=== PATIENT | female | born 1930 | race Caucasian/White ===

== ENCOUNTER 2017-09-12 17:00 | Inpatient (IN) | payer MEDICARE ==
[2017-09-12] VITALS (16 sets, daily range): BP systolic 121–258; BP diastolic 61–121; PULSE 77–130; RESP 16–22; O2SAT 94–98
[~2017-09-12] VITALS: Ht 152.4 cm; Wt 65.3 kg
[~2017-09-12 17:00] MED LIST: BOSU100T PO; ENAL5TAB PO; TYLE500T PO; VERA120T3 PO
[2017-09-12 18:06] LABS: AUTOMATED NEUTROPHIL # 8.5 TH/MM3 (1.8-7.7); BASOPHIL # 0.1 TH/MM3 (0-0.2); BASOPHIL % 0.8 % (0.0-2.0); EOSINOPHIL % 0.4 % (0.0-4.0); HEMATOCRIT 38.2 % (35.0-46.0); HEMO FLAGS DIFF FINAL; LYMPH % 10.1 % (9.0-44.0); LYMPHOCYTE # 1.1 TH/MM3 (1.0-4.8); MEAN CELL VOLUME 87.9 FL (80.0-100.0); MEAN CORPUSCULAR HEMOGLOBIN 30.3 PG (27.0-34.0); MEAN CORPUSCULAR HGB CONC 34.5 % (32.0-36.0); MONO % 10.3 % (0.0-8.0); NEUT % 78.4 % (16.0-70.0); PLATELET COUNT 391 TH/MM3 (150-450); RED BLOOD COUNT 4.35 MIL/MM3 (4.00-5.30); RED CELL DISTRIBUTION WIDTH 14.8 % (11.6-17.2); WHITE BLOOD COUNT 10.8 TH/MM3 (4.0-11.0)
[2017-09-12 18:13] LABS: INTERNATIONAL NORMALIZED RATIO 1.1 RATIO; PROTHROMBIN TIME - PATIENT 11.1 SEC (9.8-11.6)
[2017-09-12 18:14] LABS: APTT (PATIENT) 24.5 SEC (24.3-30.1)
[2017-09-12 18:21] LABS: ALT (GPT) 18 U/L (10-53)
[2017-09-12 18:23] LABS: ANION GAP 8 MEQ/L (5-15); AST (GOT) 25 U/L (15-37); BICARBONATE 24.3 MEQ/L (21.0-32.0); BLOOD UREA NITROGEN 22 MG/DL (7-18); CHLORIDE 98 MEQ/L (98-107); GLOMERULAR FILTRATION RATE 39 ML/MIN (>89); SODIUM (NA) 130 MEQ/L (136-145)
[2017-09-12 18:24] LABS: ALKALINE PHOSPHATASE 92 U/L (45-117); TOTAL BILIRUBIN ADULT 0.5 MG/DL (0.2-1.0)
[2017-09-12 18:25] LABS: POTASSIUM 4.9 MEQ/L (3.5-5.1)
--- NOTE | 2017-09-12 18:29 | RADRPT ---
EXAM DATE/TIME: 09/12/2017 18:18 [facility] COMPARISON: CT BRAIN W/O CONTRAST, April 13, 2014, 14:32. INDICATIONS : Trauma; fall. RADIATION DOSE: 31.05 CTDIvol (mGy) MEDICAL HISTORY : Hypertension. CLL SURGICAL HISTORY : Hysterectomy. ENCOUNTER: Initial ACUITY: 1 day PAIN SCALE: 6/10 LOCATION: cranial TECHNIQUE: Multiple contiguous axial images were obtained of the head. Using automated exposure control and adj ustment of the mA and/or kV according to patient size, radiation dose was kept as low as reasonably a chievable to obtain optimal diagnostic quality images. DICOM format image data is available electro nically for review and comparison. FINDINGS: There are low density subdural collections along both frontal convexities measuring up to 9 mm in max imal thickness on the right and 5 mm in maximal thickness on the left. 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 There is associated approximately 2 mm of leftward mid line shift. I don't see any acute blood. No mass lesion demonstrated. No evidence of an acute ischemic event. Small right parietal scalp contusion. CONCLUSION: 1. 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 2. No acute hemorrhage. Phillip Lua MD on September 12, 2017 at 18:24 Board Certified Radiologist. This report was verified electronically.
[2017-09-12] MEDS ORDERED: MORPHINE SULFATE 4 MG/ML INJ IV PUSH ONE (18:30)
[2017-09-12] MEDS ORDERED: ONDANSETRON HCL 4 MG/2 ML VIAL IV PUSH ONE (18:30)
--- NOTE | 2017-09-12 18:32 | PD ---
HPI Chief Complaint: Fall Time Seen by Provider: 17:00 Travel History International Travel<30 days: No Contact w/Intl Traveler<30days: No Traveled to known affect area: No History of Present Illness HPI Patient is an 87-year-old female presenting to the emergency department for evaluation after fall. Patient was brought to the emergency department via EMS , she was in her front yard talking to her neighbor when the neighbor's dog pulled the leash causing patient to lose her balance and fall face first into the car. According to neighbors report to EMS patient had no loss of consciousness. She currently denies any pain. She has skin tears to her right elbow and left arm. Patient denies any neck or back pain, abdominal pain, headache. PFSH Past Medical History Cancer: Yes (LEUKEMIA) Diminished Hearing: No Hypertension: Yes Tetanus Vaccination: Unknown Past Surgical History Hysterectomy: Yes Social History Alcohol Use: No Tobacco Use: No Substance Use: No Allergies-Medications (Allergen,Severity, Reaction): Coded Allergies: No Known Allergies (Unverified Allergy, Unknown, 09/12/17) Reported Meds & Prescriptions Reported Meds & Active Scripts Active Review of Systems ROS Limitations: Poor Historian Except as stated in HPI: all other systems reviewed are Neg Skin: Positive Other (skin tears) Physical Exam Exam Limitations: Poor Historian Narrative GENERAL: Thin, well-developed, alert, confused elderly female. SKIN: Warm and dry. 2 Superficial skin tears to left upper arm, right elbow HEAD: Atraumatic. Normocephalic. EYES: Pupils equal and round. No scleral icterus. No injection or drainage. ENT: No nasal bleeding or discharge. Mucous membranes pink and moist. NECK: Trachea midline. No JVD. No cervical spine tenderness or step-off noted. Cervical collar on. CARDIOVASCULAR: Regular rate and rhythm. RESPIRATORY: No accessory muscle use. Clear to auscultation. Breath sounds equal bilaterally. GASTROINTESTINAL: Abdomen soft, non-tender, nondistended. Hepatic and splenic margins not palpable. MUSCULOSKELETAL: Extremities without clubbing, cyanosis, or edema. No obvious deformities. NEUROLOGICAL: Awake and alert, oriented to self. No obvious cranial nerve deficits. Motor grossly within normal limits. Five out of 5 muscle strength in the arms and legs. Normal speech. PSYCHIATRIC: Appropriate mood and affect; insight and judgment impaired. Data Data Last Documented VS Vital Signs Date Time Temp Pulse Resp B/P (MAP) Pulse Ox O2 Delivery O2 Flow Rate FiO2 09/12/17 19:15 79 16 225/102 (143) [address] Brain W/O Iv Contrast(Rout) (09/12/17 ) Ct Cerv Spine W/O Contrast (09/12/17 ) Urinalysis - C+S If Indicated (09/12/17 17:19) Cath For Specimen (09/12/17 17:19) Complete Blood Count With Diff (09/12/17 17:19) Comprehensive Metabolic Panel (09/12/17 17:19) Act Partial Throm Time (Ptt) (09/12/17 17:19) Prothrombin Time / Inr (Pt) (09/12/17 17:19) Wound Care (09/12/17 17:19) Ondansetron Inj (Zofran Inj) (09/12/17 18:30) Morphine Inj (Morphine Inj) (09/12/17 18:30) Metoprolol Tartrate Inj (Lopressor Inj) (09/12/17 18:45) Urine Culture (09/12/17 16:15) Admit Order (Ed Use Only) (09/12/17 19:11) Consult Neurosurgery (09/12/17 ) Labs Laboratory Tests Test 09/12/17 16:15 09/12/17 17:50 Urine Color YELLOW Urine Turbidity CLEAR Urine pH 6.5 Urine Specific [place] 1.017 Urine Protein TRACE mg/dL Urine Glucose (UA) NEG mg/dL Urine Ketones 10 mg/dL Urine Occult Blood SMALL Urine Nitrite NEG Urine Bilirubin NEG Urine Urobilinogen LESS THAN 2.0 MG/DL Urine Leukocyte Esterase LARGE Urine RBC 9 /hpf Urine WBC 12 /hpf Urine Squamous Epithelial Cells <1 /hpf Urine Transitional Epithelial Cells 1 /hpf Urine Mucus FEW /lpf Microscopic Urinalysis Comment CATH-CULTURE IND White Blood Count 10.8 TH/MM3 Red Blood Count 4.35 MIL/MM3 Hemoglobin 13.2 GM/DL Hematocrit 38.2 % Mean Corpuscular Volume 87.9 FL Mean Corpuscular Hemoglobin 30.3 PG Mean Corpuscular Hemoglobin Concent 34.5 % Red Cell Distribution Width 14.8 % Platelet Count 391 TH/MM3 Mean Platelet Volume 8.1 FL Neutrophils (%) (Auto) 78.4 % Lymphocytes (%) (Auto) 10.1 % Monocytes (%) (Auto) 10.3 % Eosinophils (%) (Auto) 0.4 % Basophils (%) (Auto) 0.8 % Neutrophils # (Auto) 8.5 TH/MM3 Lymphocytes # (Auto) 1.1 TH/MM3 Monocytes # (Auto) 1.1 TH/MM3 Eosinophils # (Auto) 0.0 TH/MM3 Basophils # (Auto) 0.1 TH/MM3 CBC Comment DIFF FINAL Differential Comment Prothrombin Time 11.1 SEC Prothromb Time International Ratio 1.1 RATIO Activated Partial Thromboplast Time 24.5 SEC Blood Urea Nitrogen 22 MG/DL Creatinine 1.29 MG/DL Random Glucose 109 MG/DL Total Protein 8.1 GM/DL Albumin 4.2 GM/DL Calcium Level 9.2 MG/DL Alkaline Phosphatase 92 U/L Aspartate Amino Transf (AST/SGOT) 25 U/L Alanine Aminotransferase (ALT/SGPT) 18 U/L Total Bilirubin 0.5 MG/DL Sodium Level 130 MEQ/L Potassium Level 4.9 MEQ/L Chloride Level 98 MEQ/L Carbon Dioxide Level 24.3 MEQ/L Anion Gap 8 MEQ/L Estimat Glomerular Filtration Rate 39 ML/MIN MDM Medical Decision Making Medical Screen Exam Complete: Yes Emergency Medical Condition: Yes Interpretation(s) Last Impressions Head CT 09/12/17 0000 Signed Impressions: Service Date/Time: Tuesday, September 12, 2017 18:18 - CONCLUSION: 1. 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 2. No acute hemorrhage. Phillip Lua MD Cervical Spine CT 09/12/17 0000 Signed Impressions: Service Date/Time: Tuesday, September 12, 2017 18:18 - CONCLUSION: Nondisplaced hairline fracture of the right and left lateral masses of C2. Phillip Lua MD Laboratory Tests Test 09/12/17 16:15 09/12/17 17:50 Urine Color YELLOW Urine Turbidity CLEAR Urine pH 6.5 Urine Specific [place] 1.017 Urine Protein TRACE mg/dL Urine Glucose (UA) NEG mg/dL Urine Ketones 10 mg/dL Urine Occult Blood SMALL Urine Nitrite NEG Urine Bilirubin NEG Urine Urobilinogen LESS THAN 2.0 MG/DL Urine Leukocyte Esterase LARGE Urine RBC 9 /hpf Urine WBC 12 /hpf Urine Squamous Epithelial Cells <1 /hpf Urine Transitional Epithelial Cells 1 /hpf Urine Mucus FEW /lpf Microscopic Urinalysis Comment CATH-CULTURE IND White Blood Count 10.8 TH/MM3 Red Blood Count 4.35 MIL/MM3 Hemoglobin 13.2 GM/DL Hematocrit 38.2 % Mean Corpuscular Volume 87.9 FL Mean Corpuscular Hemoglobin 30.3 PG Mean Corpuscular Hemoglobin Concent 34.5 % Red Cell Distribution Width 14.8 % Platelet Count 391 TH/MM3 Mean Platelet Volume 8.1 FL Neutrophils (%) (Auto) 78.4 % Lymphocytes (%) (Auto) 10.1 % Monocytes (%) (Auto) 10.3 % Eosinophils (%) (Auto) 0.4 % Basophils (%) (Auto) 0.8 % Neutrophils # (Auto) 8.5 TH/MM3 Lymphocytes # (Auto) 1.1 TH/MM3 Monocytes # (Auto) 1.1 TH/MM3 Eosinophils # (Auto) 0.0 TH/MM3 Basophils # (Auto) 0.1 TH/MM3 CBC Comment DIFF FINAL Differential Comment Prothrombin Time 11.1 SEC Prothromb Time International Ratio 1.1 RATIO Activated Partial Thromboplast Time 24.5 SEC Blood Urea Nitrogen 22 MG/DL Creatinine 1.29 MG/DL Random Glucose 109 MG/DL Total Protein 8.1 GM/DL Albumin 4.2 GM/DL Calcium Level 9.2 MG/DL Alkaline Phosphatase 92 U/L Aspartate Amino Transf (AST/SGOT) 25 U/L Alanine Aminotransferase (ALT/SGPT) 18 U/L Total Bilirubin 0.5 MG/DL Sodium Level 130 MEQ/L Potassium Level 4.9 MEQ/L Chloride Level 98 MEQ/L Carbon Dioxide Level 24.3 MEQ/L Anion Gap 8 MEQ/L Estimat Glomerular Filtration Rate 39 ML/MIN Vital Signs Date Time Temp Pulse Resp B/P (MAP) Pulse Ox O2 Delivery O2 Flow Rate FiO2 09/12/17 17:05 88 16 258/121 (316) 07 Differential Diagnosis Concussion versus contusion versus sprain versus fracture versus other Narrative Course Patient is an 87-year-old female that presented via EMS for evaluation of a head injury after she sustained a mechanical fall. Fall was witnessed, she was tripped by a dog and fell headfirst into a car causing a dentist. Patient is alert, oriented to self only. Patient is a poor historian, there is no family or friends available to assess patient's baseline. Labs and imaging ordered and pending. Patient's hypertensive on arrival, pain medication and Zofran ordered. CBC with no acute findings. Chemistry with a sodium of 130, BUN and creatinine 22/1.29 Urinalysis is consistent with a urinary tract infection, and reflex culture pending. Patient was given Rocephin 1 g IV 1 dose. Coags are unremarkable Chest x-ray shows no acute disease CT scan the brain which is read by the radiologist shows chronic right greater than left subdural hematomas with 2 mm of leftward midline shift. It was reported that there is no acute hemorrhage. CT scan of the cervical spine also read by the radiologist shows nondisplaced hairline fracture of the right and left lateral masses of C2. Discussed findings with Dr. Rojas, he stated that he would see patient in consult. Patient will be kept in cervical collar at this time. Patient remained hypertensive, patient was given an initial dose of Lopressor, blood pressure trended down slightly. A second dose was given with no significant improvement. At that time patient was placed on a Cardene drip for blood pressure management. Discussed findings with Dr. Dukes, trauma surgeon. Will be admitted to the trauma service, admit orders placed for intensive care. Neurosurgery consult was placed. Diagnosis Primary Impression: C2 cervical fracture Qualified Codes: S12.101A - Unspecified nondisplaced fracture of second cervical vertebra, initial encounter for closed fracture Additional Impressions: Subdural hematoma UTI (urinary tract infection) Qualified Codes: N39.0 - Urinary tract infection, site not specified; R31.9 - Hematuria, unspecified Hypertension Qualified Codes: I10 - Essential (primary) hypertension Altered mental status Qualified Codes: R41.82 - Altered mental status, unspecified Admitting Information Admitting Physician Requests: Admit Condition: Stable Caroline Perez COMPRESSOR TECHNICIAN Sep 12, 2017 18:32
[2017-09-12 18:39] LABS: BLOOD, URINE SMALL (NEG); GLUCOSE,URINE NEG (NEG); KETONE, URINE 10 mg/dL (NEG); MUCUS URINE FEW /lpf (OCC); NITRITE,URINE NEG (NEG); PH, URINE 6.5 (5.0-8.5); SQUAMOUS EPITHELIAL CELL URINE <1 /hpf (0-5); TRANSITIONAL EPI CELLS, URINE 1 /hpf; URINE COLOR YELLOW (YELLW/STRAW)
--- NOTE | 2017-09-12 18:40 | RADRPT ---
EXAM DATE/TIME: 09/12/2017 18:18 [facility] COMPARISON: No previous studies available for comparison. INDICATIONS : Trauma; fall. RADIATION DOSE: 18.41 CTDIvol (mGy) MEDICAL HISTORY : Hypertension. CLL SURGICAL HISTORY : Hysterectomy. ENCOUNTER: Initial ACUITY: 1 day PAIN SCALE: 6/10 LOCATION: neck TECHNIQUE: Volumetric scanning of the cervical spine was performed. Multiplanar reconstructions in the sagittal, coronal and oblique axial planes were performed. Using automated exposure control and adjustment o f the mA and/or kV according to patient size, radiation dose was kept as low as reasonably achievable to obtain optimal diagnostic quality images. DICOM format image data is available electronically f or review and comparison. FINDINGS: There is a coronally oriented nondisplaced hairline fracture of both lateral masses of C2. The fractu re extends into the bilateral transverse foramina but without associated stenosis. Other bones of the cervical spine are intact. Moderate disc space narrowing with uncovertebral and fa cet osteoarthritis seen at C5/C6 and C6/C7. There are mild degenerative changes at the other levels. CONCLUSION: Nondisplaced hairline fracture of the right and left lateral masses of C2. Phillip Lua MD on September 12, 2017 at 18:34 Board Certified Radiologist. This report was verified electronically.
[2017-09-12 18:42] LABS: COMMENT (UR) CATH-CULTURE IND; CULTURE IF INDICATED CATH CULTURE IND
[2017-09-12] MEDS ORDERED: METOPROLOL TARTRATE 5 MG/5 ML VIAL IV PUSH ONE ×2 (18:45→19:30)
[2017-09-12] MEDS ORDERED: cefTRIAXone INJ 1,000 MG in SODIUM CHLORIDE 0.9% INJ 100 ML IV ONE (19:30)
--- NOTE | 2017-09-12 19:53 | PD ---
Data Data Last Documented VS Vital Signs Date Time Temp Pulse Resp B/P (MAP) Pulse Ox O2 Delivery O2 Flow Rate FiO2 09/12/17 19:15 79 16 225/102 (143) [address] Brain W/O Iv Contrast(Rout) (09/12/17 ) Ct Cerv Spine W/O Contrast (09/12/17 ) Urinalysis - C+S If Indicated (09/12/17 17:19) Cath For Specimen (09/12/17 17:19) Complete Blood Count With Diff (09/12/17 17:19) Comprehensive Metabolic Panel (09/12/17 17:19) Act Partial Throm Time (Ptt) (09/12/17 17:19) Prothrombin Time / Inr (Pt) (09/12/17 17:19) Wound Care (09/12/17 17:19) Ondansetron Inj (Zofran Inj) (09/12/17 18:30) Morphine Inj (Morphine Inj) (09/12/17 18:30) Metoprolol Tartrate Inj (Lopressor Inj) (09/12/17 18:45) Urine Culture (09/12/17 16:15) Admit Order (Ed Use Only) (09/12/17 19:11) Consult Neurosurgery (09/12/17 ) Labs Laboratory Tests Test 09/12/17 16:15 09/12/17 17:50 Urine Color YELLOW Urine Turbidity CLEAR Urine pH 6.5 Urine Specific [place] 1.017 Urine Protein TRACE mg/dL Urine Glucose (UA) NEG mg/dL Urine Ketones 10 mg/dL Urine Occult Blood SMALL Urine Nitrite NEG Urine Bilirubin NEG Urine Urobilinogen LESS THAN 2.0 MG/DL Urine Leukocyte Esterase LARGE Urine RBC 9 /hpf Urine WBC 12 /hpf Urine Squamous Epithelial Cells <1 /hpf Urine Transitional Epithelial Cells 1 /hpf Urine Mucus FEW /lpf Microscopic Urinalysis Comment CATH-CULTURE IND White Blood Count 10.8 TH/MM3 Red Blood Count 4.35 MIL/MM3 Hemoglobin 13.2 GM/DL Hematocrit 38.2 % Mean Corpuscular Volume 87.9 FL Mean Corpuscular Hemoglobin 30.3 PG Mean Corpuscular Hemoglobin Concent 34.5 % Red Cell Distribution Width 14.8 % Platelet Count 391 TH/MM3 Mean Platelet Volume 8.1 FL Neutrophils (%) (Auto) 78.4 % Lymphocytes (%) (Auto) 10.1 % Monocytes (%) (Auto) 10.3 % Eosinophils (%) (Auto) 0.4 % Basophils (%) (Auto) 0.8 % Neutrophils # (Auto) 8.5 TH/MM3 Lymphocytes # (Auto) 1.1 TH/MM3 Monocytes # (Auto) 1.1 TH/MM3 Eosinophils # (Auto) 0.0 TH/MM3 Basophils # (Auto) 0.1 TH/MM3 CBC Comment DIFF FINAL Differential Comment Prothrombin Time 11.1 SEC Prothromb Time International Ratio 1.1 RATIO Activated Partial Thromboplast Time 24.5 SEC Blood Urea Nitrogen 22 MG/DL Creatinine 1.29 MG/DL Random Glucose 109 MG/DL Total Protein 8.1 GM/DL Albumin 4.2 GM/DL Calcium Level 9.2 MG/DL Alkaline Phosphatase 92 U/L Aspartate Amino Transf (AST/SGOT) 25 U/L Alanine Aminotransferase (ALT/SGPT) 18 U/L Total Bilirubin 0.5 MG/DL Sodium Level 130 MEQ/L Potassium Level 4.9 MEQ/L Chloride Level 98 MEQ/L Carbon Dioxide Level 24.3 MEQ/L Anion Gap 8 MEQ/L Estimat Glomerular Filtration Rate 39 ML/MIN MDM Supervised Visit with JAIMEE: Yes Narrative Course The history, exam, and medical decision-making in the associated mid-level provider note were completed with my assistance. I reviewed and agree with the findings presented. I attest that I had a [id number] encounter with the patient on the same day, and personally performed and documented my assessment and findings in the medical record. *My assessment and Findings: 87-year-old woman who presents with apparently trip and fall hitting the car. She has some chronic subdurals and but also acute hairline C-spine fracture. She appears overtly confused, to unclear if this is baseline or related to her potential head injury. Dr. Rojas will consult on the patient. Admit to the ICU for monitoring. Diagnosis Primary Impression: C2 cervical fracture Qualified Codes: S12.101A - Unspecified nondisplaced fracture of second cervical vertebra, initial encounter for closed fracture Additional Impressions: Subdural hematoma UTI (urinary tract infection) Qualified Codes: N39.0 - Urinary tract infection, site not specified; R31.9 - Hematuria, unspecified Altered mental status Qualified Codes: R41.82 - Altered mental status, unspecified Hypertension Qualified Codes: I10 - Essential (primary) hypertension Condition: Eyal Brizuela MD Sep 12, 2017 19:53
[2017-09-12] MEDS ORDERED: ONDANSETRON HCL 4 MG/2 ML VIAL IV PUSH PRN (20:15)
[2017-09-12] MEDS ORDERED: CHLORHEXIDINE GLUCONATE 2 % 1 PACK (2 CLOTHS) TOP PRN (20:15)
[2017-09-12] MEDS ORDERED: MISCELLANEOUS NURSING INFORMATION XX SCH (20:15)
[2017-09-12] MEDS ORDERED: ACETAMINOPHEN/HYDROcodone 325 MG/5 MG TAB PO PRN ×2 (20:15)
[2017-09-12] MEDS ORDERED: ENALAPRILAT 1.25 MG/ML VIAL IV PUSH PRN (20:15)
[2017-09-12] MEDS ORDERED: HYDROmorphone HCL PF 1 MG/ML VIAL IVP PRN (20:15)
[2017-09-12] MEDS ORDERED: niCARdipine INJ 25 MG in SODIUM CHLOR 0.9% 250 ML INJ 240 ML IV ONE (20:30)
--- NOTE | 2017-09-12 20:50 | RADRPT ---
EXAM DATE/TIME: 09/12/2017 20:19 [facility] COMPARISON: No previous studies available for comparison. INDICATIONS : Shortness of breath, fall. MEDICAL HISTORY : Hypertension. CCL SURGICAL HISTORY : Hysterectomy. ENCOUNTER: Initial ACUITY: 1 day PAIN SCORE: 0/10 LOCATION: Bilateral chest FINDINGS: A single view of the chest demonstrates the lungs to be symmetrically aerated without evidence of mas s, infiltrate or effusion. The cardiomediastinal contours are unremarkable. Osseous structures are intact. CONCLUSION: No evidence of acute cardiopulmonary disease. Phillip Lua MD on September 12, 2017 at 20:48 Board Certified Radiologist. This report was verified electronically.
[2017-09-12] MEDS ORDERED: DOCUSATE SODIUM 100 MG CAP PO SCH (21:00)
[2017-09-12] MEDS: PANTOPRAZOLE SODIUM 40 MG VIAL IVP SCH (21:28)
[2017-09-12] MEDS: SODIUM CHLOR 0.9% 1000 ML INJ 1,000 ML IV SCH (21:28)
--- NOTE | 2017-09-12 22:45 | HHI.HP ---
HPI Service Critical Care Medicine Primary Care Physician No Primary Care Physician Admission Diagnosis C2 FRACTURE, HEAD INJURY, UTI Diagnosis: Travel History International Travel<30 Days: No Contact w/Intl Traveler <30 Da: No Traveled to Known Affected Are: No History of Present Illness THIS IS A CONSULT NOTE. WAS OPENED H AND P UNINTENTIONALLY. Patient is a difficult historian. She is confused and provides inconsistent answers. She has not accompanied by anyone. Per RN report from [facility], her has dementia and is missing and Silver Alert has been activated on his behalf. 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 She was outside talking to a neighbor when she fell over a dog's leash and landed face-first on a parked car. Reportedly there was no loss of consciousness. 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 Right is larger with 2mm right to left midline shift. No acute component. CT Cspine demonstrates nondisplaced fractures of right and left lateral mass of C2 Past Family Social History Allergies: Coded Allergies: No Known Allergies (Unverified Allergy, Unknown, 09/12/17) Past Medical History Hypertension CML Past Surgical History Hysterectomy Left shoulder arthroplasty Reported Medications Patient did not bring her medications with her. She states she is on verapamil and another antihypertensive but she doesn't know what it is. Family History Mother at age 85 "old age" Social History She states she is a lifetime nonsmoker. Denies use of alcohol or illicit drug. According to ED RN her , Reggie Oropeza, has dementia and is missing and Silver Alert has been activated/. Physical Exam Vital Signs Vital Signs Date Time Temp Pulse Resp B/P (MAP) Pulse Ox O2 Delivery O2 Flow Rate FiO2 09/12/17 22:30 89 16 121/61 (81) 97 Room Air 09/12/17 22:00 90 16 157/68 (97) 96 Room Air 09/12/17 21:45 89 16 162/63 (96) 96 Room Air 09/12/17 21:30 93 16 166/74 (104) 96 Room Air 09/12/17 21:15 92 16 190/79 (116) 96 Room Air 09/12/17 20:45 83 16 174/78 (110) 96 Room Air 09/12/17 20:32 82 214/105 09/12/17 20:30 82 16 188/87 (120) 96 Room Air 09/12/17 20:16 80 214/105 09/12/17 20:15 78 16 214/105 (141) 96 Room Air 09/12/17 20:00 79 16 216/105 (142) 96 Room Air 09/12/17 19:45 77 16 223/103 (143) 96 Room Air 09/12/17 19:30 78 16 219/110 (146) 96 Room Air 09/12/17 19:15 79 16 225/102 (143) 94 09/12/17 19:01 80 22 248/114 (158) 96 09/12/17 17:05 88 16 258/121 (166) 98 Physical Exam GENERAL: Elderly female who is sitting up in ED stretcher. SKIN: Warm and dry, well perfused. Loss dressing in place over right elbow. HEAD: Normocephalic. EYES: Right pupil round, 4 mm and reactive to 3 mm. Left pupil round, 4 mm and reactive to 2 mm. No scleral icterus. No injection or drainage. ENT: Cerumen in right ear. No left hemotympanum. No nasal bleeding or discharge. Mucous membranes pink and moist. NECK: Trachea midline. No JVD. CARDIOVASCULAR: Occasionally irregular, sinus rhythm with PACs on the monitor.. 1/6 systolic murmur at right sternal border. RESPIRATORY: Breathing comfortably with no accessory muscle use. No wheezes Rales or rhonchi. On room air. GASTROINTESTINAL: Abdomen soft, non-tender, nondistended. Well-healed vertical incision in lower abdomen. : Cline in place with light yellow urine output. MUSCULOSKELETAL: Extremities without clubbing, cyanosis. Trace pedal edema. NEUROLOGICAL: Awake and alert. Confused. She does not know the year, believes it's 1940s. Does not know the president. He was in the hospital. No obvious cranial nerve deficits. She has difficulty lifting her left arm because of pain related to a prior shoulder injury, however there is no pronator drift. Ankle plantar and dorsiflexion appears symmetrical bilaterally. Hip flexor strength 4+/5 bilaterally. Sensation intact. Laboratory Laboratory Tests Test 09/12/17 16:15 09/12/17 17:50 Urine Color YELLOW Urine Turbidity CLEAR Urine pH 6.5 Urine Specific [place] 1.017 Urine Protein TRACE Urine Glucose (UA) NEG Urine Ketones 10 Urine Occult Blood SMALL Urine Nitrite NEG Urine Bilirubin NEG Urine Urobilinogen LESS THAN 2.0 Urine Leukocyte Esterase LARGE Urine RBC 9 Urine WBC 12 Urine Squamous Epithelial Cells <1 Urine Transitional Epithelial Cells 1 Urine Mucus FEW Microscopic Urinalysis Comment CATH-CULTURE IND White Blood Count 10.8 Red Blood Count 4.35 Hemoglobin 13.2 Hematocrit 38.2 Mean Corpuscular Volume 87.9 Mean Corpuscular Hemoglobin 30.3 Mean Corpuscular Hemoglobin Concent 34.5 Red Cell Distribution Width 14.8 Platelet Count 391 Mean Platelet Volume 8.1 Neutrophils (%) (Auto) 78.4 Lymphocytes (%) (Auto) 10.1 Monocytes (%) (Auto) 10.3 Eosinophils (%) (Auto) 0.4 Basophils (%) (Auto) 0.8 Neutrophils # (Auto) 8.5 Lymphocytes # (Auto) 1.1 Monocytes # (Auto) 1.1 Eosinophils # (Auto) 0.0 Basophils # (Auto) 0.1 CBC Comment DIFF FINAL Differential Comment Prothrombin Time 11.1 Prothromb Time International Ratio 1.1 Activated Partial Thromboplast Time 24.5 Blood Urea Nitrogen 22 Creatinine 1.29 Random Glucose 109 Total Protein 8.1 Albumin 4.2 Calcium Level 9.2 Alkaline Phosphatase 92 Aspartate Amino Transf (AST/SGOT) 25 Alanine Aminotransferase (ALT/SGPT) 18 Total Bilirubin 0.5 Sodium Level 130 Potassium Level 4.9 Chloride Level 98 Carbon Dioxide Level 24.3 Anion Gap 8 Estimat Glomerular Filtration Rate 39 Date/Time Source Procedure Growth Status 09/12/17 16:15 Urine Catheterized Urine Urine Culture Pending Received Result Diagram: 09/12/17174909/12/171749 Caprini VTE Risk Assessment Caprini VTE Risk Assessment: Mod/High Risk (score >= 2) VTE Pharm Contraindication: Intracranial lesions Caprini Risk Assessment Model Point Value = 1 Point Value = 2 Point Value = 3 Point Value = 5 Age 41-60 Minor surgery BMI > 25 kg/m2 Swollen legs Varicose veins or History of unexplained or recurrent spontaneous Oral contraceptives or hormone replacement Sepsis (< 1 month) Serious lung disease, including pneumonia (< 1 month) Abnormal pulmonary function Acute myocardial infarction Congestive heart failure (< 1 month) History of inflammatory bowel disease Medical patient at bed rest Age 61-74 Arthroscopic surgery Major open surgery (> 45 min) Laparoscopic surgery (> 45 min) Malignancy Confined to bed (> 72 hours) Immobilizing plaster cast Central venous access Age >= 75 History of VTE Family history of VTE Factor V Leiden Prothrombin [id number] Lupus anticoagulant Anticardiolipin antibodies Elevated serum homocysteine Heparin-induced thrombocytopenia Other congenital or acquired thrombophilia Stroke (< 1 month) Elective arthroplasty Hip, pelvis, or leg fracture Acute spinal cord injury (< 1 month) Prophylaxis Regimen Total Risk Factor Score Risk Level Prophylaxis Regimen 0-1 Low Early ambulation 2 Moderate Order ONE of the following: *Sequential Compression Device (SCD) *Heparin 5000 units SQ BID 3-4 Higher Order ONE of the following medications: *Heparin 5000 units SQ TID *Enoxaparin/Lovenox 40 mg SQ daily (WT < 150 kg, CrCl > 30 mL/min) *Enoxaparin/Lovenox 30 mg SQ daily (WT < 150 kg, CrCl > 10-29 mL/min) *Enoxaparin/Lovenox 30 mg SQ BID (WT < 150 kg, CrCl > 30 mL/min) AND/OR *Sequential Compression Device (SCD) 5 or more Highest Order ONE of the following medications: *Heparin 5000 units SQ TID (Preferred with Epidurals) *Enoxaparin/Lovenox 40 mg SQ daily (WT < 150 kg, CrCl > 30 mL/min) *Enoxaparin/Lovenox 30 mg SQ daily (WT < 150 kg, CrCl > 10-29 mL/min) *Enoxaparin/Lovenox 30 mg SQ BID (WT < 150 kg, CrCl > 30 mL/min) AND *Sequential Compression Device (SCD) Assessment and Plan Problem List: (1) Fall ICD Code: W19.XXXA - Unspecified fall, initial encounter Status: Acute (2) Subdural hygroma ICD Code: D18.1 - Lymphangioma, any site Status: Chronic (3) UTI (urinary tract infection) ICD Code: N39.0 - Urinary tract infection, site not specified Status: Acute (4) C2 cervical fracture ICD Code: S12.100A - Unspecified displaced fracture of second cervical vertebra , initial encounter for closed fracture Status: Acute (5) Hypertension ICD Code: I10 - Essential (primary) hypertension Status: Acute Assessment and Plan NEURO: Fall C2 bilateral lateral mass fracture Chronic bilateral right greater than Left subdural hygroma Cervical collar in place Admit [facility] for neurocheck. Neurosurgery consulted. RESP: On room air. Incentive spirometry every hour awake CV: Hypertension Nicardipine gtt to maintain SBP <160. Will obtain patient home med list and resume po meds. GI: Nothing by mouth for now. FEN/RENAL: Hyponatremia, probably chronic Renal insufficiency, unknown chronicity. Check TSH, cortisol, urine osm. Fena ID: ?UTI UA has large leukocyte esterase and 12 white blood cells on a catheter specimen. Follow-up urine culture Received Rocephin in ED, will continue for now pending cx data. HEME: No acute hematologic issues ENDO: Euglycemic PROPH: Avoid pharmacologic DVT prophylaxis at this time due to subdural hygroma and acute trauma. Protonix 40 mg IV daily for stress ulcer prophylaxis. ACCESS: Peripheral IV providing adequate access at this time Level 3 Consult Problem Qualifiers (1) UTI (urinary tract infection): Qualified Codes: N39.0 - Urinary tract infection, site not specified; R31.9 - Hematuria, unspecified (2) C2 cervical fracture: Qualified Codes: S12.101A - Unspecified nondisplaced fracture of second cervical vertebra, initial encounter for closed fracture (3) Hypertension: Qualified Codes: I10 - Essential (primary) hypertension Kathy Torres MD Sep 12, 2017 22:45
[2017-09-13] VITALS (11 sets, daily range): BP systolic 131–178; BP diastolic 64–80; PULSE 64–102; RESP 16–26; TEMP 98.1–98.5; O2SAT 94–98
[2017-09-13] MEDS: SODIUM CHLORIDE 0.9% FLUSH 10 ML FLUSH IV FLUSH PRN (01:33)
[2017-09-13] MEDS: LABETALOL HCL 100 MG/20 ML VIAL IV PUSH PRN ×3 (01:33→23:08)
[2017-09-13 02:01] LABS: AUTOMATED NEUTROPHIL # 11.7 TH/MM3 (1.8-7.7); BASOPHIL % 0.2 % (0.0-2.0); EOSINOPHIL % 0.1 % (0.0-4.0); HEMATOCRIT 40.4 % (35.0-46.0); HEMO FLAGS DIFF FINAL; LYMPH % 6.9 % (9.0-44.0); MEAN CELL VOLUME 88.1 FL (80.0-100.0); MEAN CORPUSCULAR HEMOGLOBIN 29.5 PG (27.0-34.0); MEAN CORPUSCULAR HGB CONC 33.5 % (32.0-36.0); MONO % 10.5 % (0.0-8.0); NEUT % 82.3 % (16.0-70.0); PLATELET COUNT 375 TH/MM3 (150-450); RED BLOOD COUNT 4.58 MIL/MM3 (4.00-5.30); RED CELL DISTRIBUTION WIDTH 14.4 % (11.6-17.2); WHITE BLOOD COUNT 14.2 TH/MM3 (4.0-11.0)
[2017-09-13 02:14] LABS: BICARBONATE 22.6 MEQ/L (21.0-32.0); POTASSIUM 4.5 MEQ/L (3.5-5.1)
[2017-09-13] MEDS ORDERED: niCARdipine INJ 25 MG in SODIUM CHLOR 0.9% 250 ML INJ 240 ML IV PRN (02:45)
[2017-09-13] MEDS: CHLORHEXIDINE GLUCONATE 2 % 1 PACK (2 CLOTHS) TOP SCH (04:00)
--- NOTE | 2017-09-13 05:29 | MH ---
cc: DARIANA GORMAN MD DATE OF ADMISSION: 09/12/2017 CHIEF COMPLAINT Non-trauma Alert. Trauma fall. C2 fracture. HISTORY OF PRESENT ILLNESS The patient is an 87-year-old female who presents to the emergency department after a fall. The patient does have some baseline dementia and was somewhat of a poor historian. The patient was noted to be in front of her yard, walking her neighbor's dog when the dog pulled the patient. The patient lost her balance hit her face first into a car. According to reports there was no loss of consciousness. The patient does not complain of any significant pain, was noted to have some abrasions to her right arm, right forehead, right elbow. She is otherwise in severe hypertension emergency with a systolic of over 200 and diastolic over 100. She is denying any current numbness or headaches. PAST MEDICAL HISTORY 1. Leukemia. 2. Hypertension. PAST SURGICAL HISTORY Hysterectomy. SOCIAL HISTORY No smoking, EtOH or IVDA. MEDICATIONS See EMR. ALLERGIES The patient with no known drug allergies. FAMILY HISTORY Denies diabetes or hypertension. REVIEW OF SYSTEMS Poor historian. Difficult to obtain a complete review of systems but otherwise negative. PHYSICAL EXAMINATION GENERAL: In no acute distress. VITAL SIGNS: Temperature 98.9, pulse 79, respirations 16, blood pressure 225/100. Saturation 94% on room air. HEENT: Pupils equal, round, reactive. Small abrasion to the right forehead. NECK: In C-collar. CLAVICLES: Nontender. LUNGS: Bilateral expansion, clear. HEART: S1-S2, regular. ABDOMEN: Soft, nontender, nondistended. Well-healed surgical scar. EXTREMITIES: Right arm bruising. Moving all extremities. 5/5 motor. The patient is appropriate, answering questions intermittently. However, is somewhat repetitive. PSYCH: Appropriate mood and appropriate affect. : Within normal limits. BACK: Nontender. No stepoff. LABORATORY AND DIAGNOSTIC DATA WBC 10.8, hemoglobin 13.2, hematocrit 38.2, platelets 391. Sodium 130, potassium 4.9, chloride 98, BUN 22, creatinine 1.2, bilirubin 0.5, AST 25, ALT 18, albumin 4.2. INR is 1.1. Urine positive. IMAGING STUDIES CT scan reviewed by myself. CT HEAD Chronic right greater than left subdural [address] C-SPINE Hairline fracture bilateral mass at C2. CHEST X-RAY No evidence of cardiopulmonary disease. ASSESSMENT 1. The patient is an 87-year-old female who presented status post fall with CT lateral mass fractures. 2. Severe hypertension. PLAN 1. After full workup the patient with above-named issues. The patient does have C-spine hairline fracture. We will consult Neurosurgery, maintained C-collar and discuss whether the patient needs any sort of intervention. The patient will be going to the ICU with q. 1 hour neuro checks, close monitoring for evaluation. 2. Also, with the patient's extreme hypertension, she will be placed on a Cardene drip and again be monitored very closely in the ICU with telemetry. We will attempt to control blood pressure and monitor the patient for evidence of ongoing injuries. Discussed with the patient and testing shaking shipping who is credit collections rep, Dr. Torres. MD RENALDO Bass/GABRIELLA /8:55 PM /5:14 AM
[2017-09-13] MEDS: SODIUM CHLOR 0.9% 1000 ML INJ 1,000 ML IV SCH ×2 (07:00→17:00)
[2017-09-13] MEDS ORDERED: LACTULOSE SYRUP 20 GM/30 ML CUP PO PRN (07:15)
--- NOTE | 2017-09-13 08:11 | HHI.CCPN ---
Subjective Remarks/Hospital Course Patient is a difficult historian. She is confused and provides inconsistent answers. She has not accompanied by anyone. Per RN report from [facility], her has dementia and is missing and Silver Alert has been activated on his behalf. 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 She was outside talking to a neighbor when she fell over a dog's leash and landed face-first on a parked car. Reportedly there was no loss of consciousness. Identified injuries were C2 bilateral lateral mass fracture, chronic bilateral right greater than Left subdural hygroma, with 2 mm MLS to left SUBJ 09/13: Patient lying in bed, is oriented 3 today. Right upper extremity slightly weaker than left, otherwise no focal deficits Objective Vital Signs Date Time Temp Pulse Resp B/P (MAP) Pulse Ox O2 Delivery O2 Flow Rate FiO2 09/13/17 06:00 76 09/13/17 00:05 98.5 16 131/64 (86) 94 09/12/17 23:30 Room Air Intake and Output 09/13/17 09/13/17 09/14/17 08:00 16:00 00:00 Intake Total 866 ml Output Total 1200 ml Balance -334 ml Result Diagram: 09/13/17 0146 09/13/17 0146 Objective Remarks GENERAL: Elderly female who is lying in bed SKIN: Warm and dry, well perfused. Dressing in place over right elbow. HEAD: Normocephalic. EYES: Right pupil round, 4 mm and reactive to 3 mm. Left pupil round, 4 mm and reactive to 2 mm. No scleral icterus. No injection or drainage. ENT: Per Dr. Torres exam: Cerumen in right ear. No left hemotympanum. No nasal bleeding or discharge. NECK: Trachea midline. No JVD. CARDIOVASCULAR: Occasionally irregular, sinus rhythm with PACs on the monitor.. 1/6 systolic murmur at right sternal border. RESPIRATORY: Breathing comfortably with no accessory muscle use. No wheezes Rales or rhonchi. On room air. GASTROINTESTINAL: Abdomen soft, non-tender, nondistended. Well-healed vertical incision in lower abdomen. : Cline in place with light yellow urine output. MUSCULOSKELETAL: Extremities without clubbing, cyanosis. NEUROLOGICAL: Awake and alert oriented x3. RUE 4/5 power, normal muscle strength of all other extremities. Ankle plantar and dorsiflexion appears symmetrical bilaterally. Hip flexor strength 4+/5 bilaterally. Sensation intact. A/P Assessment and Plan NEURO: Fall C2 bilateral lateral mass fracture Chronic bilateral right greater than Left subdural hygroma Cervical collar in place Neurosurgery consulted Appears to be nonsurgical injury RESP: On room air. Incentive spirometry every hour awake CV: Hypertension Nicardipine gtt Add Norvasc if persistent hypotension GI: Nothing by mouth. Diet per trauma service FEN/RENAL: Hyponatremia, probably chronic Renal insufficiency, unknown chronicity. TSH, cortisol, urine osm in normal range ID: ?UTI UA has large leukocyte esterase and 12 white blood cells on a catheter specimen. Follow-up urine culture No antibiotics at this time HEME: No acute hematologic issues ENDO: Euglycemic PROPH: Avoid pharmacologic DVT prophylaxis at this time due to subdural hygromas , acute trauma. Protonix 40 mg IV daily for stress ulcer prophylaxis-change to PO ACCESS: Peripheral IV providing adequate access at this time Level 2 CCM will sign off, reconsult as needed Xin Fisher MD Sep 13, 2017 08:11
[2017-09-13] MEDS: DOCUSATE SODIUM 50 MG/SENNA 8.6 MG TAB PO SCH ×2 (09:00→21:00)
[2017-09-13] MEDS: POLYETHYLENE GLYCOL 17 GM PKG PO SCH (09:00)
[2017-09-13] MEDS ORDERED: VERA120T3 PO (09:42)
[2017-09-13] MEDS ORDERED: ENAL5TAB PO (09:42)
[2017-09-13] MEDS ORDERED: VERA80TA PO (09:42)
[2017-09-13] MEDS: hydrALAZINE HCL 20 MG/ML VIAL IV PUSH PRN ×3 (09:52→23:44)
[2017-09-13] MEDS ORDERED: ENOXAPARIN SODIUM 40 MG/0.4 ML SYRINGE SQ SCH (10:00)
[2017-09-13] MEDS: BACITRACIN TOP OINT 15 GM TUBE TOP SCH ×2 (10:39→23:12)
[2017-09-13] MEDS: ENALAPRIL MALEATE 5 MG TAB PO SCH (10:39)
[2017-09-13] MEDS: VERAPAMIL HCL 120 MG TAB PO SCH ×3 (10:39→23:12)
--- NOTE | 2017-09-13 11:18 | PD.HHIRBSE ---
Patient History Record/History Review Reason for Referral: The patient is a 87 year old right handed female status post traumatic brain injury secondary to a fall sustained on 09/12/2017. The patient was walking around outside, became entangled in a dog leash and fell onto a car. She is referred for baseline neurobehavioral status examination per trauma protocol to assess cognitive, behavioral and emotional aspects of the injury and to provide treatment recommendations. Neuropsych Precautions: To be determined. Past Surgical/Medical History Past Surgery: Yes Major surgery in last 100 days: Unknown Hx Anesthesia Reactions: No Hx Orthopedic Surgery: Yes (L SHOULDER) Hx Gynecologic Surgery: Yes (hysterectomy) Hx Falls: Yes Hypertension (High Blood Press: Yes ?: Not Hx Diabetes: No Hx of Eye Probl: Yes Blood Transfusion History Will receive Blood /Blood prod: No Hx Blood Transfusions: Yes Hx Blood Transfusion Reaction: No Medication Active Medications Acetaminophen/ Hydrocodone Bitart ([place] 5-325 Mg) 1 tab Q4H PRN PO; Start at 20:15 Acetaminophen/ Hydrocodone Bitart ([place] 5-325 Mg) 2 tab Q4H PRN PO; Start at 20:15 Bacitracin (Baciguent Oint) 1 applic BID TOP Last administered on 09/13/17t 10: 39; Admin Dose 1 APPLIC; Start 09/12/17 at 21:00 Ceftriaxone Sodium 1000 mg/ Sodium Chloride 100 ml @ 200 mls/hr ONCE ONCE IV Last administered on 09/12/17 20:04; Admin Dose 200 MLS/HR; Start 09/12/17 at 19:30; Stop 09/12/17 at 19:59; Status DC Ceftriaxone Sodium 1000 mg/ Sodium Chloride 100 ml @ 200 mls/hr Q24H IV; Start 09/13/17 at 20:00 Chlorhexidine Gluconate (Chlorhexidine 2% Cloth) 3 pack UNSCH PRN TOP; Start 09/12/17 at 20:15 Chlorhexidine Gluconate (Chlorhexidine 2% Cloth) 3 pack Taper DAILY@04 TOP; Start 09/13/17 at 04:00; Stop 09/09/18 at 03:59 Docusate Sodium (Colace) 100 mg BID PO; Start 09/12/17 at 21:00; Stop 09/13/17 at 07:19; Status DC Enalapril Maleate (Vasotec) 5 mg DAILY PO Last administered on 09/13/17 10:39; Admin Dose 5 MG; Start 09/13/17 at 09:45 Enalaprilat (Vasotec Inj) 1.25 mg Q8H PRN IV PUSH; Start 09/12/17 at 20:15; Stop 09/12/17 at 23:00; Status DC Enoxaparin Sodium (Lovenox Inj) 40 mg Q24H SQ Last administered on 09/13/17 09: 54; Admin Dose 40 MG; Start 09/13/17 at 10:00 Hydralazine HCl (Apresoline Inj) 20 mg Q4H PRN IV PUSH Last administered on 09:52; Admin Dose 20 MG; Start 09/13/17 at 09:45 Hydromorphone HCl (Dilaudid Pf Inj) 0.5 mg Q1H PRN IVP; Start 09/12/17 at 20:15 Labetalol HCl (Trandate Inj) 10 mg Q4H PRN IV PUSH Last administered on 08:09; Admin Dose 10 MG; Start 09/12/17 at 23:00 Lactulose (Lactulose Liq) 30 ml DAILY PRN PO; Start 09/13/17 at 07:15 Metoprolol Tartrate (Lopressor Inj) 2.5 mg ONCE ONCE IV PUSH Last administered on 09/12/17 19:00; Admin Dose 2.5 MG; Start 09/12/17 at 18:45; Stop 09/12/17 at 18:46; Status DC Metoprolol Tartrate (Lopressor Inj) 2.5 mg ONCE ONCE IV PUSH Last administered on 09/12/17 19:22; Admin Dose 2.5 MG; Start 09/12/17 at 19:30; Stop 09/12/17 at 19:31; Status DC Miscellaneous Information 1 [id number]; Start 09/12/17 at 20:15 Morphine Sulfate (Morphine Inj) 2 mg ONCE ONCE IV PUSH; Start 09/12/17 at 18:30 ; Stop 09/12/17 at 18:31; Status DC Nicardipine HCl (Cardene Inj) 25 mg STK-MED ONCE .ROUTE Last administered on 20:16; Admin Dose 25 MG; Start 09/12/17 at 20:03; Stop 09/12/17 at 20:04 ; Status DC Nicardipine HCl 25 mg/Sodium Chloride 250 ml @ 50 mls/hr TITRATE PRN IV; Start 09/13/17 at 02:45 Nicardipine HCl 25 mg/Sodium Chloride 250 ml @ 0 mls/hr TITRATE ONCE IV Last administered on 09/12/17 20:32; Admin Dose 50 MLS/HR; Start 09/12/17 at 20:30; Stop 09/12/17 at 20:31; Status DC Ondansetron HCl (Zofran Inj) 4 mg ONCE ONCE IV PUSH Last administered on 18:33; Admin Dose 4 MG; Start 09/12/17 at 18:30; Stop 09/12/17 at 18:31; Status DC Ondansetron HCl (Zofran Inj) 4 mg Q6H PRN IV PUSH; Start 09/12/17 at 20:15 Pantoprazole Sodium (Protonix Inj) 40 mg Q24H IVP Last administered on 21:28; Admin Dose 40 MG; Start 09/12/17 at 21:00 Polyethylene Glycol (Miralax) 17 gm DAILY PO; Start 09/13/17 at 09:00 Senna/Docusate Sodium (Summer-Colace) 1 tab BID PO; Start 09/13/17 at 09:00 Sodium Chloride 1,000 ml @ 100 mls/hr Q10H IV Last administered on 09/13/17 07 :00; Admin Dose 100 MLS/HR; Start 09/12/17 at 21:00 Sodium Chloride (NS Flush) 2 ml UNSCH PRN IV FLUSH Last administered on 01:33; Admin Dose 2 ML; Start 09/12/17 at 20:15 Verapamil HCl (Isoptin) 240 mg BID PO Last administered on 09/13/17 10:39; Admin Dose 240 MG; Start 09/13/17 at 09:45 Mental Status Assessment Orientation: oriented to Self, oriented to Time, disoriented to Place, disoriented to Situation Mental Status: Impaired: Thought processing, Attention, Learning/Memory Observation The patient is alert, somewhat somnolent and oriented to person and place; She was not consistently oriented to time and circumstances surrounding the reason for hospitalization. In terms of attention skills, the patient was unable to consistently remain on task and remember basic and complex instructions. In terms of memory functioning, the patient was unable to remember three of three words after a brief period of time. The patient initiated spontaneous conversation. Speech was characterized by adequate prosody, grammar and articulation, but impaired volume and rate. Basic naming skills were not assessed. Language repetition skills were not assessed. The patients comprehensions for basic one- and two-stage commands were attenuated. Basic verbal abstraction and problem-solving skills were diminished. The patient appears to posses limited insight and awareness into their situation and within the limits of this brief evaluation, questionable judgment. Impression Residual neurocognitive deficits Adjustment/Coping Assessment Adjustment/Coping: Moderate: Awareness, Insight Observation The patients thought content was free from suicidal, homicidal or paranoid ideation, and the patients thought processes were bradyphrenic. The patients mood was apathetic, and the affect was worrisome. Behavior Assessment Agitation: None Treatment Engagement: Minimal Observation Behaviorally, the patient demonstrated no signs of agitation, impulsivity or disinhibition. There was no remarkable evidence of a formal thought disorder or psychosis. LTG - Status: Deferred STG Status: Deferred Team Members: Neuropsychologist Diagnosis/Discharge Plan Impression This 87 year old woman with a past history of chronic SDH and recent fall on 09/12/2017, appears to have an underlying major neurocognitive disorder in addition to the sequelae associated with her recent TBI. Both conditions will need to be monitored. Diagnosis: (1) Major neurocognitive disorder due to another medical condition (2) Mild major neurocognitive disorder due to traumatic brain injury with behavioral disturbance [facility] Level: V:Confused-non agitated Maximizing acute care outcome It is recommended that the patient be monitored for emergent behavioral impulsivity as the medical condition evolves. This patients neuropathological challenges may limit her rehabilitation potential going forward, and these challenges will require specialized therapeutic skills to maximize outcome. Additionally, the patients family is experiencing ongoing issues of adjustment given the traumatic nature of the injury, and they may benefit from ongoing psychological assistance. At this point in the recovery process, the patient does not have cognitive capacity as the patient is unable to understand a situation and its likely consequences, nor is she able to manipulate information rationally. Cognitive capacity will be assessed throughout the recovery process. Discharge Planning Anticipated Problems Ongoing areas of concern will include behavioral impulsivity, lack of insight and judgment, which is expected to improve with time and treatment. Presently , the patient is lethargic and beginning to more consistently follow commands. Treatment Plan This clinician will continue to follow with you throughout the course of this patients acute care treatment, and I will be available to meet with the patient s family/support system to facilitate their understanding and the ongoing care of their family member. The goals of neuropsychological intervention shall be both educational and supportive to the family/support system as is deemed clinically appropriate. Discharge Needs To be determined. Thank you Thank you for the opportunity to assist in this patients care. Johnny Shine, Ph.D., ABPP Board Certified in Clinical Neuropsychology [place] [employer] [place] Licensed Psychologist [id number] Johnny Shine PhD Sep 13, 2017 11:18 am
--- NOTE | 2017-09-13 13:28 | HHI.CCPN ---
Subjective Brief History HISTORY OF PRESENT ILLNESS The patient is an 87-year-old female who presents to the emergency department after a fall. The patient does have some baseline dementia and was somewhat of a poor historian. The patient was noted to be in front of her yard, walking her neighbor's dog when the dog pulled the patient. The patient lost her balance hit her face first into a car. According to reports there was no loss of consciousness. The patient does not complain of any significant pain, was noted to have some abrasions to her right arm, right forehead, right elbow. She is otherwise in severe hypertension emergency with a systolic of over 200 and diastolic over 100. She is denying any current numbness or headaches. Patient was worked up and diagnosed with the hairline C2 fracture through the lateral masses C-collar has been applied then according to neurosurgery patient will be treated accordingly 24 Hour Review/Hospital Course 09/13/17 Patient is neurologically fully intact although with some degree of cognitive deficit consistent with age Motoric fully intact C-collar in place Discussed with neurosurgery Objective Vital Signs Date Time Temp Pulse Resp B/P (MAP) Pulse Ox O2 Delivery O2 Flow Rate FiO2 09/13/17 12:00 64 09/13/17 12:00 98.1 21 178/80 (112) 98 09/13/17 10:05 21 09/13/17 07:00 Room Air Intake and Output 09/13/17 09/13/17 09/13/17 07:59 15:59 23:59 Intake Total 866 ml Output Total 1200 ml Balance -334 ml Result Diagram: 09/13/17 0146 09/13/17 0146 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
--- NOTE | 2017-09-13 16:48 | PD.CONS ---
Consult Service Palliative Care Consult Requested By Dr. Fisher Primary Care Physician Phillip Rosenthal M.D. Reason for Consultation a. To assist with evaluation and management of symptoms including: Confusion , pain b. To assist medical decision maker(s) with: better understanding of current medical conditions; weighing benefits/burdens of medical treatment options; making medical treatment decisions. HPI History of Present Illness This is an 87-year-old female admitted status post fall with head injury, found to have a nondisplaced C2 hairline fracture of the right and left lateral masses and chronic subdural hematomas with 2 mm leftward midline shift. She was in her front yard walking her dog when she lost her balance and fell face first into a car. There was no reported loss of consciousness. She has skin tears to her right elbow and left arm. She does have a history of chronic leukemia and uncontrolled hypertension. Her was recently admitted to [facility] with confusion and end-stage dementia. She requested a DO NOT RESUSCITATE status for him and signed him into the hospice care center for end-of-life care where he remains at this evaluation. During my many discussions with her regarding her 's care, she did state to me that she and her both wanted to be a DO NOT RESUSCITATE status, however that conversation was unwitnessed and given the patient's confusion, consulting physicians have not felt that she is capacitated for decision-making. ED course: * Vital signs: blood pressure 225/102, pulse 79, RR 16, saturation 94% on room air. * Laboratory: WBC 10.8, Hgb 13.2, HCT 38.2, PLT 391, sodium 1:30, potassium 4.9 , BUN 22, creatinine 1.29 * Radiology:Chest x-ray shows no acute disease. 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 It was reported that there is no acute hemorrhage. CT scan of the cervical spine also read by the radiologist shows nondisplaced hairline fracture of the right and left lateral masses of C2. Consultations: Neurosurgery consultation is pending. Patient remains in a c- collar pending that evaluation. The patient remains confused at this evaluation. She is oriented to self and time but not to purpose or place. She shows no insight into her injury or circumstances. While she states she is aware that her is in the hospice care center actively dying, she states she needs to talk to him before deciding on a decision-maker. She does have a daughter who lives in [place], but refuses to give us the daughter's name, number or address and states "she will not do anything to help. She is not interested in what's going on." She states she has a [id number] in [place], [place], Annabel Nova, but does not want her as a healthcare surrogate. She has asked her neighbor Carlos Eduardo Johnson to be her decision maker and Ms. Johnson is considering that, but is not sure she wants to assume that responsibility. Per [place] statutes, the daughter would be the healthcare proxy, as the is actively dying of end- stage dementia in hospice at this time. They have no other known children, her parents and siblings are . If her neighbor declines to be the decision- maker, this will likely need to go to social work [facility]. . Function/Cognitive Trajectory She has been suffering some falls over the last few years, but had been independent with ADLs. She has had some difficulty getting medications due to lack of transportation. Her blood pressure was very elevated on admission, likely due to medication noncompliance, either by forgetfulness or lack of access is uncertain. At this evaluation she was confused and has been noted to have some baseline dementia by the evaluating trauma team. This is likely to continue to worsen. . Review of Systems ROS Limitations: Poor Historian Constitutional: COMPLAINS OF: Generalized weakness Hematologic/Lymphatics: COMPLAINS OF: Bruising Neurologic: COMPLAINS OF: Poor Balance (AEB falls) Psychiatric: COMPLAINS OF: Confusion Past Family Social History Coded Allergies: No Known Allergies (Unverified Allergy, Unknown, 09/12/17) Past Medical History Hypertension Chronic leukemia Mild dementia . Past Surgical History Hysterectomy Left shoulder arthroplasty . Reported Medications Reported Meds & Active Scripts Active Reported Verapamil (Verapamil HCl) 80 Mg Tab 80 Mg PO DAILY Verapamil (Verapamil HCl) 120 Mg Tab 240 Mg PO BID Enalapril (Enalapril Maleate) 5 Mg Tab 5 Mg PO DAILY . Current Medications Medications (Trade) Dose Ordered Sig/Ady Route Start Time Stop Time Status Last Admin Sodium Chloride 1,000 ml @ 100 mls/hr Q10H IV 09/12/17 21:00 09/13/17 07:00 (NS Flush) 2 ml UNSCH PRN IV FLUSH 09/12/17 20:15 09/13/17 01:33 (Dilaudid Pf Inj) 0.5 mg Q1H PRN IVP 09/12/17 20:15 ([place] 5-325 Mg) 1 tab Q4H PRN PO 09/12/17 20:15 ([place] 5-325 Mg) 2 tab Q4H PRN PO 09/12/17 20:15 (Zofran Inj) 4 mg Q6H PRN IV PUSH 09/12/17 20:15 (Protonix Inj) 40 mg Q24H IVP 09/12/17 21:00 09/12/17 21:28 (Baciguent Oint) 1 applic BID TOP 09/12/17 21:00 09/13/17 10:39 Miscellaneous Information 1 Q361D XX 09/12/17 20:15 (Chlorhexidine 2% Cloth) 3 pack Taper DAILY@04 TOP 09/13/17 04:00 09/09/18 03:59 (Chlorhexidine 2% Cloth) 3 pack UNSCH PRN TOP 09/12/17 20:15 Ceftriaxone Sodium 1000 mg/ Sodium Chloride 100 ml @ 200 mls/hr Q24H IV 09/13/17 20:00 (Trandate Inj) 10 mg Q4H PRN IV PUSH 09/12/17 23:00 09/13/17 08:09 Nicardipine HCl 25 mg/Sodium Chloride 250 ml @ 50 mls/hr TITRATE PRN IV 09/13/17 02:45 (Summer-Colace) 1 tab BID PO 09/13/17 09:00 (Lactulose Liq) 30 ml DAILY PRN PO 09/13/17 07:15 (Miralax) 17 gm DAILY PO 09/13/17 09:00 (Lovenox Inj) 40 mg Q24H SQ 09/13/17 10:00 09/13/17 09:54 (Apresoline Inj) 20 mg Q4H PRN IV PUSH 09/13/17 09:45 09/13/17 09:52 (Vasotec) 5 mg DAILY PO 09/13/17 09:45 09/13/17 10:39 (Isoptin) 240 mg BID PO 09/13/17 09:45 09/13/17 10:39 . Family History Mother at 85 of natural causes. Father at 67. . Substance Use Tobacco:No smoking Alcohol: No ETOH use Prescription med abuse: No abuse. Illicits: No illicits. . Psychosocial History Born in [place], moved to [place] 25 years ago. 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 She had one daughter from whom she is now estranged. The daughter lives in [place] but otherwise the patient will provide no information regarding the daughters identification. She has been to her Reggie for over 60 years and has been his caregiver for the last few years. . Spiritual/Cultural Factors She has no spiritual affiliations. . Living Will: Never completed Health Care Surrogate: Never completed Durable Power of Telephone Ad Taker: Never completed Physical Exam Vital Signs Date Time Temp Pulse Resp B/P (MAP) Pulse Ox O2 Delivery O2 Flow Rate FiO2 09/13/17 12:00 64 09/13/17 12:00 98.1 80 21 178/80 (112) 98 09/13/17 10:05 94 21 09/13/17 10:00 72 09/13/17 08:00 98.1 80 21 178/80 (112) 98 09/13/17 08:00 80 09/13/17 07:00 98 Room Air 09/13/17 06:00 76 09/13/17 04:00 78 09/13/17 02:00 74 09/13/17 00:05 85 09/13/17 00:05 98.5 88 16 131/64 (86) 94 09/12/17 23:55 09/12/17 23:30 80 16 143/73 (96) 96 Room Air 09/12/17 23:15 90 16 153/70 (97) 96 Room Air 09/12/17 22:30 89 16 121/61 (81) 97 Room Air 09/12/17 22:00 90 16 157/68 (97) 96 Room Air 09/12/17 21:45 89 16 162/63 (96) 96 Room Air 09/12/17 21:30 93 16 166/74 (104) 96 Room Air 09/12/17 21:15 92 16 190/79 (116) 96 Room Air 09/12/17 20:45 83 16 174/78 (110) 96 Room Air 09/12/17 20:32 82 214/105 09/12/17 20:30 82 16 188/87 (120) 96 Room Air 09/12/17 20:16 80 214/105 09/12/17 20:15 78 16 214/105 (141) 96 Room Air 09/12/17 20:00 79 16 216/105 (142) 96 Room Air 09/12/17 19:45 77 16 223/103 (143) 96 Room Air 09/12/17 19:30 78 16 219/110 (146) 96 Room Air 09/12/17 19:15 79 16 225/102 (143) 94 09/12/17 19:01 80 22 248/114 (158) 96 09/12/17 17:05 88 16 258/121 (166) 98 Exam CONSTITUTIONAL/GENERAL: This is an adequately nourished patient, in no apparent distress. TUBES/LINES/DRAINS: SKIN: No jaundice, rashes, or lesions. Ecchymoses on upper extremities. No wounds seen anteriorly. Skin temperature appropriate. Not diaphoretic. HEAD: Atraumatic. Normocephalic. EYES: Pupils equal and round and reactive. Extraocular motions intact. No scleral icterus. No injection or drainage. Fundi not examined. ENT: Hearing grossly normal. Nose without bleeding or purulent drainage. Throat without visible erythema, exudates, masses, or lesions. NECK: Trachea midline. Supple, nontender. No palpable thyroid enlargement or nodularity. CARDIOVASCULAR: Regular rate and rhythm without murmurs, gallops, or rubs. No JVD. Peripheral pulses symmetric. RESPIRATORY/CHEST: Symmetric, unlabored respirations. Clear to auscultation. Breath sounds equal bilaterally. No wheezes, rales, or rhonchi. GASTROINTESTINAL: Abdomen soft, non-tender, nondistended. No hepato-splenomegaly , or palpable masses. No guarding. Bowel sounds present. GENITOURINARY: Without palpable bladder distension. Cline catheter in place. MUSCULOSKELETAL: Extremities without clubbing, cyanosis, or edema. No joint tenderness or effusion noted. No calf tenderness. No mottling or clubbing. LYMPHATICS: No palpable cervical or supraclavicular adenopathy. NEUROLOGICAL: Awake and alert. Motor and sensory grossly within normal limits. Follows commands. Cognitively sharp. Moves all extremities. PSYCHIATRIC: No obvious anxiety/depression. no apparent hallucinations or other psychotic thought process. Diagnostic Tests Laboratory Laboratory Tests Test 09/12/17 16:15 09/12/17 17:50 09/12/17 23:59 09/13/17 00:20 Urine Color YELLOW (YELLW/STRAW) Urine Turbidity CLEAR (CLEAR) Urine pH 6.5 (5.0-8.5) Urine Specific [place] 1.017 (1.002-1.035) Urine Protein TRACE mg/dL (NEG-TRACE) Urine Glucose (UA) NEG mg/dL (NEG) Urine Ketones 10 mg/dL (NEG) Urine Occult Blood SMALL (NEG) Urine Nitrite NEG (NEG) Urine Bilirubin NEG (NEG) Urine Urobilinogen LESS THAN 2.0 MG/DL (LESS Urine Leukocyte Esterase LARGE (NEG) Urine RBC 9 /hpf (0-3) Urine WBC 12 /hpf (0-5) Urine Squamous Epithelial Cells <1 /hpf (0-5) Urine Transitional Epithelial Cells 1 /hpf (NONE) Urine Mucus FEW /lpf (OCC) Microscopic Urinalysis Comment CATH-CULTURE IND Urine Osmolality 591 MOSM/KG (300-1300) Urine Random Creatinine 101.4 MG/DL Urine Random Sodium 121 MEQ/L White Blood Count 10.8 TH/MM3 (4.0-11.0) Red Blood Count 4.35 MIL/MM3 (4.00-5.30) Hemoglobin 13.2 GM/DL (11.6-15.3) Hematocrit 38.2 % (35.0-46.0) Mean Corpuscular Volume 87.9 FL (80.0-100.0) Mean Corpuscular Hemoglobin 30.3 PG (27.0-34.0) Mean Corpuscular Hemoglobin Concent 34.5 % (32.0-36.0) Red Cell Distribution Width 14.8 % (11.6-17.2) Platelet Count 391 TH/MM3 (150-450) Mean Platelet Volume 8.1 FL (7.0-11.0) Neutrophils (%) (Auto) 78.4 % (16.0-70.0) Lymphocytes (%) (Auto) 10.1 % (9.0-44.0) Monocytes (%) (Auto) 10.3 % (0.0-8.0) Eosinophils (%) (Auto) 0.4 % (0.0-4.0) Basophils (%) (Auto) 0.8 % (0.0-2.0) Neutrophils # (Auto) 8.5 TH/MM3 (1.8-7.7) Lymphocytes # (Auto) 1.1 TH/MM3 (1.0-4.8) Monocytes # (Auto) 1.1 TH/MM3 (0-0.9) Eosinophils # (Auto) 0.0 TH/MM3 (0-0.4) Basophils # (Auto) 0.1 TH/MM3 (0-0.2) CBC Comment DIFF FINAL Differential Comment Prothrombin Time 11.1 SEC (9.8-11.6) Prothromb Time International Ratio 1.1 RATIO Activated Partial Thromboplast Time 24.5 SEC (24.3-30.1) Blood Urea Nitrogen 22 MG/DL (7-18) Creatinine 1.29 MG/DL (0.50-1.00) Random Glucose 109 MG/DL (74-106) Total Protein 8.1 GM/DL (6.4-8.2) Albumin 4.2 GM/DL (3.4-5.0) Calcium Level 9.2 MG/DL (8.5-10.1) Alkaline Phosphatase 92 U/L (45-117) Aspartate Amino Transf (AST/SGOT) 25 U/L (15-37) Alanine Aminotransferase (ALT/SGPT) 18 U/L (10-53) Total Bilirubin 0.5 MG/DL (0.2-1.0) Sodium Level 130 MEQ/L (136-145) Potassium Level 4.9 MEQ/L (3.5-5.1) Chloride Level 98 MEQ/L (98-107) Carbon Dioxide Level 24.3 MEQ/L (21.0-32.0) Anion Gap 8 MEQ/L (5-15) Estimat Glomerular Filtration Rate 39 ML/MIN (>89) Thyroid Stimulating Hormone 3rd Gen 1.370 uIU/ML (0.358-3.740) Serum Osmolality 287 MOSM/KG (275-295) Random Cortisol 35.0 MCG/DL Nasal Screen MRSA (PCR) MRSA NOT DETECTED (NOT Test 09/13/17 01:46 White Blood Count 14.2 TH/MM3 (4.0-11.0) Red Blood Count 4.58 MIL/MM3 (4.00-5.30) Hemoglobin 13.5 GM/DL (11.6-15.3) Hematocrit 40.4 % (35.0-46.0) Mean Corpuscular Volume 88.1 FL (80.0-100.0) Mean Corpuscular Hemoglobin 29.5 PG (27.0-34.0) Mean Corpuscular Hemoglobin Concent 33.5 % (32.0-36.0) Red Cell Distribution Width 14.4 % (11.6-17.2) Platelet Count 375 TH/MM3 (150-450) Mean Platelet Volume 7.7 FL (7.0-11.0) Neutrophils (%) (Auto) 82.3 % (16.0-70.0) Lymphocytes (%) (Auto) 6.9 % (9.0-44.0) Monocytes (%) (Auto) 10.5 % (0.0-8.0) Eosinophils (%) (Auto) 0.1 % (0.0-4.0) Basophils (%) (Auto) 0.2 % (0.0-2.0) Neutrophils # (Auto) 11.7 TH/MM3 (1.8-7.7) Lymphocytes # (Auto) 1.0 TH/MM3 (1.0-4.8) Monocytes # (Auto) 1.5 TH/MM3 (0-0.9) Eosinophils # (Auto) 0.0 TH/MM3 (0-0.4) Basophils # (Auto) 0.0 TH/MM3 (0-0.2) CBC Comment DIFF FINAL Differential Comment Blood Urea Nitrogen 19 MG/DL (7-18) Creatinine 1.01 MG/DL (0.50-1.00) Random Glucose 112 MG/DL (74-106) Calcium Level 8.8 MG/DL (8.5-10.1) Sodium Level 132 MEQ/L (136-145) Potassium Level 4.5 MEQ/L (3.5-5.1) Chloride Level 100 MEQ/L (98-107) Carbon Dioxide Level 22.6 MEQ/L (21.0-32.0) Anion Gap 9 MEQ/L (5-15) Estimat Glomerular Filtration Rate 52 ML/MIN (>89) Result Diagram: 09/13/17 0146 09/13/17 0146 Microbiology Microbiology Date/Time Source Procedure Growth Status 09/12/17 16:15 Urine Catheterized Urine Urine Culture - Preliminary NO GROWTH IN 24 HOURS. Resulted Patient/Family Conference Issues Discussed: * Palliative care role, purpose, approach * Additional medical, psychosocial, and spiritual history * Patients general health, functional status, and cognitive changes in the months leading up to the current hospitalization * Patient/family understanding of the current medical problems * Patient/family understanding of prognosis * Patients goals of care as best understood from advance directives and/or conversations and/or values * Current medical treatment options and benefits/burdens of those options * Likely scenarios comparing ongoing aggressive care with a transition to comfort measures only * Questions answered to the best of my ability * Palliative care contact information provided Assessment and Plan Disease Oriented Problem List: (1) Subdural hematoma (2) UTI (urinary tract infection) (3) Altered mental status (4) Hypertension (5) C2 cervical fracture (6) Fall (7) 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 She had one daughter from whom she is now estranged. The daughter lives in [place] but otherwise the patient will provide no information regarding the daughters identification. She has been to her Reggie for over 60 years and has been his caregiver for the last few years. . Spiritual: She has no spiritual affiliations. . Legal: At this time for treating physicians feel she is not capacitated to make decisions. Her is actively dying at the hospice care center from end- stage dementia. She is refusing to allow us to contact her daughter. She has no living parents or siblings. She does have one [id number]-hyg in [place], [place], Annabel Nova, possible phone number , but patient does not wish to ask her to be a healthcare surrogate. She has requested that her neighbor, Carlos Eduardo Johnson, be her healthcare surrogate, however she is not certain that she wishes to take on that responsibility yet. Patient is at this time refusing to fill out a healthcare surrogate form. Per [place] statutes, the [id number]-qa-[id number] is the closest living relative and could be the proxy if she agrees, otherwise would be referred to social [facility]. Ethical issues impacting care: None at this time. . Important Contacts Friend- Carlos Eduardo Johnson, . Sister in law- Annabel Nova possible phone number . . Prognosis Her prognosis is poor. She is of advanced age and frail. She is having increased falls and is now confused and unable to independently make decisions. 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 She is becoming less able to care for herself and may require [id number] care once stable from this injury. She is at risk for repeated hospitalizations and continued decline. . Code Status: Full Code (by default. She states she does not wish resuscitation , however she is not capacitated to make decisions.) Plan PLAN: Legal decision maker: At this time for treating physicians feel she is not capacitated to make decisions. Her is actively dying at the [facility] from end-stage dementia. She is refusing to allow us to contact her daughter. She has no living parents or siblings. She does have one sister- in-law in [place], [place], Annabel Nvoa, possible phone number , but patient does not wish to ask her to be a healthcare surrogate. She has requested that her neighbor, Carlos Eduardo Johnson, be her healthcare surrogate, however she is not certain that she wishes to take on that responsibility yet. Patient is at this time refusing to fill out a healthcare surrogate form. Per [place] statutes, the [id number]-vr-tuc is the closest living relative and could be the proxy if she agrees, otherwise would be referred to [facility]. Goals: Goals would be aggressive by default, although the patient states she wishes not to be resuscitated, she is not capacitated to make decisions. CODE STATUS: Full code by default SYMPTOMS: * Confusion: Uncertain whether this is due to recent head trauma, chronic subdural hematomas or underlying dementia. From previous conversations with her regarding her 's care, she had fair insight and did not exhibit confusion. She has also been diagnosed with a UTI, which may be contributing to her current mental status. She is receiving ceftriaxone IV pending culture and sensitivity. * Pain: Pain sources to include head trauma, hairline fracture in C2, needing to wear c-collar, recent fall, bedbound status. Hydrocodone/acetaminophen 5/ 325 one-two tab every 4 hours as needed is available. No pain medication has been used. SUMMARY: This is an 87-year-old female status post fall with head trauma, found to have chronic subdural hematomas, uncontrolled hypertension, UTI, hairline fracture of C2 and a UTI. Although she states she wishes to be a DNR, this cannot be taken as a directive due to her underlying mental status. Efforts in progress to establish a decision-maker until such time as patient might regain capacity to make her own decisions. She would be hospice appropriate if goals were consistent. Palliative care will continue to follow the patient during hospital course as condition evolves, to assist patient/decision-maker with understanding of their medical conditions, weighing benefits/burdens of treatment options, for clarification of goals of treatment. Additionally will assist with any symptoms of palliative concern. . Thank you for the opportunity to participate in the care of Ms. Oropeza. Attestation To help prompt me to consider important information that might be impacting today's encounter and assessment, information from prior notes written by myself or my colleagues may have been "brought forward" into today's note. My signature on this note, however, is an attestation that I personally performed the exam, history, and/or decision-making noted today, and, unless otherwise indicated, the interactions with patient, family, and staff as well as the review of records all occurred today. I also attest that the listed assessment and stated plan reflect my best clinical judgment today based on the combination of historical information, prior notes, and today's exam/ interactions. When time spent is documented, it refers only to time spent today by the signer, or if indicated, combined time spent today by collaborating physician/nurse practitioner. . Lay Crooks Sep 13, 2017 16:47
--- NOTE | 2017-09-13 18:24 | EKG ---
Date Performed: 09/12/2017 Time Performed: 19:05:35 PTAGE: 87 years EKG: Sinus rhythm WITH OCCASIONAL SUPRAVENTRICULAR PREMATURE COMPLEXES BORDERLINE ECG Compared to PREVIOUS TRACING , patient has now in sinus rhythm. PREVIOUS TRACIN07/05/2012 15.55 DOCTOR: Ga Gonzalez Interpretating Date/Time 09/13/2017 18:23:37
[2017-09-13] MEDS ORDERED: HALOPERIDOL LACTATE 5 MG/ML AMP IM ONE (22:15)
[2017-09-13] MEDS ORDERED: HALOPERIDOL LACTATE 5 MG/ML AMP IM PRN (22:15)
[2017-09-13] MEDS: PANTOPRAZOLE SODIUM 40 MG VIAL IVP SCH (23:11)
[2017-09-13] MEDS: cefTRIAXone INJ 1,000 MG in SODIUM CHLORIDE 0.9% INJ 100 ML IV SCH (23:12)
[2017-09-14] VITALS (8 sets, daily range): BP systolic 119–194; BP diastolic 58–88; PULSE 86–104; RESP 20–30; TEMP 97.7–99.1; O2SAT 95–100
[2017-09-14] MEDS: HALOPERIDOL LACTATE 5 MG/ML AMP IV PRN ×2 (00:15→08:13)
[2017-09-14] MEDS: SODIUM CHLORIDE 0.9% FLUSH 10 ML FLUSH IV FLUSH PRN (00:15)
[2017-09-14] MEDS: SODIUM CHLOR 0.9% 1000 ML INJ 1,000 ML IV SCH ×3 (02:30→23:16)
[2017-09-14] MEDS: hydrALAZINE HCL 20 MG/ML VIAL IV PUSH PRN ×3 (03:22→16:45)
[2017-09-14] MEDS: CHLORHEXIDINE GLUCONATE 2 % 1 PACK (2 CLOTHS) TOP SCH (04:00)
[2017-09-14 07:20] LABS: AUTOMATED NEUTROPHIL # 15.3 TH/MM3 (1.8-7.7); BASOPHIL # 0.1 TH/MM3 (0-0.2); BASOPHIL % 0.3 % (0.0-2.0); EOSINOPHIL % 0.1 % (0.0-4.0); HEMATOCRIT 39.7 % (35.0-46.0); HEMO FLAGS AUTO DIFF; LYMPH % 5.1 % (9.0-44.0); LYMPHOCYTE # 0.9 TH/MM3 (1.0-4.8); MEAN CELL VOLUME 86.7 FL (80.0-100.0); MEAN CORPUSCULAR HEMOGLOBIN 30.3 PG (27.0-34.0); MEAN CORPUSCULAR HGB CONC 34.9 % (32.0-36.0); MONO % 12.3 % (0.0-8.0); NEUT % 82.2 % (16.0-70.0); PLATELET COUNT 381 TH/MM3 (150-450); RED BLOOD COUNT 4.57 MIL/MM3 (4.00-5.30); RED CELL DISTRIBUTION WIDTH 14.7 % (11.6-17.2); WHITE BLOOD COUNT 18.6 TH/MM3 (4.0-11.0)
[2017-09-14 07:34] LABS: BICARBONATE 18.5 MEQ/L (21.0-32.0); POTASSIUM 4.6 MEQ/L (3.5-5.1)
[2017-09-14 07:48] LABS: BANDS 10 % (0-6); NEUTROPHIL # MANUAL DIFF 14.7 TH/MM3 (1.8-7.7); PLATELET ESTIMATE SMEAR NORMAL (NORMAL); PLATELET MORPHOLOGY NORMAL (NORMAL); POLYS (SEG NEUTROPHILS) 69 % (16-70); SCAN/DIFF FINAL DIFF MANUAL; WBC DIFF SAMPLE 100
[2017-09-14] MEDS: LABETALOL HCL 100 MG/20 ML VIAL IV PUSH PRN ×2 (08:13→13:14)
--- NOTE | 2017-09-14 08:30 | HHI.PR ---
Neuropsych Behavior Behavior: Mild: Impulsive/Agitated Cognitive Cognitive: Mild: Cognitive, Attention/Concentration, Confused/Orientation, Insight/Awareness, Judgement/Problem-Solving, Memory Psychosocial Psychosocial: Intact: Psychosocial, Family/Other Adjustment, Realistic Expectation, Unable to Asses: Self-Esteem/Confidence Progress Notes/Response to Tx Contents of Sessions: Adjustment, Level of Consciousness Time with Patient: 30 minutes Premorbid psychological status Premorbid Cognitive, Emotional and Behavioral Status: Stable. 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 The patient has no prior psychiatric difficulties, as described above. Substance abuse history is unremarkable. Behavioral Reactions of Patient and Family/Support System: Stable. The patient s family is experiencing ongoing issues of adjustment given the nature of the injury, and this aspect of recovery will require ongoing monitoring. Emotional/Behavioral Status of Patient and Family/Support System: Stable. Pertinent issues, if appropriate to this patients clinical care, are described in detail above. Maximizing acute care outcome It is recommended that the patient be monitored for emergent behavioral impulsivity as the medical condition evolves. This patients neuropathological challenges may limit her rehabilitation potential going forward, and these challenges will require specialized therapeutic skills to maximize outcome. Additionally, the patients family is experiencing ongoing issues of adjustment given the traumatic nature of the injury, and they may benefit from ongoing psychological assistance. At this point in the recovery process, the patient does not have cognitive capacity as the patient is unable to understand a situation and its likely consequences, nor is she able to manipulate information rationally. Cognitive capacity will be assessed throughout the recovery process. Anticipated Problems Ongoing areas of concern will include behavioral impulsivity, lack of insight and judgment, which is expected to improve with time and treatment. Presently , the patient is lethargic and beginning to more consistently follow commands. Treatment Plan This clinician will continue to follow with you throughout the course of this patients acute care treatment, and I will be available to meet with the patient s family/support system to facilitate their understanding and the ongoing care of their family member. The goals of neuropsychological intervention shall be both educational and supportive to the family/support system as is deemed clinically appropriate. [facility] Level: V:Confused-non agitated Impression This 87 year old woman with a past history of chronic SDH and recent fall on 09/12/2017, appears to have an underlying major neurocognitive disorder in addition to the sequelae associated with her recent TBI. Both conditions will need to be monitored. Diagnosis: (1) Major neurocognitive disorder due to another medical condition (2) Mild major neurocognitive disorder due to traumatic brain injury with behavioral disturbance Progress Note Narrative Ongoing follow-up of patient seen during daily trauma rounds. This is day 2 post injury. The patient was noted to become agitated/restless last evening requiring Haldol IM. It is noted that she has an underlying major neurocognitive disorder to her recent TBI sequelae, and as such this may be sundowning. On exam, she was clearly confused as to why she was in the hospital , argumentative at times, and has been noncompliant with medications. Trauma team recommendation is to start ABS to monitor ongoing agitation/restlessness, and start risperidone 0.5 BID to calm her. We are also going to start the ABS to monitor her agitation/restlessness going forward. She is fluctuating Rancho IV/V. I will continue to follow. Johnny Shine PhD Sep 14, 2017 8:30 am
[2017-09-14] MEDS: VERAPAMIL HCL 120 MG TAB PO SCH ×2 (09:00→22:05)
[2017-09-14] MEDS: BACITRACIN TOP OINT 15 GM TUBE TOP SCH ×2 (09:00→22:03)
[2017-09-14] MEDS: POLYETHYLENE GLYCOL 17 GM PKG PO SCH (09:00)
[2017-09-14] MEDS: ENALAPRIL MALEATE 5 MG TAB PO SCH (09:00)
[2017-09-14] MEDS: DOCUSATE SODIUM 50 MG/SENNA 8.6 MG TAB PO SCH ×2 (09:00→21:00)
--- NOTE | 2017-09-14 09:45 | HHI.NSPN ---
(Noa Dueñas) Note Status Status: Progress Note (Noa Dueñas) Status: Progress Note (Greyson Rojas MD) Interval History Interval History 09/14: became delirious last night and reportedly had a fall. currently drowsy following Haldol. (Noa Dueñas) Interval History The patient is a 87-year-old female, who has a history of arterial hypertension, chronic myelocytic leukemia, prior hysterectomy and a left shoulder arthroplasty, dementia, who was brought to the emergency department. Unfortunately she is confused and is unable to explain what happened. She has not accompanied by anybody. She provides inconsistent answers. The history is obtained from the chart and from the emergency room physician. Apparently her who also has dementia was missing and senior alert was activated. The patient reportedly was outside speaking with a neighbor when she fell after she tripped on the dog leash. She landed face first, over a parked car. There was not reported loss of consciousness. There was no seizure activity seen. No tonic/clonic movements. No incontinence of stool or urine. No tongue biting. The patient was moving all four extremities. Upon arrival but she was confused. CT of the brain show bilateral chronic subdural hygromas, with 2 mm of midline shift. CT of the cervical spine show bilateral lateral mass fractures of C1. The patient was found to have a urinary tract infection. She was hemodynamically stable. A neurosurgical consultation was requested. (Greyson Rojas MD) Labs, Micro, & Vital Signs Results Date Time Temp Pulse Resp B/P (MAP) Pulse Ox O2 Delivery O2 Flow Rate FiO2 09/14/17 08:39 100 21 09/14/17 04:00 98.6 104 24 119/58 (78) 95 09/14/17 04:00 104 09/14/17 02:00 86 09/14/17 00:00 98.2 92 27 161/67 (98) 100 09/14/17 00:00 92 09/13/17 22:00 92 09/13/17 20:00 98.4 78 19 158/73 (101) 95 09/13/17 20:00 78 09/13/17 20:00 95 Room Air 09/13/17 16:00 98.2 64 26 147/78 (101) 96 09/13/17 16:00 68 09/13/17 12:00 64 09/13/17 12:00 98.1 80 21 178/80 (112) 98 09/13/17 10:05 94 21 09/13/17 10:00 72 Constitutional Vital Signs Date Time Temp Pulse Resp B/P (MAP) Pulse Ox O2 Delivery O2 Flow Rate FiO2 09/14/17 08:39 100 21 09/14/17 04:00 98.6 104 24 119/58 (78) 95 09/14/17 04:00 104 09/14/17 02:00 86 09/14/17 00:00 98.2 92 27 161/67 (98) 100 09/14/17 00:00 92 09/13/17 22:00 92 09/13/17 20:00 98.4 78 19 158/73 (101) 95 09/13/17 20:00 78 09/13/17 20:00 95 Room Air 09/13/17 16:00 98.2 64 26 147/78 (101) 96 09/13/17 16:00 68 09/13/17 12:00 64 09/13/17 12:00 98.1 80 21 178/80 (112) 98 09/13/17 10:05 94 21 09/13/17 10:00 72 (Noa Dueñas) Review of Systems ROS Limitations: Altered Mental Status (Noa Dueñas) Physical Exam Ms. Oropeza is drowsy following Haldol. She opens her eyes briefly but falls back asleep. Nonverbal today, does not follow commands. Cranial nerve examination: pupils 2-3 mm b/l. Facial motor symmetric at rest. Neck immobilized by Shinnecock J collar. Motor: intermittently moves all four extremities on soft restraints Intermittent tremors in her arms Sensory examination: minimally withdraws to pain x 4 Mima negative b/l. Plantars neutral b/l Cerebellar examination cannot be assessed due to clinical condition (Noa Dueñas) Ms Oropeza is alert, awake, confused Cranial nerve examination demonstrates the pupils to be equal, round, and reactive to light. Extra-ocular movements are intact with normal convergence. No papiledema. Facial motor and sensory function are normal and symmetrical. Gross hearing is intact, bilaterally, to finger rub. The uvula is midline and elevates symmetrically with the soft palate. Sternocleidomastoid and deltoid muscles have normal and symmetrical strength. Other cranial nerves are intact. Cervical spine braced by a Shinnecock collar Muscle strength is symmetrical in both upper and lower extremities. Deep tendon reflexes are symmetrical in both upper and lower extremities. There is a bilateral plantar flexion response. There is no clonus, fasciculations, spasticity or other abnormal reflexes noted. Sensory exam is normal Cerebellar excamination is not possible due to her neurological condition (Greyson Rojas MD) Medications Current Medications Current Medications Medications (Trade) Dose Ordered Sig/Ady Route PRN Reason Start Time Stop Time Status Last Admin Dose Admin Sodium Chloride 1,000 ml @ 100 mls/hr Q10H IV 09/12/17 21:00 09/14/17 02:30 Sodium Chloride (NS Flush) 2 ml UNSCH PRN IV FLUSH FLUSH AFTER USING IV ACCESS 09/12/17 20:15 09/14/17 00:15 Hydromorphone HCl (Dilaudid Pf Inj) 0.5 mg Q1H PRN IVP BREAKTHROUGH PAIN 09/12/17 20:15 Acetaminophen/ Hydrocodone Bitart (Loraine 5-325 Mg) 1 tab Q4H PRN PO PAIN SCALE 1 TO 5 09/12/17 20:15 Acetaminophen/ Hydrocodone Bitart (Loraine 5-325 Mg) 2 tab Q4H PRN PO PAIN SCALE 6 TO 10 09/12/17 20:15 Ondansetron HCl (Zofran Inj) 4 mg Q6H PRN IV PUSH NAUSEA OR VOMITING 09/12/17 20:15 Pantoprazole Sodium (Protonix Inj) 40 mg Q24H IVP 09/12/17 21:00 09/13/17 23:11 Bacitracin (Baciguent Oint) 1 applic BID TOP 09/12/17 21:00 09/13/17 23:12 Miscellaneous Information 1 Q361D XX 09/12/17 20:15 Chlorhexidine Gluconate (Chlorhexidine 2% Cloth) 3 pack Taper DAILY@04 TOP 09/13/17 04:00 09/09/18 03:59 Chlorhexidine Gluconate (Chlorhexidine 2% Cloth) 3 pack UNSCH PRN TOP HYGIENIC CARE 09/12/17 20:15 Ceftriaxone Sodium 1000 mg/ Sodium Chloride 100 ml @ 200 mls/hr Q24H IV 09/13/17 20:00 09/13/17 23:12 Labetalol HCl (Trandate Inj) 10 mg Q4H PRN IV PUSH SBP >160 09/12/17 23:00 09/14/17 08:13 Nicardipine HCl 25 mg/Sodium Chloride 250 ml @ 50 mls/hr TITRATE PRN IV Blood pressure management 09/13/17 02:45 Senna/Docusate Sodium (Summer-Colace) 1 tab BID PO 09/13/17 09:00 Lactulose (Lactulose Liq) 30 ml DAILY PRN PO No BM in 2 days 09/13/17 07:15 Polyethylene Glycol (Miralax) 17 gm DAILY PO 09/13/17 09:00 Hydralazine HCl (Apresoline Inj) 20 mg Q4H PRN IV PUSH SBP >160 09/13/17 09:45 09/14/17 09:15 Enalapril Maleate (Vasotec) 5 mg DAILY PO 09/13/17 09:45 09/13/17 10:39 Verapamil HCl (Isoptin) 240 mg BID PO 09/13/17 09:45 09/13/17 10:39 Haloperidol Lactate (Haldol Inj) 4 mg Q6H PRN IM AGITATION 09/13/17 22:15 Haloperidol Lactate (Haldol Inj) 4 mg Q6H PRN IV AGITATION 09/14/17 00:15 09/14/17 08:13 Enoxaparin Sodium (Lovenox Inj) 30 mg Q24H SQ 09/14/17 10:00 Risperidone (risperDAL) 0.5 mg BID PO 09/14/17 09:30 UNV (Noa Dueñas) Current Medications Current Medications Ondansetron HCl (Zofran Inj) 4 mg ONCE ONCE IV PUSH Last administered on t 18:33; Start 09/12/17 at 18:30; Stop 09/12/17 at 18:31; Status DC Morphine Sulfate (Morphine Inj) 2 mg ONCE ONCE IV PUSH ; Start 09/12/17 at 18: 30; Stop 09/12/17 at 18:31; Status DC Metoprolol Tartrate (Lopressor Inj) 2.5 mg ONCE ONCE IV PUSH Last administered on 09/12/17 19:00; Start 09/12/17 at 18:45; Stop 09/12/17 at 18:46 ; Status DC Metoprolol Tartrate (Lopressor Inj) 2.5 mg ONCE ONCE IV PUSH Last administered on 09/12/17 19:22; Start 09/12/17 at 19:30; Stop 09/12/17 at 19:31 ; Status DC Ceftriaxone Sodium 1000 mg/ Sodium Chloride 100 ml @ 200 mls/hr ONCE ONCE IV Last administered on 09/12/17 20:04; Start 09/12/17 at 19:30; Stop 09/12/17 at 19:59; Status DC Nicardipine HCl (Cardene Inj) 25 mg STK-MED ONCE .ROUTE Last administered on 20:16; Start 09/12/17 at 20:03; Stop 09/12/17 at 20:04; Status DC Sodium Chloride 1,000 ml @ 100 mls/hr Q10H IV Last administered on 09/14/17 13:00; Start 09/12/17 at 21:00 Sodium Chloride (NS Flush) 2 ml UNSCH PRN IV FLUSH FLUSH AFTER USING IV ACCESS Last administered on 09/14/17 00:15; Start 09/12/17 at 20:15 Hydromorphone HCl (Dilaudid Pf Inj) 0.5 mg Q1H PRN IVP BREAKTHROUGH PAIN; Start 09/12/17 at 20:15 Acetaminophen/ Hydrocodone Bitart (Loraine 5-325 Mg) 1 tab Q4H PRN PO PAIN SCALE 1 TO 5; Start 09/12/17 at 20:15 Acetaminophen/ Hydrocodone Bitart (Loraine 5-325 Mg) 2 tab Q4H PRN PO PAIN SCALE 6 TO 10; Start 09/12/17 at 20:15 Enalaprilat (Vasotec Inj) 1.25 mg Q8H PRN IV PUSH SBP>180, DBP>95; Start at 20:15; Stop 09/12/17 at 23:00; Status DC Ondansetron HCl (Zofran Inj) 4 mg Q6H PRN IV PUSH NAUSEA OR VOMITING; Start at 20:15 Pantoprazole Sodium (Protonix Inj) 40 mg Q24H IVP Last administered on 23:11; Start 09/12/17 at 21:00 Bacitracin (Baciguent Oint) 1 applic BID TOP Last administered on 09/13/17 23: 12; Start 09/12/17 at 21:00 Docusate Sodium (Colace) 100 mg BID PO ; Start 09/12/17 at 21:00; Stop 09/13/17 at 07:19; Status DC Miscellaneous Information 1 Q361D XX ; Start 09/12/17 at 20:15 Chlorhexidine Gluconate (Chlorhexidine 2% Cloth) 3 pack Taper DAILY@04 TOP ; Start 09/13/17 at 04:00; Stop 09/09/18 at 03:59 Chlorhexidine Gluconate (Chlorhexidine 2% Cloth) 3 pack UNSCH PRN TOP HYGIENIC CARE; Start 09/12/17 at 20:15 Nicardipine HCl 25 mg/Sodium Chloride 250 ml @ 0 mls/hr TITRATE ONCE IV Last administered on 09/12/17 20:32; Start 09/12/17 at 20:30; Stop 09/12/17 at 20:31 ; Status DC Ceftriaxone Sodium 1000 mg/ Sodium Chloride 100 ml @ 200 mls/hr Q24H IV Last administered on 09/13/17 23:12; Start 09/13/17 at 20:00 Labetalol HCl (Trandate Inj) 10 mg Q4H PRN IV PUSH SBP >160 Last administered on 09/14/17 13:14; Start 09/12/17 at 23:00 Nicardipine HCl 25 mg/Sodium Chloride 250 ml @ 50 mls/hr TITRATE PRN IV Blood pressure management; Start 09/13/17 at 02:45 Senna/Docusate Sodium (Summer-Colace) 1 tab BID PO ; Start 09/13/17 at 09:00 Lactulose (Lactulose Liq) 30 ml DAILY PRN PO No BM in 2 days; Start 09/13/17 at 07:15 Polyethylene Glycol (Miralax) 17 gm DAILY PO ; Start 09/13/17 at 09:00 Enoxaparin Sodium (Lovenox Inj) 40 mg Q24H SQ Last administered on 09/13/17 09 :54; Start 09/13/17 at 10:00; Stop 09/14/17 at 08:49; Status DC Hydralazine HCl (Apresoline Inj) 20 mg Q4H PRN IV PUSH SBP >160 Last administered on 09/14/17 16:45; Start 09/13/17 at 09:45 Enalapril Maleate (Vasotec) 5 mg DAILY PO Last administered on 09/13/17 10:39 ; Start 09/13/17 at 09:45 Verapamil HCl (Isoptin) 240 mg BID PO Last administered on 09/13/17 10:39; Start 09/13/17 at 09:45 Haloperidol Lactate (Haldol Inj) 4 mg Q6H PRN IM AGITATION; Start 09/13/17 at 22:15 Haloperidol Lactate (Haldol Inj) 4 mg NOW ONCE IM Last administered on 22:23; Start 09/13/17 at 22:15; Stop 09/13/17 at 22:16; Status DC Haloperidol Lactate (Haldol Inj) 4 mg Q6H PRN IV AGITATION Last administered on 09/14/17 08:13; Start 09/14/17 at 00:15 Enoxaparin Sodium (Lovenox Inj) 30 mg Q24H SQ Last administered on 09/14/17 12 :14; Start 09/14/17 at 10:00 Risperidone (risperDAL) 0.5 mg BID PO ; Start 09/14/17 at 10:15 Acetaminophen 100 ml @ 400 mls/hr Q6H IV Last administered on 09/14/17 17:00 ; Start 09/14/17 at 17:00 (Greyson Rojas MD) Medical Decision Making MDM Remarks 87 year old female fall at home, C2 hairline fracture through lateral masses b/l chronic subdural hygromas (Noa Dueñas) Plan Plan Remarks cont nonoperative mgt with Shinnecock collar cont neuro checks in [facility] cont mgt per trauma team fall precautions dw nursing (Noa Dueñas) Plan Remarks Problem List: (1) Fall ICD Code: W19.XXXA - Unspecified fall, initial encounter Status: Acute (2) Subdural hygroma ICD Code: D18.1 - Lymphangioma, any site Status: Chronic (3) UTI (urinary tract infection) ICD Code: N39.0 - Urinary tract infection, site not specified Status: Acute (4) C2 cervical fracture ICD Code: S12.100A - Unspecified displaced fracture of second cervical vertebra , initial encounter for closed fracture Status: Acute (5) Hypertension ICD Code: I10 - Essential (primary) hypertension Status: Acute (Greyson Rojas MD) Attending Statement ontinue neuro checks in serial fashion. C2 bilateral lateral mass fracture. Continue nonoperative treatment with Shinnecock J collar. She is not a surgical candidate Chronic bilateral right greater than Left subdural hygroma. Cervical collar in place. neuro check.in serial fasion On room air. Incentive spirometry every hour awake. aggressive pulmonary toilette, nasotracheal suction, and breathing treatments with nebulizers. Daily PT and OT : Hypertension. Nicardipine gtt to maintain SBP <160. Will obtain patient home med list and resume po meds. GI: Nothing by mouth for now. Hyponatremia, chronic. Renal insufficiency, unknown chronicity. Check TSH, cortisol, urine osm. Fena UTI. Follow-up urine cultures Received Rocephin in ED, will continue for now pending cx data. Desmond murphy and SCD's for DVT prophylaxis. Protonix 40 mg IV daily for stress ulcer prophylaxis. Avoid pharmacologic DVT prophylaxis at this time due to subdural hygroma and acute trauma The exam, history, and the medical decision-making described in the above note were completed with the assistance of the mid-level provider. I reviewed and agree with the findings presented. I attest that I had a [id number] encounter with the patient on the same day, and personally performed and documented my assessment and findings in the medical record. (Greyson Rojas MD) Noa Dueñas Sep 14, 2017 09:45 Greyson Rojas MD Sep 14, 2017 21:07
[2017-09-14] MEDS: risperiDONE 0.5 MG TAB PO SCH ×2 (10:15→22:03)
--- NOTE | 2017-09-14 11:20 | HHI.CCPN ---
Subjective Brief History HISTORY OF PRESENT ILLNESS The patient is an 87-year-old female who presents to the emergency department after a fall. The patient does have some baseline dementia and was somewhat of a poor historian. The patient was noted to be in front of her yard, walking her neighbor's dog when the dog pulled the patient. The patient lost her balance hit her face first into a car. According to reports there was no loss of consciousness. The patient does not complain of any significant pain, was noted to have some abrasions to her right arm, right forehead, right elbow. She is otherwise in severe hypertension emergency with a systolic of over 200 and diastolic over 100. She is denying any current numbness or headaches. Patient was worked up and diagnosed with the hairline C2 fracture through the lateral masses C-collar has been applied then according to neurosurgery patient will be treated accordingly 24 Hour Review/Hospital Course 09/13/17 Patient is neurologically fully intact although with some degree of cognitive deficit consistent with age Motoric fully intact C-collar in place Discussed with neurosurgery 09/14/17 Unsure whether she had confusion overnight or is just noncooperative Will transfer to floor with sitter and adjust her agitation medication C2 fracture remains nonoperative Patient will require placement Objective Vital Signs Date Time Temp Pulse Resp B/P (MAP) Pulse Ox O2 Delivery O2 Flow Rate FiO2 09/14/17 08:39 100 21 09/14/17 08:00 98.4 90 27 175/72 (106) 09/14/17 07:00 Room Air Intake and Output 09/14/17 09/14/17 09/15/17 08:00 16:00 00:00 Intake Total 546 ml Output Total 375 ml Balance 171 ml Result Diagram: 09/14/17 0645 09/14/17 0645 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
[2017-09-14] MEDS: ENOXAPARIN SODIUM 30 MG/0.3 ML SYRINGE SQ SCH (12:14)
--- NOTE | 2017-09-14 14:38 | HHI.HCSW ---
Veneer [employer]pper Visit Advance Directive Attempting to identify legal proxy decision maker. [employer] report pending. Patient provided name of sister in law, Annabel Nova. In review of social media/ google search found contact information for her. . Palliative TERRAZZO POLISHER was able to speak with her and obtain additional information for daughter. Sister in law reports patient's daughter's name is Evelia, she was perviously to a Kevin Goffe. Patient last reported her daughter to be in [place]. Attempted to locate via google searches with the following information found: #[phone] #[phone] #[phone]. ISAIAH Reyes has attempted these phone numbers, no match to daughter at this time. [employer] media and google searches completed for Evelia Valentine and Kevin Valentine. Searched limited to [place] then expanded to all states. Also searched "Evelia Oropeza". Unable to further identify potential matches with limited information we have at this time. Awaiting accurint results. Lizbet Spence, SOLE INKER Sep 14, 2017 14:38
--- NOTE | 2017-09-14 14:43 | HHI.HCPN ---
Reason for visit a. To assist with evaluation and management of symptoms including: Confusion , pain b. To assist medical decision maker(s) with: better understanding of current medical conditions; weighing benefits/burdens of medical treatment options; making medical treatment decisions. (Lay Crooks) Subjective/Interval History She became agitated overnight, felt to be delirium. She received Haldol and is sleepy and remains confused this morning, similar to her baseline assessment yesterday. She is refusing all care today including her medications. ED course: * Vital signs: blood pressure 175/72, pulse 90, RR 27, saturation 100 % on room air. * Laboratory: WBC 18.6, Hgb 13.8, HCT 39.7, PLT 381, sodium 131, potassium 4.6, BUN 22, creatinine 1.04. Urine culture preliminarily shows gram-negative joey. * Radiology:Chest x-ray shows no acute disease. 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 It was reported that there is no acute hemorrhage. CT scan of the cervical spine also read by the radiologist shows nondisplaced hairline fracture of the right and left lateral masses of C2. Consultations: Neurosurgery determined nonoperative management, continue Early collar and neuro checks. Patient determined to be incapacitated by physician. Further attempts made to contact legal decision maker. . Family/friend interactions Contacted her sister in law, Annabel Nova, in [facility] verified that she is the patient's mqaevf-vz-oje. She was able to provide the name of Jenniffer's daughter as Evelia. She states she had been more than once and was initially to a [place]. Further searching revealed additionally the last name of Jemal, possibly a second marriage. All telephone numbers associated with that name contacted. I was able to leave a message on one number for a call back, the remaining 3 numbers were all identified as wrong numbers. We are still pending the [facility] report for further attempts to contact daughter. In the interim, her ciyogx-jd-zqx, Annabel, stated that she would be happy to serve as the decision-maker if we were unable to contact the daughter. . (Lay Crooks) Advance Directives Living Will: Never completed Health Care Surrogate: Never completed Durable Power of Sign Out Clerk: Never completed (Lay Crooks) Objective Vital Signs Date Time Temp Pulse Resp B/P (MAP) Pulse Ox O2 Delivery O2 Flow Rate FiO2 09/14/17 08:39 100 21 09/14/17 08:00 98.4 90 27 175/72 (106) 100 09/14/17 08:00 90 09/14/17 07:00 100 Room Air 09/14/17 04:00 98.6 104 24 119/58 (78) 95 09/14/17 04:00 104 09/14/17 02:00 86 09/14/17 00:00 98.2 92 27 161/67 (98) 100 09/14/17 00:00 92 09/13/17 22:00 92 09/13/17 20:00 98.4 78 19 158/73 (101) 95 09/13/17 20:00 78 09/13/17 20:00 95 Room Air 09/13/17 16:00 98.2 64 26 147/78 (101) 96 09/13/17 16:00 68 Intake & Output 09/14/17 09/14/17 06:59 18:59 Intake Total 646 ml Output Total 375 ml Balance 271 ml Intake Oral 20 ml IV Total 626 ml Output Urine Total 375 ml Stool Total 0 ml Bladder Scan Volume Amount 126 ml 278 ml 358 ml Physical Exam CONSTITUTIONAL/GENERAL: This is an adequately nourished patient, in no apparent distress. TUBES/LINES/DRAINS: PIV SKIN: Multiple areas of skin tears, ecchymosis on upper extremities. EYES: Refusing to open her eyes today, eyes not forced open for exam.. ENT: Hearing grossly normal. Nose without bleeding or purulent drainage. Throat without visible erythema, exudates, masses, or lesions. NECK: In Early collar CARDIOVASCULAR: Irregular rhythm, mildly tachycardic rate, 1/6 systolic ejection murmur, no rub. RESPIRATORY/CHEST: Symmetric, unlabored respirations. Clear to auscultation. Breath sounds equal bilaterally. No wheezes, rales, or rhonchi. GASTROINTESTINAL: Abdomen soft, non-tender, nondistended. No hepato-splenomegaly , or palpable masses. No guarding. Bowel sounds present. GENITOURINARY: Without palpable bladder distension. Cline catheter in place. MUSCULOSKELETAL: Extremities without clubbing, cyanosis, or edema. NEUROLOGICAL: Lethargic, confused, unable to follow commands. PSYCHIATRIC: Mildly agitated, required Haldol overnight. . (Lay Crooks) Diagnostic Tests Laboratory Laboratory Tests Test 09/12/17 16:15 09/12/17 17:50 09/12/17 23:59 09/13/17 00:20 Urine Color YELLOW (YELLW/STRAW) Urine Turbidity CLEAR (CLEAR) Urine pH 6.5 (5.0-8.5) Urine Specific [place] 1.017 (1.002-1.035) Urine Protein TRACE mg/dL (NEG-TRACE) Urine Glucose (UA) NEG mg/dL (NEG) Urine Ketones 10 mg/dL (NEG) Urine Occult Blood SMALL (NEG) Urine Nitrite NEG (NEG) Urine Bilirubin NEG (NEG) Urine Urobilinogen LESS THAN 2.0 MG/DL (LESS Urine Leukocyte Esterase LARGE (NEG) Urine RBC 9 /hpf (0-3) Urine WBC 12 /hpf (0-5) Urine Squamous Epithelial Cells <1 /hpf (0-5) Urine Transitional Epithelial Cells 1 /hpf (NONE) Urine Mucus FEW /lpf (OCC) Microscopic Urinalysis Comment CATH-CULTURE IND Urine Osmolality 591 MOSM/KG (300-1300) Urine Random Creatinine 101.4 MG/DL Urine Random Sodium 121 MEQ/L White Blood Count 10.8 TH/MM3 (4.0-11.0) Red Blood Count 4.35 MIL/MM3 (4.00-5.30) Hemoglobin 13.2 GM/DL (11.6-15.3) Hematocrit 38.2 % (35.0-46.0) Mean Corpuscular Volume 87.9 FL (80.0-100.0) Mean Corpuscular Hemoglobin 30.3 PG (27.0-34.0) Mean Corpuscular Hemoglobin Concent 34.5 % (32.0-36.0) Red Cell Distribution Width 14.8 % (11.6-17.2) Platelet Count 391 TH/MM3 (150-450) Mean Platelet Volume 8.1 FL (7.0-11.0) Neutrophils (%) (Auto) 78.4 % (16.0-70.0) Lymphocytes (%) (Auto) 10.1 % (9.0-44.0) Monocytes (%) (Auto) 10.3 % (0.0-8.0) Eosinophils (%) (Auto) 0.4 % (0.0-4.0) Basophils (%) (Auto) 0.8 % (0.0-2.0) Neutrophils # (Auto) 8.5 TH/MM3 (1.8-7.7) Lymphocytes # (Auto) 1.1 TH/MM3 (1.0-4.8) Monocytes # (Auto) 1.1 TH/MM3 (0-0.9) Eosinophils # (Auto) 0.0 TH/MM3 (0-0.4) Basophils # (Auto) 0.1 TH/MM3 (0-0.2) CBC Comment DIFF FINAL Differential Comment Prothrombin Time 11.1 SEC (9.8-11.6) Prothromb Time International Ratio 1.1 RATIO Activated Partial Thromboplast Time 24.5 SEC (24.3-30.1) Blood Urea Nitrogen 22 MG/DL (7-18) Creatinine 1.29 MG/DL (0.50-1.00) Random Glucose 109 MG/DL (74-106) Total Protein 8.1 GM/DL (6.4-8.2) Albumin 4.2 GM/DL (3.4-5.0) Calcium Level 9.2 MG/DL (8.5-10.1) Alkaline Phosphatase 92 U/L (45-117) Aspartate Amino Transf (AST/SGOT) 25 U/L (15-37) Alanine Aminotransferase (ALT/SGPT) 18 U/L (10-53) Total Bilirubin 0.5 MG/DL (0.2-1.0) Sodium Level 130 MEQ/L (136-145) Potassium Level 4.9 MEQ/L (3.5-5.1) Chloride Level 98 MEQ/L (98-107) Carbon Dioxide Level 24.3 MEQ/L (21.0-32.0) Anion Gap 8 MEQ/L (5-15) Estimat Glomerular Filtration Rate 39 ML/MIN (>89) Thyroid Stimulating Hormone 3rd Gen 1.370 uIU/ML (0.358-3.740) Serum Osmolality 287 MOSM/KG (275-295) Random Cortisol 35.0 MCG/DL Nasal Screen MRSA (PCR) MRSA NOT DETECTED (NOT Test 09/13/17 01:46 09/14/17 06:45 White Blood Count 14.2 TH/MM3 (4.0-11.0) 18.6 TH/MM3 (4.0-11.0) Red Blood Count 4.58 MIL/MM3 (4.00-5.30) 4.57 MIL/MM3 (4.00-5.30) Hemoglobin 13.5 GM/DL (11.6-15.3) 13.8 GM/DL (11.6-15.3) Hematocrit 40.4 % (35.0-46.0) 39.7 % (35.0-46.0) Mean Corpuscular Volume 88.1 FL (80.0-100.0) 86.7 FL (80.0-100.0) Mean Corpuscular Hemoglobin 29.5 PG (27.0-34.0) 30.3 PG (27.0-34.0) Mean Corpuscular Hemoglobin Concent 33.5 % (32.0-36.0) 34.9 % (32.0-36.0) Red Cell Distribution Width 14.4 % (11.6-17.2) 14.7 % (11.6-17.2) Platelet Count 375 TH/MM3 (150-450) 381 TH/MM3 (150-450) Mean Platelet Volume 7.7 FL (7.0-11.0) 8.4 FL (7.0-11.0) Neutrophils (%) (Auto) 82.3 % (16.0-70.0) 82.2 % (16.0-70.0) Lymphocytes (%) (Auto) 6.9 % (9.0-44.0) 5.1 % (9.0-44.0) Monocytes (%) (Auto) 10.5 % (0.0-8.0) 12.3 % (0.0-8.0) Eosinophils (%) (Auto) 0.1 % (0.0-4.0) 0.1 % (0.0-4.0) Basophils (%) (Auto) 0.2 % (0.0-2.0) 0.3 % (0.0-2.0) Neutrophils # (Auto) 11.7 TH/MM3 (1.8-7.7) 15.3 TH/MM3 (1.8-7.7) Lymphocytes # (Auto) 1.0 TH/MM3 (1.0-4.8) 0.9 TH/MM3 (1.0-4.8) Monocytes # (Auto) 1.5 TH/MM3 (0-0.9) 2.3 TH/MM3 (0-0.9) Eosinophils # (Auto) 0.0 TH/MM3 (0-0.4) 0.0 TH/MM3 (0-0.4) Basophils # (Auto) 0.0 TH/MM3 (0-0.2) 0.1 TH/MM3 (0-0.2) CBC Comment DIFF FINAL AUTO DIFF Differential Comment FINAL DIFF MANUAL Blood Urea Nitrogen 19 MG/DL (7-18) 22 MG/DL (7-18) Creatinine 1.01 MG/DL (0.50-1.00) 1.04 MG/DL (0.50-1.00) Random Glucose 112 MG/DL (74-106) 126 MG/DL (74-106) Calcium Level 8.8 MG/DL (8.5-10.1) 8.9 MG/DL (8.5-10.1) Sodium Level 132 MEQ/L (136-145) 131 MEQ/L (136-145) Potassium Level 4.5 MEQ/L (3.5-5.1) 4.6 MEQ/L (3.5-5.1) Chloride Level 100 MEQ/L (98-107) 100 MEQ/L (98-107) Carbon Dioxide Level 22.6 MEQ/L (21.0-32.0) 18.5 MEQ/L (21.0-32.0) Anion Gap 9 MEQ/L (5-15) 13 MEQ/L (5-15) Estimat Glomerular Filtration Rate 52 ML/MIN (>89) 50 ML/MIN (>89) Differential Total Cells Counted 100 Neutrophils % (Manual) 69 % (16-70) Band Neutrophils % 10 % (0-6) Lymphocytes % 10 % (9-44) Monocytes % 11 % (0-8) Neutrophils # (Manual) 14.7 TH/MM3 (1.8-7.7) Platelet Estimate NORMAL (NORMAL) Platelet Morphology Comment NORMAL (NORMAL) Hematology Comments (Lay Crooks) Result Diagram: 09/14/17 0645 09/14/17 0645 Microbiology Microbiology Date/Time Source Procedure Growth Status 09/12/17 16:15 Urine Catheterized Urine Urine Culture - Preliminary Gram Negative Joey Resulted Imaging Last Impressions Head CT 09/12/17 0000 Signed Impressions: Service Date/Time: Tuesday, September 12, 2017 18:18 - CONCLUSION: 1. 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 2. No acute hemorrhage. Phillip Lua MD Chest X-Ray 09/12/17 0000 Signed Impressions: Service Date/Time: Tuesday, September 12, 2017 20:19 - CONCLUSION: No evidence of acute cardiopulmonary disease. Phillip Lua MD Cervical Spine CT 09/12/17 0000 Signed Impressions: Service Date/Time: Tuesday, September 12, 2017 18:18 - CONCLUSION: Nondisplaced hairline fracture of the right and left lateral masses of C2. Phillip Lua MD (Lay Crooks) Assessment and Plan Disease Oriented Problem List: (1) Subdural hematoma (2) UTI (urinary tract infection) (3) Altered mental status (4) Hypertension (5) C2 cervical fracture (6) Fall (7) Major neurocognitive disorder due to another medical condition (8) Mild major neurocognitive disorder due to traumatic brain injury with behavioral disturbance Symptom Scale: (1) Confusion 0-10 Scale: Unable to quantify (alert to self and date only.) (2) Pain, generalized 0-10 Scale: Unable to quantify (generalized neck, shoulder and head pain.) Pertinent Non-Medical Issues Psychosocial:[place] in [place] ago. 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 She had one daughter from whom she is now estranged. The daughter lives in [place] but otherwise the patient will provide no information regarding the daughters identification. She has been to her Reggie for over 60 years and has been his caregiver for the last few years. . Spiritual: She has no spiritual affiliations. . Legal: At this time for treating physicians feel she is not capacitated to make decisions. Her is actively dying at the hospice care center from end- stage dementia. She is refusing to allow us to contact her daughter. She has no living parents or siblings. She does have one fhtctm-[id number] in [place], [place], Annabel Nova, possible phone number , but patient does not wish to ask her to be a healthcare surrogate. She has requested that her neighbor, Carlso Eduardo Johnson, be her healthcare surrogate, however she is not certain that she wishes to take on that responsibility yet. Patient is at this time refusing to fill out a healthcare surrogate form. Per [place] statutes, the [id number]-vh-lxc is the closest living relative and could be the proxy if she agrees, otherwise would be referred to social work advantage. Ethical issues impacting care: None at this time. . Important Contacts Friend- Carlos Eduardo Johnson, . Sister in law- Annabel Nova . . Prognosis Her prognosis is poor. She is of advanced age and frail. She is having increased falls and is now confused and unable to independently make decisions. She is not oriented and agitated overnight, requiring Haldol. 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 She is becoming less able to care for herself and may require gguoh-lpq-[id number] care once stable from this injury. She is at risk for repeated hospitalizations and continued decline. . Code Status: Full Code (by default. She states she does not wish resuscitation , however she is not capacitated to make decisions.) Plan PLAN: Legal decision maker: At this time for treating physicians feel she is not capacitated to make decisions. Her [facility]. As she is not capacitated to make decisions, attempts are being made to contact her daughter. She has no living parents or siblings. She does have one lrudis-at-bil in [place], [place], Annabel Nova, , and she is willing to be the legal decision-maker if needed. She has provided some information regarding the daughter, Evelia to assist in locating her, but has no information on her current last name or whereabouts. Patient has requested that her neighbor, Carlos Eduardo Johnson, be her healthcare surrogate, however Ms. Johnson is not certain that she wishes to take on that responsibility yet. Patient is at this time refusing to fill out a healthcare surrogate form. Per [place] statutes, if the daughter cannot be located, the [id number]-thm is the closest living relative and could be the proxy if she agrees, otherwise would be referred to social work advantage. Goals: Goals would be aggressive by default, although the patient states she wishes not to be resuscitated, she is not capacitated to make decisions. CODE STATUS: Full code by default SYMPTOMS: * Confusion: Uncertain whether this is due to recent head trauma, chronic subdural hematomas or underlying dementia. She is more confused today than yesterday, refusing medications, unable to participate in conversation. Her blood pressure has been elevated as she has been declining her antihypertensives. She is now receiving risperidone and Haldol as needed. She may benefit from a repeat CT of the head to determine any progression in the subdural hematomas. * Pain: Pain sources to include head trauma, hairline fracture in C2, needing to wear c-collar, recent fall, bedbound status. Hydrocodone/acetaminophen 5/ 325 one-two tab every 4 hours as needed is available. No pain medication has been used. Due to patient's altered mental status, she may not be able to communicate her needs for pain management. She could benefit from scheduled Tylenol, which is unlikely to impact her mentation negatively. Palliative care will continue to follow the patient during hospital course as condition evolves, to assist patient/decision-maker with understanding of their medical conditions, weighing benefits/burdens of treatment options, for clarification of goals of treatment. Additionally will assist with any symptoms of palliative concern. . (Lay Crooks) Attestation To help prompt me to consider important information that might be impacting today's encounter and assessment, information from prior notes written by myself or my colleagues may have been "brought forward" into today's note. My signature on this note, however, is an attestation that I personally performed the exam, history, and/or decision-making noted today, and, unless otherwise indicated, the interactions with patient, family, and staff as well as the review of records all occurred today. I also attest that the listed assessment and stated plan reflect my best clinical judgment today based on the combination of historical information, prior notes, and today's exam/ interactions. When time spent is documented, it refers only to time spent today by the signer, or if indicated, combined time spent today by collaborating physician/nurse practitioner. . (Lay Crooks) Collaborating MD Comments Chart reviewed, patient examined personally by me, case discussed with palliative care REGIONAL PLANNER. I have reviewed the above note and concur. Patient is arousable and can answer simple questions at time of my visit. She has no idea where she is and no understanding of her illness/injury or that she is currently hospitalized. When I ask where she is , she answers --"In the kitchen." When I ask where her is, she answers -- "He is here with me. " In my clinical opinion, the patient is incapacitated to make her own medical decisions. Given there has been decline over the last 24 hours, I now think it is unlikely that she will regain capacity. WBC is increasing. There is a gram neg joey growing in her urine. As per REGIONAL PLANNER note, palliative care team is working hard to find the appropriate legal decision maker. At this time, resuscitation attempts are likely to be traumatic without serving to restore quality of life. Once we find a decision maker we will review resuscitation status and a possible transition to "comfort measrures only." TIME: Total combined physician/REGIONAL PLANNER time on floor is over 35 minutes with over 50% spent on counseling / coordination of care. Total time included chart review, patient exam, capacity determination, and above documented telephone calls to identify the appropriate medical decision maker. . (Dean Rodriguez MD) Lay Crooks Sep 14, 2017 14:43 Dean Rodriguez MD Sep 14, 2017 18:01
--- NOTE | 2017-09-14 16:30 | MB ---
cc: BERNA PICKETT M.D. DATE OF CONSULTATION: 09/13/2017 REASON FOR CONSULTATION: Consultation was raised by trauma surgeon, and Dr. Torres. CHIEF COMPLAINT Status post fall with a C2 fracture neck. Neck pain. HISTORY OF PRESENT ILLNESS The patient is a 87-year-old female, who has a history of arterial hypertension, chronic myelocytic leukemia, prior hysterectomy and a left shoulder arthroplasty, dementia, who was brought to the emergency department. Unfortunately she is confused and is unable to explain what happened. She has not accompanied by anybody. She provides inconsistent answers. The history is obtained from the chart and from the emergency room physician. Apparently her who also has dementia was missing and senior [place] was activated. The patient reportedly was outside speaking with a neighbor when she fell after she tripped on the dog leash. She landed face first, over a parked car. There was not reported loss of consciousness. There was no seizure activity seen. No tonic/clonic movements. No incontinence of stool or urine. No tongue biting. The patient was moving all four extremities. Upon arrival but she was confused. CT of the brain show bilateral chronic subdural hygromas, with 2 mm of midline shift. CT of the cervical spine show bilateral lateral mass fractures of C1. The patient was found to have a urinary tract infection. She was hemodynamically stable. A neurosurgical consultation was requested. PAST MEDICAL HISTORY Arterial hypertension, chronic myelogenous leukemia. PAST SURGICAL HISTORY Hysterectomy Left shoulder surgery. MEDICATIONS: Medications reviewed on the EMR FAMILY HISTORY His family history was reviewed. Her mother is at age 85 due to natural causes. No other history is known. SOCIAL HISTORY The patient does not smoke cigarettes. She does not drink alcohol. No history of illicit drug use. REVIEW OF SYSTEMS Review of system is not possible as the patient is confused and provides only incoherent answers to any question. NEUROLOGIC EXAMINATION The patient is alert, awake, confused Cranial nerve examination demonstrates the pupils to be equal, round, and reactive to light. Extra-ocular movements are intact with normal convergence. No papiledema. Facial motor and sensory function are normal and symmetrical. Gross hearing is intact, bilaterally, to finger rub. The uvula is midline and elevates symmetrically with the soft palate. Sternocleidomastoid and deltoid muscles have normal and symmetrical strength. Other cranial nerves are intact. Cervical spine braced by a [place] collar Muscle strength is symmetrical in both upper and lower extremities. Deep tendon reflexes are symmetrical in both upper and lower extremities. There is a bilateral plantar flexion response. There is no clonus, fasciculations, spasticity or other abnormal reflexes noted. Sensory exam is normal Cerebellar excamination is not possible due to her neurological condition RADIOLOGY CT of the brain showed bilateral chronic subdural hygromas. There is 2 mm of midline shift towards the left side. CT of the cervical spine show bilateral fractures on the lateral mass of C1. Caprini VTE Risk Assessment Caprini VTE Risk Assessment Caprini VTE Risk Assessment: Mod/High Risk (score >= 2) VTE Pharm Contraindication: Intracranial lesions Caprini Risk Assessment Model Point Value = 1 Point Value = 2 Point Value = 3 Point Value = 5 Age 41-60 Minor surgery BMI > 25 kg/m2 Swollen legs Varicose veins or History of unexplained or recurrent spontaneous Oral contraceptives or hormone replacement Sepsis (< 1 month) Serious lung disease, including pneumonia (< 1 month) Abnormal pulmonary function Acute myocardial infarction Congestive heart failure (< 1 month) History of inflammatory bowel disease Medical patient at bed rest Age 61-74 Arthroscopic surgery Major open surgery (> 45 min) Laparoscopic surgery (> 45 min) Malignancy Confined to bed (> 72 hours) Immobilizing plaster cast Central venous access Age >= 75 History of VTE Family history of VTE Factor V Leiden Prothrombin [id number] Lupus anticoagulant Anticardiolipin antibodies Elevated serum homocysteine Heparin-induced thrombocytopenia Other congenital or acquired thrombophilia Stroke (< 1 month) Elective arthroplasty Hip, pelvis, or leg fracture Acute spinal cord injury (< 1 month) Prophylaxis Regimen Total Risk Factor Score Risk Level Prophylaxis Regimen 0-1 Low Early ambulation 2 Moderate Order ONE of the following: *Sequential Compression Device (SCD) *Heparin 5000 units SQ BID 3-4 Higher Order ONE of the following medications: *Heparin 5000 units SQ TID *Enoxaparin/Lovenox 40 mg SQ daily (WT < 150 kg, CrCl > 30 mL/min) *Enoxaparin/Lovenox 30 mg SQ daily (WT < 150 kg, CrCl > 10-29 mL/min) *Enoxaparin/Lovenox 30 mg SQ BID (WT < 150 kg, CrCl > 30 mL/min) AND/OR *Sequential Compression Device (SCD) 5 or more Highest Order ONE of the following medications: *Heparin 5000 units SQ TID (Preferred with Epidurals) *Enoxaparin/Lovenox 40 mg SQ daily (WT < 150 kg, CrCl > 30 mL/min) *Enoxaparin/Lovenox 30 mg SQ daily (WT < 150 kg, CrCl > 10-29 mL/min) *Enoxaparin/Lovenox 30 mg SQ BID (WT < 150 kg, CrCl > 30 mL/min) AND *Sequential Compression Device (SCD) Assessment and Plan Assessment and Plan 1. 87-year-old female status post fall with traumatic brain injury and cerbral concussion. 2. Bilateral fractures of C1 Problem List: (1) Fall ICD Code: W19.XXXA - Unspecified fall, initial encounter Status: Acute (2) Subdural hygroma ICD Code: D18.1 - Lymphangioma, any site Status: Chronic (3) UTI (urinary tract infection) ICD Code: N39.0 - Urinary tract infection, site not specified Status: Acute (4) C2 cervical fracture ICD Code: S12.100A - Unspecified displaced fracture of second cervical vertebra , initial encounter for closed fracture Status: Acute (5) Hypertension ICD Code: I10 - Essential (primary) hypertension Status: Acute Neuro checks in serial fashion. C2 bilateral lateral mass fracture. nonoperative treatment with [place] J collar. 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 neuro check.in serial fasion On room air. Incentive spirometry every hour awake. aggressive pulmonary toilette, nasotracheal suction, and breathing treatments with nebulizers. Daily PT and OT : Hypertension. Nicardipine gtt to maintain SBP <160. Will obtain patient home med list and resume po meds. GI: Nothing by mouth for now. Hyponatremia, chronic. Renal insufficiency, unknown chronicity. Check TSH, cortisol, urine osm. Fena UTI. Follow-up urine cultures Received Rocephin in ED, will continue for now pending cx data. Desmond murphy and SCD's for DVT prophylaxis. Protonix 40 mg IV daily for stress ulcer prophylaxis. Avoid pharmacologic DVT prophylaxis at this time due to subdural hygroma and acute trauma. Berna Pickett MD [facility]/andrew /2:44 PM /4:18 PM SAUMYA
[2017-09-14] MEDS: ACETAMINOPHEN 1000 MG/100 ML 100 ML IV SCH ×2 (17:00→23:08)
[2017-09-14] MEDS: cefTRIAXone INJ 1,000 MG in SODIUM CHLORIDE 0.9% INJ 100 ML IV SCH (21:18)
[2017-09-14] MEDS: PANTOPRAZOLE SODIUM 40 MG VIAL IVP SCH (21:18)
[2017-09-15] VITALS (8 sets, daily range): BP systolic 131–181; BP diastolic 60–85; PULSE 52–94; RESP 16–20; TEMP 97.1–98.5; O2SAT 95–98
[2017-09-15] MEDS: CHLORHEXIDINE GLUCONATE 2 % 1 PACK (2 CLOTHS) TOP SCH (03:21)
[2017-09-15] MEDS: ACETAMINOPHEN 1000 MG/100 ML 100 ML IV SCH ×4 (04:23→22:51)
[2017-09-15] MEDS: VERAPAMIL HCL 120 MG TAB PO SCH ×2 (09:31→22:06)
[2017-09-15] MEDS: risperiDONE 0.5 MG TAB PO SCH ×2 (09:32→22:06)
[2017-09-15] MEDS: ENALAPRIL MALEATE 5 MG TAB PO SCH (09:32)
[2017-09-15] MEDS: FAMOTIDINE 20 MG TAB PO SCH ×2 (09:32→22:07)
[2017-09-15] MEDS: DOCUSATE SODIUM 50 MG/SENNA 8.6 MG TAB PO SCH ×2 (09:33→22:06)
[2017-09-15] MEDS: BACITRACIN TOP OINT 15 GM TUBE TOP SCH ×2 (09:33→21:00)
[2017-09-15] MEDS: POLYETHYLENE GLYCOL 17 GM PKG PO SCH (09:33)
[2017-09-15] MEDS: ENOXAPARIN SODIUM 30 MG/0.3 ML SYRINGE SQ SCH (09:33)
--- NOTE | 2017-09-15 11:11 | HHI.NSPN ---
(Noa Dueñas) Note Status Status: Progress Note (Noa Dueñas) Interval History Interval History The patient is a 87-year-old female, who has a history of arterial hypertension, chronic myelocytic leukemia, prior hysterectomy and a left shoulder arthroplasty, dementia, who was brought to the emergency department. Unfortunately she is confused and is unable to explain what happened. She has not accompanied by anybody. She provides inconsistent answers. The history is obtained from the chart and from the emergency room physician. Apparently her who also has dementia was missing and senior alert was activated. The patient reportedly was outside speaking with a neighbor when she fell after she tripped on the dog leash. She landed face first, over a parked car. There was not reported loss of consciousness. There was no seizure activity seen. No tonic/clonic movements. No incontinence of stool or urine. No tongue biting. The patient was moving all four extremities. Upon arrival but she was confused. CT of the brain show bilateral chronic subdural hygromas, with 2 mm of midline shift. CT of the cervical spine show bilateral lateral mass fractures of C1. The patient was found to have a urinary tract infection. She was hemodynamically stable. A neurosurgical consultation was requested. 09/14: became delirious last night and reportedly had a fall. currently drowsy following Haldol. 09/15: awake, moves all four extremities, mildly confused. (Noa Dueñas) Labs, Micro, & Vital Signs Results Date Time Temp Pulse Resp B/P (MAP) Pulse Ox O2 Delivery O2 Flow Rate FiO2 09/15/17 08:54 97.3 72 20 181/85 (117) 98 09/15/17 04:00 97.1 62 20 142/64 (90) 95 09/15/17 02:47 96 Room Air 09/15/17 00:00 98.3 68 20 131/60 (83) 95 09/14/17 20:45 99.1 92 20 194/88 (123) 95 09/14/17 16:00 92 09/14/17 16:00 97.8 92 27 162/76 (104) 97 09/14/17 12:00 92 09/14/17 12:00 97.7 92 30 172/79 (110) 100 Constitutional Vital Signs Date Time Temp Pulse Resp B/P (MAP) Pulse Ox O2 Delivery O2 Flow Rate FiO2 09/15/17 08:54 97.3 72 20 181/85 (117) 98 09/15/17 04:00 97.1 62 20 142/64 (90) 95 09/15/17 02:47 96 Room Air 09/15/17 00:00 98.3 68 20 131/60 (83) 95 09/14/17 20:45 99.1 92 20 194/88 (123) 95 09/14/17 16:00 92 09/14/17 16:00 97.8 92 27 162/76 (104) 97 09/14/17 12:00 92 09/14/17 12:00 97.7 92 30 172/79 (110) 100 (Noa Dueñas) Review of Systems Musculoskeletal: COMPLAINS OF: Neck pain (Noa Dueñas) Physical Exam Ms Oropeza is alert, awake, confused Cranial nerve examination demonstrates the pupils to be equal, round, and reactive to light. Extra-ocular movements are intact with normal convergence. No papiledema. Facial motor and sensory function are normal and symmetrical. Gross hearing is intact, bilaterally, to finger rub. The uvula is midline and elevates symmetrically with the soft palate. Sternocleidomastoid and deltoid muscles have normal and symmetrical strength. Other cranial nerves are intact. Cervical spine braced by a [place] collar Muscle strength is symmetrical in both upper and lower extremities. Deep tendon reflexes are symmetrical in both upper and lower extremities. There is a bilateral plantar flexion response. There is no clonus, fasciculations, spasticity or other abnormal reflexes noted. Sensory exam is normal Cerebellar excamination is not possible due to her neurological condition (Noa Dueñas) Ms Oropeza is alert, awake, confused Cranial nerve examination demonstrates the pupils to be equal, round, and reactive to light. Extra-ocular movements are intact with normal convergence. No papiledema. Facial motor and sensory function are normal and symmetrical. Gross hearing is intact, bilaterally, to finger rub. The uvula is midline and elevates symmetrically with the soft palate. Sternocleidomastoid and deltoid muscles have normal and symmetrical strength. Other cranial nerves are intact. Cervical spine braced by a [place] collar Muscle strength is symmetrical in both upper and lower extremities. Deep tendon reflexes are symmetrical in both upper and lower extremities. There is a bilateral plantar flexion response. There is no clonus, fasciculations, spasticity or other abnormal reflexes noted. Sensory exam is normal Cerebellar excamination is not possible due to her neurological condition (Greyson Rojas MD) Medications Current Medications Current Medications Medications (Trade) Dose Ordered Sig/Ady Route PRN Reason Start Time Stop Time Status Last Admin Dose Admin Sodium Chloride (NS Flush) 2 ml UNSCH PRN IV FLUSH FLUSH AFTER USING IV ACCESS 09/12/17 20:15 09/14/17 00:15 Acetaminophen/ Hydrocodone Bitart ([place] 5-325 Mg) 1 tab Q4H PRN PO PAIN SCALE 6-10 09/12/17 20:15 Ondansetron HCl (Zofran Inj) 4 mg Q6H PRN IV PUSH NAUSEA OR VOMITING 09/12/17 20:15 Bacitracin (Baciguent Oint) 1 applic BID TOP 09/12/17 21:00 09/15/17 09:33 Ceftriaxone Sodium 1000 mg/ Sodium Chloride 100 ml @ 200 mls/hr Q24H IV 09/13/17 20:00 09/14/17 21:18 Senna/Docusate Sodium (Summer-Colace) 1 tab BID PO 09/13/17 09:00 09/15/17 09:33 Lactulose (Lactulose Liq) 30 ml DAILY PRN PO No BM in 2 days 09/13/17 07:15 Polyethylene Glycol (Miralax) 17 gm DAILY PO 09/13/17 09:00 09/15/17 09:33 Enalapril Maleate (Vasotec) 5 mg DAILY PO 09/13/17 09:45 09/15/17 09:32 Verapamil HCl (Isoptin) 240 mg BID PO 09/13/17 09:45 09/15/17 09:31 Haloperidol Lactate (Haldol Inj) 4 mg Q6H PRN IV AGITATION 09/14/17 00:15 09/14/17 08:13 Enoxaparin Sodium (Lovenox Inj) 30 mg Q24H SQ 09/14/17 10:00 09/15/17 09:33 Risperidone (risperDAL) 0.5 mg BID PO 09/14/17 10:15 09/15/17 09:32 Acetaminophen 100 ml @ 400 mls/hr Q6H IV 09/14/17 17:00 09/15/17 04:23 Enalaprilat (Vasotec Inj) 1.25 mg Q6H PRN IV PUSH SBP>160, DBP>90 09/15/17 07:30 Famotidine (Pepcid) 10 mg BID PO 09/15/17 09:00 09/15/17 09:32 (Noa Dueñas) Current Medications Current Medications Ondansetron HCl (Zofran Inj) 4 mg ONCE ONCE IV PUSH Last administered on 18:33; Start 09/12/17 at 18:30; Stop 09/12/17 at 18:31; Status DC Morphine Sulfate (Morphine Inj) 2 mg ONCE ONCE IV PUSH ; Start 09/12/17 at 18: 30; Stop 09/12/17 at 18:31; Status DC Metoprolol Tartrate (Lopressor Inj) 2.5 mg ONCE ONCE IV PUSH Last administered on 09/12/17 19:00; Start 09/12/17 at 18:45; Stop 09/12/17 at 18:46 ; Status DC Metoprolol Tartrate (Lopressor Inj) 2.5 mg ONCE ONCE IV PUSH Last administered on 09/12/17 19:22; Start 09/12/17 at 19:30; Stop 09/12/17 at 19:31 ; Status DC Ceftriaxone Sodium 1000 mg/ Sodium Chloride 100 ml @ 200 mls/hr ONCE ONCE IV Last administered on 09/12/17 20:04; Start 09/12/17 at 19:30; Stop 09/12/17 at 19:59; Status DC Nicardipine HCl (Cardene Inj) 25 mg STK-MED ONCE .ROUTE Last administered on 20:16; Start 09/12/17 at 20:03; Stop 09/12/17 at 20:04; Status DC Sodium Chloride 1,000 ml @ 100 mls/hr Q10H IV Last administered on 09/14/17 23:16; Start 09/12/17 at 21:00; Stop 09/15/17 at 07:31; Status DC Sodium Chloride (NS Flush) 2 ml UNSCH PRN IV FLUSH FLUSH AFTER USING IV ACCESS Last administered on 09/14/17 00:15; Start 09/12/17 at 20:15 Hydromorphone HCl (Dilaudid Pf Inj) 0.5 mg Q1H PRN IVP BREAKTHROUGH PAIN; Start 09/12/17 at 20:15; Stop 09/15/17 at 07:31; Status DC Acetaminophen/ Hydrocodone Bitart ([place] 5-325 Mg) 1 tab Q4H PRN PO PAIN SCALE 6-10; Start 09/12/17 at 20:15 Acetaminophen/ Hydrocodone Bitart ([place] 5-325 Mg) 2 tab Q4H PRN PO PAIN SCALE 6 TO 10; Start 09/12/17 at 20:15; Stop 09/15/17 at 07:31; Status DC Enalaprilat (Vasotec Inj) 1.25 mg Q8H PRN IV PUSH SBP>180, DBP>95; Start at 20:15; Stop 09/12/17 at 23:00; Status DC Ondansetron HCl (Zofran Inj) 4 mg Q6H PRN IV PUSH NAUSEA OR VOMITING; Start at 20:15 Pantoprazole Sodium (Protonix Inj) 40 mg Q24H IVP Last administered on 21:18; Start 09/12/17 at 21:00; Stop 09/15/17 at 07:31; Status DC Bacitracin (Baciguent Oint) 1 applic BID TOP Last administered on 09/17/17 19: 57; Start 09/12/17 at 21:00 Docusate Sodium (Colace) 100 mg BID PO ; Start 09/12/17 at 21:00; Stop 09/13/17 at 07:19; Status DC Miscellaneous Information 1 [id number] XX ; Start 09/12/17 at 20:15; Stop 09/15/17 at 07:31; Status DC Chlorhexidine Gluconate (Chlorhexidine 2% Cloth) 3 pack Taper DAILY@04 TOP ; Start 09/13/17 at 04:00; Stop 09/15/17 at 07:31; Status DC Chlorhexidine Gluconate (Chlorhexidine 2% Cloth) 3 pack UNSCH PRN TOP HYGIENIC CARE; Start 09/12/17 at 20:15; Stop 09/15/17 at 07:31; Status DC Nicardipine HCl 25 mg/Sodium Chloride 250 ml @ 0 mls/hr TITRATE ONCE IV Last administered on 09/12/17 20:32; Start 09/12/17 at 20:30; Stop 09/12/17 at 20:31 ; Status DC Ceftriaxone Sodium 1000 mg/ Sodium Chloride 100 ml @ 200 mls/hr Q24H IV Last administered on 09/17/17 21:14; Start 09/13/17 at 20:00 Labetalol HCl (Trandate Inj) 10 mg Q4H PRN IV PUSH SBP >160 Last administered on 09/14/17 13:14; Start 09/12/17 at 23:00; Stop 09/15/17 at 07:31; Status DC Nicardipine HCl 25 mg/Sodium Chloride 250 ml @ 50 mls/hr TITRATE PRN IV Blood pressure management; Start 09/13/17 at 02:45; Stop 09/15/17 at 07:31; Status DC Senna/Docusate Sodium (Summer-Colace) 1 tab BID PO Last administered on 19:57; Start 09/13/17 at 09:00 Lactulose (Lactulose Liq) 30 ml DAILY PRN PO No BM in 2 days; Start 09/13/17 at 07:15 Polyethylene Glycol (Miralax) 17 gm DAILY PO Last administered on 09/15/17 09: 33; Start 09/13/17 at 09:00 Enoxaparin Sodium (Lovenox Inj) 40 mg Q24H SQ Last administered on 09/13/17 09 :54; Start 09/13/17 at 10:00; Stop 09/14/17 at 08:49; Status DC Hydralazine HCl (Apresoline Inj) 20 mg Q4H PRN IV PUSH SBP >160 Last administered on 09/14/17 16:45; Start 09/13/17 at 09:45; Stop 09/15/17 at 07:31 ; Status DC Enalapril Maleate (Vasotec) 5 mg DAILY PO Last administered on 09/17/17 12:12 ; Start 09/13/17 at 09:45 Verapamil HCl (Isoptin) 240 mg BID PO Last administered on 09/17/17 19:57; Start 09/13/17 at 09:45 Haloperidol Lactate (Haldol Inj) 4 mg Q6H PRN IM AGITATION; Start 09/13/17 at 22:15; Stop 09/15/17 at 07:31; Status DC Haloperidol Lactate (Haldol Inj) 4 mg NOW ONCE IM Last administered on 22:23; Start 09/13/17 at 22:15; Stop 09/13/17 at 22:16; Status DC Haloperidol Lactate (Haldol Inj) 4 mg Q6H PRN IV AGITATION Last administered on 09/14/17 08:13; Start 09/14/17 at 00:15; Stop 09/16/17 at 13:22; Status DC Enoxaparin Sodium (Lovenox Inj) 30 mg Q24H SQ Last administered on 09/17/17 12 :12; Start 09/14/17 at 10:00; Stop 09/17/17 at 17:27; Status DC Risperidone (risperDAL) 0.5 mg BID PO Last administered on 09/16/17 11:43; Start 09/14/17 at 10:15; Stop 09/16/17 at 13:21; Status DC Acetaminophen 100 ml @ 400 mls/hr Q6H IV Last administered on 09/17/17 22:39 ; Start 09/14/17 at 17:00 Enalaprilat (Vasotec Inj) 1.25 mg Q6H PRN IV PUSH SBP>160, DBP>90 Last administered on 09/17/17 02:26; Start 09/15/17 at 07:30 Famotidine (Pepcid) 10 mg BID PO Last administered on 09/17/17 19:57; Start 09/15/17 at 09:00 Bisacodyl (Dulcolax Supp) 10 mg ONCE ONCE RECTAL Last administered on 17:35; Start 09/15/17 at 15:00; Stop 09/15/17 at 15:01; Status DC Lorazepam (Ativan Inj) 2 mg STK-MED ONCE .ROUTE ; Start 09/16/17 at 09:16; Stop 09/16/17 at 09:17; Status DC Lorazepam (Ativan Inj) 1 mg NOW ONCE IV PUSH Last administered on 09/16/17 09 :30; Start 09/16/17 at 09:45; Stop 09/16/17 at 09:46; Status DC Hydralazine HCl (Apresoline Inj) 20 mg Q4H PRN IV PUSH SBP>170; DBP>105 Last administered on 09/17/17 03:31; Start 09/16/17 at 11:45 Amiodarone HCl 150 mg/Dextrose 103 ml @ 600 mls/hr Q11M ONCE IV Last administered on 09/16/17 13:39; Start 09/16/17 at 12:19; Stop 09/16/17 at 12:34 ; Status DC Amiodarone HCl 450 mg/Dextrose 250 ml @ 33.33 mls/ hr Q7H31M PRN IV Per Protocol Last administered on 09/18/17 03:44; Start 09/16/17 at 12:29 Sodium Chloride 1,000 ml @ 75 mls/hr [id number] IV Last administered on 05:05; Start 09/17/17 at 11:04 Amiodarone HCl 150 mg/Dextrose 103 ml @ 600 mls/hr Q11M ONCE IV Last administered on 09/17/17 12:13; Start 09/17/17 at 11:00; Stop 09/17/17 at 11:10 ; Status DC Gadodiamide (Omniscan Pf Inj) 12 ml STK-MED ONCE IVCONTRAST Last administered on 09/17/17 11:40; Start 09/17/17 at 11:40; Stop 09/17/17 at 11:42; Status DC Heparin Sodium/ Dextrose 250 ml @ 7 mls/hr TITRATE PRN IV Coagulation Management Last administered on 09/17/17 19:08; Start 09/17/17 at 17:30 (Greyson Rojas MD) Medical Decision Making MDM Remarks 87 year old female fall at home, C2 hairline fracture through lateral masses b/l chronic subdural hygromas (Noa Dueñas) Plan Plan Remarks cont nonoperative mgt with [place] collar, kept on at all times cont mgt per trauma team fall precautions dw nursing (Noa Dueñas) Plan Remarks Caprini VTE Risk Assessment Caprini VTE Risk Assessment Caprini VTE Risk Assessment: Mod/High Risk (score >= 2) VTE Pharm Contraindication: Intracranial lesions Caprini Risk Assessment Model Point Value = 1 Point Value = 2 Point Value = 3 Point Value = 5 Age 41-60 Minor surgery BMI > 25 kg/m2 Swollen legs Varicose veins or History of unexplained or recurrent spontaneous Oral contraceptives or hormone replacement Sepsis (< 1 month) Serious lung disease, including pneumonia (< 1 month) Abnormal pulmonary function Acute myocardial infarction Congestive heart failure (< 1 month) History of inflammatory bowel disease Medical patient at bed rest Age 61-74 Arthroscopic surgery Major open surgery (> 45 min) Laparoscopic surgery (> 45 min) Malignancy Confined to bed (> 72 hours) Immobilizing plaster cast Central venous access Age >= 75 History of VTE Family history of VTE Factor V Leiden Prothrombin [id number] Lupus anticoagulant Anticardiolipin antibodies Elevated serum homocysteine Heparin-induced thrombocytopenia Other congenital or acquired thrombophilia Stroke (< 1 month) Elective arthroplasty Hip, pelvis, or leg fracture Acute spinal cord injury (< 1 month) Prophylaxis Regimen Total Risk Factor Score Risk Level Prophylaxis Regimen 0-1 Low Early ambulation 2 Moderate Order ONE of the following: *Sequential Compression Device (SCD) *Heparin 5000 units SQ BID 3-4 Higher Order ONE of the following medications: *Heparin 5000 units SQ TID *Enoxaparin/Lovenox 40 mg SQ daily (WT < 150 kg, CrCl > 30 mL/min) *Enoxaparin/Lovenox 30 mg SQ daily (WT < 150 kg, CrCl > 10-29 mL/min) *Enoxaparin/Lovenox 30 mg SQ BID (WT < 150 kg, CrCl > 30 mL/min) AND/OR *Sequential Compression Device (SCD) 5 or more Highest Order ONE of the following medications: *Heparin 5000 units SQ TID (Preferred with Epidurals) *Enoxaparin/Lovenox 40 mg SQ daily (WT < 150 kg, CrCl > 30 mL/min) *Enoxaparin/Lovenox 30 mg SQ daily (WT < 150 kg, CrCl > 10-29 mL/min) *Enoxaparin/Lovenox 30 mg SQ BID (WT < 150 kg, CrCl > 30 mL/min) AND *Sequential Compression Device (SCD) (Greyson Rojas MD) Attending Statement Problem List: (1) Fall ICD Code: W19.XXXA - Unspecified fall, initial encounter Status: Acute (2) Subdural hygroma ICD Code: D18.1 - Lymphangioma, any site Status: Chronic (3) UTI (urinary tract infection) ICD Code: N39.0 - Urinary tract infection, site not specified Status: Acute (4) C2 cervical fracture ICD Code: S12.100A - Unspecified displaced fracture of second cervical vertebra , initial encounter for closed fracture Status: Acute (5) Hypertension ICD Code: I10 - Essential (primary) hypertension Status: Acute Neuro Continue checks in serial fashion. Fall precautions C2 bilateral lateral mass fracture. nonoperative treatment with [place] J collar. 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 Continue nonoperative treTMENT cONTINUE Incentive spirometry every hour awake. Continue pulmonary toilette, nasotracheal suction, and breathing treatments with nebulizers. ContinueDaily PT and OT : Hypertension. Controlled. Continue po meds. GI: Oral diet Hyponatremia, chronic. Renal insufficiency. Follow up BMP UTI. Follow-up urine cultures. Continue ABX Continue Protonix 40 mg IV daily for stress ulcer prophylaxis. ContinueTed hose and SCD's for DVT prophylaxis. Avoid pharmacologic DVT prophylaxis at this time due to subdural hygroma and acute trauma. The exam, history, and the medical decision-making described in the above note were completed with the assistance of the mid-level provider. I reviewed and agree with the findings presented. I attest that I had a [id number] encounter with the patient on the same day, and personally performed and documented my assessment and findings in the medical record. (Greyson Rojas MD) Noa Dueñas Sep 15, 2017 11:11 Greyson Rojas MD Sep 15, 2017 20:20
--- NOTE | 2017-09-15 13:45 | HHI.PR ---
Subjective Subjective Notes Denies pain More calm today per nursing Objective Vitals/I&O Vital Signs Date Time Temp Pulse Resp B/P (MAP) Pulse Ox O2 Delivery O2 Flow Rate FiO2 09/15/17 11:55 97.6 65 20 140/63 (88) 98 09/15/17 02:47 Room Air 09/14/17 08:39 21 Labs Date/Time Source Procedure Growth Status 09/12/17 16:15 Urine Catheterized Urine Urine Culture - Preliminary Gram Negative Joey Resulted Radiology Last Impressions Head CT 09/12/17 0000 Signed Impressions: Service Date/Time: Tuesday, September 12, 2017 18:18 - CONCLUSION: 1. 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 2. No acute hemorrhage. Phillip Lua MD Chest X-Ray 09/12/17 0000 Signed Impressions: Service Date/Time: Tuesday, September 12, 2017 20:19 - CONCLUSION: No evidence of acute cardiopulmonary disease. Phillip Lua MD Cervical Spine CT 09/12/17 0000 Signed Impressions: Service Date/Time: Tuesday, September 12, 2017 18:18 - CONCLUSION: Nondisplaced hairline fracture of the right and left lateral masses of C2. Phillip Lua MD Narrative Exam GENERAL: 87-year-old well-nourished, well developed female lying in bed with cervical collar in place. SKIN: Warm and dry. HEAD: Atraumatic. Normocephalic. EYES: PERRL. ENT: No nasal bleeding or discharge. Mucous membranes pink and moist. NECK: Trachea midline. No JVD. CARDIOVASCULAR: Regular rate and rhythm. RESPIRATORY: No accessory muscle use. Lungs clear and diminished to auscultation. Breath sounds equal bilaterally. GASTROINTESTINAL: Abdomen soft, non-tender, nondistended. + BS. MUSCULOSKELETAL: Extremities without cyanosis, or edema. MAEW, + perfused NEUROLOGICAL: Awake and alert. Normal speech. A/P Assessment and Plan [place]: Fell from the standing position striking her face on a parked car. No LOC. 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 PT and OT ordered GI: Pepcid Bowel: Summer-colace, Miralax, PRN Lactulose. LBM 0 DVT: SCDs, Lovenox 40 QD Concussion Supportive care Avoid second head injury Post-concussive education Neuropsychology consulted C2 hairline fx Neurosurgery consulted Nonoperative management Maintain cervical collar Pain control Follow-up as outpatient OOB- PT ordered UTI, Urinary retention 09/12: Urine- gram negative joey ABX: Rocephin Continue Cline catheter Dementia Palliative care consulted Refusing care yesterday Required SWR for combative behavior yesterday Behavior better today Haldol 4mg q6H Risperidone 0.5 BID CM assisting with locating HCP for decision making capabilities. Plan to DC to SNF in 1-2 days. Attending Statement The exam, history, and the medical decision-making described in the above note were completed with the assistance of the mid-level provider. I reviewed and agree with the findings presented. I attest that I had a [id number] encounter with the patient on the same day, and personally performed and documented my assessment and findings in the medical record. Raquel Wayne Sep 15, 2017 13:45 Flaco Diaz MD Sep 17, 2017 12:42
[2017-09-15] MEDS ORDERED: BISACODYL 10 MG SUPP RECTAL ONE (15:00)
--- NOTE | 2017-09-15 17:02 | HHI.HCPN ---
Reason for visit a. To assist with evaluation and management of symptoms including: Confusion , pain b. To assist medical decision maker(s) with: better understanding of current medical conditions; weighing benefits/burdens of medical treatment options; making medical treatment decisions. Subjective/Interval History Better today, remains restrained but calm. More oriented, knows she is in [place] and that her is at hospice. ED course: * Vital signs: blood pressure 163/72, pulse 77, RR 20, saturation 95 % on room air. * Laboratory: 09/14 WBC 18.6, Hgb 13.8, HCT 39.7, PLT 381, sodium 131, potassium 4.6, BUN 22, creatinine 1.04. Urine culture preliminarily shows gram-negative amy. * Radiology: Chest x-ray shows no acute disease. 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 It was reported that there is no acute hemorrhage. CT scan of the cervical spine also read by the radiologist shows nondisplaced hairline fracture of the right and left lateral masses of C2. Consultations: Neurosurgery determined nonoperative management, continue [place] collar and neuro checks. Patient determined to be incapacitated by physicians. Further attempts made to contact legal decision maker. . Advance Directives Living Will: Never completed Health Care Surrogate: Never completed Durable Power of [place] Operator: Never completed Objective Vital Signs Date Time Temp Pulse Resp B/P (MAP) Pulse Ox O2 Delivery O2 Flow Rate FiO2 09/15/17 16:18 98.5 77 20 163/72 (102) 95 09/15/17 11:55 97.6 65 20 140/63 (88) 98 09/15/17 08:54 97.3 72 20 181/85 (117) 98 09/15/17 04:00 97.1 62 20 142/64 (90) 95 09/15/17 02:47 96 Room Air 09/15/17 00:00 98.3 68 20 131/60 (83) 95 09/14/17 20:45 99.1 92 20 194/88 (123) 95 Intake & Output 09/15/17 09/15/17 07:00 19:00 Intake Total 300 ml 800 ml Output Total 475 ml Balance 300 ml 325 ml Intake Oral 0 ml IV Total 300 ml 800 ml Output Urine Total 475 ml # Bowel Movements 0 Physical Exam CONSTITUTIONAL/GENERAL: This is an adequately nourished patient, in no apparent distress. TUBES/LINES/DRAINS: PIV SKIN: Multiple areas of skin tears, ecchymosis on upper extremities. EYES: Refusing to open her eyes today, eyes not forced open for exam.. ENT: Hearing grossly normal. Nose without bleeding or purulent drainage. Throat without visible erythema, exudates, masses, or lesions. NECK: In [place] collar CARDIOVASCULAR: Irregular rhythm, mildly tachycardic rate, 1/6 systolic ejection murmur, no rub. RESPIRATORY/CHEST: Symmetric, unlabored respirations. Clear to auscultation. Breath sounds equal bilaterally. No wheezes, rales, or rhonchi. GASTROINTESTINAL: Abdomen soft, non-tender, nondistended. Bowel sounds present. GENITOURINARY: Without palpable bladder distension. Cline catheter in place. MUSCULOSKELETAL: Extremities without clubbing, cyanosis, or edema. NEUROLOGICAL: More awake today, following commands, remains mildly confused. PSYCHIATRIC: Calm, not agitated today. Diagnostic Tests Laboratory Laboratory Tests Test 09/12/17 17:50 09/12/17 23:59 09/13/17 00:20 09/13/17 01:46 White Blood Count 10.8 TH/MM3 (4.0-11.0) 14.2 TH/MM3 (4.0-11.0) Red Blood Count 4.35 MIL/MM3 (4.00-5.30) 4.58 MIL/MM3 (4.00-5.30) Hemoglobin 13.2 GM/DL (11.6-15.3) 13.5 GM/DL (11.6-15.3) Hematocrit 38.2 % (35.0-46.0) 40.4 % (35.0-46.0) Mean Corpuscular Volume 87.9 FL (80.0-100.0) 88.1 FL (80.0-100.0) Mean Corpuscular Hemoglobin 30.3 PG (27.0-34.0) 29.5 PG (27.0-34.0) Mean Corpuscular Hemoglobin Concent 34.5 % (32.0-36.0) 33.5 % (32.0-36.0) Red Cell Distribution Width 14.8 % (11.6-17.2) 14.4 % (11.6-17.2) Platelet Count 391 TH/MM3 (150-450) 375 TH/MM3 (150-450) Mean Platelet Volume 8.1 FL (7.0-11.0) 7.7 FL (7.0-11.0) Neutrophils (%) (Auto) 78.4 % (16.0-70.0) 82.3 % (16.0-70.0) Lymphocytes (%) (Auto) 10.1 % (9.0-44.0) 6.9 % (9.0-44.0) Monocytes (%) (Auto) 10.3 % (0.0-8.0) 10.5 % (0.0-8.0) Eosinophils (%) (Auto) 0.4 % (0.0-4.0) 0.1 % (0.0-4.0) Basophils (%) (Auto) 0.8 % (0.0-2.0) 0.2 % (0.0-2.0) Neutrophils # (Auto) 8.5 TH/MM3 (1.8-7.7) 11.7 TH/MM3 (1.8-7.7) Lymphocytes # (Auto) 1.1 TH/MM3 (1.0-4.8) 1.0 TH/MM3 (1.0-4.8) Monocytes # (Auto) 1.1 TH/MM3 (0-0.9) 1.5 TH/MM3 (0-0.9) Eosinophils # (Auto) 0.0 TH/MM3 (0-0.4) 0.0 TH/MM3 (0-0.4) Basophils # (Auto) 0.1 TH/MM3 (0-0.2) 0.0 TH/MM3 (0-0.2) CBC Comment DIFF FINAL DIFF FINAL Differential Comment Prothrombin Time 11.1 SEC (9.8-11.6) Prothromb Time International Ratio 1.1 RATIO Activated Partial Thromboplast Time 24.5 SEC (24.3-30.1) Blood Urea Nitrogen 22 MG/DL (7-18) 19 MG/DL (7-18) Creatinine 1.29 MG/DL (0.50-1.00) 1.01 MG/DL (0.50-1.00) Random Glucose 109 MG/DL (74-106) 112 MG/DL (74-106) Total Protein 8.1 GM/DL (6.4-8.2) Albumin 4.2 GM/DL (3.4-5.0) Calcium Level 9.2 MG/DL (8.5-10.1) 8.8 MG/DL (8.5-10.1) Alkaline Phosphatase 92 U/L (45-117) Aspartate Amino Transf (AST/SGOT) 25 U/L (15-37) Alanine Aminotransferase (ALT/SGPT) 18 U/L (10-53) Total Bilirubin 0.5 MG/DL (0.2-1.0) Sodium Level 130 MEQ/L (136-145) 132 MEQ/L (136-145) Potassium Level 4.9 MEQ/L (3.5-5.1) 4.5 MEQ/L (3.5-5.1) Chloride Level 98 MEQ/L (98-107) 100 MEQ/L (98-107) Carbon Dioxide Level 24.3 MEQ/L (21.0-32.0) 22.6 MEQ/L (21.0-32.0) Anion Gap 8 MEQ/L (5-15) 9 MEQ/L (5-15) Estimat Glomerular Filtration Rate 39 ML/MIN (>89) 52 ML/MIN (>89) Thyroid Stimulating Hormone 3rd Gen 1.370 uIU/ML (0.358-3.740) Serum Osmolality 287 MOSM/KG (275-295) Random Cortisol 35.0 MCG/DL Nasal Screen MRSA (PCR) MRSA NOT DETECTED (NOT Test 09/14/17 06:45 White Blood Count 18.6 TH/MM3 (4.0-11.0) Red Blood Count 4.57 MIL/MM3 (4.00-5.30) Hemoglobin 13.8 GM/DL (11.6-15.3) Hematocrit 39.7 % (35.0-46.0) Mean Corpuscular Volume 86.7 FL (80.0-100.0) Mean Corpuscular Hemoglobin 30.3 PG (27.0-34.0) Mean Corpuscular Hemoglobin Concent 34.9 % (32.0-36.0) Red Cell Distribution Width 14.7 % (11.6-17.2) Platelet Count 381 TH/MM3 (150-450) Mean Platelet Volume 8.4 FL (7.0-11.0) Neutrophils (%) (Auto) 82.2 % (16.0-70.0) Lymphocytes (%) (Auto) 5.1 % (9.0-44.0) Monocytes (%) (Auto) 12.3 % (0.0-8.0) Eosinophils (%) (Auto) 0.1 % (0.0-4.0) Basophils (%) (Auto) 0.3 % (0.0-2.0) Neutrophils # (Auto) 15.3 TH/MM3 (1.8-7.7) Lymphocytes # (Auto) 0.9 TH/MM3 (1.0-4.8) Monocytes # (Auto) 2.3 TH/MM3 (0-0.9) Eosinophils # (Auto) 0.0 TH/MM3 (0-0.4) Basophils # (Auto) 0.1 TH/MM3 (0-0.2) CBC Comment AUTO DIFF Differential Total Cells Counted 100 Neutrophils % (Manual) 69 % (16-70) Band Neutrophils % 10 % (0-6) Lymphocytes % 10 % (9-44) Monocytes % 11 % (0-8) Neutrophils # (Manual) 14.7 TH/MM3 (1.8-7.7) Differential Comment FINAL DIFF MANUAL Platelet Estimate NORMAL (NORMAL) Platelet Morphology Comment NORMAL (NORMAL) Hematology Comments Blood Urea Nitrogen 22 MG/DL (7-18) Creatinine 1.04 MG/DL (0.50-1.00) Random Glucose 126 MG/DL (74-106) Calcium Level 8.9 MG/DL (8.5-10.1) Sodium Level 131 MEQ/L (136-145) Potassium Level 4.6 MEQ/L (3.5-5.1) Chloride Level 100 MEQ/L (98-107) Carbon Dioxide Level 18.5 MEQ/L (21.0-32.0) Anion Gap 13 MEQ/L (5-15) Estimat Glomerular Filtration Rate 50 ML/MIN (>89) Result Diagram: 09/14/17 0645 09/14/17 0645 Assessment and Plan Disease Oriented Problem List: (1) Subdural hematoma (2) UTI (urinary tract infection) (3) Altered mental status (4) Hypertension (5) C2 cervical fracture (6) Fall (7) Major neurocognitive disorder due to another medical condition (8) Mild major neurocognitive disorder due to traumatic brain injury with behavioral disturbance Symptom Scale: (1) Confusion 0-10 Scale: Unable to quantify (alert to self and date only.) (2) Pain, generalized 0-10 Scale: Unable to quantify (generalized neck, shoulder and head pain.) Pertinent Non-Medical Issues Psychosocial:Born in [place], moved to [place] 25 years ago. 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 She had one daughter from whom she is now estranged. The daughter lives in [place] but otherwise the patient will provide no information regarding the daughters identification. She has been to her Reggie for over 60 years and has been his caregiver for the last few years. . Spiritual: She has no spiritual affiliations. . Legal: At this time for treating physicians feel she is not capacitated to make decisions. Her is actively dying at the [facility] care center from end- stage dementia. She is refusing to allow us to contact her daughter. She has no living parents or siblings. She does have one [id number] in [place], [place], Annabel Nova, possible phone number , but patient does not wish to ask her to be a healthcare surrogate. She has requested that her neighbor, Carlos Eduardo Johnson, be her healthcare surrogate, however she is not certain that she wishes to take on that responsibility yet. Patient is at this time refusing to fill out a healthcare surrogate form. Per [place] statutes, the [id number] is the closest living relative and could be the proxy if she agrees, otherwise would be referred to social work advantage. Ethical issues impacting care: None at this time. . Important Contacts Friend- Carlos Eduardo Johnson, . Sister in law- Annabel Nova . . Prognosis Her prognosis is poor. She is of advanced age and frail. She is having increased falls and is now confused and unable to independently make decisions. She is not oriented and agitated overnight, requiring Haldol. 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 She is becoming less able to care for herself and may require [id number] care once stable from this injury. She is at risk for repeated hospitalizations and continued decline. . Code Status: Full Code (by default. She states she does not wish resuscitation , however she is not capacitated to make decisions.) Plan PLAN: Legal decision maker: At this time for treating physicians feel she is not capacitated to make decisions. Her is actively dying at the hospice care center from end-stage dementia. As she is not capacitated to make decisions, attempts are being made to contact her daughter. She has no living parents or siblings. She does have one [id number] in [place], [place], Annabel Nova, , and she is willing to be the legal decision-maker if needed. She has provided some information regarding the daughter, Evelia to assist in locating her, but has no information on her current last name or whereabouts. Patient has requested that her neighbor, Carlos Eduardo Johnson, be her healthcare surrogate, however Ms. Johnson is not certain that she wishes to take on that responsibility yet. Patient is at this time refusing to fill out a healthcare surrogate form. Per [place] statutes, if the daughter cannot be located, the qweiyu-tf-bec is the closest living relative and could be the proxy if she agrees, otherwise would be referred to social work advantage. Goals: Goals would be aggressive by default, although the patient states she wishes not to be resuscitated, she is not capacitated to make decisions. CODE STATUS: Full code by default SYMPTOMS: * Confusion: Uncertain whether this is due to recent head trauma, chronic subdural hygromas or underlying dementia. She is less confused today than yesterday, more cooperative. Her blood pressure has been elevated as she has been declining her antihypertensives. She is now receiving risperidone and Haldol as needed. Needs frequent reorientation. * Pain: Pain sources to include head trauma, hairline fracture in C2, needing to wear c-collar, recent fall, bedbound status. Hydrocodone/acetaminophen 5/ 325 one-two tab every 4 hours as needed is available. No pain medication has been used. Due to patient's altered mental status, she may not be able to communicate her needs for pain management. She could benefit from scheduled Tylenol, which is unlikely to impact her mentation negatively and may help her generalized discomfort from her fall. Palliative care will continue to follow the patient during hospital course as condition evolves, to assist patient/decision-maker with understanding of their medical conditions, weighing benefits/burdens of treatment options, for clarification of goals of treatment. Additionally will assist with any symptoms of palliative concern. . Attestation To help prompt me to consider important information that might be impacting today's encounter and assessment, information from prior notes written by myself or my colleagues may have been "brought forward" into today's note. My signature on this note, however, is an attestation that I personally performed the exam, history, and/or decision-making noted today, and, unless otherwise indicated, the interactions with patient, family, and staff as well as the review of records all occurred today. I also attest that the listed assessment and stated plan reflect my best clinical judgment today based on the combination of historical information, prior notes, and today's exam/ interactions. When time spent is documented, it refers only to time spent today by the signer, or if indicated, combined time spent today by collaborating physician/nurse practitioner. . Lay Crooks Sep 15, 2017 17:02
[2017-09-15] MEDS ORDERED: RISP0.5T25 PO (20:56)
[2017-09-15] MEDS ORDERED: PERI PO (20:56)
[2017-09-15] MEDS: cefTRIAXone INJ 1,000 MG in SODIUM CHLORIDE 0.9% INJ 100 ML IV SCH (22:10)
[2017-09-16] VITALS (11 sets, daily range): BP systolic 131–213; BP diastolic 61–91; PULSE 61–125; RESP 17–24; TEMP 97.9–98.9; O2SAT 94–100
[2017-09-16] MEDS: ACETAMINOPHEN 1000 MG/100 ML 100 ML IV SCH ×4 (05:13→23:00)
--- NOTE | 2017-09-16 08:07 | HHI.PR ---
Neuropsych Behavior Behavior: Intact: Coping/Acceptance, Mild: Cooperative w/ Treatment, Motivation , Frustration Tolerance/[place], Impulsive/Agitated Cognitive Cognitive: Moderate: Cognitive, Attention/Concentration, Confused/Orientation, Insight/Awareness, Judgement/Problem-Solving, Memory Psychosocial Psychosocial: Intact: Psychosocial, Family/Other Adjustment, Realistic Expectation, Unable to Asses: Self-Esteem/Confidence Progress Notes/Response to Tx Contents of Sessions: Adjustment, Level of Consciousness Time with Patient: 15 minutes Premorbid psychological status Premorbid Cognitive, Emotional and Behavioral Status: Stable. 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 The patient has no prior psychiatric difficulties, as described above. Substance abuse history is unremarkable. Behavioral Reactions of Patient and Family/Support System: Stable. The patient s family is experiencing ongoing issues of adjustment given the nature of the injury, and this aspect of recovery will require ongoing monitoring. Emotional/Behavioral Status of Patient and Family/Support System: Stable. Pertinent issues, if appropriate to this patients clinical care, are described in detail above. Maximizing acute care outcome It is recommended that the patient be monitored for emergent behavioral impulsivity as the medical condition evolves. This patients neuropathological challenges may limit her rehabilitation potential going forward, and these challenges will require specialized therapeutic skills to maximize outcome. Additionally, the patients family is experiencing ongoing issues of adjustment given the traumatic nature of the injury, and they may benefit from ongoing psychological assistance. At this point in the recovery process, the patient does not have cognitive capacity as the patient is unable to understand a situation and its likely consequences, nor is she able to manipulate information rationally. Cognitive capacity will be assessed throughout the recovery process. Anticipated Problems Ongoing areas of concern will include behavioral impulsivity, lack of insight and judgment, which is expected to improve with time and treatment. Presently , the patient is lethargic and beginning to more consistently follow commands. Treatment Plan This clinician will continue to follow with you throughout the course of this patients acute care treatment, and I will be available to meet with the patient s family/support system to facilitate their understanding and the ongoing care of their family member. The goals of neuropsychological intervention shall be both educational and supportive to the family/support system as is deemed clinically appropriate. [facility] Level: V:Confused-non agitated Impression This 87 year old woman with a past history of chronic SDH and recent fall on 09/12/2017, appears to have an underlying major neurocognitive disorder in addition to the sequelae associated with her recent TBI. Both conditions will need to be monitored. Diagnosis: (1) Major neurocognitive disorder due to another medical condition (2) Mild major neurocognitive disorder due to traumatic brain injury with behavioral disturbance Progress Note Narrative Ongoing follow-up of patient seen during daily trauma rounds. This is day 4 post injury. The patient has transferred to the floor but she returns to the [facility] due to a medical event. She is much more calmer and manageable today, not refusing interventions. She remains on Risperidone 0.5 BID with a Haldol PRN ( not needed since 09/14). She remains a [place] with an underlying major neurocognitive disorder. I will continue to follow. Johnny Shine PhD Sep 16, 2017 8:07 am
[2017-09-16] MEDS: BACITRACIN TOP OINT 15 GM TUBE TOP SCH (09:00)
[2017-09-16] MEDS: DOCUSATE SODIUM 50 MG/SENNA 8.6 MG TAB PO SCH ×2 (09:00→21:00)
[2017-09-16] MEDS: POLYETHYLENE GLYCOL 17 GM PKG PO SCH (09:00)
[2017-09-16] MEDS: ENALAPRILAT 1.25 MG/ML VIAL IV PUSH PRN (09:09)
[2017-09-16] MEDS ORDERED: LORazepam 2 MG/ML VIAL ONE (09:16)
--- NOTE | 2017-09-16 09:31 | HHI.PR ---
Addendum to Inpatient Note Addendum Reason: Additional Documentation Additional Information S: Medical team as per nursing staff to assist with [facility] floor. Nursing reports patient admitted for cervical fracture and [place]. Per report, patient actively seizing before arrival with limited response to stimulation. Medical team to evaluate. O: GENERAL: Elderly lady lying in bed unresponsive in c-collar. SKIN: Warm and dry. Multiple ecchymosis. HEENT: Multiple ecchymoses of the head and neck area. Patient currently in c- collar. Pupils fixed and sluggishly reactive to light. Oropharynx clear. No rhinorrhea. CARDIOVASCULAR: Regular rate and rhythm with no MGR appreciated. RESPIRATORY: , Throughout both lung chowdary with increased work of breathing requiring accessory muscle use. GASTROINTESTINAL: Abdomen nondistended. MUSCULOSKELETAL: Unresponsive, unable to be reevaluated. No cyanosis or edema. 2 + pulses in all 4 extremities. NEURO/PSYCH: AAO 0. Venus Coma Scale 6 (E1 V2 M3) A/P: Ms. Oropeza is a 87-year-old female admitted for cervical fracture and cranial hemorrhage currently with new onset seizure and unresponsiveness. 1. Concern for worsening cranial hemorrhage -Stat CT ordered -1 mg Ativan given for new onset seizure -Recommend transfer to critical care unit for further monitoring -Recommend ABG with further imaging due to worsening respiratory status Team contacted for further management at this time. Jewel Cuello MD R2 Sep 16, 2017 09:31
[2017-09-16] MEDS ORDERED: LORazepam 2 MG/ML VIAL IV PUSH ONE (09:45)
--- NOTE | 2017-09-16 10:17 | RADRPT ---
EXAM DATE/TIME: 09/16/2017 09:19 [facility] COMPARISON: CT BRAIN W/O CONTRAST, September 12, 2017, 18:18. INDICATIONS : Unresponsive, altered mental status RADIATION DOSE: 69.15 CTDIvol (mGy) ; Patient positioning MEDICAL HISTORY : None SURGICAL HISTORY : Hysterectomy. ENCOUNTER: Initial ACUITY: 1 day PAIN SCALE: Non-responsive LOCATION: cranial TECHNIQUE: Multiple contiguous axial images were obtained of the head. Using automated exposure control and adj ustment of the mA and/or kV according to patient size, radiation dose was kept as low as reasonably a chievable to obtain optimal diagnostic quality images. DICOM format image data is available electro nically for review and comparison. FINDINGS: CEREBRUM: Redemonstration of bilateral subdural hygromas that are largely unchanged in size given differences i n technique measuring up to 9 mm on the right and 5 mm on the left. No evidence for intercurrent extr a-axial or intra-axial acute hemorrhage. The ventricles are normal for age. Normal evidence for midli ne shift. POSTERIOR FOSSA: The cerebellum and brainstem are intact. The 4th ventricle is midline. The cerebellopontine angle i s unremarkable. EXTRACRANIAL: The visualized portion of the orbits is intact. SKULL: The calvaria is intact. No evidence of skull fracture. CONCLUSION: 1. Stable bilateral subdural hygromas without significant subfalcine or transtentorial herniation. 2. No intercurrent hemorrhage or other acute intracranial abnormality. Guillaume Sanchez MD on September 16, 2017 at 10:06 Board Certified Radiologist. This report was verified electronically.
[2017-09-16] MEDS: ENOXAPARIN SODIUM 30 MG/0.3 ML SYRINGE SQ SCH (11:03)
[2017-09-16] MEDS: ENALAPRIL MALEATE 5 MG TAB PO SCH (11:26)
[2017-09-16] MEDS: FAMOTIDINE 20 MG TAB PO SCH ×2 (11:26→21:00)
[2017-09-16] MEDS: VERAPAMIL HCL 120 MG TAB PO SCH ×2 (11:43→21:00)
[2017-09-16] MEDS: risperiDONE 0.5 MG TAB PO SCH (11:43)
[2017-09-16] MEDS: hydrALAZINE HCL 20 MG/ML VIAL IV PUSH PRN (12:08)
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
[2017-09-16] MEDS ORDERED: AMIODARONE INJ 150 MG in DEXTROSE 5% IN WATER 100ML INJ 100 ML IV ONE ×2 (12:19)
--- NOTE | 2017-09-16 12:33 | HHI.HCPN ---
Reason for visit a. To assist with evaluation and management of symptoms including: Confusion , pain, seizure b. To assist medical decision maker(s) with: better understanding of current medical conditions; weighing benefits/burdens of medical treatment options; making medical treatment decisions. Subjective/Interval History Had episode of seizure this morning, ILAN called. Stat CT done, showed no changes. Transferred to ICU. Notified this morning from [facility] that her this morning. ED course: * Vital signs: blood pressure 213/91, pulse 95, RR 20, saturation 94 % on room air. * Laboratory: 09/14 WBC 18.6, Hgb 13.8, HCT 39.7, PLT 381, sodium 131, potassium 4.6, BUN 22, creatinine 1.04. Urine culture preliminarily shows pseudomonas aeruginosa. * Radiology: Chest x-ray shows no acute disease. Initial CT scan of the brain shows chronic right greater than left hygromas with 2 mm of leftward midline shift with no acute hemorrhage. CT scan of the cervical spine also read by the radiologist shows nondisplaced hairline fracture of the right and left lateral masses of C2. Repeat CT scan after seizure shows stable bilateral subdural hygromas without significant subfalcine or transtentorial herniation. No intercurrent hemorrhage or other acute intracranial abnormality. Consultations: Neurosurgery determined nonoperative management, continue [place] collar and neuro checks. Patient determined to be incapacitated by physicians. Further attempts made to contact legal decision maker. Still awaiting accurints report from case management. . Advance Directives Living Will: Never completed Health Care Surrogate: Never completed Durable Power of Outbound Sales Consultant: Never completed Objective Vital Signs Date Time Temp Pulse Resp B/P (MAP) Pulse Ox O2 Delivery O2 Flow Rate FiO2 09/16/17 08:00 98.9 95 20 213/91 (131) 94 09/16/17 04:00 98.4 76 17 157/70 (99) 94 09/16/17 00:30 98.3 79 17 131/61 (84) 94 09/15/17 20:59 98.3 94 16 181/81 (114) 95 09/15/17 16:18 98.5 77 20 163/72 (102) 95 09/15/17 12:39 52 Intake & Output 09/16/17 09/16/17 06:59 18:59 Intake Total 560 ml Output Total 600 ml Balance -40 ml Intake Oral 240 ml IV Total 320 ml Output Urine Total 600 ml # Bowel Movements 1 Physical Exam CONSTITUTIONAL/GENERAL: This is an adequately nourished patient, in no apparent distress. TUBES/LINES/DRAINS: PIV SKIN: Multiple areas of skin tears, ecchymosis on upper extremities. EYES: Pupils equal, reactive. ENT: Hearing grossly normal. Nose without bleeding or purulent drainage. NECK: In [place] collar CARDIOVASCULAR: Irregular rhythm, mildly tachycardic rate, 1/6 systolic ejection murmur, no rub. RESPIRATORY/CHEST: Symmetric, unlabored respirations. Clear to auscultation. Breath sounds equal bilaterally. No wheezes, rales, or rhonchi. GASTROINTESTINAL: Abdomen soft, non-tender, nondistended. Bowel sounds present. GENITOURINARY: Without palpable bladder distension. Cline catheter in place. MUSCULOSKELETAL: Extremities without clubbing, cyanosis, or edema. NEUROLOGICAL: Awake, confused, speech unintelligible. Reported seizure earlier today. PSYCHIATRIC: Calm, not agitated today. Diagnostic Tests Laboratory Laboratory Tests Test 09/14/17 06:45 White Blood Count 18.6 TH/MM3 (4.0-11.0) Red Blood Count 4.57 MIL/MM3 (4.00-5.30) Hemoglobin 13.8 GM/DL (11.6-15.3) Hematocrit 39.7 % (35.0-46.0) Mean Corpuscular Volume 86.7 FL (80.0-100.0) Mean Corpuscular Hemoglobin 30.3 PG (27.0-34.0) Mean Corpuscular Hemoglobin Concent 34.9 % (32.0-36.0) Red Cell Distribution Width 14.7 % (11.6-17.2) Platelet Count 381 TH/MM3 (150-450) Mean Platelet Volume 8.4 FL (7.0-11.0) Neutrophils (%) (Auto) 82.2 % (16.0-70.0) Lymphocytes (%) (Auto) 5.1 % (9.0-44.0) Monocytes (%) (Auto) 12.3 % (0.0-8.0) Eosinophils (%) (Auto) 0.1 % (0.0-4.0) Basophils (%) (Auto) 0.3 % (0.0-2.0) Neutrophils # (Auto) 15.3 TH/MM3 (1.8-7.7) Lymphocytes # (Auto) 0.9 TH/MM3 (1.0-4.8) Monocytes # (Auto) 2.3 TH/MM3 (0-0.9) Eosinophils # (Auto) 0.0 TH/MM3 (0-0.4) Basophils # (Auto) 0.1 TH/MM3 (0-0.2) CBC Comment AUTO DIFF Differential Total Cells Counted 100 Neutrophils % (Manual) 69 % (16-70) Band Neutrophils % 10 % (0-6) Lymphocytes % 10 % (9-44) Monocytes % 11 % (0-8) Neutrophils # (Manual) 14.7 TH/MM3 (1.8-7.7) Differential Comment FINAL DIFF MANUAL Platelet Estimate NORMAL (NORMAL) Platelet Morphology Comment NORMAL (NORMAL) Hematology Comments Blood Urea Nitrogen 22 MG/DL (7-18) Creatinine 1.04 MG/DL (0.50-1.00) Random Glucose 126 MG/DL (74-106) Calcium Level 8.9 MG/DL (8.5-10.1) Sodium Level 131 MEQ/L (136-145) Potassium Level 4.6 MEQ/L (3.5-5.1) Chloride Level 100 MEQ/L (98-107) Carbon Dioxide Level 18.5 MEQ/L (21.0-32.0) Anion Gap 13 MEQ/L (5-15) Estimat Glomerular Filtration Rate 50 ML/MIN (>89) Result Diagram: 09/14/17 0645 09/14/17 0645 Microbiology Microbiology Date/Time Source Procedure Growth Status 09/12/17 16:15 Urine Catheterized Urine Urine Culture - Final Pseudomonas Aeruginosa Complete Imaging Last Impressions Head CT 09/16/17 0000 Signed Impressions: Service Date/Time: September 09:19 - CONCLUSION: 1. Stable bilateral subdural hygromas without significant subfalcine or transtentorial herniation. 2. No intercurrent hemorrhage or other acute intracranial abnormality. Guillaume Sanchez MD Chest X-Ray 09/12/17 0000 Signed Impressions: Service Date/Time: Tuesday, September 12, 2017 20:19 - CONCLUSION: No evidence of acute cardiopulmonary disease. Phillip Lua MD Cervical Spine CT 09/12/17 0000 Signed Impressions: Service Date/Time: Tuesday, September 12, 2017 18:18 - CONCLUSION: Nondisplaced hairline fracture of the right and left lateral masses of C2. Phillip Lua MD Assessment and Plan Disease Oriented Problem List: (1) Subdural hematoma (2) UTI (urinary tract infection) (3) Altered mental status (4) Hypertension (5) C2 cervical fracture (6) Fall (7) Major neurocognitive disorder due to another medical condition (8) Mild major neurocognitive disorder due to traumatic brain injury with behavioral disturbance Symptom Scale: (1) Confusion 0-10 Scale: Unable to quantify (alert to self and date only.) (2) Pain, generalized 0-10 Scale: Unable to quantify (generalized neck, shoulder and head pain.) Pertinent Non-Medical Issues Psychosocial:Born in [place], moved to [place] 25 years ago. 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 She had one daughter from whom she is now estranged. The daughter lives in [place] but otherwise the patient will provide no information regarding the daughters identification. She has been to her Reggie for over 60 years and has been his caregiver for the last few years. . Spiritual: She has no spiritual affiliations. . Legal: At this time for treating physicians feel she is not capacitated to make decisions. Her is actively dying at the hospice care center from end- stage dementia. She is refusing to allow us to contact her daughter. She has no living parents or siblings. She does have one [id number] in [place], [place], Annabel Nova, possible phone number , but patient does not wish to ask her to be a healthcare surrogate. She has requested that her neighbor, Carlos Eduardo Johnson, be her healthcare surrogate, however she is not certain that she wishes to take on that responsibility yet. Patient is at this time refusing to fill out a healthcare surrogate form. Per [place] statutes, the [id number] is the closest living relative and could be the proxy if she agrees, otherwise would be referred to social work advantage. Ethical issues impacting care: None at this time. . Important Contacts Friend- Carlos Eduardo Johnson, . Sister in law- Annabel Nova . . Prognosis Her prognosis is poor. She is of advanced age and frail. She is having increased falls and is now confused and unable to independently make decisions. She is not oriented and agitated overnight, requiring Haldol. 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 She is becoming less able to care for herself and may require [id number] care once stable from this injury. She is at risk for repeated hospitalizations and continued decline. . Code Status: Full Code (by default. She states she does not wish resuscitation , however she is not capacitated to make decisions.) Plan PLAN: Legal decision maker: At this time for treating physicians feel she is not capacitated to make decisions. Her is actively dying at the [facility] from end-stage dementia. As she is not capacitated to make decisions, attempts are being made to contact her daughter. She has no living parents or siblings. She does have one [id number] in [place], [place], Annabel Nova, , and she is willing to be the legal decision-maker if needed. She has provided some information regarding the daughter, Evelia to assist in locating her, but has no information on her current last name or whereabouts. Patient has requested that her neighbor, Carlos Eduardo Johnson, be her healthcare surrogate, however Ms. Johnson is not certain that she wishes to take on that responsibility yet. Patient is at this time refusing to fill out a healthcare surrogate form. Per [place] statutes, if the daughter cannot be located, the [id number]-aa-nay is the closest living relative and could be the proxy if she agrees, otherwise would be referred to social work advantage. Goals: Goals would be aggressive by default, although the patient states she wishes not to be resuscitated, she is not capacitated to make decisions. CODE STATUS: Full code by default SYMPTOMS: * Confusion: Uncertain whether this is due to recent head trauma, chronic subdural hygromas or underlying dementia. She is slightly sedated after receiving Ativan for her seizure this morning. She is speaking, but her speech is unintelligible. She is now receiving risperidone and Haldol as needed. Needs frequent reorientation. * Pain: Pain sources to include head trauma, hairline fracture in C2, needing to wear c-collar, recent fall, bedbound status. Hydrocodone/acetaminophen 5/ 325 one-two tab every 4 hours as needed is available, but none have been given. Due to patient's altered mental status, she may not be able to communicate her needs for pain management, but currently denies. Now receiving scheduled IV Tylenol. * Seizures: Managed with Ativan. Neuro consult and EEG pending. Recommend seizure precautions pending neuro eval. Palliative care will continue to follow the patient during hospital course as condition evolves, to assist patient/decision-maker with understanding of their medical conditions, weighing benefits/burdens of treatment options, for clarification of goals of treatment. Additionally will assist with any symptoms of palliative concern. . Attestation To help prompt me to consider important information that might be impacting today's encounter and assessment, information from prior notes written by myself or my colleagues may have been "brought forward" into today's note. My signature on this note, however, is an attestation that I personally performed the exam, history, and/or decision-making noted today, and, unless otherwise indicated, the interactions with patient, family, and staff as well as the review of records all occurred today. I also attest that the listed assessment and stated plan reflect my best clinical judgment today based on the combination of historical information, prior notes, and today's exam/ interactions. When time spent is documented, it refers only to time spent today by the signer, or if indicated, combined time spent today by collaborating physician/nurse practitioner. . Lay Crooks Sep 16, 2017 12:33
--- NOTE | 2017-09-16 12:41 | HHI.NSPN ---
(Noa Dueñas) Note Status Status: Progress Note (Noa Dueñas) Interval History Interval History The patient is a 87-year-old female, who has a history of arterial hypertension, chronic myelocytic leukemia, prior hysterectomy and a left shoulder arthroplasty, dementia, who was brought to the emergency department. Unfortunately she is confused and is unable to explain what happened. She has not accompanied by anybody. She provides inconsistent answers. The history is obtained from the chart and from the emergency room physician. Apparently her who also has dementia was missing and senior alert was activated. The patient reportedly was outside speaking with a neighbor when she fell after she tripped on the dog leash. She landed face first, over a parked car. There was not reported loss of consciousness. There was no seizure activity seen. No tonic/clonic movements. No incontinence of stool or urine. No tongue biting. The patient was moving all four extremities. Upon arrival but she was confused. CT of the brain show bilateral chronic subdural hygromas, with 2 mm of midline shift. CT of the cervical spine show bilateral lateral mass fractures of C1. The patient was found to have a urinary tract infection. She was hemodynamically stable. A neurosurgical consultation was requested. 09/14: became delirious last night and reportedly had a fall. currently drowsy following Haldol. 09/15: awake, moves all four extremities, mildly confused. 09/16: Halicat this morning following episode of ?seizures and unresponsiveness according to nursing staff. Ativan 1 mg given. pt was seen as she was being wheeled down to CT. CT stable b/l subdural hygromas, no acute findings. (Noa Dueñas) Labs, Micro, & Vital Signs Results Date Time Temp Pulse Resp B/P (MAP) Pulse Ox O2 Delivery O2 Flow Rate FiO2 09/16/17 08:00 98.9 95 20 213/91 (131) 94 09/16/17 04:00 98.4 76 17 157/70 (99) 94 09/16/17 00:30 98.3 79 17 131/61 (84) 94 09/15/17 20:59 98.3 94 16 181/81 (114) 95 09/15/17 16:18 98.5 77 20 163/72 (102) 95 09/15/17 12:39 52 Constitutional Vital Signs Date Time Temp Pulse Resp B/P (MAP) Pulse Ox O2 Delivery O2 Flow Rate FiO2 09/16/17 08:00 98.9 95 20 213/91 (131) 94 09/16/17 04:00 98.4 76 17 157/70 (99) 94 09/16/17 00:30 98.3 79 17 131/61 (84) 94 09/15/17 20:59 98.3 94 16 181/81 (114) 95 09/15/17 16:18 98.5 77 20 163/72 (102) 95 09/15/17 12:39 52 (Noa Dueñas) Review of Systems ROS Limitations: Altered Mental Status (Noa Dueñas) Physical Exam Ms Oropeza is obtunded, mildly opens eyes but not following commands. Cranial nerve examination: pupils equal, round, and reactive to light. Cervical spine braced by a Blackfeet collar Sensorimotor: minimal response to pain x 4 Deep tendon reflexes are symmetrical in both upper and lower extremities. bilateral plantar flexion response. Cerebellar examination is not possible due to her neurological condition (Noa Dueñas) Ms Oropeza is encephalopathic, opens eyes to verbal stimuli, does not follow commands. Grimaces to pain stimuli. Cranial nerve examination: pupils equal, round, and reactive to light. Facial symmetric at rest. Cervical spine braced by a Blackfeet collar Sensorimotor: withdraws to pain x 4 Deep tendon reflexes are symmetrical in both upper and lower extremities. bilateral plantar flexion response. Cerebellar examination is not possible due to her neurological condition (Greyson Rojas MD) Medications Current Medications Current Medications Medications (Trade) Dose Ordered Sig/Ady Route PRN Reason Start Time Stop Time Status Last Admin Dose Admin Sodium Chloride (NS Flush) 2 ml UNSCH PRN IV FLUSH FLUSH AFTER USING IV ACCESS 09/12/17 20:15 09/14/17 00:15 Acetaminophen/ Hydrocodone Bitart ([place] 5-325 Mg) 1 tab Q4H PRN PO PAIN SCALE 6-10 09/12/17 20:15 Ondansetron HCl (Zofran Inj) 4 mg Q6H PRN IV PUSH NAUSEA OR VOMITING 09/12/17 20:15 Bacitracin (Baciguent Oint) 1 applic BID TOP 09/12/17 21:00 09/16/17 09:00 Ceftriaxone Sodium 1000 mg/ Sodium Chloride 100 ml @ 200 mls/hr Q24H IV 09/13/17 20:00 09/15/17 22:10 Senna/Docusate Sodium (Summer-Colace) 1 tab BID PO 09/13/17 09:00 09/15/17 22:06 Lactulose (Lactulose Liq) 30 ml DAILY PRN PO No BM in 2 days 09/13/17 07:15 Polyethylene Glycol (Miralax) 17 gm DAILY PO 09/13/17 09:00 09/15/17 09:33 Enalapril Maleate (Vasotec) 5 mg DAILY PO 09/13/17 09:45 09/16/17 11:26 Verapamil HCl (Isoptin) 240 mg BID PO 09/13/17 09:45 09/16/17 11:43 Haloperidol Lactate (Haldol Inj) 4 mg Q6H PRN IV AGITATION 09/14/17 00:15 09/14/17 08:13 Enoxaparin Sodium (Lovenox Inj) 30 mg Q24H SQ 09/14/17 10:00 09/16/17 11:03 Risperidone (risperDAL) 0.5 mg BID PO 09/14/17 10:15 09/16/17 11:43 Acetaminophen 100 ml @ 400 mls/hr Q6H IV 09/14/17 17:00 09/16/17 11:03 Enalaprilat (Vasotec Inj) 1.25 mg Q6H PRN IV PUSH SBP>160, DBP>90 09/15/17 07:30 09/16/17 09:09 Famotidine (Pepcid) 10 mg BID PO 09/15/17 09:00 09/16/17 11:26 Hydralazine HCl (Apresoline Inj) 20 mg Q4H PRN IV PUSH SBP>170; DBP>105 09/16/17 11:45 09/16/17 12:08 Amiodarone HCl 450 mg/Dextrose 250 ml @ 33.33 mls/ hr Q7H31M PRN IV Per Protocol 09/16/17 12:29 (Noa Dueñas) Current Medications Current Medications Ondansetron HCl (Zofran Inj) 4 mg ONCE ONCE IV PUSH Last administered on 18:33; Start 09/12/17 at 18:30; Stop 09/12/17 at 18:31; Status DC Morphine Sulfate (Morphine Inj) 2 mg ONCE ONCE IV PUSH ; Start 09/12/17 at 18: 30; Stop 09/12/17 at 18:31; Status DC Metoprolol Tartrate (Lopressor Inj) 2.5 mg ONCE ONCE IV PUSH Last administered on 09/12/17 19:00; Start 09/12/17 at 18:45; Stop 09/12/17 at 18:46 ; Status DC Metoprolol Tartrate (Lopressor Inj) 2.5 mg ONCE ONCE IV PUSH Last administered on 09/12/17 19:22; Start 09/12/17 at 19:30; Stop 09/12/17 at 19:31 ; Status DC Ceftriaxone Sodium 1000 mg/ Sodium Chloride 100 ml @ 200 mls/hr ONCE ONCE IV Last administered on 09/12/17 20:04; Start 09/12/17 at 19:30; Stop 09/12/17 at 19:59; Status DC Nicardipine HCl (Cardene Inj) 25 mg STK-MED ONCE .ROUTE Last administered on 20:16; Start 09/12/17 at 20:03; Stop 09/12/17 at 20:04; Status DC Sodium Chloride 1,000 ml @ 100 mls/hr Q10H IV Last administered on 09/14/17 23:16; Start 09/12/17 at 21:00; Stop 09/15/17 at 07:31; Status DC Sodium Chloride (NS Flush) 2 ml UNSCH PRN IV FLUSH FLUSH AFTER USING IV ACCESS Last administered on 09/14/17 00:15; Start 09/12/17 at 20:15 Hydromorphone HCl (Dilaudid Pf Inj) 0.5 mg Q1H PRN IVP BREAKTHROUGH PAIN; Start 09/12/17 at 20:15; Stop 09/15/17 at 07:31; Status DC Acetaminophen/ Hydrocodone Bitart ([place] 5-325 Mg) 1 tab Q4H PRN PO PAIN SCALE 6-10; Start 09/12/17 at 20:15 Acetaminophen/ Hydrocodone Bitart ([place] 5-325 Mg) 2 tab Q4H PRN PO PAIN SCALE 6 TO 10; Start 09/12/17 at 20:15; Stop 09/15/17 at 07:31; Status DC Enalaprilat (Vasotec Inj) 1.25 mg Q8H PRN IV PUSH SBP>180, DBP>95; Start at 20:15; Stop 09/12/17 at 23:00; Status DC Ondansetron HCl (Zofran Inj) 4 mg Q6H PRN IV PUSH NAUSEA OR VOMITING; Start at 20:15 Pantoprazole Sodium (Protonix Inj) 40 mg Q24H IVP Last administered on 21:18; Start 09/12/17 at 21:00; Stop 09/15/17 at 07:31; Status DC Bacitracin (Baciguent Oint) 1 applic BID TOP Last administered on 09/17/17 19: 57; Start 09/12/17 at 21:00 Docusate Sodium (Colace) 100 mg BID PO ; Start 09/12/17 at 21:00; Stop 09/13/17 at 07:19; Status DC Miscellaneous Information 1 Q361D XX ; Start 09/12/17 at 20:15; Stop 09/15/17 at 07:31; Status DC Chlorhexidine Gluconate (Chlorhexidine 2% Cloth) 3 pack Taper DAILY@04 TOP ; Start 09/13/17 at 04:00; Stop 09/15/17 at 07:31; Status DC Chlorhexidine Gluconate (Chlorhexidine 2% Cloth) 3 pack UNSCH PRN TOP HYGIENIC CARE; Start 09/12/17 at 20:15; Stop 09/15/17 at 07:31; Status DC Nicardipine HCl 25 mg/Sodium Chloride 250 ml @ 0 mls/hr TITRATE ONCE IV Last administered on 09/12/17 20:32; Start 09/12/17 at 20:30; Stop 09/12/17 at 20:31 ; Status DC Ceftriaxone Sodium 1000 mg/ Sodium Chloride 100 ml @ 200 mls/hr Q24H IV Last administered on 09/17/17 21:14; Start 09/13/17 at 20:00 Labetalol HCl (Trandate Inj) 10 mg Q4H PRN IV PUSH SBP >160 Last administered on 09/14/17 13:14; Start 09/12/17 at 23:00; Stop 09/15/17 at 07:31; Status DC Nicardipine HCl 25 mg/Sodium Chloride 250 ml @ 50 mls/hr TITRATE PRN IV Blood pressure management; Start 09/13/17 at 02:45; Stop 09/15/17 at 07:31; Status DC Senna/Docusate Sodium (Summer-Colace) 1 tab BID PO Last administered on 19:57; Start 09/13/17 at 09:00 Lactulose (Lactulose Liq) 30 ml DAILY PRN PO No BM in 2 days; Start 09/13/17 at 07:15 Polyethylene Glycol (Miralax) 17 gm DAILY PO Last administered on 09/15/17 09: 33; Start 09/13/17 at 09:00 Enoxaparin Sodium (Lovenox Inj) 40 mg Q24H SQ Last administered on 09/13/17 09 :54; Start 09/13/17 at 10:00; Stop 09/14/17 at 08:49; Status DC Hydralazine HCl (Apresoline Inj) 20 mg Q4H PRN IV PUSH SBP >160 Last administered on 09/14/17 16:45; Start 09/13/17 at 09:45; Stop 09/15/17 at 07:31 ; Status DC Enalapril Maleate (Vasotec) 5 mg DAILY PO Last administered on 09/17/17 12:12 ; Start 09/13/17 at 09:45 Verapamil HCl (Isoptin) 240 mg BID PO Last administered on 09/17/17 19:57; Start 09/13/17 at 09:45 Haloperidol Lactate (Haldol Inj) 4 mg Q6H PRN IM AGITATION; Start 09/13/17 at 22:15; Stop 09/15/17 at 07:31; Status DC Haloperidol Lactate (Haldol Inj) 4 mg NOW ONCE IM Last administered on 22:23; Start 09/13/17 at 22:15; Stop 09/13/17 at 22:16; Status DC Haloperidol Lactate (Haldol Inj) 4 mg Q6H PRN IV AGITATION Last administered on 09/14/17 08:13; Start 09/14/17 at 00:15; Stop 09/16/17 at 13:22; Status DC Enoxaparin Sodium (Lovenox Inj) 30 mg Q24H SQ Last administered on 09/17/17 12 :12; Start 09/14/17 at 10:00; Stop 09/17/17 at 17:27; Status DC Risperidone (risperDAL) 0.5 mg BID PO Last administered on 09/16/17 11:43; Start 09/14/17 at 10:15; Stop 09/16/17 at 13:21; Status DC Acetaminophen 100 ml @ 400 mls/hr Q6H IV Last administered on 09/17/17 22:39 ; Start 09/14/17 at 17:00 Enalaprilat (Vasotec Inj) 1.25 mg Q6H PRN IV PUSH SBP>160, DBP>90 Last administered on 09/17/17 02:26; Start 09/15/17 at 07:30 Famotidine (Pepcid) 10 mg BID PO Last administered on 09/17/17 19:57; Start 09/15/17 at 09:00 Bisacodyl (Dulcolax Supp) 10 mg ONCE ONCE RECTAL Last administered on 17:35; Start 09/15/17 at 15:00; Stop 09/15/17 at 15:01; Status DC Lorazepam (Ativan Inj) 2 mg STK-MED ONCE .ROUTE ; Start 09/16/17 at 09:16; Stop 09/16/17 at 09:17; Status DC Lorazepam (Ativan Inj) 1 mg NOW ONCE IV PUSH Last administered on 09/16/17 09 :30; Start 09/16/17 at 09:45; Stop 09/16/17 at 09:46; Status DC Hydralazine HCl (Apresoline Inj) 20 mg Q4H PRN IV PUSH SBP>170; DBP>105 Last administered on 09/17/17 03:31; Start 09/16/17 at 11:45 Amiodarone HCl 150 mg/Dextrose 103 ml @ 600 mls/hr Q11M ONCE IV Last administered on 09/16/17 13:39; Start 09/16/17 at 12:19; Stop 09/16/17 at 12:34 ; Status DC Amiodarone HCl 450 mg/Dextrose 250 ml @ 33.33 mls/ hr Q7H31M PRN IV Per Protocol Last administered on 09/18/17 03:44; Start 09/16/17 at 12:29 Sodium Chloride 1,000 ml @ 75 mls/hr [id number] IV Last administered on 05:05; Start 09/17/17 at 11:04 Amiodarone HCl 150 mg/Dextrose 103 ml @ 600 mls/hr Q11M ONCE IV Last administered on 09/17/17 12:13; Start 09/17/17 at 11:00; Stop 09/17/17 at 11:10 ; Status DC Gadodiamide (Omniscan Pf Inj) 12 ml STK-MED ONCE IVCONTRAST Last administered on 09/17/17 11:40; Start 09/17/17 at 11:40; Stop 09/17/17 at 11:42; Status DC Heparin Sodium/ Dextrose 250 ml @ 7 mls/hr TITRATE PRN IV Coagulation Management Last administered on 09/17/17 19:08; Start 09/17/17 at 17:30 (Greyson Rojas MD) Medical Decision Making MDM Remarks 87 year old female fall at home, C2 hairline fracture through lateral masses b/l chronic subdural hygromas acute mental status change, ?seizures (Noa Dueñas) MDM Remarks Last [address] 09/18/17 0000 Signed Impressions: Service Date/Time: Monday, September 18, 2017 02:06 - CONCLUSION: No significant change has occurred. Terrence Kennedy MD Brain MRI 09/17/17 1316 Signed Impressions: Service Date/Time: Sunday, September 17, 2017 11:23 - CONCLUSION: Acute infarction right corpus callosum. Nonspecific white matter changes. Bilateral subdural hygromas. Simeon Goode MD Humerus X-Ray 09/17/17 0000 Signed Impressions: Service Date/Time: Sunday, September 17, 2017 16:31 - CONCLUSION: 1. Fracture of the right humeral neck nondisplaced Jose Rudd MD Chest X-Ray 09/17/17 0000 Signed Impressions: Service Date/Time: Sunday, September 17, 2017 11:00 - CONCLUSION: 1. Cardiomegaly and findings of vascular congestion without overt failure. This is new when compared with the prior exam. 2. Right humeral neck fracture Jose Rudd MD Abdomen X-Ray 09/17/17 0000 Signed Impressions: Service Date/Time: Sunday, September 17, 2017 11:05 - CONCLUSION: No concerning radiopaque foreign bodies identified within the abdomen. Phillip Franco MD (Greyson Rojas MD) Plan Plan Remarks transferred to [facility] f/u CT Head reviewed, nonsurgical mgt EEG to assess seizures, keep Blackfeet collar on recommend Neurology evaluation seizure precautions (Noa Dueñas) Plan Remarks Problem List: (1) Fall ICD Code: W19.XXXA - Unspecified fall, initial encounter Status: Acute (2) Subdural hygroma ICD Code: D18.1 - Lymphangioma, any site Status: Chronic (3) UTI (urinary tract infection) ICD Code: N39.0 - Urinary tract infection, site not specified Status: Acute (4) C2 cervical fracture ICD Code: S12.100A - Unspecified displaced fracture of second cervical vertebra , initial encounter for closed fracture Status: Acute (5) Hypertension ICD Code: I10 - Essential (primary) hypertension Status: Acute (Greyson Rojas MD) Attending Statement Possible seizure, versus TIA. Encephalopathy. Continue Neuro Continue checks. EEG. Follow up emergency CT. Neurology consultation. Syncope workup per neurology Fall precautions C2 bilateral lateral mass fracture. nonoperative treatment with Blackfeet J collar. 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 Continue nonoperative treTMENT cONTINUE Incentive spirometry every hour awake. Continue pulmonary toilette, nasotracheal suction, and breathing treatments with nebulizers. ContinueDaily PT and OT : Hypertension. Controlled. Continue po meds. GI: Oral diet Hyponatremia, chronic. Renal insufficiency. Follow up BMP UTI. Follow-up urine cultures. Continue ABX Continue Protonix 40 mg IV daily for stress ulcer prophylaxis. ContinueTed hose and SCD's for DVT prophylaxis. Avoid pharmacologic DVT prophylaxis at this time due to subdural hygroma and acute trauma. The exam, history, and the medical decision-making described in the above note were completed with the assistance of the mid-level provider. I reviewed and agree with the findings presented. I attest that I had a [id number] encounter with the patient on the same day, and personally performed and documented my assessment and findings in the medical record. (Greyson Rojas MD) Noa Dueñas Sep 16, 2017 12:41 Greyson Rojas MD Sep 18, 2017 08:12
[2017-09-16] MEDS: AMIODARONE INJ 450 MG in DEXTROSE 5% IN WATE(EXCEL) INJ 241 ML IV PRN ×4 (13:58→22:28)
--- NOTE | 2017-09-16 14:38 | MG ---
cc: DAWN DUARTE MD Lab No: Date: 09/16/2017 Age: Sex: F Race: DATE OF 1930 REFERRING PHYSICIAN BLAZE Dueñas MEDICAL HISTORY Hypertension, chronic myelocytic leukemia, dementia, neck pain, hysterectomy, hypertension, confusion, left shoulder surgery, CML, chemotherapy, blood transfusion, falls, call for change in mental status and seizure, became delirious and fell, mildly confused. MEDICATIONS 1. Vasotec. 2. Acetaminophen. 3. Risperdal. 4. Ceftriaxone. DESCRIPTION At the beginning of the EEG the background activity was 8-9 Hz alpha located posteriorly, attenuates to eye-opening. During the recording there was slowing of the background and generalized slowing with replacement of polymorphic theta and delta activity. During the recording there was excessive eye blink artifact /eye flutter intermittently. The background was superimposed by excess beta activity. Hyperventilation was omitted. Photic stimulation did not elicit a driving response. There is excessive movement artifact. There were no ictal or electrographic seizures. There were no epileptiform discharges. INTERPRETATION This is an awake and drowsy EEG. The generalized and background slowing may indicate an encephalopathic process that may be secondary to hypoxia, metabolic or medication effects. Beta activity is a nonspecific finding that may be related to medication adverse effects like benzos and barbiturates. There were no electrographic seizures/ictal activity or epileptiform discharges noted during the recording. Clinical correlation is recommended. Dawn Duarte MD RGO/TLL /1:58 PM /2:18 PM MTDD
--- NOTE | 2017-09-16 15:20 | MB ---
cc: MONTRELL QUINTEROS DATE OF CONSULTATION: 09/16/2017 REASON FOR CONSULTATION: 87-year-old woman who came into the emergency room after fall event. She was walking her dog tripped over the leash and fell and hit a car that was parked. She fell face first into the car she was a poor historian when she came in. According to her she had some dementia, history of hypertension, chronic myelogenous leukemia, no loss of consciousness. I am asked to see her for possible seizure. I talked to the nurse that was the charge nurse on the floor were she may have had a seizure. She said when she went in to see the patient she was not having jerking movements of the arms or legs, she was just having some slight jerking on and off of the eyelids so not a definite seizure. CT showed bilateral subdural hygromas right was larger. C2 right and left lateral mass fractures, nondisplaced on CT scan of the spine. PAST MEDICAL HISTORY As above ALLERGIES NO KNOWN DRUG ALLERGIES. PAST SURGICAL HISTORY: Left shoulder surgery. She evidently is on verapamil and other blood pressure medication. FAMILY HISTORY Mother at 85 of old age. SOCIAL HISTORY Lifetime nonsmoker, No alcohol use. CURRENT MEDICATIONS 1. Hydralazine. 2. She was given Ativan this morning. 3. Enalapril. 4. Risperdal 0.5 b.i.d. 5. Lovenox. 6. Haldol 4 mg IV on 09/14. 7. Ceftriaxone 8. Vasotec 9. Isoptin 10. MiraLax 11. Lactulose. 12. Zofran. 13. Proctor p.r.n. PHYSICAL EXAMINATION: VITAL SIGNS: On exam afebrile 95, 20, 213/91 to 131/61. IN GENERAL: She generally has been running some high blood pressure since admission. She generally has been afebrile. NECK: She has a hard collar on. HEART: Regular rhythm. HEAD, EYES, EARS, NOSE, AND THROAT: The pupils are equal. Visual chowdary appear full. Her face was symmetric. Tongue was midline. She moved all extremities but I thought that she was moving the left arm a little bit less then the right. She picked up both of her legs well. At the knee, the right toe was down the left. Possibly upgoing. DTRs were trace throughout. She is awake and alert. She says she was at [employer], she follow commands well. She is hypophonic. Some bruises on her arms, think skin in general on her arms. LABORATORY DATA White count 18, it was 10 several days ago, otherwise CBC is normal. Basic metabolic profile, sodium is 131 it had been 130. Basic metabolic profile otherwise essentially unremarkable. BUN is 22, creatinine one. LFTs are normal. Total protein TSH normal. Urinalysis white count 12. She had a CAT scan of cervical spine as noted showed a hairline fractures of C2, all the bones were intact. No mention of spinal stenosis. She had a CAT scan of her brain which shows some dural collections she had old CAT in 2014 which were not read as any, subdural collections. CT shows some mild diffuse atrophy. There are bilateral subdural hygromas, but no major mass effect on the brain that had. She a CT from 2013 which was performed. Review of those films showed no major hygroma IMPRESSION Possible seizure, though it does not sound like it was definitely a seizure per'se, according to the nurse. We will check an EEG and MRI of the brain. She does have some dementia. We will check some blood work on her. At this point I would hold any sedating medications and will keep an eye on the left arm make sure that there is no weakness there as she awakens more off of the sedatives, I would hold her Risperdal at this time. MD BONNIE Lopez/andrew /1:08 PM /2:30 PM
--- NOTE | 2017-09-16 15:23 | EKG ---
Date Performed: 09/16/2017 Time Performed: 11:59:46 PTAGE: 87 years EKG: Atrial fibrillation with rapid ventricular response. Inferior ST-T changes are nonspecific Abnormal ECG PREVIOUS TRACING : 09/12/2017 19.05 Compared to prior electrocardiogram, atrial fibrillation is now present DOCTOR: Chago Quinonez Interpretating Date/Time 09/16/2017 15:22:20
[2017-09-16 16:56] LABS: FREE T4 1.47 NG/DL (0.76-1.46); TOTAL PROTEIN SPE 5.7 GM/DL (6.0-7.6)
[2017-09-16 22:21] LABS: ALBUMIN SPE 3.44 GM/DL (3.50-5.00); ALPHA 1 GLOBULIN 0.25 GM/DL (0.11-0.29); ALPHA 2 GLOBULIN 0.82 GM/DL (0.22-1.00); BETA GLOBULINS (SPE) 0.51 GM/DL (0.53-1.03)
[2017-09-16] MEDS: cefTRIAXone INJ 1,000 MG in SODIUM CHLORIDE 0.9% INJ 100 ML IV SCH (22:28)
[2017-09-17] VITALS (15 sets, daily range): BP systolic 119–159; BP diastolic 58–74; PULSE 64–121; RESP 15–24; TEMP 98.3–99.3; O2SAT 98–99
[2017-09-17] MEDS: BACITRACIN TOP OINT 15 GM TUBE TOP SCH ×3 (02:00→19:57)
[2017-09-17] MEDS: ENALAPRILAT 1.25 MG/ML VIAL IV PUSH PRN (02:26)
[2017-09-17] MEDS: hydrALAZINE HCL 20 MG/ML VIAL IV PUSH PRN (03:31)
[2017-09-17] MEDS: ACETAMINOPHEN 1000 MG/100 ML 100 ML IV SCH ×4 (04:53→22:39)
[2017-09-17 06:24] LABS: AUTOMATED NEUTROPHIL # 10.3 TH/MM3 (1.8-7.7); BASOPHIL % 0.4 % (0.0-2.0); EOSINOPHIL % 0.2 % (0.0-4.0); HEMATOCRIT 35.1 % (35.0-46.0); HEMO FLAGS DIFF FINAL; LYMPH % 7.1 % (9.0-44.0); LYMPHOCYTE # 0.9 TH/MM3 (1.0-4.8); MEAN CELL VOLUME 88.8 FL (80.0-100.0); MEAN CORPUSCULAR HEMOGLOBIN 29.5 PG (27.0-34.0); MEAN CORPUSCULAR HGB CONC 33.3 % (32.0-36.0); MONO % 12.7 % (0.0-8.0); NEUT % 79.6 % (16.0-70.0); PLATELET COUNT 377 TH/MM3 (150-450); RED BLOOD COUNT 3.95 MIL/MM3 (4.00-5.30); RED CELL DISTRIBUTION WIDTH 15.1 % (11.6-17.2); WHITE BLOOD COUNT 12.9 TH/MM3 (4.0-11.0)
[2017-09-17 07:06] LABS: ALKALINE PHOSPHATASE 70 U/L (45-117); ALT (GPT) 21 U/L (10-53); ANION GAP 11 MEQ/L (5-15); AST (GOT) 25 U/L (15-37); BICARBONATE 21.2 MEQ/L (21.0-32.0); BLOOD UREA NITROGEN 39 MG/DL (7-18); CHLORIDE 109 MEQ/L (98-107); GLOMERULAR FILTRATION RATE 52 ML/MIN (>89); POTASSIUM 3.5 MEQ/L (3.5-5.1); SODIUM (NA) 141 MEQ/L (136-145); TOTAL BILIRUBIN ADULT 0.4 MG/DL (0.2-1.0)
--- NOTE | 2017-09-17 07:33 | HHI.PR ---
Neuropsych Behavior Behavior: Intact: Cooperative w/ Treatment, Motivation, Impulsive/Agitated Cognitive Cognitive: Moderate: Cognitive, Attention/Concentration, Confused/Orientation, Insight/Awareness, Judgement/Problem-Solving, Memory Psychosocial Psychosocial: Intact: Psychosocial, Family/Other Adjustment, Realistic Expectation, Unable to Asses: Self-Esteem/Confidence Progress Notes/Response to Tx Contents of Sessions: Adjustment, Level of Consciousness Time with Patient: 15 minutes Premorbid psychological status Premorbid Cognitive, Emotional and Behavioral Status: Stable. 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 The patient has no prior psychiatric difficulties, as described above. Substance abuse history is unremarkable. Behavioral Reactions of Patient and Family/Support System: Stable. The patient s family is experiencing ongoing issues of adjustment given the nature of the injury, and this aspect of recovery will require ongoing monitoring. Emotional/Behavioral Status of Patient and Family/Support System: Stable. Pertinent issues, if appropriate to this patients clinical care, are described in detail above. Maximizing acute care outcome It is recommended that the patient be monitored for emergent behavioral impulsivity as the medical condition evolves. This patients neuropathological challenges may limit her rehabilitation potential going forward, and these challenges will require specialized therapeutic skills to maximize outcome. Additionally, the patients family is experiencing ongoing issues of adjustment given the traumatic nature of the injury, and they may benefit from ongoing psychological assistance. At this point in the recovery process, the patient does not have cognitive capacity as the patient is unable to understand a situation and its likely consequences, nor is she able to manipulate information rationally. Cognitive capacity will be assessed throughout the recovery process. Anticipated Problems Ongoing areas of concern will include behavioral impulsivity, lack of insight and judgment, which is expected to improve with time and treatment. Presently , the patient is lethargic and beginning to more consistently follow commands. Treatment Plan This clinician will continue to follow with you throughout the course of this patients acute care treatment, and I will be available to meet with the patient s family/support system to facilitate their understanding and the ongoing care of their family member. The goals of neuropsychological intervention shall be both educational and supportive to the family/support system as is deemed clinically appropriate. [facility] Level: V:Confused-non agitated Impression This 87 year old woman with a past history of chronic SDH and recent fall on 09/12/2017, appears to have an underlying major neurocognitive disorder in addition to the sequelae associated with her recent TBI. Both conditions will need to be monitored. Diagnosis: (1) Major neurocognitive disorder due to another medical condition (2) Mild major neurocognitive disorder due to traumatic brain injury with behavioral disturbance Progress Note Narrative Ongoing follow-up of patient seen during daily trauma rounds. This is day 5 post injury. Neurologist Robin saw patient yesterday, concurs with underlying dementia issue and suggested d/c'ing sedating medications including Risperidone and Haldol so that we can lift her sedation in order to better assess any left arm weakness. This patient remains a confused generally not agitated hard to arouse at this time Tani Chew will continue to follow. Johnny Shine PhD Sep 17, 2017 7:33 am
--- NOTE | 2017-09-17 07:45 | HHI.PR ---
Subjective Remarks no new spells a little cough Objective Vital Signs Date Time Temp Pulse Resp B/P (MAP) Pulse Ox O2 Delivery O2 Flow Rate FiO2 09/17/17 07:00 99 Nasal Cannula 2.00 09/17/17 06:00 76 09/17/17 04:00 77 09/17/17 04:00 98.8 77 24 139/62 (87) 99 09/17/17 02:00 89 09/17/17 00:00 79 09/17/17 00:00 98.7 79 22 159/70 (99) 98 09/16/17 22:28 95 167/70 09/16/17 22:00 91 09/16/17 22:00 99 Nasal Cannula 3.00 09/16/17 21:39 100 Nasal Cannula 3.00 09/16/17 21:30 85 Nasal Cannula 4.00 09/16/17 20:30 88 Nasal Cannula 6.00 09/16/17 20:00 97 Nasal Cannula 4.00 09/16/17 20:00 63 09/16/17 20:00 98.6 61 22 141/62 (88) 97 09/16/17 18:00 69 09/16/17 16:00 97.9 89 22 144/64 (90) 95 09/16/17 16:00 89 09/16/17 14:00 125 09/16/17 13:58 79 104/51 09/16/17 13:39 91 115/55 09/16/17 12:00 105 09/16/17 12:00 98.5 105 24 209/76 (120) 96 09/16/17 10:00 110 09/16/17 08:00 98.9 95 20 213/91 (131) 94 I/O 09/16/17 09/16/17 09/16/17 09/17/17 09/17/17 09/17/17 07:00 15:00 23:00 07:00 15:00 23:00 Intake Total 360 ml 200 ml 200 ml 0 ml Output Total 600 ml 250 ml 250 ml Balance -240 ml 200 ml -50 ml -250 ml Intake Oral 240 ml 100 ml 0 ml IV Total 120 ml 200 ml 100 ml Output Urine Total 600 ml 250 ml 250 ml # Bowel Movements 0 0 Result Diagram: 09/17/17 0535 12/8/17 0535 Objective Remarks awake follows commands moves all and sticks out tongue ok Assessment and Plan Assessment and Plan imp unclear if actually had sz or not oob PT hx AD no sedatives eeg and labs ok ok to floor pneumonia risk Jose Mijares MD Sep 17, 2017 07:45
[2017-09-17] MEDS: DOCUSATE SODIUM 50 MG/SENNA 8.6 MG TAB PO SCH ×2 (09:00→19:57)
[2017-09-17] MEDS: POLYETHYLENE GLYCOL 17 GM PKG PO SCH (09:00)
--- NOTE | 2017-09-17 10:22 | HHI.NSPN ---
(Noa Dueñas) Note Status Status: Progress Note (Noa Dueñas) Interval History Interval History The patient is a 87-year-old female, who has a history of arterial hypertension, chronic myelocytic leukemia, prior hysterectomy and a left shoulder arthroplasty, dementia, who was brought to the emergency department. Unfortunately she is confused and is unable to explain what happened. She has not accompanied by anybody. She provides inconsistent answers. The history is obtained from the chart and from the emergency room physician. Apparently her who also has dementia was missing and senior alert was activated. The patient reportedly was outside speaking with a neighbor when she fell after she tripped on the dog leash. She landed face first, over a parked car. There was not reported loss of consciousness. There was no seizure activity seen. No tonic/clonic movements. No incontinence of stool or urine. No tongue biting. The patient was moving all four extremities. Upon arrival but she was confused. CT of the brain show bilateral chronic subdural hygromas, with 2 mm of midline shift. CT of the cervical spine show bilateral lateral mass fractures of C1. The patient was found to have a urinary tract infection. She was hemodynamically stable. A neurosurgical consultation was requested. 09/14: became delirious last night and reportedly had a fall. currently drowsy following Haldol. 09/15: awake, moves all four extremities, mildly confused. 09/16: Halicat this morning following episode of ?seizures and unresponsiveness according to nursing staff. Ativan 1 mg given. pt was seen as she was being wheeled down to CT. CT stable b/l subdural hygromas, no acute findings. 09/17: opens eyes, not following commands. neurology following. (Noa Dueñas) Labs, Micro, & Vital Signs Results Date Time Temp Pulse Resp B/P (MAP) Pulse Ox O2 Delivery O2 Flow Rate FiO2 09/17/17 09:41 99 Nasal Cannula 2.00 09/17/17 08:00 77 09/17/17 08:00 99.3 76 16 119/60 (79) 99 09/17/17 07:00 99 Nasal Cannula 2.00 09/17/17 06:00 76 09/17/17 04:00 77 09/17/17 04:00 98.8 77 24 139/62 (87) 99 09/17/17 02:00 89 09/17/17 00:00 79 09/17/17 00:00 98.7 79 22 159/70 (99) 98 09/16/17 22:28 95 167/70 09/16/17 22:00 91 09/16/17 22:00 99 Nasal Cannula 3.00 09/16/17 21:39 100 Nasal Cannula 3.00 09/16/17 21:30 85 Nasal Cannula 4.00 09/16/17 20:30 88 Nasal Cannula 6.00 09/16/17 20:00 97 Nasal Cannula 4.00 09/16/17 20:00 63 09/16/17 20:00 98.6 61 22 141/62 (88) 97 09/16/17 18:00 69 09/16/17 16:00 97.9 89 22 144/64 (90) 95 09/16/17 16:00 89 09/16/17 14:00 125 09/16/17 13:58 79 104/51 09/16/17 13:39 91 115/55 09/16/17 12:00 105 09/16/17 12:00 98.5 105 24 209/76 (120) 96 Constitutional Vital Signs Date Time Temp Pulse Resp B/P (MAP) Pulse Ox O2 Delivery O2 Flow Rate FiO2 09/17/17 09:41 99 Nasal Cannula 2.00 09/17/17 08:00 77 09/17/17 08:00 99.3 76 16 119/60 (79) 99 09/17/17 07:00 99 Nasal Cannula 2.00 09/17/17 06:00 76 09/17/17 04:00 77 09/17/17 04:00 98.8 77 24 139/62 (87) 99 09/17/17 02:00 89 09/17/17 00:00 79 09/17/17 00:00 98.7 79 22 159/70 (99) 98 09/16/17 22:28 95 167/70 09/16/17 22:00 91 09/16/17 22:00 99 Nasal Cannula 3.00 09/16/17 21:39 100 Nasal Cannula 3.00 09/16/17 21:30 85 Nasal Cannula 4.00 09/16/17 20:30 88 Nasal Cannula 6.00 09/16/17 20:00 97 Nasal Cannula 4.00 09/16/17 20:00 63 09/16/17 20:00 98.6 61 22 141/62 (88) 97 09/16/17 18:00 69 09/16/17 16:00 97.9 89 22 144/64 (90) 95 09/16/17 16:00 89 09/16/17 14:00 125 09/16/17 13:58 79 104/51 09/16/17 13:39 91 115/55 09/16/17 12:00 105 09/16/17 12:00 98.5 105 24 209/76 (120) 96 (Noa Dueñas) Physical Exam Ms Oropeza is asleep, opens eyes to verbal stimuli, does not follow commands. Grimaces to pain stimuli. Cranial nerve examination: pupils equal, round, and reactive to light. Facial symmetric at rest. Cervical spine braced by a Mentasta collar Sensorimotor: withdraws to pain x 4 Deep tendon reflexes are symmetrical in both upper and lower extremities. bilateral plantar flexion response. Cerebellar examination is not possible due to her neurological condition (Noa Dueñas) Ms Oropeza is encephalopathic, opens eyes to verbal stimuli, does not follow commands. Grimaces to pain stimuli. Cranial nerve examination: pupils equal, round, and reactive to light. Facial symmetric at rest. Cervical spine braced by a Mentasta collar Sensorimotor: withdraws to pain x 4 Deep tendon reflexes are symmetrical in both upper and lower extremities. bilateral plantar flexion response. Cerebellar examination is not possible due to her neurological condition (Greyson Rojas MD) Medications Current Medications Current Medications Medications (Trade) Dose Ordered Sig/Ady Route PRN Reason Start Time Stop Time Status Last Admin Dose Admin Sodium Chloride (NS Flush) 2 ml UNSCH PRN IV FLUSH FLUSH AFTER USING IV ACCESS 09/12/17 20:15 09/14/17 00:15 Acetaminophen/ Hydrocodone Bitart ([place] 5-325 Mg) 1 tab Q4H PRN PO PAIN SCALE 6-10 09/12/17 20:15 Ondansetron HCl (Zofran Inj) 4 mg Q6H PRN IV PUSH NAUSEA OR VOMITING 09/12/17 20:15 Bacitracin (Baciguent Oint) 1 applic BID TOP 09/12/17 21:00 09/17/17 02:00 Ceftriaxone Sodium 1000 mg/ Sodium Chloride 100 ml @ 200 mls/hr Q24H IV 09/13/17 20:00 09/16/17 22:28 Senna/Docusate Sodium (Summer-Colace) 1 tab BID PO 09/13/17 09:00 09/15/17 22:06 Lactulose (Lactulose Liq) 30 ml DAILY PRN PO No BM in 2 days 09/13/17 07:15 Polyethylene Glycol (Miralax) 17 gm DAILY PO 09/13/17 09:00 09/15/17 09:33 Enalapril Maleate (Vasotec) 5 mg DAILY PO 09/13/17 09:45 09/16/17 11:26 Verapamil HCl (Isoptin) 240 mg BID PO 09/13/17 09:45 09/16/17 11:43 Enoxaparin Sodium (Lovenox Inj) 30 mg Q24H SQ 09/14/17 10:00 09/16/17 11:03 Acetaminophen 100 ml @ 400 mls/hr Q6H IV 09/14/17 17:00 09/16/17 16:57 Enalaprilat (Vasotec Inj) 1.25 mg Q6H PRN IV PUSH SBP>160, DBP>90 09/15/17 07:30 09/17/17 02:26 Famotidine (Pepcid) 10 mg BID PO 09/15/17 09:00 09/16/17 11:26 Hydralazine HCl (Apresoline Inj) 20 mg Q4H PRN IV PUSH SBP>170; DBP>105 09/16/17 11:45 09/17/17 03:31 Amiodarone HCl 450 mg/Dextrose 250 ml @ 33.33 mls/ hr Q7H31M PRN IV Per Protocol 09/16/17 12:29 09/16/17 22:28 Sodium Chloride 1,000 ml @ 75 mls/hr [id number] IV 09/17/17 11:04 UNV Amiodarone HCl 150 mg/Dextrose 103 ml @ 600 mls/hr Q11M ONCE IV 09/17/17 10:04 09/17/17 10:14 UNV (Noa Dueñas) Current Medications Current Medications Ondansetron HCl (Zofran Inj) 4 mg ONCE ONCE IV PUSH Last administered on 18:33; Start 09/12/17 at 18:30; Stop 09/12/17 at 18:31; Status DC Morphine Sulfate (Morphine Inj) 2 mg ONCE ONCE IV PUSH ; Start 09/12/17 at 18: 30; Stop 09/12/17 at 18:31; Status DC Metoprolol Tartrate (Lopressor Inj) 2.5 mg ONCE ONCE IV PUSH Last administered on 09/12/17 19:00; Start 09/12/17 at 18:45; Stop 09/12/17 at 18:46 ; Status DC Metoprolol Tartrate (Lopressor Inj) 2.5 mg ONCE ONCE IV PUSH Last administered on 09/12/17 19:22; Start 09/12/17 at 19:30; Stop 09/12/17 at 19:31 ; Status DC Ceftriaxone Sodium 1000 mg/ Sodium Chloride 100 ml @ 200 mls/hr ONCE ONCE IV Last administered on 09/12/17 20:04; Start 09/12/17 at 19:30; Stop 09/12/17 at 19:59; Status DC Nicardipine HCl (Cardene Inj) 25 mg STK-MED ONCE .ROUTE Last administered on 20:16; Start 09/12/17 at 20:03; Stop 09/12/17 at 20:04; Status DC Sodium Chloride 1,000 ml @ 100 mls/hr Q10H IV Last administered on 09/14/17 23:16; Start 09/12/17 at 21:00; Stop 09/15/17 at 07:31; Status DC Sodium Chloride (NS Flush) 2 ml UNSCH PRN IV FLUSH FLUSH AFTER USING IV ACCESS Last administered on 09/14/17 00:15; Start 09/12/17 at 20:15 Hydromorphone HCl (Dilaudid Pf Inj) 0.5 mg Q1H PRN IVP BREAKTHROUGH PAIN; Start 09/12/17 at 20:15; Stop 09/15/17 at 07:31; Status DC Acetaminophen/ Hydrocodone Bitart ([place] 5-325 Mg) 1 tab Q4H PRN PO PAIN SCALE 6-10; Start 09/12/17 at 20:15 Acetaminophen/ Hydrocodone Bitart ([place] 5-325 Mg) 2 tab Q4H PRN PO PAIN SCALE 6 TO 10; Start 09/12/17 at 20:15; Stop 09/15/17 at 07:31; Status DC Enalaprilat (Vasotec Inj) 1.25 mg Q8H PRN IV PUSH SBP>180, DBP>95; Start at 20:15; Stop 09/12/17 at 23:00; Status DC Ondansetron HCl (Zofran Inj) 4 mg Q6H PRN IV PUSH NAUSEA OR VOMITING; Start at 20:15 Pantoprazole Sodium (Protonix Inj) 40 mg Q24H IVP Last administered on 21:18; Start 09/12/17 at 21:00; Stop 09/15/17 at 07:31; Status DC Bacitracin (Baciguent Oint) 1 applic BID TOP Last administered on 09/17/17 19: 57; Start 09/12/17 at 21:00 Docusate Sodium (Colace) 100 mg BID PO ; Start 09/12/17 at 21:00; Stop 09/13/17 at 07:19; Status DC Miscellaneous Information 1 [id number] ; Start 09/12/17 at 20:15; Stop 09/15/17 at 07:31; Status DC Chlorhexidine Gluconate (Chlorhexidine 2% Cloth) 3 pack Taper DAILY@04 TOP ; Start 09/13/17 at 04:00; Stop 09/15/17 at 07:31; Status DC Chlorhexidine Gluconate (Chlorhexidine 2% Cloth) 3 pack UNSCH PRN TOP HYGIENIC CARE; Start 09/12/17 at 20:15; Stop 09/15/17 at 07:31; Status DC Nicardipine HCl 25 mg/Sodium Chloride 250 ml @ 0 mls/hr TITRATE ONCE IV Last administered on 09/12/17 20:32; Start 09/12/17 at 20:30; Stop 09/12/17 at 20:31 ; Status DC Ceftriaxone Sodium 1000 mg/ Sodium Chloride 100 ml @ 200 mls/hr Q24H IV Last administered on 09/17/17 21:14; Start 09/13/17 at 20:00 Labetalol HCl (Trandate Inj) 10 mg Q4H PRN IV PUSH SBP >160 Last administered on 09/14/17 13:14; Start 09/12/17 at 23:00; Stop 09/15/17 at 07:31; Status DC Nicardipine HCl 25 mg/Sodium Chloride 250 ml @ 50 mls/hr TITRATE PRN IV Blood pressure management; Start 09/13/17 at 02:45; Stop 09/15/17 at 07:31; Status DC Senna/Docusate Sodium (Summer-Colace) 1 tab BID PO Last administered on 19:57; Start 09/13/17 at 09:00 Lactulose (Lactulose Liq) 30 ml DAILY PRN PO No BM in 2 days; Start 09/13/17 at 07:15 Polyethylene Glycol (Miralax) 17 gm DAILY PO Last administered on 09/15/17 09: 33; Start 09/13/17 at 09:00 Enoxaparin Sodium (Lovenox Inj) 40 mg Q24H SQ Last administered on 09/13/17 09 :54; Start 09/13/17 at 10:00; Stop 09/14/17 at 08:49; Status DC Hydralazine HCl (Apresoline Inj) 20 mg Q4H PRN IV PUSH SBP >160 Last administered on 09/14/17 16:45; Start 09/13/17 at 09:45; Stop 09/15/17 at 07:31 ; Status DC Enalapril Maleate (Vasotec) 5 mg DAILY PO Last administered on 09/17/17 12:12 ; Start 09/13/17 at 09:45 Verapamil HCl (Isoptin) 240 mg BID PO Last administered on 09/17/17 19:57; Start 09/13/17 at 09:45 Haloperidol Lactate (Haldol Inj) 4 mg Q6H PRN IM AGITATION; Start 09/13/17 at 22:15; Stop 09/15/17 at 07:31; Status DC Haloperidol Lactate (Haldol Inj) 4 mg NOW ONCE IM Last administered on 22:23; Start 09/13/17 at 22:15; Stop 09/13/17 at 22:16; Status DC Haloperidol Lactate (Haldol Inj) 4 mg Q6H PRN IV AGITATION Last administered on 09/14/17 08:13; Start 09/14/17 at 00:15; Stop 09/16/17 at 13:22; Status DC Enoxaparin Sodium (Lovenox Inj) 30 mg Q24H SQ Last administered on 09/17/17 12 :12; Start 09/14/17 at 10:00; Stop 09/17/17 at 17:27; Status DC Risperidone (risperDAL) 0.5 mg BID PO Last administered on 09/16/17 11:43; Start 09/14/17 at 10:15; Stop 09/16/17 at 13:21; Status DC Acetaminophen 100 ml @ 400 mls/hr Q6H IV Last administered on 09/17/17 22:39 ; Start 09/14/17 at 17:00 Enalaprilat (Vasotec Inj) 1.25 mg Q6H PRN IV PUSH SBP>160, DBP>90 Last administered on 09/17/17 02:26; Start 09/15/17 at 07:30 Famotidine (Pepcid) 10 mg BID PO Last administered on 09/17/17 19:57; Start 09/15/17 at 09:00 Bisacodyl (Dulcolax Supp) 10 mg ONCE ONCE RECTAL Last administered on 17:35; Start 09/15/17 at 15:00; Stop 09/15/17 at 15:01; Status DC Lorazepam (Ativan Inj) 2 mg STK-MED ONCE .ROUTE ; Start 09/16/17 at 09:16; Stop 09/16/17 at 09:17; Status DC Lorazepam (Ativan Inj) 1 mg NOW ONCE IV PUSH Last administered on 09/16/17 09 :30; Start 09/16/17 at 09:45; Stop 09/16/17 at 09:46; Status DC Hydralazine HCl (Apresoline Inj) 20 mg Q4H PRN IV PUSH SBP>170; DBP>105 Last administered on 09/17/17 03:31; Start 09/16/17 at 11:45 Amiodarone HCl 150 mg/Dextrose 103 ml @ 600 mls/hr Q11M ONCE IV Last administered on 09/16/17 13:39; Start 09/16/17 at 12:19; Stop 09/16/17 at 12:34 ; Status DC Amiodarone HCl 450 mg/Dextrose 250 ml @ 33.33 mls/ hr Q7H31M PRN IV Per Protocol Last administered on 09/18/17 03:44; Start 09/16/17 at 12:29 Sodium Chloride 1,000 ml @ 75 mls/hr [id number] IV Last administered on 05:05; Start 09/17/17 at 11:04 Amiodarone HCl 150 mg/Dextrose 103 ml @ 600 mls/hr Q11M ONCE IV Last administered on 09/17/17 12:13; Start 09/17/17 at 11:00; Stop 09/17/17 at 11:10 ; Status DC Gadodiamide (Omniscan Pf Inj) 12 ml STK-MED ONCE IVCONTRAST Last administered on 09/17/17 11:40; Start 09/17/17 at 11:40; Stop 09/17/17 at 11:42; Status DC Heparin Sodium/ Dextrose 250 ml @ 7 mls/hr TITRATE PRN IV Coagulation Management Last administered on 09/17/17 19:08; Start 09/17/17 at 17:30 (Greyson Rojas MD) Medical Decision Making MDM Remarks 87 year old female fall at home, C2 hairline fracture through lateral masses b/l chronic subdural hygromas acute mental status change, ?seizures, EEG neg for seizures (Noa Dueñas) MDM Remarks Last [address] 09/18/17 0000 Signed Impressions: Service Date/Time: Monday, September 18, 2017 02:06 - CONCLUSION: No significant change has occurred. Terrence Kennedy MD Brain MRI 09/17/17 1316 Signed Impressions: Service Date/Time: Sunday, September 17, 2017 11:23 - CONCLUSION: Acute infarction right corpus callosum. Nonspecific white matter changes. Bilateral subdural hygromas. Simeon Goode MD Humerus X-Ray 09/17/17 0000 Signed Impressions: Service Date/Time: Sunday, September 17, 2017 16:31 - CONCLUSION: 1. Fracture of the right humeral neck nondisplaced Jose Rudd MD Chest X-Ray 09/17/17 0000 Signed Impressions: Service Date/Time: Sunday, September 17, 2017 11:00 - CONCLUSION: 1. Cardiomegaly and findings of vascular congestion without overt failure. This is new when compared with the prior exam. 2. Right humeral neck fracture Jose Rudd MD Abdomen X-Ray 09/17/17 0000 Signed Impressions: Service Date/Time: Sunday, September 17, 2017 11:05 - CONCLUSION: No concerning radiopaque foreign bodies identified within the abdomen. Phillip Franco MD (Greyson Rojas MD) Plan Plan Remarks Neurology following cont serial neuro checks cont Mentasta collar (Noa Dueñas) Attending Statement Possible seizure, versus TIA. Encephalopathy. Continue Neuro Continue checks. I reviewed her EEG, shows encephalopathy. I reviewed her follow up CT brain. No new hemorrhage seen. Neurology consultation appreciated. Syncope workup per neurology Fall precautions C2 bilateral lateral mass fracture. nonoperative treatment with Mentasta J collar. 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 Continue nonoperative treTMENT cONTINUE Incentive spirometry every hour awake. Continue pulmonary toilette, nasotracheal suction, and breathing treatments with nebulizers. ContinueDaily PT and OT : Hypertension. Controlled. Continue po meds. GI: Oral diet Hyponatremia, chronic. Renal insufficiency. Follow up BMP UTI. Follow-up urine cultures. Continue ABX Continue Protonix 40 mg IV daily for stress ulcer prophylaxis. ContinueTed hose and SCD's for DVT prophylaxis. Avoid pharmacologic DVT prophylaxis at this time due to subdural hygroma and acute trauma. The exam, history, and the medical decision-making described in the above note were completed with the assistance of the mid-level provider. I reviewed and agree with the findings presented. I attest that I had a [id number] encounter with the patient on the same day, and personally performed and documented my assessment and findings in the medical record. (Greyson Rojas MD) Noa Dueñas Sep 17, 2017 10:22 Greyson Rojas MD Sep 18, 2017 08:14
[2017-09-17 10:45] LABS: BLOOD GAS BASE EXCESS -5.3 mmol/L (-2-2); BLOOD GAS CARBOXYHEMOGLOBIN 1.2 % (0-4); BLOOD GAS HCO3 19 mmol/L (22-26); BLOOD GAS METHEMOGLOBIN 0.9 % (0-2); BLOOD GAS O2 HGB SATURATION 91 % (90-100); BLOOD GAS OXYGEN CONTENT 15.8 Vol % (12.0-20.0); BLOOD GAS PCO2 32 mmHg (38-42); BLOOD GAS PO2 64 mmHg (61-120); BLOOD GAS TOTAL HGB 12.3 G/DL (12.0-16.0); CRITICAL VALUE NO; DRAW SITE LT RADIAL; LITER FLOW 2 L/M; NUMBER OF ARTERIAL PUNCTURES 1; OXYGEN DEVICE NASAL CANNULA; STAT NO; TEMP CORR TO 98.6; ULNAR PULSE PRESENT
[2017-09-17] MEDS ORDERED: AMIODARONE INJ 150 MG in DEXTROSE 5% IN WATER 100ML INJ 100 ML IV ONE ×2 (11:00)
[2017-09-17] MEDS: SODIUM CHLOR 0.9% 1000 ML INJ 1,000 ML IV SCH (11:04)
--- NOTE | 2017-09-17 11:19 | RADRPT ---
EXAM DATE/TIME: 09/17/2017 11:00 [facility] COMPARISON: CHEST SINGLE AP, September 12, 2017, 20:19. INDICATIONS : Shortness of breath. MEDICAL HISTORY : Hypertension. SURGICAL HISTORY : Hysterectomy. ENCOUNTER: Initial ACUITY: 1 day PAIN SCORE: Non-responsive. LOCATION: Bilateral chest FINDINGS: The cardiac silhouette is enlarged in transverse diameter. There is prominence of the central pulmona ry vasculature with indistinct vascular margins compatible with vascular congestion but no evidence o f overt failure. Dobbhoff tube is in the fundus of the stomach. A small left sided effusion is presen t. Right humeral neck fracture is evident. CONCLUSION: 1. Cardiomegaly and findings of vascular congestion without overt failure. This is new when compared with the prior exam. 2. Right humeral neck fracture Jose Rudd MD on September 17, 2017 at 11:16 Board Certified Radiologist. This report was verified electronically.
[2017-09-17] MEDS ORDERED: GADODIAMIDE PF 287 MG/ML 5 ML VIAL (for RAD MRI) IVCONTRAST ONE (11:40)
--- NOTE | 2017-09-17 12:03 | RADRPT ---
EXAM DATE/TIME: 09/17/2017 11:05 [facility] COMPARISON: No previous studies available for comparison. INDICATIONS : Clearance for MRI. MEDICAL HISTORY : None. SURGICAL HISTORY : None. ENCOUNTER: Initial ACUITY: 1 day PAIN SCORE: Non-responsive. LOCATION: Bilateral abdomen. FINDINGS: Single view of the abdomen demonstrates a nonobstructive bowel gas pattern. Multiple EKG lines overli e the patient. Feeding tube is looped in the stomach. Cline catheter is present within the urinary bl adder. No concerning radiopaque foreign body is seen. Bones demonstrate degenerative change but no ac elio finding. CONCLUSION: No concerning radiopaque foreign bodies identified within the abdomen. Phillip Franco MD on September 17, 2017 at 12:01 Board Certified Radiologist. This report was verified electronically.
[2017-09-17] MEDS: VERAPAMIL HCL 120 MG TAB PO SCH ×2 (12:12→19:57)
[2017-09-17] MEDS: ENOXAPARIN SODIUM 30 MG/0.3 ML SYRINGE SQ SCH (12:12)
[2017-09-17] MEDS: FAMOTIDINE 20 MG TAB PO SCH ×2 (12:12→19:57)
[2017-09-17] MEDS: ENALAPRIL MALEATE 5 MG TAB PO SCH (12:12)
--- NOTE | 2017-09-17 12:15 | RADRPT ---
EXAM DATE/TIME: 09/17/2017 11:23 CORRECTION Corrected on: September 17, 2017; [facility] COMPARISON: CT BRAIN W/O CONTRAST, September 16, 2017, 9:19. INDICATIONS : Altered mental status. Patient fell. CONTRAST: 12 cc Omniscan (gadodiamide) IV MEDICAL HISTORY : Hypertension. SURGICAL HISTORY : Hysterectomy. Left shoulder replacement. ENCOUNTER: Initial ACUITY: 2 day PAIN SCORE: 0/10 LOCATION: head TECHNIQUE: Multiplanar, multisequence MRI of the brain was performed both prior to and following the administrat ion of paramagnetic contrast. FINDINGS: CEREBRUM: T2 bright lesion in the right corpus callosal region. The ventricles are normal for age. No evidence of midline shift, mass lesion, or hemorrhage. Bilateral subdural hygromas. The pituitary gland and suprasellar cistern are normal in configuration. WHITE MATTER: Scatter foci of bright T2 signal abnormalities are seen in the white matter. POSTERIOR FOSSA: The cerebellum and brainstem are intact. The 4th ventricle is midline. The cerebellopontine angle is unremarkable. The cerebellar tonsils are normal in position. DIFFUSION IMAGING: Restricted diffusion right corpus callosum consistent with acute infarction. EXTRACRANIAL: The visualized portions of the orbits and paranasal sinuses are unremarkable. POST-CONTRAST: No abnormal areas of parenchymal or dural enhancement. No evidence of blood-brain barrier breakdown. CONCLUSION: Acute infarction right corpus callosum. Nonspecific white matter changes. Bilateral subdural hygromas . Simeon Goode MD on September 17, 2017 at 12:11 Board Certified Radiologist. This report was verified electronically. Simeon Goode MD on September 17, 2017 at 13:06 Board Certified Radiologist. This report was verified electronically.
--- NOTE | 2017-09-17 12:34 | HHI.CCPN ---
Subjective Brief History HISTORY OF PRESENT ILLNESS The patient is an 87-year-old female who presents to the emergency department after a fall. The patient does have some baseline dementia and was somewhat of a poor historian. The patient was noted to be in front of her yard, walking her neighbor's dog when the dog pulled the patient. The patient lost her balance hit her face first into a car. According to reports there was no loss of consciousness. The patient does not complain of any significant pain, was noted to have some abrasions to her right arm, right forehead, right elbow. She is otherwise in severe hypertension emergency with a systolic of over 200 and diastolic over 100. She is denying any current numbness or headaches. Patient was worked up and diagnosed with the hairline C2 fracture through the lateral masses C-collar has been applied then according to neurosurgery patient will be treated accordingly 24 Hour Review/Hospital Course 09/13/17 Patient is neurologically fully intact although with some degree of cognitive deficit consistent with age Motoric fully intact C-collar in place Discussed with neurosurgery 09/14/17 Unsure whether she had confusion overnight or is just noncooperative Will transfer to floor with sitter and adjust her agitation medication C2 fracture remains nonoperative Patient will require placement 09/16/17 Patient returned to the ICU with witnessed seizure activity, resolved with Ativan 09/17/17 Patient opens eyes to voice, mumbles, more somnolent this morning Started on amiodarone drip yesterday for atrial fibrillation She scheduled for an MRI of the brain today Objective Vital Signs Date Time Temp Pulse Resp B/P (MAP) Pulse Ox O2 Delivery O2 Flow Rate FiO2 09/17/17 12:13 107 138/74 09/17/17 12:00 99.0 15 99 09/17/17 09:41 Nasal Cannula 2.00 09/14/17 08:39 21 Intake and Output 09/17/17 09/17/17 09/18/17 08:00 16:00 00:00 Intake Total 0 ml Output Total 250 ml Balance -250 ml Result Diagram: 09/17/17 0535 09/17/17 0535 Other Results Laboratory Tests Test 09/17/17 10:32 Blood Gas Puncture Site LT RADIAL Blood Gas Patient Temperature 98.6 Blood Gas HCO3 19 mmol/L (22-26) Blood Gas Base Excess -5.3 mmol/L (-2-2) Blood Gas Oxygen Saturation 91 % (90-100) Arterial Blood pH 7.39 (7.380-7.420) Arterial Blood Partial Pressure CO2 32 mmHg (38-42) Arterial Blood Partial Pressure O2 64 mmHg (61-120) Arterial Blood Oxygen Content 15.8 Vol % (12.0-20.0) Arterial Blood Carboxyhemoglobin 1.2 % (0-4) Arterial Blood Methemoglobin 0.9 % (0-2) Blood Gas Hemoglobin 12.3 G/DL (12.0-16.0) Oxygen Delivery Device NASAL CANNULA Blood Gas Liter Flow 2 L/M Imaging Last 24 hours Impressions Chest X-Ray 09/17/17 0000 Signed Impressions: Service Date/Time: Sunday, September 17, 2017 11:00 - CONCLUSION: 1. Cardiomegaly and findings of vascular congestion without overt failure. This is new when compared with the prior exam. 2. Right humeral neck fracture Jose Rudd MD Abdomen X-Ray 09/17/17 0000 Signed Impressions: Service Date/Time: Sunday, September 17, 2017 11:05 - CONCLUSION: No concerning radiopaque foreign bodies identified within the abdomen. Phillip Franco MD Exam COMMUNITY RELATIONS LIAISON Opens eyes to voice, follows commands, [place] Coma Scale of 13 Hemodynamic/Cardiac Irregular rate and rhythm, on amiodarone drip Pulmonary/Respiratory Clear to auscultation bilaterally, diminished Abdomen/GI Nutrition Soft, nontender, nondistended Renal/I&O Slightly elevated BUN/creatinine, creatinine stable with marginal urine output Hematologic Stable hemoglobin 11.7 WBC 12.9 Assessment and Plan Plan Nonoperative management of C2 fracture per neurosurgery Follow-up MRI brain per neurology We will continue amiodarone drip and consult cardiology for atrial fibrillation Bolus 500 cc normal saline for marginal urine output Continue antibiotics for UTI Placed Dobbhoff tube and begin tube feeds, convert as many IV medications to by mouth as appropriate Locate a proxy to consider making patient DNR Continue ICU monitoring and care Flaco Diaz MD Sep 17, 2017 12:33
--- NOTE | 2017-09-17 16:40 | HHI.PR ---
Subjective Remarks no new spells a little cough Objective Vital Signs Date Time Temp Pulse Resp B/P (MAP) Pulse Ox O2 Delivery O2 Flow Rate FiO2 09/17/17 16:00 65 09/17/17 16:00 98.6 64 20 132/58 (82) 98 09/17/17 14:00 72 09/17/17 12:55 99 135/73 09/17/17 12:13 107 138/74 09/17/17 12:00 104 09/17/17 12:00 99.0 118 15 138/74 (95) 99 09/17/17 10:00 121 09/17/17 09:41 99 Nasal Cannula 2.00 09/17/17 08:00 77 09/17/17 08:00 99.3 76 16 119/60 (79) 99 09/17/17 07:00 99 Nasal Cannula 2.00 09/17/17 06:00 76 09/17/17 04:00 77 09/17/17 04:00 98.8 77 24 139/62 (87) 99 09/17/17 02:00 89 09/17/17 00:00 79 09/17/17 00:00 98.7 79 22 159/70 (99) 98 09/16/17 22:28 95 167/70 09/16/17 22:00 91 09/16/17 22:00 99 Nasal Cannula 3.00 09/16/17 21:39 100 Nasal Cannula 3.00 09/16/17 21:30 85 Nasal Cannula 4.00 09/16/17 20:30 88 Nasal Cannula 6.00 09/16/17 20:00 97 Nasal Cannula 4.00 09/16/17 20:00 63 09/16/17 20:00 98.6 61 22 141/62 (88) 97 09/16/17 18:00 69 I/O 09/16/17 09/16/17 09/16/17 09/17/17 09/17/17 09/17/17 07:00 15:00 23:00 07:00 15:00 23:00 Intake Total 360 ml 200 ml 200 ml 0 ml 190 ml Output Total 600 ml 250 ml 250 ml Balance -240 ml 200 ml -50 ml -250 ml 190 ml Intake Oral 240 ml 100 ml 0 ml IV Total 120 ml 200 ml 100 ml 190 ml Output Urine Total 600 ml 250 ml 250 ml # Bowel Movements 0 0 Result Diagram: 09/17/17 0535 09/17/17 0535 Objective Remarks awake follows commands moves all and sticks out tongue ok Assessment and Plan Assessment and Plan imp unclear if actually had sz or not oob PT hx AD no sedatives eeg and labs ok ok to floor pneumonia risk 09/17/17 mri shows small r radha cva eeg neg she evidently acc to nursing has afib and i would rec starting anticoagulation on her Jose Mijares MD Sep 17, 2017 16:39
--- NOTE | 2017-09-17 17:28 | RADRPT ---
EXAM DATE/TIME: 09/17/2017 16:31 [facility] COMPARISON: CHEST SINGLE AP, September 17, 2017, 11:00. HUMERUS RIGHT (MIN 2VWS), April 13, 2014, 14:14. INDICATIONS : Pain post fall- Fracture. MEDICAL HISTORY : Hypertension. SURGICAL HISTORY : Hysterectomy. Left shoulder replacement ENCOUNTER: Subsequent ACUITY: 3 days PAIN SCORE: Non-responsive. LOCATION: Right Upper arm. FINDINGS: There is a nondisplaced fracture of the proximal right humerus extending through the greater tuberosi ty. Humeral head is not dislocatedThe glenohumeral joint is intact. The acromioclavicular joint is in tact. CONCLUSION: 1. Fracture of the right humeral neck nondisplaced Jose Rudd MD on September 17, 2017 at 17:25 Board Certified Radiologist. This report was verified electronically.
[2017-09-17 17:33] LABS: ANA SCREEN NEG (NEG)
--- NOTE | 2017-09-17 17:52 | MB ---
cc: FUAD BARTHOLOMEW DO DATE OF CONSULTATION: 09/17/2017. REASON FOR CONSULTATION: Atrial fibrillation with rapid ventricular response. HISTORY OF PRESENT ILLNESS: Rosanne Oropeza is an 87-year-old female who originally presented to [facility] by [facility] on September 12, 2017 after a fall. The patient is exceptionally lethargic at this time and unable to answer questions. Apparently the patient was outside talking to a neighbor when she fell over a dog's leash and landed face-first on a parking lot. Supposedly there was no loss of consciousness. CT of the cervical spine demonstrated nondisplaced fractures of the right and left lateral masses of C2. While here in the hospital she still had some mild confusion and yesterday had a HaliCAT due to possible unresponsiveness. Then this morning the patient apparently went into atrial fibrillation with rapid ventricular response, which is a new diagnosis for the patient. The patient is currently lethargic and unable to answer questions and so I am unable to tell if she has any further symptoms at this time. PAST MEDICAL HISTORY: 1. Hypertension. 2. CML. PAST SURGICAL HISTORY: 1. Hysterectomy. 2. Left shoulder arthroplasty. ALLERGIES: NO KNOWN DRUG ALLERGIES. MEDICATIONS: 1. Verapamil 240 milligrams twice a day. 2. Verapamil is listed again at 80 milligrams daily, so unsure if the patient takes this as an extra dose as needed or only in the morning. 3. Enalapril 5 milligrams daily. FAMILY HISTORY: Mother at the age of 85 due to old age. SOCIAL HISTORY: The patient denies tobacco, alcohol or drug abuse. REVIEW OF SYSTEMS: Unable to obtain due to the patient's current state. PHYSICAL EXAMINATION VITAL SIGNS: Temperature 99.0, heart rate 107, blood pressure 138/74, respirations 18, pulse oximetry 99% on two liters. GENERAL: In general the patient is currently lethargic and difficult with answering questions due to decreased alertness. HEAD, EYES, EARS, NOSE, THROAT: Extraocular muscles intact. Mucous membranes moist. NECK: The neck is supple. No JVD at 45 degrees. No carotid bruits heard bilaterally. Carotid upstroke is brisk in nature. HEART: Irregularly irregular. Positive first and second heart sounds with no noted murmurs, gallops or rubs. LUNGS: Clear to auscultation bilaterally. No wheezes, rales or rhonchi. ABDOMEN: The abdomen is soft, nontender and nondistended. No organomegaly noted. EXTREMITIES: No clubbing, cyanosis or edema. Femoral and distal pulses are intact bilaterally. NEUROLOGIC: Neurologically the cervical spine is in a [place] collar. The patient withdraws to pain. Overall appears lethargic. LABORATORY WORK: Hemoglobin 11.7, hematocrit 35.1, platelets 377,000. Potassium 3.5, BUN 39, creatinine 1.01. EKGS: Electrocardiogram (September 16, 2017 at 11:59): Atrial fibrillation with rapid ventricular response, nonspecific S-T-T wave changes. IMPRESSION: 1. New onset atrial fibrillation. 2. C2 fracture due to fall. 3. Mechanical fall. 4. Chronic subdural hygromas. 5. Acute mental status change. RECOMMENDATIONS: 1. Ms. Oropeza seems to have gone into atrial fibrillation with rapid ventricular response. At this time, she is not very alert and is unable to take pills and so she does have Dobbhoff, which could be used, but I agree overall with placing her on Amiodarone IV. 2. Eventually when stable and able to swallow pills we will switch her back over most likely to her verapamil as long as there are no problems with neurology or neurosurgery with this medication. 3. We will check a 2-D echo to look at her overall left ventricular function, cardiac structure and possible followup disease. 4. Overall with everything going on as well as her fall she is not a candidate for anticoagulation at this time. In the future this may be reassessed and reconsidered. 5. Further recommendations will be made based on the hospital course. Thank you for allowing me to see Rosanne Oropeza. If there are any questions please do not hesitate to call. Fuad Bartholomew DO [facility]/ALL /2:41 PM /5:29 PM
[2017-09-17 18:06] LABS: HEMATOCRIT 34.2 % (35.0-46.0); MEAN CELL VOLUME 88.4 FL (80.0-100.0); MEAN CORPUSCULAR HEMOGLOBIN 29.6 PG (27.0-34.0); MEAN CORPUSCULAR HGB CONC 33.4 % (32.0-36.0); PLATELET COUNT 358 TH/MM3 (150-450); RED BLOOD COUNT 3.87 MIL/MM3 (4.00-5.30); RED CELL DISTRIBUTION WIDTH 15.2 % (11.6-17.2); REVIEW FLAG FINAL; WHITE BLOOD COUNT 15.8 TH/MM3 (4.0-11.0)
[2017-09-17 18:38] LABS: APTT (PATIENT) 26.8 SEC (24.3-30.1); INTERNATIONAL NORMALIZED RATIO 1.1 RATIO; PROTHROMBIN TIME - PATIENT 11.3 SEC (9.8-11.6)
[2017-09-17] MEDS: HEPARIN-D5W 25,000 U/250 ML 250 ML IV PRN (19:08)
[2017-09-17] MEDS: cefTRIAXone INJ 1,000 MG in SODIUM CHLORIDE 0.9% INJ 100 ML IV SCH (21:14)
[2017-09-18] VITALS (13 sets, daily range): BP systolic 118–164; BP diastolic 59–77; PULSE 54–76; RESP 13–25; TEMP 97.4–98; O2SAT 94–100
--- NOTE | 2017-09-18 02:23 | RADRPT ---
EXAM DATE/TIME: 09/18/2017 02:06 [facility] COMPARISON: CT BRAIN W/O CONTRAST, September 16, 2017, 9:19. INDICATIONS : Uneven pupil change. RADIATION DOSE: 45.33 CTDIvol (mGy) MEDICAL HISTORY : Non-responsive. SURGICAL HISTORY : Non-responsive. ENCOUNTER: Subsequent ACUITY: 4 - 6 days PAIN SCALE: Non-responsive LOCATION: cranial TECHNIQUE: Multiple contiguous axial images were obtained of the head. Using automated exposure control and adj ustment of the mA and/or kV according to patient size, radiation dose was kept as low as reasonably a chievable to obtain optimal diagnostic quality images. DICOM format image data is available electro nically for review and comparison. FINDINGS: Reidentified are bilateral subdural hygromas with no midline shift. No signs of acute intracranial he morrhage or mass. The osseous structures are intact. There are calcifications of the distal vertebral arteries and bilateral internal carotid arteries. CONCLUSION: No significant change has occurred. Terrence Kennedy MD on September 18, 2017 at 2:20 Board Certified Radiologist. This report was verified electronically.
[2017-09-18 02:49] LABS: AUTOMATED NEUTROPHIL # 9.5 TH/MM3 (1.8-7.7); BASOPHIL # 0.1 TH/MM3 (0-0.2); BASOPHIL % 0.5 % (0.0-2.0); EOSINOPHIL % 0.2 % (0.0-4.0); HEMATOCRIT 31.1 % (35.0-46.0); HEMO FLAGS DIFF FINAL; LYMPH % 6.1 % (9.0-44.0); LYMPHOCYTE # 0.7 TH/MM3 (1.0-4.8); MEAN CELL VOLUME 88.5 FL (80.0-100.0); MEAN CORPUSCULAR HEMOGLOBIN 29.6 PG (27.0-34.0); MEAN CORPUSCULAR HGB CONC 33.5 % (32.0-36.0); NEUT % 80.2 % (16.0-70.0); PLATELET COUNT 342 TH/MM3 (150-450); RED BLOOD COUNT 3.51 MIL/MM3 (4.00-5.30); RED CELL DISTRIBUTION WIDTH 14.9 % (11.6-17.2); WHITE BLOOD COUNT 11.9 TH/MM3 (4.0-11.0)
[2017-09-18 02:58] LABS: APTT (PATIENT) 33.4 SEC (24.3-30.1)
[2017-09-18 03:12] LABS: POTASSIUM 3.8 MEQ/L (3.5-5.1)
[2017-09-18] MEDS: AMIODARONE INJ 450 MG in DEXTROSE 5% IN WATE(EXCEL) INJ 241 ML IV PRN ×4 (03:44→20:31)
[2017-09-18] MEDS: ACETAMINOPHEN 1000 MG/100 ML 100 ML IV SCH ×4 (05:00→23:00)
[2017-09-18] MEDS: SODIUM CHLOR 0.9% 1000 ML INJ 1,000 ML IV SCH ×2 (05:05→13:44)
[2017-09-18] MEDS: DOCUSATE SODIUM 50 MG/SENNA 8.6 MG TAB PO SCH ×2 (08:58→20:26)
[2017-09-18] MEDS: POLYETHYLENE GLYCOL 17 GM PKG PO SCH (08:59)
[2017-09-18] MEDS: BACITRACIN TOP OINT 15 GM TUBE TOP SCH ×2 (09:00→20:26)
[2017-09-18] MEDS: FAMOTIDINE 20 MG TAB PO SCH ×2 (09:13→20:26)
[2017-09-18] MEDS: VERAPAMIL HCL 120 MG TAB PO SCH ×2 (09:13→20:26)
[2017-09-18] MEDS: ENALAPRIL MALEATE 5 MG TAB PO SCH (09:13)
--- NOTE | 2017-09-18 10:43 | HHI.NSPN ---
History Interval History Ms Oropeza is an 87-year-old female with baseline dementia who suffered a ground-level fall. She experienced a C2 fracture. This was deemed to be nonsurgical. She has been maintained in a cervical collar. 09/16 witnessed seizure that resolved with Ativan 09/17 atrial fibrillation on amiodarone gtt 09/18 patient currently denies any headache. Exam Results Vital Signs Date Time Temp Pulse Resp B/P (MAP) Pulse Ox O2 Delivery O2 Flow Rate FiO2 09/18/17 08:00 98.0 68 18 164/75 (104) 100 09/18/17 07:00 Nasal Cannula 2.00 09/14/17 08:39 21 Intake and Output 09/18/17 09/18/17 09/19/17 08:00 16:00 00:00 Intake Total 1576.9 ml Output Total 350 ml Balance 1226.9 ml Physical Examination Gen: Patient awake in bed. No acute distress. HEENT: Normocephalic. Atraumatic. Neck: Supple. No step-offs. Tenderness to palpation to the occipital cervical junction. Cervical collar in place. Dobbhoff in place CV: tachycardic but regular Pulm: CTA bilaterally GI: Soft, nontender, nondistended Ext: No edema. Echymosis to UE L>R Neuro: Alert, oriented to self CN II: Vision intact CN III, IV, : EOMI CN V: Intact to light touch CN VII: Face symmetric CN XII: Tongue midline Motor: Moves all extremities symmetrically. 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 Terrence Kennedy MD Brain MRI 09/17/17 1316 Signed Impressions: Service Date/Time: Sunday, September 17, 2017 11:23 - CONCLUSION: Acute infarction right corpus callosum. Nonspecific white matter changes. Bilateral subdural hygromas. Simeon Goode MD Humerus X-Ray 09/17/17 0000 Signed Impressions: Service Date/Time: Sunday, September 17, 2017 16:31 - CONCLUSION: 1. Fracture of the right humeral neck nondisplaced Jose Rudd MD Chest X-Ray 09/17/17 0000 Signed Impressions: Service Date/Time: Sunday, September 17, 2017 11:00 - CONCLUSION: 1. Cardiomegaly and findings of vascular congestion without overt failure. This is new when compared with the prior exam. 2. Right humeral neck fracture Jose Rudd MD Abdomen X-Ray 09/17/17 0000 Signed Impressions: Service Date/Time: Sunday, September 17, 2017 11:05 - CONCLUSION: No concerning radiopaque foreign bodies identified within the abdomen. Phillip Franco MD Head CT 09/16/17 0000 Signed Impressions: Service Date/Time: September 09:19 - CONCLUSION: 1. Stable bilateral subdural hygromas without significant subfalcine or transtentorial herniation. 2. No intercurrent hemorrhage or other acute intracranial abnormality. Guillaume Sanchez MD 09/16/17 09/16/17 09/17/17 09/17/17 09/18/17 09/18/17 06:00 18:00 06:00 18:00 06:00 18:00 Intake Total 560 ml 300 ml 100 ml 350 ml 629 ml 1576.9 ml Output Total 600 ml 250 ml 250 ml 300 ml 350 ml Balance -40 ml 50 ml -150 ml 50 ml 629 ml 1226.9 ml Intake Oral 240 ml 100 ml 0 ml 0 ml IV Total 320 ml 200 ml 100 ml 190 ml 629 ml 1380.9 ml Tube Feeding 60 ml 196 ml Other 100 ml Output Urine Total 600 ml 250 ml 250 ml 300 ml 350 ml # Bowel Movements 1 0 0 0 Laboratory Tests Test 09/16/17 15:05 09/17/17 05:35 09/17/17 10:32 09/17/17 17:40 Erythrocyte Sedimentation Rate 11 mm/hr Troponin I 0.03 NG/ML 0.04 NG/ML Total Protein 5.7 GM/DL 6.1 GM/DL Albumin 3.44 GM/DL 2.9 GM/DL Albumin/Globulin Ratio 1.52 Tmwci-0-Gyiuvcnij 0.25 GM/DL Hkppb-5-Pyfntutoc 0.82 GM/DL Beta Globulins 0.51 GM/DL Gamma Globulins 0.69 GM/DL Electrophoresis Pathologist Comment Vitamin B12 Level 519 PG/ML Free Thyroxine 1.47 NG/DL Thyroid Stimulating Hormone 3rd Gen 2.980 uIU/ML Anti-Nuclear Antibody Screen NEG Rapid Plasma Reagin NON-REACTIVE White Blood Count 12.9 TH/MM3 15.8 TH/MM3 Red Blood Count 3.95 MIL/MM3 3.87 MIL/MM3 Hemoglobin 11.7 GM/DL 11.4 GM/DL Hematocrit 35.1 % 34.2 % Mean Corpuscular Volume 88.8 FL 88.4 FL Mean Corpuscular Hemoglobin 29.5 PG 29.6 PG Mean Corpuscular Hemoglobin Concent 33.3 % 33.4 % Red Cell Distribution Width 15.1 % 15.2 % Platelet Count 377 TH/MM3 358 TH/MM3 Mean Platelet Volume 8.2 FL 8.1 FL Neutrophils (%) (Auto) 79.6 % Lymphocytes (%) (Auto) 7.1 % Monocytes (%) (Auto) 12.7 % Eosinophils (%) (Auto) 0.2 % Basophils (%) (Auto) 0.4 % Neutrophils # (Auto) 10.3 TH/MM3 Lymphocytes # (Auto) 0.9 TH/MM3 Monocytes # (Auto) 1.6 TH/MM3 Eosinophils # (Auto) 0.0 TH/MM3 Basophils # (Auto) 0.0 TH/MM3 CBC Comment DIFF FINAL Differential Comment Blood Urea Nitrogen 39 MG/DL Creatinine 1.01 MG/DL Random Glucose 112 MG/DL Calcium Level 8.5 MG/DL Alkaline Phosphatase 70 U/L Aspartate Amino Transf (AST/SGOT) 25 U/L Alanine Aminotransferase (ALT/SGPT) 21 U/L Total Bilirubin 0.4 MG/DL Sodium Level 141 MEQ/L Potassium Level 3.5 MEQ/L Chloride Level 109 MEQ/L Carbon Dioxide Level 21.2 MEQ/L Anion Gap 11 MEQ/L Estimat Glomerular Filtration Rate 52 ML/MIN Blood Gas Puncture Site LT RADIAL Blood Gas Patient Temperature 98.6 Blood Gas HCO3 19 mmol/L Blood Gas Base Excess -5.3 mmol/L Blood Gas Oxygen Saturation 91 % Arterial Blood pH 7.39 Arterial Blood Partial Pressure CO2 32 mmHg Arterial Blood Partial Pressure O2 64 mmHg Arterial Blood Oxygen Content 15.8 Vol % Arterial Blood Carboxyhemoglobin 1.2 % Arterial Blood Methemoglobin 0.9 % Blood Gas Hemoglobin 12.3 G/DL Oxygen Delivery Device NASAL CANNULA Blood Gas Liter Flow 2 L/M Prothrombin Time 11.3 SEC Prothromb Time International Ratio 1.1 RATIO Activated Partial Thromboplast Time 26.8 SEC Test 09/18/17 02:40 White Blood Count 11.9 TH/MM3 Red Blood Count 3.51 MIL/MM3 Hemoglobin 10.4 GM/DL Hematocrit 31.1 % Mean Corpuscular Volume 88.5 FL Mean Corpuscular Hemoglobin 29.6 PG Mean Corpuscular Hemoglobin Concent 33.5 % Red Cell Distribution Width 14.9 % Platelet Count 342 TH/MM3 Mean Platelet Volume 7.7 FL Neutrophils (%) (Auto) 80.2 % Lymphocytes (%) (Auto) 6.1 % Monocytes (%) (Auto) 13.0 % Eosinophils (%) (Auto) 0.2 % Basophils (%) (Auto) 0.5 % Neutrophils # (Auto) 9.5 TH/MM3 Lymphocytes # (Auto) 0.7 TH/MM3 Monocytes # (Auto) 1.5 TH/MM3 Eosinophils # (Auto) 0.0 TH/MM3 Basophils # (Auto) 0.1 TH/MM3 CBC Comment DIFF FINAL Differential Comment Activated Partial Thromboplast Time 33.4 SEC Blood Urea Nitrogen 41 MG/DL Creatinine 0.92 MG/DL Random Glucose 144 MG/DL Calcium Level 8.0 MG/DL Sodium Level 140 MEQ/L Potassium Level 3.8 MEQ/L Chloride Level 108 MEQ/L Carbon Dioxide Level 24.0 MEQ/L Anion Gap 8 MEQ/L Estimat Glomerular Filtration Rate 57 ML/MIN Orders Procedure Category Date Status Time Bisacodyl Supp MED 09/15/17 Complete (Dulcolax Supp) 15:00 Vascular Access Team MERVAT 09/16/17 In Process Consult/P 05:46 Vascular Poc IMGUS 09/16/17 Taken Ultrasound Diet Heart Healthy DIET 09/16/17 Complete Breakfast Lorazepam Inj (Ativan MED 09/16/17 Complete Inj) 09:16 Patient Transfer ADMITTING 09/16/[address] Brain W/O Iv RADCT 09/16/17 Resulted Contrast(Rout) Lorazepam Inj (Ativan MED 09/16/17 Complete Inj) 09:45 Portable Eeg EEG 09/16/17 Complete Consult Neurology CONS 09/16/17 Transmitted (Hub Use Only)Inp Phy CONS 09/16/17 Transmitted Cons/Ref Hydralazine Inj MED 09/16/17 In Process (Apresoline Inj) 11:45 Electrocardiogram CAV 09/16/17 Resulted ^ Medication Alert MERVAT 09/16/17 In Process 12:19 ^ Discontinue MERVAT 09/16/17 In Process 12:19 Dextrose 5% In MED 09/16/17 Complete Wate... W/Amiodarone 12:19 Dextrose 5% In MED 09/16/17 In Process Wate... W/Amiodarone 12:29 Vital Signs (Adult) MERVAT 09/16/17 Complete 12:19 Troponin I LAB 09/16/17 Complete 18:21 Troponin I LAB 09/17/17 Complete 00:21 Complete Blood Count LAB 09/17/17 Complete With Diff 04:00 Comprehensive LAB 09/17/17 Complete Metabolic Panel 04:00 [place] LAB 09/16/17 Complete Sedimentation Rate 13:16 Rapid Plasma Regin LAB 09/16/17 Complete (Rpr) W Ttr 13:16 Christa Screen LAB 09/16/17 Complete 13:16 Thyroid Stimulating LAB 09/16/17 Complete Hormone 13:16 Free Thyroxine (T4) LAB 09/16/17 Complete 13:16 Protein LAB 09/16/17 Complete Electrophoresis Serum 13:16 Vitamin B1 (Thiamine) LAB 09/16/17 In Process 13:16 Vitamin B12 LAB 09/16/17 Complete 13:16 Methylmalonic Acid LAB 09/16/17 In Process (Mma) 13:16 ^ Seizure Precautions MERVAT 09/16/17 In Process 13:16 Consult Pt Eval & PT 09/16/17 Complete Treat 13:16 Scd&Teds MERVAT 09/16/17 Complete Bilateral/Knee High 13:16 Activity Oob With MERVAT 09/16/17 In Process Assistance 13:16 ^ Fall Precautions MERVAT 09/16/17 In Process 13:16 Consult Pt Eval & PT 09/17/17 Logged Treat 07:45 Activity Oob With MERVAT 09/17/17 In Process Assistance 07:45 ^ Fall Precautions MERVAT 09/17/17 In Process 07:45 Continue Urinary MERVAT 09/17/17 In Process Catheter 07:58 Complete Blood Count LAB 09/18/17 Complete With Diff 04:00 Basic Metabolic Panel LAB 09/18/17 Complete (Bmp) 04:00 Abdomen, Kub Only RADDIAG 09/17/17 Resulted Insert Ng Tube MERVAT 09/17/17 In Process 10:04 Consult Cardiology CONS 09/17/17 Transmitted Chest, Single Ap RADDIAG 09/17/17 Resulted Arterial Blood Gas LAB 09/17/17 Complete (Abg) Sodium Chlor 0.9% MED 09/17/17 In Process 1000 Ml Inj (Ns 1000 M 11:04 Dextrose 5% In MED 09/17/17 Complete Wate... W/Amiodarone 11:00 Diet Tube Feed Only DIET 09/17/17 Transmitted Lunch Tube Feeding MERVAT 09/17/17 In Process 10:11 (Hub Use Only)Inp Phy CONS 09/17/17 Transmitted Cons/Ref Mri Brain W&W/O RADMR 09/17/17 Resulted Contrast 13:16 Gadodiamide Pf Inj MED 09/17/17 Complete (Omniscan Pf Inj) 11:40 Consult Orthopedic CONS 09/17/17 Transmitted (Hub Use Only)In Phy CONS 09/17/17 Transmitted Cons/Ref Equip, Feeding Pump SPD 09/17/17 Logged Use Of 12:[address] 09/17/17 Logged Consult-Eval/Tx 14:19 Ot Request For Service OT 09/17/17 Logged 14:19 Humerus (Min 2vws) RADDIAG 09/17/17 Resulted Us Carotid Arteries RADUS 09/17/17 Logged Comp Bilat ^ Other Nursing Orders MERVAT 09/17/17 In Process 16:38 Heparin-D5w 25,000 MED 09/17/17 In Process U/250 Ml (Heparin-D5w 17:30 Prothrombin Time / LAB 09/17/17 Complete Inr (Pt) 17:26 Cbc No Diff, Includes LAB 09/17/17 Complete Plts 17:26 Cbc No Diff, Includes LAB 09/20/17 Verified Plts 06:00 Occult Blood SONALI 09/17/17 In Process (Hemoccult) Stool 17:26 Specimen To Be MERVAT 09/17/17 In Process Collected 17:26 Act Partial Throm LAB 09/17/17 Complete Time (Ptt) 17:26 Sling And Swathe ORTHO 09/17/17 Logged [employer] Request For ORTHO 09/17/17 Logged Service 18:11 Act Partial Throm LAB 09/18/17 Complete Time (Ptt) 01:30 Vascular Access Team MERVAT 09/17/17 Complete Consult/P 20:01 Vascular Poc IMGUS 09/17/17 Taken Ultrasound Sling And Swathe ORTHO 09/17/[address] Brain W/O Iv RADCT 09/18/17 Resulted Contrast(Rout) Act Partial Throm LAB 09/18/17 In Process Time (Ptt) 10:30 Echo 2d Comp With ECH 09/18/17 Logged Doppler Vital Signs Date Time Temp Pulse Resp B/P (MAP) Pulse Ox O2 Delivery O2 Flow Rate FiO2 09/18/17 08:00 98.0 68 18 164/75 (104) 100 09/18/17 08:00 68 09/18/17 07:00 100 Nasal Cannula 2.00 09/18/17 06:00 61 09/18/17 04:00 97.9 68 13 128/64 (85) 100 09/18/17 04:00 56 09/18/17 03:44 54 124/51 09/18/17 02:35 56 09/18/17 02:00 54 09/18/17 00:00 54 09/18/17 00:00 97.6 54 20 118/59 (78) 99 09/17/17 22:00 68 09/17/17 21:16 98 Nasal Cannula 1.00 09/17/17 21:00 77 09/17/17 20:00 72 09/17/17 20:00 98.3 72 18 156/67 (96) 98 09/17/17 19:00 98 Nasal Cannula 2.00 09/17/17 18:00 76 09/17/17 16:00 65 09/17/17 16:00 98.6 64 20 132/58 (82) 98 09/17/17 14:00 72 09/17/17 12:55 99 135/73 09/17/17 12:13 107 138/74 09/17/17 12:00 104 09/17/17 12:00 99.0 118 15 138/74 (95) 99 09/17/17 10:00 121 09/17/17 09:41 99 Nasal Cannula 2.00 09/17/17 08:00 77 09/17/17 08:00 99.3 76 16 119/60 (79) 99 09/17/17 07:00 99 Nasal Cannula 2.00 09/17/17 06:00 76 09/17/17 04:00 77 09/17/17 04:00 98.8 77 24 139/62 (87) 99 09/17/17 02:00 89 09/17/17 00:00 79 09/17/17 00:00 98.7 79 22 159/70 (99) 98 09/16/17 22:28 95 167/70 09/16/17 22:00 91 09/16/17 22:00 99 Nasal Cannula 3.00 09/16/17 21:39 100 Nasal Cannula 3.00 09/16/17 21:30 85 Nasal Cannula 4.00 09/16/17 20:30 88 Nasal Cannula 6.00 09/16/17 20:00 97 Nasal Cannula 4.00 09/16/17 20:00 63 09/16/17 20:00 98.6 61 22 141/62 (88) 97 09/16/17 18:00 69 09/16/17 16:00 97.9 89 22 144/64 (90) 95 09/16/17 16:00 89 09/16/17 14:00 125 09/16/17 13:58 79 104/51 09/16/17 13:39 91 115/55 09/16/17 12:00 105 09/16/17 12:00 98.5 105 24 209/76 (120) 96 09/16/17 10:00 110 09/16/17 08:00 98.9 95 20 213/91 (131) 94 09/16/17 04:00 98.4 76 17 157/70 (99) 94 09/16/17 00:30 98.3 79 17 131/61 (84) 94 09/15/17 20:59 98.3 94 16 181/81 (114) 95 09/15/17 16:18 98.5 77 20 163/72 (102) 95 09/15/17 12:39 52 09/15/17 11:55 97.6 65 20 140/63 (88) 98 Medical Decision Making Impression and Plan Ms Oropeza is an 87-year-old female who experienced a ground-level fall who suffered a nondisplaced C2 fracture. Neuro: Nondisplaced C2 fracture. Continue nonsurgical management with Rochelle collar. Follow-up with x-ray in 6-12 weeks' time. Altered mental status. MRI from 09 17 show evidence of small infarct to the right corpus callosum. This may be due to her atrial fibrillation. Carotid ultrasounds pending Patient also has bilateral subdural hematomas that appear to be chronic in age. There is effacement of the frontal gyri Seizure: There is report of a witnessed seizure. She is currently not on any antiepileptic and has not had any active seizures within the past 24 hours. This is likely due to the subdural hematomas. We will defer to neurology but we recommend antiepileptic Atrial fibrillation/hypertension: Amiodarone Pulm: Stable GI: Benign : Cline catheter due to immobilization status FEN: Malnutrition. To feeds through Dobbhoff. With improving mental status, may consider a swallowing evaluation, then advance diet ID: UTI on antibiotics 6-12 weeks Nonoperative management of C2 fracture per neurosurgery Follow-up MRI brain per neurology We will continue amiodarone drip and consult cardiology for atrial fibrillation Bolus 500 cc normal saline for marginal urine output Continue antibiotics for UTI Placed Dobbhoff tube and begin tube feeds, convert as many IV medications to by mouth as appropriate Locate a proxy to consider making patient DNR Continue ICU monitoring and care Te Macias MD Sep 18, 2017 10:43
[2017-09-18 11:08] LABS: APTT (PATIENT) 36.4 SEC (24.3-30.1)
--- NOTE | 2017-09-18 14:30 | PD.CARD.PN ---
Subjective Subjective Remarks No events overnight Started on heparin drip due to AFib with CVA Not swallowing yet, continues on Dobbhoff tube Objective Medications Current Medications Medications (Trade) Dose Ordered Sig/Ady Route Start Time Stop Time Status Last Admin (NS Flush) 2 ml UNSCH PRN IV FLUSH 09/12/17 20:15 09/14/17 00:15 (Burton 5-325 Mg) 1 tab Q4H PRN PO 09/12/17 20:15 (Zofran Inj) 4 mg Q6H PRN IV PUSH 09/12/17 20:15 (Baciguent Oint) 1 applic BID TOP 09/12/17 21:00 09/18/17 09:00 Ceftriaxone Sodium 1000 mg/ Sodium Chloride 100 ml @ 200 mls/hr Q24H IV 09/13/17 20:00 09/17/17 21:14 (Summer-Colace) 1 tab BID PO 09/13/17 09:00 09/17/17 19:57 (Lactulose Liq) 30 ml DAILY PRN PO 09/13/17 07:15 (Miralax) 17 gm DAILY PO 09/13/17 09:00 09/15/17 09:33 (Vasotec) 5 mg DAILY PO 09/13/17 09:45 09/18/17 09:13 (Isoptin) 240 mg BID PO 09/13/17 09:45 09/18/17 09:13 Acetaminophen 100 ml @ 400 mls/hr Q6H IV 09/14/17 17:00 09/17/17 22:39 (Vasotec Inj) 1.25 mg Q6H PRN IV PUSH 09/15/17 07:30 09/17/17 02:26 (Pepcid) 10 mg BID PO 09/15/17 09:00 09/18/17 09:13 (Apresoline Inj) 20 mg Q4H PRN IV PUSH 09/16/17 11:45 09/17/17 03:31 Amiodarone HCl 450 mg/Dextrose 250 ml @ 33.33 mls/ hr Q7H31M PRN IV 09/16/17 12:29 09/18/17 03:44 Sodium Chloride 1,000 ml @ 75 mls/hr [id number] IV 09/17/17 11:04 09/18/17 05:05 Heparin Sodium/ Dextrose 250 ml @ 7 mls/hr TITRATE PRN IV 09/17/17 17:30 09/17/17 19:08 Vital Signs / I&O Vital Signs Date Time Temp Pulse Resp B/P (MAP) Pulse Ox O2 Delivery O2 Flow Rate FiO2 09/18/17 14:00 60 09/18/17 12:00 62 09/18/17 12:00 98.0 68 23 122/60 (80) 97 09/18/17 10:00 70 09/18/17 08:00 98.0 68 18 164/75 (104) 100 09/18/17 08:00 68 09/18/17 07:00 100 Nasal Cannula 2.00 09/18/17 06:00 61 09/18/17 04:00 97.9 68 13 128/64 (85) 100 09/18/17 04:00 56 09/18/17 03:44 54 124/51 09/18/17 02:35 56 09/18/17 02:00 54 09/18/17 00:00 54 09/18/17 00:00 97.6 54 20 118/59 (78) 99 09/17/17 22:00 68 09/17/17 21:16 98 Nasal Cannula 1.00 09/17/17 21:00 77 09/17/17 20:00 72 09/17/17 20:00 98.3 72 18 156/67 (96) 98 09/17/17 19:00 98 Nasal Cannula 2.00 09/17/17 18:00 76 09/17/17 16:00 65 09/17/17 16:00 98.6 64 20 132/58 (82) 98 I/O 09/17/17 09/17/17 09/17/17 09/18/17 09/18/17 09/18/17 07:00 15:00 23:00 07:00 15:00 23:00 Intake Total 0 ml 190 ml 789 ml 1576.9 ml Output Total 250 ml 300 ml 350 ml Balance -250 ml 190 ml 489 ml 1226.9 ml Intake Oral 0 ml 0 ml IV Total 190 ml 629 ml 1380.9 ml Tube Feeding 60 ml 196 ml Other 100 ml Output Urine Total 250 ml 300 ml 350 ml # Bowel Movements 0 0 Physical Exam GENERAL: NAD, lethargic SKIN: Warm and dry. HEAD: Atraumatic. Normocephalic. EYES: Pupils equal and round. No scleral icterus. No injection or drainage. ENT: No nasal bleeding or discharge. Mucous membranes pink and moist. NECK: Trachea midline. No JVD. CARDIOVASCULAR: Regular rate and rhythm. RESPIRATORY: No accessory muscle use. Clear to auscultation. Breath sounds equal bilaterally. GASTROINTESTINAL: Abdomen soft, non-tender, nondistended. Hepatic and splenic margins not palpable. MUSCULOSKELETAL: Extremities without clubbing, cyanosis, or edema. No obvious deformities. NEUROLOGICAL: Lethargic, but able to answer questions Laboratory Laboratory Tests Test 09/17/17 17:40 09/18/17 02:40 09/18/17 10:20 White Blood Count 15.8 TH/MM3 11.9 TH/MM3 Red Blood Count 3.87 MIL/MM3 3.51 MIL/MM3 Hemoglobin 11.4 GM/DL 10.4 GM/DL Hematocrit 34.2 % 31.1 % Mean Corpuscular Volume 88.4 FL 88.5 FL Mean Corpuscular Hemoglobin 29.6 PG 29.6 PG Mean Corpuscular Hemoglobin Concent 33.4 % 33.5 % Red Cell Distribution Width 15.2 % 14.9 % Platelet Count 358 TH/MM3 342 TH/MM3 Mean Platelet Volume 8.1 FL 7.7 FL Prothrombin Time 11.3 SEC Prothromb Time International Ratio 1.1 RATIO Activated Partial Thromboplast Time 26.8 SEC 33.4 SEC 36.4 SEC Neutrophils (%) (Auto) 80.2 % Lymphocytes (%) (Auto) 6.1 % Monocytes (%) (Auto) 13.0 % Eosinophils (%) (Auto) 0.2 % Basophils (%) (Auto) 0.5 % Neutrophils # (Auto) 9.5 TH/MM3 Lymphocytes # (Auto) 0.7 TH/MM3 Monocytes # (Auto) 1.5 TH/MM3 Eosinophils # (Auto) 0.0 TH/MM3 Basophils # (Auto) 0.1 TH/MM3 CBC Comment DIFF FINAL Differential Comment Blood Urea Nitrogen 41 MG/DL Creatinine 0.92 MG/DL Random Glucose 144 MG/DL Calcium Level 8.0 MG/DL Sodium Level 140 MEQ/L Potassium Level 3.8 MEQ/L Chloride Level 108 MEQ/L Carbon Dioxide Level 24.0 MEQ/L Anion Gap 8 MEQ/L Estimat Glomerular Filtration Rate 57 ML/MIN Imaging Last [address] 09/18/17 0000 Signed Impressions: Service Date/Time: Monday, September 18, 2017 02:06 - CONCLUSION: No significant change has occurred. Terrence Kennedy MD Assessment and Plan Problem List: (1) Afib ICD Codes: I48.91 - Unspecified atrial fibrillation (2) CVA (cerebral vascular accident) ICD Codes: I63.9 - Cerebral infarction, unspecified (3) C2 cervical fracture ICD Codes: S12.100A - Unspecified displaced fracture of second cervical vertebra, initial encounter for closed fracture Status: Acute (4) Fall ICD Codes: W19.XXXA - Unspecified fall, initial encounter Status: Acute (5) Hypertension ICD Codes: I10 - Essential (primary) hypertension Status: Acute (6) Altered mental status ICD Codes: R41.82 - Altered mental status, unspecified Status: Acute (7) UTI (urinary tract infection) ICD Codes: N39.0 - Urinary tract infection, site not specified Status: Acute (8) Confusion ICD Codes: R41.0 - Disorientation, unspecified Assessment and Plan 1) New onset atrial fibrillation Converted to sinus rhythm on Amiodarone Con't Amiodarone IV for now, once swallowing will change to her usual Verapamil 2) C2 fracture due to fall. 3) Mechanical fall. 4) Chronic subdural hygromas. 5) Acute mental status change. 6) CVA Most likely due to Afib Started on heparin drip Eventual anti-coagulation at neurology/neurosurgery discretion Would have the patient get to the point where she can work with PT, and can be evaluated for gate and falls Problem Qualifiers (1) C2 cervical fracture: Qualified Codes: S12.101A - Unspecified nondisplaced fracture of second cervical vertebra, initial encounter for closed fracture (2) Fall: Qualified Codes: W19.XXXA - Unspecified fall, initial encounter (3) Hypertension: Qualified Codes: I10 - Essential (primary) hypertension (4) Altered mental status: Qualified Codes: R41.82 - Altered mental status, unspecified (5) UTI (urinary tract infection): Qualified Codes: N39.0 - Urinary tract infection, site not specified; R31.9 - Hematuria, unspecified Fuad Rojas DO Sep 18, 2017 14:30
--- NOTE | 2017-09-18 14:42 | ECHRPT ---
Indication: cva/tia CONCLUSIONS The left ventricular systolic function is low normal with an estimated ejection fraction in the rang e of 50- 55%. Normal left ventricular size. Mild concentric left ventricular hypertrophy. Mild mitral valve regurgitation. There is mild tricuspid valve regurgitation. The estimated pulmonary arterial pressure is 48.9 mmHg. BP: / HR: Rhythm: MEASUREMENTS (Male / Female) Normal Values Technical Quality:Good 2D ECHO LV Diastolic Diameter PLAX 4.7 cm 4.2 - 5.9 / 3.9 - 5.3 cm LV Systolic Diameter PLAX 3.7 cm IVS Diastolic Thickness 1.5 cm 0.6 - 1.0 / 0.6 - 0.9 cm LVPW Diastolic Thickness 1.2 cm 0.6 - 1.0 / 0.6 - 0.9 cm LV Relative Wall Thickness 0.6 RV Internal Dim ED PLAX 2.3 cm M-MODE Aortic Root Diameter MM 3.8 cm LA Systolic Diameter MM 4.4 cm LA Ao Ratio MM 1.2 AV Cusp Separation MM 1.7 cm DOPPLER Mitral E Point Velocity 68.6 cm/s Mitral A Point Velocity 71.6 cm/s Mitral E to A Ratio 1.0 LV E' Lateral Velocity 8.7 cm/s Mitral E to LV E' Lateral Ratio 7.9 LV E' Septal Velocity 10.5 cm/s Mitral E to LV E' Septal Ratio 6.5 TR Peak Velocity 312.0 cm/s TR Peak Gradient 38.9 mmHg Right Atrial Pressure 10.0 mmHg Pulmonary Artery Systolic Pressu 48.9 mmHg Right Ventricular Systolic Press 48.9 mmHg FINDINGS LEFT VENTRICLE The left ventricular systolic function is low normal with an estimated ejection fraction in the rang e of 50- 55%. Normal left ventricular size. Mild concentric left ventricular hypertrophy. RIGHT VENTRICLE Normal right ventricular size and systolic function. LEFT ATRIUM The left atrial size is normal. RIGHT ATRIUM The right atrial size is normal. ATRIAL SEPTUM Normal atrial septal thickness without atrial level shunting by limited color doppler interrogation. AORTA The aortic root and proximal ascending aorta are normal in size on limited imaging. MITRAL VALVE Structurally normal mitral valve. Mild mitral valve regurgitation. AORTIC VALVE Trileaflet aortic valve. No aortic valve stenosis or regurgitation. TRICUSPID VALVE Structurally normal tricuspid valve. There is mild tricuspid valve regurgitation. The estimated pulmonary arterial pressure is 48.9 mmHg. PULMONARY VALVE No pulmonary valve regurgitation or stenosis. VESSELS The inferior vena cava is normal in size. PERICARDIUM No pericardial effusion. Eyal Shipman MD, FACC (Electronically Signed) Final Date:18 September 2017 14:40
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
[2017-09-18] MEDS: hydrALAZINE HCL 20 MG/ML VIAL IV PUSH PRN (16:46)
[2017-09-18] MEDS: ENALAPRILAT 1.25 MG/ML VIAL IV PUSH PRN (17:48)
--- NOTE | 2017-09-18 17:53 | RADRPT ---
EXAM DATE/TIME: 09/18/2017 16:38 [facility] COMPARISON: No previous studies available for comparison. INDICATIONS : Cerebrovascular accident. MEDICAL HISTORY : Hypertension. Chronic myelogenous leukemia. Chemotherapy. Blood transfusion. Confusion. SURGICAL HISTORY : Hysterectomy. Left shoulder surgery. ENCOUNTER: Initial ACUITY: 1 day PAIN SCORE: 0/10 LOCATION: Bilateral neck PEAK SYSTOLIC VELOCITIES (cm/sec): ICA/CCA RATIO: Right: 1.0 Left: 1.2 ICA: Right: 93.0 Left: 138.6 CCA: Right: 92.7 Left: 113.1 ECA: Right: 103.1 Left: 106.6 VERTEBRAL: Right: 56.5 antegrade Left:absent Elevated flow velocities and ICA/CCA ratios have been found to correlate with increased degrees of vessel stenosis, calculated as percentage of diameter relative to a normal segment of distal ICA/CCA FINDINGS: There is moderate visible plaque in the carotid arteries bilaterally. No hemodynamically significant stenosis. Mildly enlarged presumed lymph node seen on the left side between the external and internal iliac arteries. Left vertebral not visualized. CONCLUSION: 1. Moderate visible plaque without hemodynamically significant stenosis. Mildly enlarged lymph node o n the left in the carotid bifurcation. Jaya Johnson MD on September 18, 2017 at 17:48 Board Certified Radiologist. This report was verified electronically.
[2017-09-18 18:26] LABS: APTT (PATIENT) 32.7 SEC (24.3-30.1)
[2017-09-18] MEDS: cefTRIAXone INJ 1,000 MG in SODIUM CHLORIDE 0.9% INJ 100 ML IV SCH (20:26)
[2017-09-18] MEDS: HEPARIN-D5W 25,000 U/250 ML 250 ML IV PRN (22:37)
[2017-09-19] VITALS (13 sets, daily range): BP systolic 115–168; BP diastolic 57–72; PULSE 60–83; RESP 12–25; TEMP 97.9–98.8; O2SAT 94–99
[2017-09-19 01:05] LABS: APTT (PATIENT) 45.7 SEC (24.3-30.1)
[2017-09-19] MEDS: ACETAMINOPHEN 1000 MG/100 ML 100 ML IV SCH ×4 (05:00→22:34)
[2017-09-19] MEDS: SODIUM CHLOR 0.9% 1000 ML INJ 1,000 ML IV SCH ×2 (06:31→19:10)
[2017-09-19] MEDS: BACITRACIN TOP OINT 15 GM TUBE TOP SCH ×2 (09:00→20:53)
[2017-09-19] MEDS: ENALAPRIL MALEATE 5 MG TAB PO SCH (09:19)
[2017-09-19] MEDS: FAMOTIDINE 20 MG TAB PO SCH ×2 (09:19→20:52)
[2017-09-19] MEDS: VERAPAMIL HCL 120 MG TAB PO SCH ×2 (09:19→20:53)
--- NOTE | 2017-09-19 09:35 | PD.ORT.PN ---
Subjective Subjective Remarks Patient is resting in bed and is more alert. Patient appropriate with communication. Patient denies pain to the right shoulder and right upper extremity. Patient denies tingling or numbness to the RUE. Objective Vitals Vital Signs Date Time Temp Pulse Resp B/P (MAP) Pulse Ox O2 Delivery O2 Flow Rate FiO2 09/19/17 07:00 Room Air 94 09/19/17 06:00 69 09/19/17 04:00 60 09/19/17 04:00 98.8 60 17 134/63 (86) 94 09/19/17 02:00 64 09/19/17 00:00 68 09/19/17 00:00 97.9 71 25 115/57 (76) 94 09/18/17 22:00 71 09/18/17 20:31 75 176/72 09/18/17 20:00 97.4 74 24 132/60 (84) 94 09/18/17 20:00 72 09/18/17 19:00 Room Air 09/18/17 18:00 76 09/18/17 16:00 61 09/18/17 16:00 97.7 61 25 162/77 (105) 96 09/18/17 14:00 60 09/18/17 12:00 62 09/18/17 12:00 98.0 68 23 122/60 (80) 97 09/18/17 10:00 70 I/O 09/18/17 09/18/17 09/18/17 09/19/17 09/19/17 09/19/17 07:00 15:00 23:00 07:00 15:00 23:00 Intake Total 1576.9 ml 175 ml 2625 ml Output Total 350 ml 400 ml 375 ml Balance 1226.9 ml -225 ml 2250 ml Intake Oral 0 ml IV Total 1380.9 ml 2366 ml Tube Feeding 196 ml 175 ml 259 ml Output Urine Total 350 ml 400 ml 375 ml # Bowel Movements 0 Result Diagram: 09/18/17 0240 09/18/17 024 Imaging Last [address] 09/18/17 0000 Signed Impressions: Service Date/Time: Monday, September 18, 2017 02:06 - CONCLUSION: No significant change has occurred. Terrence Kennedy MD Carotid Artery Ultrasound 09/18/17 0000 Signed Impressions: Service Date/Time: Monday, September 18, 2017 16:38 - CONCLUSION: 1. Moderate visible plaque without hemodynamically significant stenosis. Mildly enlarged lymph node on the left in the carotid bifurcation. Jaya Johnson MD Brain MRI 09/17/17 1316 Signed Impressions: Service Date/Time: Sunday, September 17, 2017 11:23 - CONCLUSION: Acute infarction right corpus callosum. Nonspecific white matter changes. Bilateral subdural hygromas. Simeon Goode MD XR of the right humerus shows a minimally displaced greater tuberosity fracture. I have reviewed the XRs that I ordered and agree with the radiologist 's interpretation. Objective Remarks Patient has mild swelling to the right shoulder with no ecchymosis. Patient is nontender to palpation. Patient able to make fist and has good sensation to light touch about the right arm and hand. 2+ radial pulse. Sling at bedside. Skin is intact. No tenderness to the right elbow or wrist. BCR X 5. Assessment & Plan Assessment and Plan Right shoulder greater tuberosity fracture 1. NWB RUE 2. Sling for support and comfort 3. Ice to the right shoulder PRN 4. Stable for discharge per ortho once medically stable 5. Patient will f/u in the office with Dr. Malone or ISAIAH Champagne in 1- 2 weeks. Natanael Hobson Sep 19, 2017 09:35
[2017-09-19] MEDS: hydrALAZINE HCL 20 MG/ML VIAL IV PUSH PRN ×2 (09:38→15:12)
[2017-09-19] MEDS: ENALAPRILAT 1.25 MG/ML VIAL IV PUSH PRN ×2 (09:38→18:31)
[2017-09-19] MEDS: POLYETHYLENE GLYCOL 17 GM PKG PO SCH (09:41)
[2017-09-19] MEDS: MAGNESIUM HYDROXIDE SUSP 30 ML CUP PO SCH ×2 (09:41→20:52)
[2017-09-19] MEDS: DOCUSATE SODIUM 50 MG/SENNA 8.6 MG TAB PO SCH ×2 (09:41→20:52)
[2017-09-19] MEDS: CEFEPIME INJ 1,000 MG in SODIUM CHLORIDE 0.9% INJ 100 ML IV SCH ×2 (11:10→22:34)
--- NOTE | 2017-09-19 11:52 | HHI.NSPN ---
History Interval History Ms Oropeza is an 87-year-old female with baseline dementia who suffered a ground-level fall. She experienced a C2 fracture. This was deemed to be nonsurgical. She has been maintained in a cervical collar. 09/16 witnessed seizure that resolved with Ativan 09/17 atrial fibrillation on amiodarone gtt 09/18 patient currently denies any headache 09/19 patient denies any pain or headache. She wishes to be with her . She continues on heparin and amiodarone gtt Exam Results Vital Signs Date Time Temp Pulse Resp B/P (MAP) Pulse Ox O2 Delivery O2 Flow Rate FiO2 09/19/17 10:00 75 09/19/17 09:45 97 Nasal Cannula 4.00 09/19/17 08:00 98.3 21 168/57 (94) 09/19/17 07:00 94 Intake and Output 09/19/17 09/19/17 09/20/17 08:00 16:00 00:00 Intake Total 2625 ml Output Total 375 ml Balance 2250 ml Physical Examination Gen: Patient awake in bed. No acute distress. Patient appears depressed HEENT: Normocephalic. Atraumatic. Neck: Supple. No step-offs. Tenderness to palpation to the occipital cervical junction. Cervical collar in place. Dobbhoff in place CV: tachycardic but regular Pulm: CTA bilaterally GI: Soft, nontender, nondistended Ext: No edema. Echymosis to UE L>R Neuro: Alert, oriented to self CN II: Vision intact CN III, IV, : EOMI CN V: Intact to light touch CN VII: Face symmetric CN XII: Tongue midline Motor: Moves all extremities symmetrically. 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 Terrence Kennedy MD Carotid Artery Ultrasound 09/18/17 0000 Signed Impressions: Service Date/Time: Monday, September 18, 2017 16:38 - CONCLUSION: 1. Moderate visible plaque without hemodynamically significant stenosis. Mildly enlarged lymph node on the left in the carotid bifurcation. Jaya Johnson MD Brain MRI 09/17/17 1316 Signed Impressions: Service Date/Time: Sunday, September 17, 2017 11:23 - CONCLUSION: Acute infarction right corpus callosum. Nonspecific white matter changes. Bilateral subdural hygromas. Simeon Goode MD Humerus X-Ray 09/17/17 0000 Signed Impressions: Service Date/Time: Sunday, September 17, 2017 16:31 - CONCLUSION: 1. Fracture of the right humeral neck nondisplaced Jose Rudd MD Chest X-Ray 09/17/17 0000 Signed Impressions: Service Date/Time: Sunday, September 17, 2017 11:00 - CONCLUSION: 1. Cardiomegaly and findings of vascular congestion without overt failure. This is new when compared with the prior exam. 2. Right humeral neck fracture Jose Rudd MD Abdomen X-Ray 09/17/17 0000 Signed Impressions: Service Date/Time: Sunday, September 17, 2017 11:05 - CONCLUSION: No concerning radiopaque foreign bodies identified within the abdomen. Phillip Franco MD 09/17/17 09/17/17 09/18/17 09/18/17 09/19/17 09/19/17 06:00 18:00 06:00 18:00 06:00 18:00 Intake Total 100 ml 350 ml 629 ml 1751.9 ml 2625 ml Output Total 250 ml 300 ml 750 ml 375 ml Balance -150 ml 50 ml 629 ml 1001.9 ml 2250 ml Intake Oral 0 ml 0 ml 0 ml IV Total 100 ml 190 ml 629 ml 1380.9 ml 2366 ml Tube Feeding 60 ml 371 ml 259 ml Other 100 ml Output Urine Total 250 ml 300 ml 750 ml 375 ml # Bowel Movements 0 0 0 Laboratory Tests Test 09/16/17 15:05 09/17/17 05:35 09/17/17 10:32 09/17/17 17:40 Erythrocyte Sedimentation Rate 11 mm/hr Troponin I 0.03 NG/ML 0.04 NG/ML Total Protein 5.7 GM/DL 6.1 GM/DL Albumin 3.44 GM/DL 2.9 GM/DL Albumin/Globulin Ratio 1.52 Ifbrt-1-Ygeamkaul 0.25 GM/DL Fuzif-5-Hsxilrtus 0.82 GM/DL Beta Globulins 0.51 GM/DL Gamma Globulins 0.69 GM/DL Electrophoresis Pathologist Comment Vitamin B12 Level 519 PG/ML Free Thyroxine 1.47 NG/DL Thyroid Stimulating Hormone 3rd Gen 2.980 uIU/ML Anti-Nuclear Antibody Screen NEG Rapid Plasma Reagin NON-REACTIVE White Blood Count 12.9 TH/MM3 15.8 TH/MM3 Red Blood Count 3.95 MIL/MM3 3.87 MIL/MM3 Hemoglobin 11.7 GM/DL 11.4 GM/DL Hematocrit 35.1 % 34.2 % Mean Corpuscular Volume 88.8 FL 88.4 FL Mean Corpuscular Hemoglobin 29.5 PG 29.6 PG Mean Corpuscular Hemoglobin Concent 33.3 % 33.4 % Red Cell Distribution Width 15.1 % 15.2 % Platelet Count 377 TH/MM3 358 TH/MM3 Mean Platelet Volume 8.2 FL 8.1 FL Neutrophils (%) (Auto) 79.6 % Lymphocytes (%) (Auto) 7.1 % Monocytes (%) (Auto) 12.7 % Eosinophils (%) (Auto) 0.2 % Basophils (%) (Auto) 0.4 % Neutrophils # (Auto) 10.3 TH/MM3 Lymphocytes # (Auto) 0.9 TH/MM3 Monocytes # (Auto) 1.6 TH/MM3 Eosinophils # (Auto) 0.0 TH/MM3 Basophils # (Auto) 0.0 TH/MM3 CBC Comment DIFF FINAL Differential Comment Blood Urea Nitrogen 39 MG/DL Creatinine 1.01 MG/DL Random Glucose 112 MG/DL Calcium Level 8.5 MG/DL Alkaline Phosphatase 70 U/L Aspartate Amino Transf (AST/SGOT) 25 U/L Alanine Aminotransferase (ALT/SGPT) 21 U/L Total Bilirubin 0.4 MG/DL Sodium Level 141 MEQ/L Potassium Level 3.5 MEQ/L Chloride Level 109 MEQ/L Carbon Dioxide Level 21.2 MEQ/L Anion Gap 11 MEQ/L Estimat Glomerular Filtration Rate 52 ML/MIN Blood Gas Puncture Site LT RADIAL Blood Gas Patient Temperature 98.6 Blood Gas HCO3 19 mmol/L Blood Gas Base Excess -5.3 mmol/L Blood Gas Oxygen Saturation 91 % Arterial Blood pH 7.39 Arterial Blood Partial Pressure CO2 32 mmHg Arterial Blood Partial Pressure O2 64 mmHg Arterial Blood Oxygen Content 15.8 Vol % Arterial Blood Carboxyhemoglobin 1.2 % Arterial Blood Methemoglobin 0.9 % Blood Gas Hemoglobin 12.3 G/DL Oxygen Delivery Device NASAL CANNULA Blood Gas Liter Flow 2 L/M Prothrombin Time 11.3 SEC Prothromb Time International Ratio 1.1 RATIO Activated Partial Thromboplast Time 26.8 SEC Test 09/18/17 02:40 09/18/17 10:20 09/18/17 17:40 09/19/17 00:40 White Blood Count 11.9 TH/MM3 Red Blood Count 3.51 MIL/MM3 Hemoglobin 10.4 GM/DL Hematocrit 31.1 % Mean Corpuscular Volume 88.5 FL Mean Corpuscular Hemoglobin 29.6 PG Mean Corpuscular Hemoglobin Concent 33.5 % Red Cell Distribution Width 14.9 % Platelet Count 342 TH/MM3 Mean Platelet Volume 7.7 FL Neutrophils (%) (Auto) 80.2 % Lymphocytes (%) (Auto) 6.1 % Monocytes (%) (Auto) 13.0 % Eosinophils (%) (Auto) 0.2 % Basophils (%) (Auto) 0.5 % Neutrophils # (Auto) 9.5 TH/MM3 Lymphocytes # (Auto) 0.7 TH/MM3 Monocytes # (Auto) 1.5 TH/MM3 Eosinophils # (Auto) 0.0 TH/MM3 Basophils # (Auto) 0.1 TH/MM3 CBC Comment DIFF FINAL Differential Comment Activated Partial Thromboplast Time 33.4 SEC 36.4 SEC 32.7 SEC 45.7 SEC Blood Urea Nitrogen 41 MG/DL Creatinine 0.92 MG/DL Random Glucose 144 MG/DL Calcium Level 8.0 MG/DL Sodium Level 140 MEQ/L Potassium Level 3.8 MEQ/L Chloride Level 108 MEQ/L Carbon Dioxide Level 24.0 MEQ/L Anion Gap 8 MEQ/L Estimat Glomerular Filtration Rate 57 ML/MIN Orders Procedure Category Date Status Time Electrocardiogram CAV 09/16/17 Resulted ^ Medication Alert MERVAT 09/16/17 In Process 12:19 ^ Discontinue MERVAT 09/16/17 In Process 12:19 Dextrose 5% In MED 09/16/17 Complete Wate... W/Amiodarone 12:19 Dextrose 5% In MED 09/16/17 In Process Wate... W/Amiodarone 12:29 Vital Signs (Adult) MERVAT 09/16/17 Complete 12:19 Troponin I LAB 09/16/17 Complete 18:21 Troponin I LAB 09/17/17 Complete 00:21 Complete Blood Count LAB 09/17/17 Complete With Diff 04:00 Comprehensive LAB 09/17/17 Complete Metabolic Panel 04:00 [place] LAB 09/16/17 Complete Sedimentation Rate 13:16 Rapid Plasma Regin LAB 09/16/17 Complete (Rpr) W Ttr 13:16 Christa Screen LAB 09/16/17 Complete 13:16 Thyroid Stimulating LAB 09/16/17 Complete Hormone 13:16 Free Thyroxine (T4) LAB 09/16/17 Complete 13:16 Protein LAB 09/16/17 Complete Electrophoresis Serum 13:16 Vitamin B1 (Thiamine) LAB 09/16/17 In Process 13:16 Vitamin B12 LAB 09/16/17 Complete 13:16 Methylmalonic Acid LAB 09/16/17 In Process (Mma) 13:16 ^ Seizure Precautions MERVAT 09/16/17 In Process 13:16 Consult Pt Eval & PT 09/16/17 Complete Treat 13:16 Scd&Teds MERVAT 09/16/17 Complete Bilateral/Knee High 13:16 Activity Oob With MERVAT 09/16/17 In Process Assistance 13:16 ^ Fall Precautions MERVAT 09/16/17 In Process 13:16 Consult Pt Eval & PT 09/17/17 Logged Treat 07:45 Activity Oob With MERVAT 09/17/17 In Process Assistance 07:45 ^ Fall Precautions MERVAT 09/17/17 In Process 07:45 Continue Urinary MERVAT 09/17/17 In Process Catheter 07:58 Complete Blood Count LAB 09/18/17 Complete With Diff 04:00 Basic Metabolic Panel LAB 09/18/17 Complete (Bmp) 04:00 Abdomen, Kub Only RADDIAG 09/17/17 Resulted Insert Ng Tube MERVAT 09/17/17 In Process 10:04 Consult Cardiology CONS 09/17/17 Transmitted Chest, Single Ap RADDIAG 09/17/17 Resulted Arterial Blood Gas LAB 09/17/17 Complete (Abg) Sodium Chlor 0.9% MED 09/17/17 In Process 1000 Ml Inj (Ns 1000 M 11:04 Dextrose 5% In MED 09/17/17 Complete Wate... W/Amiodarone 11:00 Diet Tube Feed Only DIET 09/17/17 Complete Lunch Tube Feeding MERVAT 09/17/17 In Process 10:11 (Hub Use Only)Inp Phy CONS 09/17/17 Transmitted Cons/Ref Mri Brain W&W/O RADMR 09/17/17 Resulted Contrast 13:16 Gadodiamide Pf Inj MED 09/17/17 Complete (Omniscan Pf Inj) 11:40 Consult Orthopedic CONS 09/17/17 Transmitted (Hub Use Only)Inp Phy CONS 09/17/17 Transmitted Cons/Ref Equip, Feeding Pump SPD 09/17/17 Logged Use Of 12:[address] 09/17/17 Logged Consult-Eval/Tx 14:19 Ot Request For Service OT 09/17/17 Logged 14:19 Humerus (Min 2vws) RADDIAG 09/17/17 Resulted ^ Other Nursing Orders MERVAT 09/17/17 In Process 16:38 Heparin-D5w 25,000 MED 09/17/17 In Process U/250 Ml (Heparin-D5w 17:30 Prothrombin Time / LAB 09/17/17 Complete Inr (Pt) 17:26 Cbc No Diff, Includes LAB 09/17/17 Complete Plts 17:26 Cbc No Diff, Includes LAB 09/20/17 Verified Plts 06:00 Occult Blood SONALI 09/17/17 In Process (Hemoccult) Stool 17:26 Specimen To Be MERVAT 09/17/17 In Process Collected 17:26 Act Partial Throm LAB 09/17/17 Complete Time (Ptt) 17:26 Sling And Swathe ORTHO 09/17/17 Logged [employer] Request For ORTHO 09/17/17 Logged Service 18:11 Act Partial Throm LAB 09/18/17 Complete Time (Ptt) 01:30 Vascular Access Team MERVAT 09/17/17 Complete Consult/P 20:01 Vascular Poc IMGUS 09/17/17 Taken Ultrasound Sling And Swathe ORTHO 09/17/[address] Brain W/O Iv RADCT 09/18/17 Resulted Contrast(Rout) Act Partial Throm LAB 09/18/17 Complete Time (Ptt) 10:30 Echo 2d Comp With ECH 09/18/17 Resulted Doppler Act Partial Throm LAB 09/18/17 Complete Time (Ptt) 16:30 Us Carotid Arteries RADUS 09/18/17 Resulted Comp Bilat Act Partial Throm LAB 09/19/17 Complete Time (Ptt) 00:30 Act Partial Throm LAB 09/19/17 In Process Time (Ptt) 07:40 Magnesium Hydroxide MED 09/19/17 In Process Liq (Milk Of Magnesi 09:00 Continue Urinary MERVAT 09/19/17 In Process Catheter 08:51 Act Partial Throm LAB 09/19/17 In Process Time (Ptt) 10:29 Diet Regular Basic DIET 09/19/17 Transmitted Lunch Consult Psychiatry CONS 09/19/17 Transmitted (Hub Use Only)Inp Phy CONS 09/19/17 Transmitted Cons/Ref Cefepime Inj MED 09/19/17 In Process (Maxipime Inj) 11:00 Vital Signs Date Time Temp Pulse Resp B/P (MAP) Pulse Ox O2 Delivery O2 Flow Rate FiO2 09/19/17 10:00 75 09/19/17 09:45 97 Nasal Cannula 4.00 09/19/17 08:00 98.3 83 21 168/57 (94) 97 09/19/17 08:00 83 09/19/17 07:00 Room Air 94 09/19/17 06:00 69 09/19/17 04:00 60 09/19/17 04:00 98.8 60 17 134/63 (86) 94 09/19/17 02:00 64 09/19/17 00:00 68 09/19/17 00:00 97.9 71 25 115/57 (76) 94 09/18/17 22:00 71 09/18/17 20:31 75 176/72 09/18/17 20:00 97.4 74 24 132/60 (84) 94 09/18/17 20:00 72 09/18/17 19:00 Room Air 09/18/17 18:00 76 09/18/17 16:00 61 09/18/17 16:00 97.7 61 25 162/77 (105) 96 09/18/17 14:00 60 09/18/17 12:00 62 09/18/17 12:00 98.0 68 23 122/60 (80) 97 09/18/17 10:00 70 09/18/17 08:00 98.0 68 18 164/75 (104) 100 09/18/17 08:00 68 09/18/17 07:00 100 Nasal Cannula 2.00 09/18/17 06:00 61 09/18/17 04:00 97.9 68 13 128/64 (85) 100 09/18/17 04:00 56 09/18/17 03:44 54 124/51 09/18/17 02:35 56 09/18/17 02:00 54 09/18/17 00:00 54 09/18/17 00:00 97.6 54 20 118/59 (78) 99 09/17/17 22:00 68 09/17/17 21:16 98 Nasal Cannula 1.00 09/17/17 21:00 77 09/17/17 20:00 72 09/17/17 20:00 98.3 72 18 156/67 (96) 98 09/17/17 19:00 98 Nasal Cannula 2.00 09/17/17 18:00 76 09/17/17 16:00 65 09/17/17 16:00 98.6 64 20 132/58 (82) 98 09/17/17 14:00 72 09/17/17 12:55 99 135/73 09/17/17 12:13 107 138/74 09/17/17 12:00 104 09/17/17 12:00 99.0 118 15 138/74 (95) 99 09/17/17 10:00 121 09/17/17 09:41 99 Nasal Cannula 2.00 09/17/17 08:00 77 09/17/17 08:00 99.3 76 16 119/60 (79) 99 09/17/17 07:00 99 Nasal Cannula 2.00 09/17/17 06:00 76 09/17/17 04:00 77 09/17/17 04:00 98.8 77 24 139/62 (87) 99 09/17/17 02:00 89 09/17/17 00:00 79 09/17/17 00:00 98.7 79 22 159/70 (99) 98 09/16/17 22:28 95 167/70 09/16/17 22:00 91 09/16/17 22:00 99 Nasal Cannula 3.00 09/16/17 21:39 100 Nasal Cannula 3.00 09/16/17 21:30 85 Nasal Cannula 4.00 09/16/17 20:30 88 Nasal Cannula 6.00 09/16/17 20:00 97 Nasal Cannula 4.00 09/16/17 20:00 63 09/16/17 20:00 98.6 61 22 141/62 (88) 97 09/16/17 18:00 69 09/16/17 16:00 97.9 89 22 144/64 (90) 95 09/16/17 16:00 89 09/16/17 14:00 125 09/16/17 13:58 79 104/51 09/16/17 13:39 91 115/55 09/16/17 12:00 105 09/16/17 12:00 98.5 105 24 209/76 (120) 96 Medical Decision Making Impression and Plan Ms Oropeza is an 87-year-old female who experienced a ground-level fall who suffered a nondisplaced C2 fracture. Neuro: Nondisplaced C2 fracture. Continue nonsurgical management with [place] collar. Follow-up with x-ray in 6-12 weeks' time. 09/18 Altered mental status. MRI from 09/17 show evidence of small infarct to the right corpus callosum. This may be due to her atrial fibrillation. Carotid ultrasounds pending. Patient also has bilateral subdural hematomas that appear to be chronic in age. There is effacement of the frontal gyri 09/19 neurologically stable with generalized weakness, but nonfocal exam. Seizure: There is report of a witnessed seizure. She is currently not on any antiepileptic and has not had any active seizures within the past 24 hours. This is likely due to the subdural hematomas. We will defer to neurology but we recommend antiepileptic Atrial fibrillation/hypertension: Amiodarone 09/19 currently in normal sinus rhythm on amiodarone gtt. Transition to PO per cardiology Pulm: Stable GI: Benign : Cline catheter due to immobilization status FEN: Malnutrition. To feeds through Dobbhoff. With improving mental status, may consider a swallowing evaluation, then advance diet ID: UTI on antibiotics Depression: Recommend psychiatry consult Te Macias MD Sep 19, 2017 11:52
--- NOTE | 2017-09-19 12:11 | PD.CARD.PN ---
Subjective Subjective Remarks No events overnight Started on heparin drip due to AFib with CVA Started on her Verapamil More awake today, able to answer questions Objective Medications Current Medications Medications (Trade) Dose Ordered Sig/Ady Route Start Time Stop Time Status Last Admin (NS Flush) 2 ml UNSCH PRN IV FLUSH 09/12/17 20:15 09/14/17 00:15 ([place] 5-325 Mg) 1 tab Q4H PRN PO 09/12/17 20:15 (Zofran Inj) 4 mg Q6H PRN IV PUSH 09/12/17 20:15 (Baciguent Oint) 1 applic BID TOP 09/12/17 21:00 09/19/17 09:00 (Summer-Colace) 1 tab BID PO 09/13/17 09:00 09/19/17 09:41 (Lactulose Liq) 30 ml DAILY PRN PO 09/13/17 07:15 (Miralax) 17 gm DAILY PO 09/13/17 09:00 09/19/17 09:41 (Vasotec) 5 mg DAILY PO 09/13/17 09:45 09/19/17 09:19 (Isoptin) 240 mg BID PO 09/13/17 09:45 09/19/17 09:19 Acetaminophen 100 ml @ 400 mls/hr Q6H IV 09/14/17 17:00 09/17/17 22:39 (Vasotec Inj) 1.25 mg Q6H PRN IV PUSH 09/15/17 07:30 09/19/17 09:38 (Pepcid) 10 mg BID PO 09/15/17 09:00 09/19/17 09:19 (Apresoline Inj) 20 mg Q4H PRN IV PUSH 09/16/17 11:45 09/19/17 09:38 Amiodarone HCl 450 mg/Dextrose 250 ml @ 33.33 mls/ hr Q7H31M PRN IV 09/16/17 12:29 09/18/17 20:31 Sodium Chloride 1,000 ml @ 50 mls/hr Q20H IV 09/17/17 11:04 09/19/17 06:31 Heparin Sodium/ Dextrose 250 ml @ 7 mls/hr TITRATE PRN IV 09/17/17 17:30 09/18/17 22:37 (Milk Of Magnesia Liq) 30 ml BID PO 09/19/17 09:00 09/19/17 09:41 Cefepime HCl 1000 mg/Sodium Chloride 100 ml @ 200 mls/hr Q12H IV 09/19/17 11:00 09/19/17 11:10 Vital Signs / I&O Vital Signs Date Time Temp Pulse Resp B/P (MAP) Pulse Ox O2 Delivery O2 Flow Rate FiO2 09/19/17 12:00 69 09/19/17 10:00 75 09/19/17 09:45 97 Nasal Cannula 4.00 09/19/17 08:00 98.3 83 21 168/57 (94) 97 09/19/17 08:00 83 09/19/17 07:00 Room Air 94 09/19/17 06:00 69 09/19/17 04:00 60 09/19/17 04:00 98.8 60 17 134/63 (86) 94 09/19/17 02:00 64 09/19/17 00:00 68 09/19/17 00:00 97.9 71 25 115/57 (76) 94 09/18/17 22:00 71 09/18/17 20:31 75 176/72 09/18/17 20:00 97.4 74 24 132/60 (84) 94 09/18/17 20:00 72 09/18/17 19:00 Room Air 09/18/17 18:00 76 09/18/17 16:00 61 09/18/17 16:00 97.7 61 25 162/77 (105) 96 09/18/17 14:00 60 I/O 09/18/17 09/18/17 09/18/17 09/19/17 09/19/17 09/19/17 07:00 15:00 23:00 07:00 15:00 23:00 Intake Total 1576.9 ml 175 ml 2625 ml Output Total 350 ml 400 ml 375 ml Balance 1226.9 ml -225 ml 2250 ml Intake Oral 0 ml IV Total 1380.9 ml 2366 ml Tube Feeding 196 ml 175 ml 259 ml Output Urine Total 350 ml 400 ml 375 ml # Bowel Movements 0 Physical Exam GENERAL: NAD SKIN: Warm and dry. HEAD: Atraumatic. Normocephalic. EYES: Pupils equal and round. No scleral icterus. No injection or drainage. ENT: No nasal bleeding or discharge. Mucous membranes pink and moist. NECK: Trachea midline. No JVD. CARDIOVASCULAR: Regular rate and rhythm. RESPIRATORY: No accessory muscle use. Clear to auscultation. Breath sounds equal bilaterally. GASTROINTESTINAL: Abdomen soft, non-tender, nondistended. Hepatic and splenic margins not palpable. MUSCULOSKELETAL: Extremities without clubbing, cyanosis, or edema. No obvious deformities. NEUROLOGICAL: No focal deficits Laboratory Laboratory Tests Test 09/18/17 17:40 09/19/17 00:40 Activated Partial Thromboplast Time 32.7 SEC 45.7 SEC Assessment and Plan Problem List: (1) Afib ICD Codes: I48.91 - Unspecified atrial fibrillation (2) CVA (cerebral vascular accident) ICD Codes: I63.9 - Cerebral infarction, unspecified (3) C2 cervical fracture ICD Codes: S12.100A - Unspecified displaced fracture of second cervical vertebra, initial encounter for closed fracture Status: Acute (4) Fall ICD Codes: W19.XXXA - Unspecified fall, initial encounter Status: Acute (5) Hypertension ICD Codes: I10 - Essential (primary) hypertension Status: Acute (6) Altered mental status ICD Codes: R41.82 - Altered mental status, unspecified Status: Acute (7) UTI (urinary tract infection) ICD Codes: N39.0 - Urinary tract infection, site not specified Status: Acute (8) Confusion ICD Codes: R41.0 - Disorientation, unspecified Assessment and Plan 1) New onset atrial fibrillation Converted to sinus rhythm on Amiodarone Amiodarone drip can be stopped as she has been placed on Verapamil PO (home med) If more Afib with RVR then may need Amio Po 2) C2 fracture due to fall. 3) Mechanical fall. 4) Chronic subdural hygromas. 5) Acute mental status change. 6) CVA Most likely due to Afib Started on heparin drip Eventual anti-coagulation at neurology/neurosurgery discretion Would have the patient get to the point where she can work with PT, and can be evaluated for gate and falls Problem Qualifiers (1) C2 cervical fracture: Qualified Codes: S12.101A - Unspecified nondisplaced fracture of second cervical vertebra, initial encounter for closed fracture (2) Fall: Qualified Codes: W19.XXXA - Unspecified fall, initial encounter (3) Hypertension: Qualified Codes: I10 - Essential (primary) hypertension (4) Altered mental status: Qualified Codes: R41.82 - Altered mental status, unspecified (5) UTI (urinary tract infection): Qualified Codes: N39.0 - Urinary tract infection, site not specified; R31.9 - Hematuria, unspecified Fuad Rojas DO Sep 19, 2017 12:11
--- NOTE | 2017-09-19 13:55 | HHI.CCPN ---
Subjective Brief History HISTORY OF PRESENT ILLNESS The patient is an 87-year-old female who presents to the emergency department after a fall. The patient does have some baseline dementia and was somewhat of a poor historian. The patient was noted to be in front of her yard, walking her neighbor's dog when the dog pulled the patient. The patient lost her balance hit her face first into a car. According to reports there was no loss of consciousness. The patient does not complain of any significant pain, was noted to have some abrasions to her right arm, right forehead, right elbow. She is otherwise in severe hypertension emergency with a systolic of over 200 and diastolic over 100. She is denying any current numbness or headaches. Patient was worked up and diagnosed with the hairline C2 fracture through the lateral masses C-collar has been applied then according to neurosurgery patient will be treated accordingly 24 Hour Review/Hospital Course 09/13/17 Patient is neurologically fully intact although with some degree of cognitive deficit consistent with age Motoric fully intact C-collar in place Discussed with neurosurgery 09/14/17 Unsure whether she had confusion overnight or is just noncooperative Will transfer to floor with sitter and adjust her agitation medication C2 fracture remains nonoperative Patient will require placement 09/16/17 Patient returned to the ICU with witnessed seizure activity, resolved with Ativan 09/17/17 Patient opens eyes to voice, mumbles, more somnolent this morning Started on amiodarone drip yesterday for atrial fibrillation She scheduled for an MRI of the brain today 09/18 MRI shows CVA corpus callosum area neuro intact in AM heparin gtt as per neurology 09/19 awake ,alert talkative-according to RN wishes to be DNR intact neuro passed speech/swallow working with PT Objective Vital Signs Date Time Temp Pulse Resp B/P (MAP) Pulse Ox O2 Delivery O2 Flow Rate FiO2 09/19/17 12:36 63 132/63 09/19/17 12:00 98.5 22 99 09/19/17 09:45 Nasal Cannula 4.00 09/19/17 07:00 94 Intake and Output 09/19/17 09/19/17 09/20/17 08:00 16:00 00:00 Intake Total 2625 ml 119 ml Output Total 375 ml Balance 2250 ml 119 ml Result Diagram: 09/18/17 0240 09/18/17 0240 Exam INSULATION APPLICATOR gcs 15 Hemodynamic/Cardiac SR Pulmonary/Respiratory clear b/l Abdomen/GI Nutrition soft Urinary Catheter Assessment Urinary Catheter: Yes Vascular Central Line Catheter Vascular Central Line Catheter: No Assessment and Plan Plan Nonoperative management of C2 fracture per neurosurgery anticoagulated as per neurology-would continue for acute phase would not anticoagulate on chcf-high risk for falls oral meds-d/c IV amiodarone -restart oral verapamil-d/w cardiology will have neuropsychology assess capacity before -granting wish of DNR Fozia Decker MD Sep 19, 2017 13:55
[2017-09-19 14:10] LABS: APTT (PATIENT) 20.1 SEC (24.3-30.1)
--- NOTE | 2017-09-19 15:39 | PD.PSY.CON ---
Provisional Diagnosis Admission Date Sep 12, 2017 at 19:15 [place]. Bereavement History of Present Illness Service Psychiatry Consult Requested By Dr. Macias Reason for Consult Evaluation for depression Primary Care Physician Phillip Rosenthal M.D. HPI Patient is a 87-year-old woman, easily , unemployed on social security benefits with no past psychiatric history no prior psychiatric hospitalizations no prior suicide attempt or self injurious behavior, substance use history, past medical history for hypertension leukemia recently suffered a fall on 09/12/17 in context of walking her dog and hit her face on a car which she has subsequent C2 fracture admitted to medical floor for medical management of the same. Psychiatry was consulted for evaluation of possible depression as patient had mentioned she did not want further intervention yesterday. Patient was found lying in hospital bed, cooperative interview today. Patient states that she feels "kind of depressed" due to her current circumstances and medical condition. Patient states that she never had a history of psychiatric illness, no prior history of depression and denies having expressed not wanting to have any treatments while in the hospital. Patient states that she looks forward to recovery soon, dysphoric disorder returning back to her home to her dog. Patient reports that recently she had been feeling somewhat sad due to the recent passing of her on 09/13/17 whom she was to for 70 years. Patient states that she does have other social supports in the community suggests neighbors whom she had been present for over 25 years. Patient reports that since the passing of her she has not had no change in sleep , appetite, energy, concentration, denies feeling depressed, denies feeling helpless or hopeless, and denied ever having had suicidal ideations in the past or currently. Patient denies any manic or psychotic symptoms at this time as well. Patient plans on returning back to her home continue living there with her pet upon recovery but is amenable to having home health services put in place for assistance. Past psychiatric history: No prior psychiatric diagnosis, prior hospitalizations , no prior suicide attempts or self-injurious behavior. No prior history of abuse. Family psychiatric history: Denies Substance use history: Denies Past medical history: Hypertension, leukemia Allergies: NKDA Social history: Recently in 09/13/17, unemployed on social security benefits, has one firearm at home, no zoroastrian affiliation. No legal history. Collateral contact: Isabel Crocker (number no provided) Past Family Social History Coded Allergies: No Known Allergies (Unverified Allergy, Unknown, 09/12/17) Reported Medications Verapamil (Verapamil) 80 Mg Tab, 80 MG PO DAILY, #60 TAB 0 Refills 09/13/17 Verapamil (Verapamil) 120 Mg Tab, 240 MG PO BID, #60 TAB 0 Refills 09/13/17 Enalapril (Enalapril) 5 Mg Tab, 5 MG PO DAILY, #30 TAB 0 Refills 09/13/17 Current Medications Medications (Trade) Dose Ordered Sig/Ady Route Start Time Stop Time Status Last Admin (NS Flush) 2 ml UNSCH PRN IV FLUSH 09/12/17 20:15 09/14/17 00:15 ([place] 5-325 Mg) 1 tab Q4H PRN PO 09/12/17 20:15 (Zofran Inj) 4 mg Q6H PRN IV PUSH 09/12/17 20:15 (Baciguent Oint) 1 applic BID TOP 09/12/17 21:00 09/19/17 09:00 (Summer-Colace) 1 tab BID PO 09/13/17 09:00 09/19/17 09:41 (Lactulose Liq) 30 ml DAILY PRN PO 09/13/17 07:15 (Miralax) 17 gm DAILY PO 09/13/17 09:00 09/19/17 09:41 (Vasotec) 5 mg DAILY PO 09/13/17 09:45 09/19/17 09:19 (Isoptin) 240 mg BID PO 09/13/17 09:45 09/19/17 09:19 Acetaminophen 100 ml @ 400 mls/hr Q6H IV 09/14/17 17:00 09/17/17 22:39 (Vasotec Inj) 1.25 mg Q6H PRN IV PUSH 09/15/17 07:30 09/19/17 09:38 (Pepcid) 10 mg BID PO 09/15/17 09:00 09/19/17 09:19 (Apresoline Inj) 20 mg Q4H PRN IV PUSH 09/16/17 11:45 09/19/17 15:12 Sodium Chloride 1,000 ml @ 50 mls/hr Q20H IV 09/17/17 11:04 09/19/17 06:31 Heparin Sodium/ Dextrose 250 ml @ 7 mls/hr TITRATE PRN IV 09/17/17 17:30 09/18/17 22:37 (Milk Of Otilia [place]air) 30 ml BID PO 09/19/17 09:00 09/19/17 09:41 Cefepime HCl 1000 mg/Sodium Chloride 100 ml @ 200 mls/hr Q12H IV 09/19/17 11:00 09/19/17 11:10 Physical Exam Vital Signs Vital Signs Date Time Temp Pulse Resp B/P (MAP) Pulse Ox O2 Delivery O2 Flow Rate FiO2 09/19/17 14:00 62 09/19/17 12:36 132/63 09/19/17 12:00 98.5 22 99 09/19/17 09:45 Nasal Cannula 4.00 09/19/17 07:00 94 I/O 09/19/17 09/19/17 09/20/17 08:00 16:00 00:00 Intake Total 2625 ml 119 ml Output Total 375 ml Balance 2250 ml 119 ml Lab Results Test 09/18/17 17:40 09/19/17 00:40 09/19/17 12:53 Activated Partial Thromboplast Time 32.7 SEC 45.7 SEC 20.1 SEC Date/Time Source Procedure Growth Status 09/12/17 16:15 Urine Catheterized Urine Urine Culture - Final Pseudomonas Aeruginosa Complete Mental Status Examination Appearance: Appropriate Consciousness: Alert Orientation: Person, Place, Date/Time Speech: Unremarkable Language: Adequate Fund of Knowledge: Adequate Attention and Concentration: Adequate Memory: Unremarkable Mood: Sad Affect: Sad Thought Process & Associations: Intact, Goal directed, Linear Thought Content: Appropriate Hallucination Type: None Delusion Type: None Suicidal Ideation: No Suicidal Plan: No Suicidal Intention: No Homicidal Ideation: No Homicidal Plan: No Homicidal Intention: No Insight: Adequate Judgment: Adequate Assessment & Plan Problem List: (1) Psychological factors affecting medical condition ICD Codes: F54 - Psychological and behavioral factors associated with disorders or diseases classified elsewhere (2) Bereavement ICD Codes: Z63.4 - Disappearance and of family member Assessment & Plan Patient is a 88-year-old woman, no past psychiatric history, recently , currently following medical floor post fall to having suffered a C2 fracture and currently managed with neurosurgery which psychiatry was consulted for evaluation of possible depression. Patient at this time does not have significant depressive symptoms that will require immediate psychiatric intervention that would benefit from outpatient therapy due to recent stress of current medical conditions as well as for support due to patient going through bereavement. Would recommend social work to assess possibility of patient requiring home health services postdischarge provide more support for the patient. No psychotropic medications recommended at this time. Consult appreciated. Simeon Mitchell MD Sep 19, 2017 15:39
[2017-09-19 19:31] LABS: APTT (PATIENT) 51.6 SEC (24.3-30.1)
[2017-09-19] MEDS: HEPARIN-D5W 25,000 U/250 ML 250 ML IV PRN (22:37)
[2017-09-20] VITALS (10 sets, daily range): BP systolic 106–162; BP diastolic 51–86; PULSE 61–94; RESP 20–26; TEMP 98–98.4; O2SAT 94–98
[2017-09-20] MEDS: ACETAMINOPHEN 1000 MG/100 ML 100 ML IV SCH ×4 (04:42→23:00)
[2017-09-20 06:27] LABS: MEAN CELL VOLUME 87.9 FL (80.0-100.0); MEAN CORPUSCULAR HEMOGLOBIN 29.4 PG (27.0-34.0); MEAN CORPUSCULAR HGB CONC 33.5 % (32.0-36.0); PLATELET COUNT 388 TH/MM3 (150-450); RED BLOOD COUNT 3.87 MIL/MM3 (4.00-5.30); RED CELL DISTRIBUTION WIDTH 15.1 % (11.6-17.2); REVIEW FLAG FINAL; WHITE BLOOD COUNT 12.2 TH/MM3 (4.0-11.0)
[2017-09-20 06:35] LABS: APTT (PATIENT) 52.4 SEC (24.3-30.1)
--- NOTE | 2017-09-20 08:06 | HHI.PR ---
Subjective Remarks much better on hep drip Objective Vital Signs Date Time Temp Pulse Resp B/P (MAP) Pulse Ox O2 Delivery O2 Flow Rate FiO2 09/20/17 06:00 81 09/20/17 04:00 98.1 93 20 138/64 (88) 95 09/20/17 04:00 93 09/20/17 02:00 73 09/20/17 00:00 98.0 61 21 106/51 (69) 96 09/20/17 00:00 61 09/19/17 22:00 60 09/19/17 20:00 Room Air 94 09/19/17 20:00 98.3 71 19 150/68 (95) 94 09/19/17 20:00 71 09/19/17 18:00 76 09/19/17 17:04 23 09/19/17 16:00 80 09/19/17 16:00 98.0 80 12 161/72 (101) 94 09/19/17 14:00 62 09/19/17 12:36 63 132/63 09/19/17 12:00 69 09/19/17 12:00 98.5 69 22 132/63 (86) 99 09/19/17 10:00 75 09/19/17 09:45 97 Nasal Cannula 4.00 I/O 09/19/17 09/19/17 09/19/17 09/20/17 09/20/17 09/20/17 07:00 15:00 23:00 07:00 15:00 23:00 Intake Total 2625 ml 119 ml 468 ml 225 ml Output Total 375 ml 250 ml 325 ml Balance 2250 ml 119 ml 218 ml -100 ml Intake Oral 0 ml 25 ml IV Total 2366 ml 119 ml 350 ml 200 ml Tube Feeding 259 ml 118 ml Output Urine Total 375 ml 250 ml 325 ml # Bowel Movements 0 0 Result Diagram: 09/20/17 0525 09/18/17 0240 Objective Remarks awake follows commands ox3 shows left thumb speech fluent remembers her denies depression a little cranky Assessment and Plan Assessment and Plan imp unclear if actually had sz or not oob PT hx AD no sedatives eeg and labs ok ok to floor pneumonia risk 09/17/17 mri shows small r radha cva eeg neg she evidently acc to nursing has afib and i would rec starting anticoagulation on her 09/20/17 she is alert and oriented an oneal of now ok to make her own decisions she does not want hospice she wants dnr full active treatment she had small r radha cva and echo nl x la 44 us carotid neg on hep could change to eliquis? or coumadin defer to med team she should get oob and go to rehab neurowise Jose Mijares MD Sep 20, 2017 08:06
[2017-09-20] MEDS: VERAPAMIL HCL 120 MG TAB PO SCH ×2 (08:22→21:01)
[2017-09-20] MEDS: POLYETHYLENE GLYCOL 17 GM PKG PO SCH (08:22)
[2017-09-20] MEDS: DOCUSATE SODIUM 50 MG/SENNA 8.6 MG TAB PO SCH ×2 (08:22→21:02)
[2017-09-20] MEDS: ENALAPRIL MALEATE 5 MG TAB PO SCH (08:22)
[2017-09-20] MEDS: FAMOTIDINE 20 MG TAB PO SCH ×2 (08:22→21:02)
[2017-09-20] MEDS: MAGNESIUM HYDROXIDE SUSP 30 ML CUP PO SCH ×2 (08:23→21:02)
[2017-09-20] MEDS: BACITRACIN TOP OINT 15 GM TUBE TOP SCH ×2 (08:25→21:03)
--- NOTE | 2017-09-20 08:31 | HHI.PR ---
Neuropsych Behavior Behavior: Intact: Coping/Acceptance, Cooperative w/ Treatment, Mild: Motivation Psychosocial Psychosocial: Severe: Psychosocial, Family/Other Adjustment, Realistic Expectation, Unable to Asses: Self-Esteem/Confidence Progress Notes/Response to Tx Contents of Sessions: Adjustment Time with Patient: 15 minutes Premorbid psychological status Premorbid Cognitive, Emotional and Behavioral Status: Stable. 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 The patient has no prior psychiatric difficulties, as described above. Substance abuse history is unremarkable. Behavioral Reactions of Patient and Family/Support System: Stable. The patient s family is experiencing ongoing issues of adjustment given the nature of the injury, and this aspect of recovery will require ongoing monitoring. Emotional/Behavioral Status of Patient and Family/Support System: Stable. Pertinent issues, if appropriate to this patients clinical care, are described in detail above. Maximizing acute care outcome It is recommended that the patient be monitored for emergent behavioral impulsivity as the medical condition evolves. This patients neuropathological challenges may limit her rehabilitation potential going forward, and these challenges will require specialized therapeutic skills to maximize outcome. Additionally, the patients family is experiencing ongoing issues of adjustment given the traumatic nature of the injury, and they may benefit from ongoing psychological assistance. At this point in the recovery process, the patient does have cognitive capacity as the patient seems able to understand a situation and its likely consequences, and she is able to manipulate information rationally, taking into consideration her advanced age and medical complications. Cognitive capacity will be assessed throughout the recovery process. Anticipated Problems Ongoing areas of concern will include behavioral impulsivity, lack of insight and judgment, which is expected to improve with time and treatment. Presently , the patient is lethargic and beginning to more consistently follow commands. Treatment Plan This clinician will continue to follow with you throughout the course of this patients acute care treatment, and I will be available to meet with the patient s family/support system to facilitate their understanding and the ongoing care of their family member. The goals of neuropsychological intervention shall be both educational and supportive to the family/support system as is deemed clinically appropriate. Impression This 87 year old woman with a past history of chronic SDH and recent fall on 09/12/2017, appears to have an underlying major neurocognitive disorder in addition to the sequelae associated with her recent TBI. Both conditions will need to be monitored. Diagnosis: (1) Major neurocognitive disorder due to another medical condition (2) Mild major neurocognitive disorder due to traumatic brain injury with behavioral disturbance Progress Note Narrative Ongoing follow-up of patient seen during daily trauma rounds. This is day 8 post injury. The patient is awake and alert, and she was seen by psychiatry over the weekend for concerns about underlying psychiatric condition. Dr. Mitchell felt that her present condition did not warrant a psychiatric diagnosis or psychotropic medications. There is a question regarding her cognitive decision making capacity to elect DNR status. On examination today, this patient was awake, alert and conversant. She was oriented x 3 and she was able to specifically state her desire concerning a DNR status. She demonstrated the ability to appreciate a situation and its likely consequences, and she was able to manipulate information rationally, albeit slowly given her advanced age and medical challenges. It is my clinical opinion that this patient does have cognitive decision making capacity. I will continue to follow. Johnny Shine PhD Sep 20, 2017 8:31 am
[2017-09-20] MEDS ORDERED: BISACODYL 10 MG SUPP RECTAL ONE (09:00)
--- NOTE | 2017-09-20 09:59 | MB ---
cc: SUNG THOMPSON BRIAN R. M.D. DATE OF CONSULTATION: 09/17/2017. REASON FOR CONSULTATION / CHIEF COMPLAINT: Right shoulder pain. HISTORY OF PRESENT ILLNESS: This is an 87-year-old female who was initially brought to the emergency department for a fall in her yard while walking her dog. The patient allegedly tripped over the leash. There was no reported loss of consciousness. The patient has a medical history of leukemia and uncontrolled hypertension. The patient did serve as a caregiver for her who was recently admitted to [facility] for confusion and end-stage dementia. I was told that the patient's did recently pass away last night. The patient also has a daughter. I was told that the relationship was allegedly strained and that she is not the power of research attorney. On the patient's recent chest x-ray there was a proximal humerus fracture noted and the undersigned was consulted for evaluation of the right shoulder. The patient was also found to have a recent brain infarct on her MRI with a subdural hematoma, urinary tract infection, C2 cervical fractures, and some initial confusion. Subjectively the patient reports minimal pain to the right shoulder. The patient is somewhat somnolent; however, she is appropriate with questioning. The patient did confirm most of her medical history and was aware of her surroundings. REVIEW OF SYSTEMS: The review of systems is negative x12 except for what is stated in the history of present illness. PAST MEDICAL HISTORY: 1. History of leukemia. 2. Uncontrolled hypertension. 3. Mild dementia. PAST SURGICAL HISTORY: 1. Hysterectomy. 2. Left shoulder arthroplasty. MEDICATIONS: Please see the nurse's notes for review of medications. ALLERGIES: THE PATIENT HAS NO KNOWN ALLERGIES. SOCIAL HISTORY: The patient denies any tobacco or alcohol use. The patient was born in [place] and moved to [place] 25 years ago. 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 PHYSICAL EXAMINATION: VITAL SIGNS: Temperature is 99, heart rate 72, blood pressure 135/73, respirations 15, pulse oximetry is 99% on room air. GENERAL: The patient is a frail female in no acute distress. The patient is somnolent but appropriate. SKIN: Warm and dry. The patient has a small abrasion on her right knee. HEAD, EYES, EARS, NOSE, THROAT: Normocephalic and atraumatic. Pupils equal, round and reactive to light and accommodation. The patient has moist mucous membranes and clear drainage from the nose. NECK: The neck is supple and nontender. Trachea is midline. The patient is wearing a cervical collar. RESPIRATORY: The patient has symmetric chest wall rise and nonlabored breathing. CARDIOVASCULAR: The patient has a regular rate and rhythm. GASTROINTESTINAL: The patient's abdomen is soft and nontender. MUSCULOSKELETAL: The patient has good movement of the bilateral ankles, knees and hips with no tenderness to palpation. The patient moves the bilateral wrists, elbows and left shoulder normally with no tenderness to palpation. The patient has some mildly restrictive range of motion of the right upper extremity. The patient has some mild swelling about the shoulder. The patient's right shoulder is nontender to palpation. There is no ecchymosis about the shoulder. The patient's skin is intact about the right shoulder. NEUROLOGIC: The patient is awake and alert. The patient is aware of her surroundings. PSYCHIATRIC: the patient has no obvious anxiety or depression. LABORATORY STUDIES: Labs taken on 09/17/2017 shows white blood cells 12.9, hemoglobin 11.7, hematocrit 35.1, platelets 377,000. Creatinine 1.01, glucose is 112. Urine taken on 09/12/2017 did show a large leukocyte esterase with 12 white blood cells and negative nitrites. Urine was cultured and shows positive for Pseudomonas aeruginosa. IMAGING STUDIES: There are no x-rays currently of the right shoulder. I was able to review the chest x-ray taken on 09/17/2017 single view which does show a minimally displaced right humeral neck fracture. Overall alignment is good. CT of the cervical spine taken on 09/12/2017 without contrast does show a nondisplaced hairline fracture of the right and left lateral masses of C2. I have reviewed the above imaging and agree with the radiologist's interpretation. IMPRESSION: 1. Right shoulder minimally displaced proximal humerus fracture. 2. C2 bilateral lateral mass fractures. 3. Brain infarct per MRI with bilateral subdural hygromas. MEDICAL DECISION-MAKING: This is a complicated situation in that the patient's overall medical condition is poor. The patient has had some confusion which makes surgical intervention less of an option. After reviewing the chest x-ray and a previous CT of the cervical spine, I was able to partially visualize the right shoulder that shows overall good alignment of the humerus. I have ordered x-rays to specifically look at the right shoulder in detail. I will follow this; however, based on the images I have seen and the patient's current medical condition, I would recommend nonoperative management for this condition. I have ordered a sling for the patient for comfort. We will continue to follow this over time. The patient does understand that if the fracture were to displace more over the next week or two that she could potentially require surgical management depending upon her medical condition. The patient will remain non-weightbearing with the right upper extremity to allow for optimal healing. I have discussed the above impression and plan of care with Dr. Malone, and he agrees with this documentation. Dictated by ISAIAH Goodrich MD VICENTE Rosario/ALL /4:02 PM /9:55 AM
--- NOTE | 2017-09-20 10:54 | HHI.HCSW ---
Healthcare Network Pricing Consultant Visit Advance Directive Attempting to identify legal proxy decision maker. Accurint report pending. Spoke with AUTO BODY MECHANIC APPRENTICE regarding follow-up on accurints. Provided information for patient's daughter/grandson: Sister in law reports patient's daughter's name is Evelia, she was perviously to a Kevin Valentine. Patient last reported her daughter to be in [place]. Could also have last name Barb or maiden name Sandip. Also reports a grandson, Clover Valentine. Google and social media searches have been completed. Unable to identify possible matches, numbers found exhausted per previous notes. Awaiting accurint results. Lizbet Spence MSW, SURFACE MINER Sep 20, 2017 10:54
[2017-09-20] MEDS: CEFEPIME INJ 1,000 MG in SODIUM CHLORIDE 0.9% INJ 100 ML IV SCH ×2 (11:27→23:00)
--- NOTE | 2017-09-20 12:20 | PD.CARD.PN ---
Subjective Subjective Remarks No events overnight Started on her Verapamil, Amiodarone off, heart rates controlled Objective Medications Current Medications Medications (Trade) Dose Ordered Sig/Ady Route Start Time Stop Time Status Last Admin (NS Flush) 2 ml UNSCH PRN IV FLUSH 09/12/17 20:15 09/14/17 00:15 ([place] 5-325 Mg) 1 tab Q4H PRN PO 09/12/17 20:15 (Zofran Inj) 4 mg Q6H PRN IV PUSH 09/12/17 20:15 (Baciguent Oint) 1 applic BID TOP 09/12/17 21:00 09/20/17 08:25 (Summer-Colace) 1 tab BID PO 09/13/17 09:00 09/20/17 08:22 (Lactulose Liq) 30 ml DAILY PRN PO 09/13/17 07:15 (Miralax) 17 gm DAILY PO 09/13/17 09:00 09/20/17 08:22 (Vasotec) 5 mg DAILY PO 09/13/17 09:45 09/20/17 08:22 (Isoptin) 240 mg BID PO 09/13/17 09:45 09/20/17 08:22 Acetaminophen 100 ml @ 400 mls/hr Q6H IV 09/14/17 17:00 09/20/17 11:27 (Vasotec Inj) 1.25 mg Q6H PRN IV PUSH 09/15/17 07:30 09/19/17 18:31 (Pepcid) 10 mg BID PO 09/15/17 09:00 09/20/17 08:22 (Apresoline Inj) 20 mg Q4H PRN IV PUSH 09/16/17 11:45 09/19/17 15:12 Sodium Chloride 1,000 ml @ 50 mls/hr Q20H IV 09/17/17 11:04 09/19/17 19:10 Heparin Sodium/ Dextrose 250 ml @ 7 mls/hr TITRATE PRN IV 09/17/17 17:30 09/19/17 22:37 (Milk Of Magnesia Liq) 30 ml BID PO 09/19/17 09:00 09/20/17 08:23 Cefepime HCl 1000 mg/Sodium Chloride 100 ml @ 200 mls/hr Q12H IV 09/19/17 11:00 09/20/17 11:27 Vital Signs / I&O Vital Signs Date Time Temp Pulse Resp B/P (MAP) Pulse Ox O2 Delivery O2 Flow Rate FiO2 09/20/17 12:00 98.1 68 22 156/72 (100) 97 09/20/17 12:00 68 09/20/17 10:00 70 09/20/17 08:00 98.4 94 26 158/86 (110) 98 09/20/17 08:00 94 09/20/17 07:00 Room Air 97 09/20/17 06:00 81 09/20/17 04:00 98.1 93 20 138/64 (88) 95 09/20/17 04:00 93 09/20/17 02:00 73 09/20/17 00:00 98.0 61 21 106/51 (69) 96 09/20/17 00:00 61 09/19/17 22:00 60 09/19/17 20:00 Room Air 94 09/19/17 20:00 98.3 71 19 150/68 (95) 94 09/19/17 20:00 71 09/19/17 18:00 76 09/19/17 17:04 23 09/19/17 16:00 80 09/19/17 16:00 98.0 80 12 161/72 (101) 94 09/19/17 14:00 62 09/19/17 12:36 63 132/63 I/O 09/19/17 09/19/17 09/19/17 09/20/17 09/20/17 09/20/17 07:00 15:00 23:00 07:00 15:00 23:00 Intake Total 2625 ml 119 ml 468 ml 225 ml Output Total 375 ml 250 ml 325 ml Balance 2250 ml 119 ml 218 ml -100 ml Intake Oral 0 ml 25 ml IV Total 2366 ml 119 ml 350 ml 200 ml Tube Feeding 259 ml 118 ml Output Urine Total 375 ml 250 ml 325 ml # Bowel Movements 0 0 Physical Exam GENERAL: NAD SKIN: Warm and dry. HEAD: Atraumatic. Normocephalic. EYES: Pupils equal and round. No scleral icterus. No injection or drainage. ENT: No nasal bleeding or discharge. Mucous membranes pink and moist. NECK: Trachea midline. No JVD. CARDIOVASCULAR: Regular rate and rhythm. RESPIRATORY: No accessory muscle use. Clear to auscultation. Breath sounds equal bilaterally. GASTROINTESTINAL: Abdomen soft, non-tender, nondistended. Hepatic and splenic margins not palpable. MUSCULOSKELETAL: Extremities without clubbing, cyanosis, or edema. No obvious deformities. NEUROLOGICAL: No focal deficits Laboratory Laboratory Tests Test 09/19/17 12:53 09/19/17 18:50 09/20/17 00:10 09/20/17 05:25 Activated Partial Thromboplast Time 20.1 SEC 51.6 SEC 56.0 SEC 52.4 SEC White Blood Count 12.2 TH/MM3 Red Blood Count 3.87 MIL/MM3 Hemoglobin 11.4 GM/DL Hematocrit 34.0 % Mean Corpuscular Volume 87.9 FL Mean Corpuscular Hemoglobin 29.4 PG Mean Corpuscular Hemoglobin Concent 33.5 % Red Cell Distribution Width 15.1 % Platelet Count 388 TH/MM3 Mean Platelet Volume 8.6 FL Assessment and Plan Problem List: (1) Afib ICD Codes: I48.91 - Unspecified atrial fibrillation (2) CVA (cerebral vascular accident) ICD Codes: I63.9 - Cerebral infarction, unspecified (3) C2 cervical fracture ICD Codes: S12.100A - Unspecified displaced fracture of second cervical vertebra, initial encounter for closed fracture Status: Acute (4) Fall ICD Codes: W19.XXXA - Unspecified fall, initial encounter Status: Acute (5) Hypertension ICD Codes: I10 - Essential (primary) hypertension Status: Acute (6) Altered mental status ICD Codes: R41.82 - Altered mental status, unspecified Status: Acute (7) UTI (urinary tract infection) ICD Codes: N39.0 - Urinary tract infection, site not specified Status: Acute (8) Confusion ICD Codes: R41.0 - Disorientation, unspecified Assessment and Plan 1) New onset atrial fibrillation Converted to sinus rhythm on Amiodarone Amiodarone drip stopped as she has been placed on Verapamil PO (home med) If more Afib with RVR then may need Amio Po, but currently controlled 2) C2 fracture due to fall. 3) Mechanical fall. 4) Chronic subdural hygromas. 5) Acute mental status change. 6) CVA Most likely due to Afib Started on heparin drip Eventual anti-coagulation at neurology/neurosurgery discretion Would have the patient get to the point where she can work with PT, and can be evaluated for gate and falls Problem Qualifiers (1) C2 cervical fracture: Qualified Codes: S12.101A - Unspecified nondisplaced fracture of second cervical vertebra, initial encounter for closed fracture (2) Fall: Qualified Codes: W19.XXXA - Unspecified fall, initial encounter (3) Hypertension: Qualified Codes: I10 - Essential (primary) hypertension (4) Altered mental status: Qualified Codes: R41.82 - Altered mental status, unspecified (5) UTI (urinary tract infection): Qualified Codes: N39.0 - Urinary tract infection, site not specified; R31.9 - Hematuria, unspecified Fuad Rojas DO Sep 20, 2017 12:20
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
--- NOTE | 2017-09-20 14:41 | HHI.NSPN ---
(Noa Dueñas) Note Status Status: Progress Note (Noa Dueñas) Interval History Interval History The patient is a 87-year-old female, who has a history of arterial hypertension, chronic myelocytic leukemia, prior hysterectomy and a left shoulder arthroplasty, dementia, who was brought to the emergency department. Unfortunately she is confused and is unable to explain what happened. She has not accompanied by anybody. She provides inconsistent answers. The history is obtained from the chart and from the emergency room physician. Apparently her who also has dementia was missing and senior alert was activated. The patient reportedly was outside speaking with a neighbor when she fell after she tripped on the dog leash. She landed face first, over a parked car. There was not reported loss of consciousness. There was no seizure activity seen. No tonic/clonic movements. No incontinence of stool or urine. No tongue biting. The patient was moving all four extremities. Upon arrival but she was confused. CT of the brain show bilateral chronic subdural hygromas, with 2 mm of midline shift. CT of the cervical spine show bilateral lateral mass fractures of C1. The patient was found to have a urinary tract infection. She was hemodynamically stable. A neurosurgical consultation was requested. 09/14: became delirious last night and reportedly had a fall. currently drowsy following Haldol. 09/15: awake, moves all four extremities, mildly confused. 09/16: Halicat this morning following episode of ?seizures and unresponsiveness according to nursing staff. Ativan 1 mg given. pt was seen as she was being wheeled down to CT. CT stable b/l subdural hygromas, no acute findings. 09/17: opens eyes, not following commands. neurology following. 09/18 patient currently denies any headache 09/19 patient denies any pain or headache. She wishes to be with her . She continues on heparin and amiodarone gtt 09/20: awake, confused speech and hallucinating, denies cervical pain. (Noa Dueñas) Labs, Micro, & Vital Signs Results Date Time Temp Pulse Resp B/P (MAP) Pulse Ox O2 Delivery O2 Flow Rate FiO2 09/20/17 12:00 98.1 68 22 156/72 (100) 97 09/20/17 12:00 68 09/20/17 10:00 70 09/20/17 08:00 98.4 94 26 158/86 (110) 98 09/20/17 08:00 94 09/20/17 07:00 Room Air 97 09/20/17 06:00 81 09/20/17 04:00 98.1 93 20 138/64 (88) 95 09/20/17 04:00 93 09/20/17 02:00 73 09/20/17 00:00 98.0 61 21 106/51 (69) 96 09/20/17 00:00 61 09/19/17 22:00 60 09/19/17 20:00 Room Air 94 09/19/17 20:00 98.3 71 19 150/68 (95) 94 09/19/17 20:00 71 09/19/17 18:00 76 09/19/17 17:04 23 09/19/17 16:00 80 09/19/17 16:00 98.0 80 12 161/72 (101) 94 Constitutional Vital Signs Date Time Temp Pulse Resp B/P (MAP) Pulse Ox O2 Delivery O2 Flow Rate FiO2 09/20/17 12:00 98.1 68 22 156/72 (100) 97 09/20/17 12:00 68 09/20/17 10:00 70 09/20/17 08:00 98.4 94 26 158/86 (110) 98 09/20/17 08:00 94 09/20/17 07:00 Room Air 97 09/20/17 06:00 81 09/20/17 04:00 98.1 93 20 138/64 (88) 95 09/20/17 04:00 93 09/20/17 02:00 73 09/20/17 00:00 98.0 61 21 106/51 (69) 96 09/20/17 00:00 61 09/19/17 22:00 60 09/19/17 20:00 Room Air 94 09/19/17 20:00 98.3 71 19 150/68 (95) 94 09/19/17 20:00 71 09/19/17 18:00 76 09/19/17 17:04 23 09/19/17 16:00 80 09/19/17 16:00 98.0 80 12 161/72 (829) 94 (Noa Dueñas) Review of Systems ROS Limitations: Clinical Condition Gastrointestinal: DENIES: Nausea Musculoskeletal: DENIES: Neck pain (Noa Dueñas) Physical Exam Gen: Patient awake in bed. No acute distress. Confused speech, hallucinating she says she is talking to someone in her bed. follows few simple commands. Neck: Cervical collar in place. Motor: moves all four extremities off bed Sensory: reports intact to light touch x 4 Cerebellar: cannot assess due to clinical condition (Noa Dueñas) Ms Oropeza is awake, resting comfortably. Pleasantly confused, smiling. follows simple commands. CN: pupils equal, facial motor symmetric, tongue is midline Neck: [place] collar in place, intact Motor: moves left upper and b/l LE's, right upper extremity in sling Sensory: reports intact to light touch x 4 cerebellar exam is unremarkable (Greyson Rojas MD) Medications Current Medications Current Medications Medications (Trade) Dose Ordered Sig/Ady Route PRN Reason Start Time Stop Time Status Last Admin Dose Admin Sodium Chloride (NS Flush) 2 ml UNSCH PRN IV FLUSH FLUSH AFTER USING IV ACCESS 09/12/17 20:15 09/14/17 00:15 Acetaminophen/ Hydrocodone Bitart ([place] 5-325 Mg) 1 tab Q4H PRN PO PAIN SCALE 6-10 09/12/17 20:15 Ondansetron HCl (Zofran Inj) 4 mg Q6H PRN IV PUSH NAUSEA OR VOMITING 09/12/17 20:15 Bacitracin (Baciguent Oint) 1 applic BID TOP 09/12/17 21:00 09/20/17 08:25 Senna/Docusate Sodium (Summer-Colace) 1 tab BID PO 09/13/17 09:00 09/20/17 08:22 Lactulose (Lactulose Liq) 30 ml DAILY PRN PO No BM in 2 days 09/13/17 07:15 Polyethylene Glycol (Miralax) 17 gm DAILY PO 09/13/17 09:00 09/20/17 08:22 Enalapril Maleate (Vasotec) 5 mg DAILY PO 09/13/17 09:45 09/20/17 08:22 Verapamil HCl (Isoptin) 240 mg BID PO 09/13/17 09:45 09/20/17 08:22 Acetaminophen 100 ml @ 400 mls/hr Q6H IV 09/14/17 17:00 09/20/17 11:27 Enalaprilat (Vasotec Inj) 1.25 mg Q6H PRN IV PUSH SBP>160, DBP>90 09/15/17 07:30 09/19/17 18:31 Famotidine (Pepcid) 10 mg BID PO 09/15/17 09:00 09/20/17 08:22 Hydralazine HCl (Apresoline Inj) 20 mg Q4H PRN IV PUSH SBP>170; DBP>105 09/16/17 11:45 09/19/17 15:12 Sodium Chloride 1,000 ml @ 50 mls/hr Q20H IV 09/17/17 11:04 09/19/17 19:10 Heparin Sodium/ Dextrose 250 ml @ 7 mls/hr TITRATE PRN IV Coagulation Management 09/17/17 17:30 09/19/17 22:37 Magnesium Hydroxide (Milk Of Magnkelli Liq) 30 ml BID PO 09/19/17 09:00 09/20/17 08:23 Cefepime HCl 1000 mg/Sodium Chloride 100 ml @ 200 mls/hr Q12H IV 09/19/17 11:00 09/20/17 11:27 (Noa Dueñas) Current Medications Current Medications Ondansetron HCl (Zofran Inj) 4 mg ONCE ONCE IV PUSH Last administered on 18:33; Start 09/12/17 at 18:30; Stop 09/12/17 at 18:31; Status DC Morphine Sulfate (Morphine Inj) 2 mg ONCE ONCE IV PUSH ; Start 09/12/17 at 18: 30; Stop 09/12/17 at 18:31; Status DC Metoprolol Tartrate (Lopressor Inj) 2.5 mg ONCE ONCE IV PUSH Last administered on 09/12/17 19:00; Start 09/12/17 at 18:45; Stop 09/12/17 at 18:46 ; Status DC Metoprolol Tartrate (Lopressor Inj) 2.5 mg ONCE ONCE IV PUSH Last administered on 09/12/17 19:22; Start 09/12/17 at 19:30; Stop 09/12/17 at 19:31 ; Status DC Ceftriaxone Sodium 1000 mg/ Sodium Chloride 100 ml @ 200 mls/hr ONCE ONCE IV Last administered on 09/12/17 20:04; Start 09/12/17 at 19:30; Stop 09/12/17 at 19:59; Status DC Nicardipine HCl (Cardene Inj) 25 mg STK-MED ONCE .ROUTE Last administered on 20:16; Start 09/12/17 at 20:03; Stop 09/12/17 at 20:04; Status DC Sodium Chloride 1,000 ml @ 100 mls/hr Q10H IV Last administered on 09/14/17 23:16; Start 09/12/17 at 21:00; Stop 09/15/17 at 07:31; Status DC Sodium Chloride (NS Flush) 2 ml UNSCH PRN IV FLUSH FLUSH AFTER USING IV ACCESS Last administered on 09/14/17 00:15; Start 09/12/17 at 20:15 Hydromorphone HCl (Dilaudid Pf Inj) 0.5 mg Q1H PRN IVP BREAKTHROUGH PAIN; Start 09/12/17 at 20:15; Stop 09/15/17 at 07:31; Status DC Acetaminophen/ Hydrocodone Bitart ([place] 5-325 Mg) 1 tab Q4H PRN PO PAIN SCALE 6-10; Start 09/12/17 at 20:15 Acetaminophen/ Hydrocodone Bitart ([place] 5-325 Mg) 2 tab Q4H PRN PO PAIN SCALE 6 TO 10; Start 09/12/17 at 20:15; Stop 09/15/17 at 07:31; Status DC Enalaprilat (Vasotec Inj) 1.25 mg Q8H PRN IV PUSH SBP>180, DBP>95; Start at 20:15; Stop 09/12/17 at 23:00; Status DC Ondansetron HCl (Zofran Inj) 4 mg Q6H PRN IV PUSH NAUSEA OR VOMITING; Start at 20:15 Pantoprazole Sodium (Protonix Inj) 40 mg Q24H IVP Last administered on 21:18; Start 09/12/17 at 21:00; Stop 09/15/17 at 07:31; Status DC Bacitracin (Baciguent Oint) 1 applic BID TOP Last administered on 09/21/17 09 :00; Start 09/12/17 at 21:00 Docusate Sodium (Colace) 100 mg BID PO ; Start 09/12/17 at 21:00; Stop 09/13/17 at 07:19; Status DC Miscellaneous Information 1 Q361D XX ; Start 09/12/17 at 20:15; Stop 09/15/17 at 07:31; Status DC Chlorhexidine Gluconate (Chlorhexidine 2% Cloth) 3 pack Taper DAILY@04 TOP ; Start 09/13/17 at 04:00; Stop 09/15/17 at 07:31; Status DC Chlorhexidine Gluconate (Chlorhexidine 2% Cloth) 3 pack UNSCH PRN TOP HYGIENIC CARE; Start 09/12/17 at 20:15; Stop 09/15/17 at 07:31; Status DC Nicardipine HCl 25 mg/Sodium Chloride 250 ml @ 0 mls/hr TITRATE ONCE IV Last administered on 09/12/17 20:32; Start 09/12/17 at 20:30; Stop 09/12/17 at 20:31 ; Status DC Ceftriaxone Sodium 1000 mg/ Sodium Chloride 100 ml @ 200 mls/hr Q24H IV Last administered on 09/18/17 20:26; Start 09/13/17 at 20:00; Stop 09/19/17 at 10: 52; Status DC Labetalol HCl (Trandate Inj) 10 mg Q4H PRN IV PUSH SBP >160 Last administered on 09/14/17 13:14; Start 09/12/17 at 23:00; Stop 09/15/17 at 07:31; Status DC Nicardipine HCl 25 mg/Sodium Chloride 250 ml @ 50 mls/hr TITRATE PRN IV Blood pressure management; Start 09/13/17 at 02:45; Stop 09/15/17 at 07:31; Status DC Senna/Docusate Sodium (Summer-Colace) 1 tab BID PO Last administered on 21:02; Start 09/13/17 at 09:00 Lactulose (Lactulose Liq) 30 ml DAILY PRN PO No BM in 2 days; Start 09/13/17 at 07:15 Polyethylene Glycol (Miralax) 17 gm DAILY PO Last administered on 09/20/17 08 :22; Start 09/13/17 at 09:00 Enoxaparin Sodium (Lovenox Inj) 40 mg Q24H SQ Last administered on 09/13/17 09 :54; Start 09/13/17 at 10:00; Stop 09/14/17 at 08:49; Status DC Hydralazine HCl (Apresoline Inj) 20 mg Q4H PRN IV PUSH SBP >160 Last administered on 09/14/17 16:45; Start 09/13/17 at 09:45; Stop 09/15/17 at 07:31 ; Status DC Enalapril Maleate (Vasotec) 5 mg DAILY PO Last administered on 09/21/17 09:21 ; Start 09/13/17 at 09:45 Verapamil HCl (Isoptin) 240 mg BID PO Last administered on 09/21/17 09:21; Start 09/13/17 at 09:45 Haloperidol Lactate (Haldol Inj) 4 mg Q6H PRN IM AGITATION; Start 09/13/17 at 22:15; Stop 09/15/17 at 07:31; Status DC Haloperidol Lactate (Haldol Inj) 4 mg NOW ONCE IM Last administered on 22:23; Start 09/13/17 at 22:15; Stop 09/13/17 at 22:16; Status DC Haloperidol Lactate (Haldol Inj) 4 mg Q6H PRN IV AGITATION Last administered on 09/14/17 08:13; Start 09/14/17 at 00:15; Stop 09/16/17 at 13:22; Status DC Enoxaparin Sodium (Lovenox Inj) 30 mg Q24H SQ Last administered on 09/17/17 12 :12; Start 09/14/17 at 10:00; Stop 09/17/17 at 17:27; Status DC Risperidone (risperDAL) 0.5 mg BID PO Last administered on 09/16/17 11:43; Start 09/14/17 at 10:15; Stop 09/16/17 at 13:21; Status DC Acetaminophen 100 ml @ 400 mls/hr Q6H IV Last administered on 09/21/17 15:48 ; Start 09/14/17 at 17:00 Enalaprilat (Vasotec Inj) 1.25 mg Q6H PRN IV PUSH SBP>160, DBP>90 Last administered on 09/19/17 18:31; Start 09/15/17 at 07:30 Famotidine (Pepcid) 10 mg BID PO Last administered on 09/21/17 09:21; Start 09/15/17 at 09:00 Bisacodyl (Dulcolax Supp) 10 mg ONCE ONCE RECTAL Last administered on 17:35; Start 09/15/17 at 15:00; Stop 09/15/17 at 15:01; Status DC Lorazepam (Ativan Inj) 2 mg STK-MED ONCE .ROUTE ; Start 09/16/17 at 09:16; Stop 09/16/17 at 09:17; Status DC Lorazepam (Ativan Inj) 1 mg NOW ONCE IV PUSH Last administered on 09/16/17 09 :30; Start 09/16/17 at 09:45; Stop 09/16/17 at 09:46; Status DC Hydralazine HCl (Apresoline Inj) 20 mg Q4H PRN IV PUSH SBP>170; DBP>105 Last administered on 09/21/17 00:16; Start 09/16/17 at 11:45 Amiodarone HCl 150 mg/Dextrose 103 ml @ 600 mls/hr Q11M ONCE IV Last administered on 09/16/17 13:39; Start 09/16/17 at 12:19; Stop 09/16/17 at 12:34 ; Status DC Amiodarone HCl 450 mg/Dextrose 250 ml @ 33.33 mls/ hr Q7H31M PRN IV Per Protocol Last administered on 09/18/17 20:31; Start 09/16/17 at 12:29; Stop at 13:09; Status DC Sodium Chloride 1,000 ml @ 50 mls/hr Q20H IV Last administered on 09/21/17 11:10; Start 09/17/17 at 11:04 Amiodarone HCl 150 mg/Dextrose 103 ml @ 600 mls/hr Q11M ONCE IV Last administered on 09/17/17 12:13; Start 09/17/17 at 11:00; Stop 09/17/17 at 11:10 ; Status DC Gadodiamide (Omniscan Pf Inj) 12 ml STK-MED ONCE IVCONTRAST Last administered on 09/17/17 11:40; Start 09/17/17 at 11:40; Stop 09/17/17 at 11:42; Status DC Heparin Sodium/ Dextrose 250 ml @ 7 mls/hr TITRATE PRN IV Coagulation Management Last administered on 09/21/17 15:50; Start 09/17/17 at 17:30 Magnesium Hydroxide (Milk Of Magnkelli Liq) 30 ml BID PO Last administered on 21:02; Start 09/19/17 at 09:00 Cefepime HCl 1000 mg/Sodium Chloride 100 ml @ 200 mls/hr Q12H IV Last administered on 09/21/17 11:24; Start 09/19/17 at 11:00 Bisacodyl (Dulcolax Supp) 10 mg ONCE ONCE RECTAL Last administered on 11:27; Start 09/20/17 at 09:00; Stop 09/20/17 at 09:14; Status DC Artificial Tears (Tears Naturale Opth Soln) 1 drop Q4H PRN EACH EYE dryness; Start 09/21/17 at 19:15 (Greyson Rojas MD) Medical Decision Making MDM Remarks 87 year old female fall at home, C2 hairline fracture through lateral masses b/l chronic subdural hygromas acute mental status change, ?seizures, EEG neg for seizures 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 Pulmonary.. Continue aggressive pulmonary toilette, nasotracheal suction, and breathing treatments with nebulizers. Nutrition. NPO Renal. monitor closely urine output, BUN and creatinine Endocrine. Monitor serial Acu checks and SSI as needed in detail ID monitor for signs of infection Protonix for stress ulcer prophylaxis [place] hose and SCD's for DVT prophylaxis. The exam, history, and the medical decision-making described in the above note were completed with the assistance of the mid-level provider. I reviewed and agree with the findings presented. I attest that I had a [id number] encounter with the patient on the same day, and personally performed and documented my assessment and findings in the medical record. (Greyson Rojas MD) Noa Dueñas Sep 20, 2017 14:41 Greyson Rojas MD Sep 21, 2017 21:15
[2017-09-20] MEDS: SODIUM CHLOR 0.9% 1000 ML INJ 1,000 ML IV SCH (15:10)
[2017-09-20] MEDS: hydrALAZINE HCL 20 MG/ML VIAL IV PUSH PRN (16:00)
--- NOTE | 2017-09-20 16:33 | HHI.HCPN ---
Reason for visit a. To assist with evaluation and management of symptoms including: Confusion , pain b. To assist medical decision maker(s) with: better understanding of current medical conditions; weighing benefits/burdens of medical treatment options; making medical treatment decisions. Subjective/Interval History More alert and oriented today. Returning to baseline. Nose her has . Is aware that she needs to go to rehabilitation because of weakness. Discussed healthcare surrogacy with her and she has designated her [id number] , Annabel Nova as her healthcare surrogate. Per my previous discussions with Ms. Nova, she is willing to serve as health care surrogate. ED course: * Vital signs: blood pressure 156/72, pulse 68, RR 22, saturation 97 % on room air. * Laboratory: WBC 12.2, Hgb 11.4, HCT 34.0, PLT 388, sodium 140, potassium 3.8, BUN 41, creatinine 0.92. Urine culture shows pseudomonas aeruginosa. 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 Head CT shows no significant change. Carotid artery ultrasound shows moderate visible plaque without hemodynamically significant stenosis, mildly enlarged lymph node on the left in the carotid bifurcation. Consultations: * Neurosurgery determined nonoperative management, continue [place] collar and neuro checks. * Neurology unclear if patient had seizure or not, EEG and labs okay. MRI shows small right GABIRELA CVA. Recommend anticoagulation for A. fib, Eliquis versus Coumadin. . . Advance Directives Living Will: Never completed Health Care Surrogate: Copy in medical record Durable Power of Sign Letterer: Never completed Advance Directive Specifics Health Care Surrogate(s): Annabel Nova . . Documented care wishes: She does not wish to be resuscitated. She had previously spoken with [facility] hospice but was at the time, not qualified for hospice admission. Since her hospitalization, it is felt that she would qualify for hospice based on progressive mental decline, debility, CVA. She wishes to go to rehabilitation to try to return home but once rehabilitation is completed, she would wish hospice services to assist her. . Objective Vital Signs Date Time Temp Pulse Resp B/P (MAP) Pulse Ox O2 Delivery O2 Flow Rate FiO2 09/20/17 12:00 98.1 68 22 156/72 (100) 97 09/20/17 12:00 68 09/20/17 10:00 70 09/20/17 08:00 98.4 94 26 158/86 (110) 98 09/20/17 08:00 94 09/20/17 07:00 Room Air 97 09/20/17 06:00 81 09/20/17 04:00 98.1 93 20 138/64 (88) 95 09/20/17 04:00 93 09/20/17 02:00 73 09/20/17 00:00 98.0 61 21 106/51 (69) 96 09/20/17 00:00 61 09/19/17 22:00 60 09/19/17 20:00 Room Air 94 09/19/17 20:00 98.3 71 19 150/68 (95) 94 09/19/17 20:00 71 09/19/17 18:00 76 09/19/17 17:04 23 Intake & Output 09/20/17 09/20/17 07:00 19:00 Intake Total 575 ml Output Total 325 ml Balance 250 ml Intake Oral 25 ml IV Total 550 ml Output Urine Total 325 ml # Bowel Movements 0 . Physical Exam CONSTITUTIONAL/GENERAL: This is an adequately nourished patient, in no apparent distress. TUBES/LINES/DRAINS: PIV SKIN: Multiple areas of skin tears, ecchymosis on upper extremities. EYES: Pupils equal, reactive. ENT: Hearing grossly normal. Nose without bleeding or purulent drainage. NECK: In [place] collar CARDIOVASCULAR: Irregular rhythm, mildly tachycardic rate, 1/6 systolic ejection murmur, no rub. RESPIRATORY/CHEST: Symmetric, unlabored respirations. Clear to auscultation. Breath sounds equal bilaterally. No wheezes, rales, or rhonchi. GASTROINTESTINAL: Abdomen soft, non-tender, nondistended. Bowel sounds present. GENITOURINARY: Without palpable bladder distension. Cline catheter in place. MUSCULOSKELETAL: Extremities without clubbing, cyanosis, or edema. NEUROLOGICAL: Alert, oriented. PSYCHIATRIC: Calm, not agitated today. . Diagnostic Tests Laboratory Laboratory Tests Test 09/17/17 17:40 09/18/17 02:40 09/18/17 10:20 09/18/17 17:40 White Blood Count 15.8 TH/MM3 (4.0-11.0) 11.9 TH/MM3 (4.0-11.0) Red Blood Count 3.87 MIL/MM3 (4.00-5.30) 3.51 MIL/MM3 (4.00-5.30) Hemoglobin 11.4 GM/DL (11.6-15.3) 10.4 GM/DL (11.6-15.3) Hematocrit 34.2 % (35.0-46.0) 31.1 % (35.0-46.0) Mean Corpuscular Volume 88.4 FL (80.0-100.0) 88.5 FL (80.0-100.0) Mean Corpuscular Hemoglobin 29.6 PG (27.0-34.0) 29.6 PG (27.0-34.0) Mean Corpuscular Hemoglobin Concent 33.4 % (32.0-36.0) 33.5 % (32.0-36.0) Red Cell Distribution Width 15.2 % (11.6-17.2) 14.9 % (11.6-17.2) Platelet Count 358 TH/MM3 (150-450) 342 TH/MM3 (150-450) Mean Platelet Volume 8.1 FL (7.0-11.0) 7.7 FL (7.0-11.0) Prothrombin Time 11.3 SEC (9.8-11.6) Prothromb Time International Ratio 1.1 RATIO Activated Partial Thromboplast Time 26.8 SEC (24.3-30.1) 33.4 SEC (24.3-30.1) 36.4 SEC (24.3-30.1) 32.7 SEC (24.3-30.1) Neutrophils (%) (Auto) 80.2 % (16.0-70.0) Lymphocytes (%) (Auto) 6.1 % (9.0-44.0) Monocytes (%) (Auto) 13.0 % (0.0-8.0) Eosinophils (%) (Auto) 0.2 % (0.0-4.0) Basophils (%) (Auto) 0.5 % (0.0-2.0) Neutrophils # (Auto) 9.5 TH/MM3 (1.8-7.7) Lymphocytes # (Auto) 0.7 TH/MM3 (1.0-4.8) Monocytes # (Auto) 1.5 TH/MM3 (0-0.9) Eosinophils # (Auto) 0.0 TH/MM3 (0-0.4) Basophils # (Auto) 0.1 TH/MM3 (0-0.2) CBC Comment DIFF FINAL Differential Comment Blood Urea Nitrogen 41 MG/DL (7-18) Creatinine 0.92 MG/DL (0.50-1.00) Random Glucose 144 MG/DL (74-106) Calcium Level 8.0 MG/DL (8.5-10.1) Sodium Level 140 MEQ/L (136-145) Potassium Level 3.8 MEQ/L (3.5-5.1) Chloride Level 108 MEQ/L (98-107) Carbon Dioxide Level 24.0 MEQ/L (21.0-32.0) Anion Gap 8 MEQ/L (5-15) Estimat Glomerular Filtration Rate 57 ML/MIN (>89) Test 09/19/17 00:40 09/19/17 12:53 09/19/17 18:50 09/20/17 00:10 Activated Partial Thromboplast Time 45.7 SEC (24.3-30.1) 20.1 SEC (24.3-30.1) 51.6 SEC (24.3-30.1) 56.0 SEC (24.3-30.1) Test 09/20/17 05:25 White Blood Count 12.2 TH/MM3 (4.0-11.0) Red Blood Count 3.87 MIL/MM3 (4.00-5.30) Hemoglobin 11.4 GM/DL (11.6-15.3) Hematocrit 34.0 % (35.0-46.0) Mean Corpuscular Volume 87.9 FL (80.0-100.0) Mean Corpuscular Hemoglobin 29.4 PG (27.0-34.0) Mean Corpuscular Hemoglobin Concent 33.5 % (32.0-36.0) Red Cell Distribution Width 15.1 % (11.6-17.2) Platelet Count 388 TH/MM3 (150-450) Mean Platelet Volume 8.6 FL (7.0-11.0) Activated Partial Thromboplast Time 52.4 SEC (24.3-30.1) . Result Diagram: 09/20/17 0525 09/18/17 0240 Microbiology Microbiology Date/Time Source Procedure Growth Status 09/12/17 16:15 Urine Catheterized Urine Urine Culture - Final Pseudomonas Aeruginosa Complete Imaging Last Impressions Head CT 09/18/17 0000 Signed Impressions: Service Date/Time: Monday, September 18, 2017 02:06 - CONCLUSION: No significant change has occurred. Terrence Kennedy MD Carotid Artery Ultrasound 09/18/17 0000 Signed Impressions: Service Date/Time: Monday, September 18, 2017 16:38 - CONCLUSION: 1. Moderate visible plaque without hemodynamically significant stenosis. Mildly enlarged lymph node on the left in the carotid bifurcation. Jaya Johnson MD Brain MRI 09/17/17 1316 Signed Impressions: Service Date/Time: Sunday, September 17, 2017 11:23 - CONCLUSION: Acute infarction right corpus callosum. Nonspecific white matter changes. Bilateral subdural hygromas. Simeon Goode MD Humerus X-Ray 09/17/17 0000 Signed Impressions: Service Date/Time: Sunday, September 17, 2017 16:31 - CONCLUSION: 1. Fracture of the right humeral neck nondisplaced Jose Rudd MD Chest X-Ray 09/17/17 0000 Signed Impressions: Service Date/Time: Sunday, September 17, 2017 11:00 - CONCLUSION: 1. Cardiomegaly and findings of vascular congestion without overt failure. This is new when compared with the prior exam. 2. Right humeral neck fracture Jose Rudd MD Abdomen X-Ray 09/17/17 0000 Signed Impressions: Service Date/Time: Sunday, September 17, 2017 11:05 - CONCLUSION: No concerning radiopaque foreign bodies identified within the abdomen. Phillip Franco MD Cervical Spine CT 09/12/17 0000 Signed Impressions: Service Date/Time: Tuesday, September 12, 2017 18:18 - CONCLUSION: Nondisplaced hairline fracture of the right and left lateral masses of C2. Phillip Lua MD . Assessment and Plan Disease Oriented Problem List: (1) Subdural hematoma (2) UTI (urinary tract infection) (3) Altered mental status (4) Hypertension (5) C2 cervical fracture (6) Fall (7) Major neurocognitive disorder due to another medical condition (8) Mild major neurocognitive disorder due to traumatic brain injury with behavioral disturbance Symptom Scale: (1) Confusion 0-10 Scale: Unable to quantify (alert to self and date only.) (2) Pain, generalized 0-10 Scale: Unable to quantify (generalized neck, shoulder and head pain.) Pertinent Non-Medical Issues Psychosocial:Born in [place], moved to [place] 25 years ago. 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 She had one daughter from whom she is now estranged. The daughter lives in [place] but otherwise the patient will provide no information regarding the daughters identification. She has been to her Reggie for over 60 years and has been his caregiver for the last few years until his at the [facility] care center recently. . Spiritual: She has no spiritual affiliations. . Legal: At this time the patient has been deemed capacitated to make her own decisions however has designated her [id number], Annabel Nova as her healthcare surrogate. Ethical issues impacting care: None at this time. . Important Contacts Friend- Carlos Eduardo Johnson, . Sister in law- Annabel Nova . Healthcare surrogate D[place]: [place] . Prognosis Her prognosis is poor. She is of advanced age and frail. She is having increased falls and has been confused and unable to independently make decisions. 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 She is becoming less able to care for herself and may require [id number] care once stable from this injury. She is at risk for repeated hospitalizations and continued decline. . Code Status: No Code Plan PLAN: Legal decision maker: At this time the patient has been deemed capacitated to make her own decisions however has designated her [id number], Annabel Nova as her healthcare surrogate. Goals: Comfort oriented. CODE STATUS: DNR SYMPTOMS: * Confusion: Improving. Likely multifactorial to include head injury, CVA, mild dementia, ICU admission. Today she is more oriented and able to provide a clear history of events prior to hospitalization. She has little memory of events during hospitalization. * Pain: Pain sources to include head trauma, hairline fracture in C2, needing to wear c-collar, recent fall, bedbound status. Hydrocodone/acetaminophen 5/ 325 one-two tab every 4 hours as needed is available, but none have been given. Pain controlled on scheduled IV Tylenol. Palliative care will continue to follow the patient during hospital course as condition evolves, to assist patient/decision-maker with understanding of their medical conditions, weighing benefits/burdens of treatment options, for clarification of goals of treatment. Additionally will assist with any symptoms of palliative concern. . Attestation To help prompt me to consider important information that might be impacting today's encounter and assessment, information from prior notes written by myself or my colleagues may have been "brought forward" into today's note. My signature on this note, however, is an attestation that I personally performed the exam, history, and/or decision-making noted today, and, unless otherwise indicated, the interactions with patient, family, and staff as well as the review of records all occurred today. I also attest that the listed assessment and stated plan reflect my best clinical judgment today based on the combination of historical information, prior notes, and today's exam/ interactions. When time spent is documented, it refers only to time spent today by the signer, or if indicated, combined time spent today by collaborating physician/nurse practitioner. . Lay Crooks Sep 20, 2017 4:33 pm
[2017-09-20] MEDS: HEPARIN-D5W 25,000 U/250 ML 250 ML IV PRN (19:30)
[2017-09-21] VITALS (8 sets, daily range): BP systolic 113–186; BP diastolic 56–79; PULSE 55–82; RESP 15–23; TEMP 97–98.8; O2SAT 92–100
[2017-09-21] MEDS: hydrALAZINE HCL 20 MG/ML VIAL IV PUSH PRN (00:16)
[2017-09-21] MEDS: ACETAMINOPHEN 1000 MG/100 ML 100 ML IV SCH ×4 (04:31→23:00)
[2017-09-21 06:59] LABS: BASOPHIL # 0.1 TH/MM3 (0-0.2); BASOPHIL % 0.6 % (0.0-2.0); EOSINOPHIL # 0.4 TH/MM3 (0-0.4); EOSINOPHIL % 3.3 % (0.0-4.0); HEMATOCRIT 30.1 % (35.0-46.0); HEMO FLAGS DIFF FINAL; LYMPH % 5.2 % (9.0-44.0); LYMPHOCYTE # 0.7 TH/MM3 (1.0-4.8); MEAN CELL VOLUME 88.2 FL (80.0-100.0); MEAN CORPUSCULAR HEMOGLOBIN 30.1 PG (27.0-34.0); MEAN CORPUSCULAR HGB CONC 34.1 % (32.0-36.0); MONO % 15.3 % (0.0-8.0); NEUT % 75.6 % (16.0-70.0); PLATELET COUNT 393 TH/MM3 (150-450); RED BLOOD COUNT 3.41 MIL/MM3 (4.00-5.30); RED CELL DISTRIBUTION WIDTH 14.9 % (11.6-17.2); WHITE BLOOD COUNT 13.2 TH/MM3 (4.0-11.0)
[2017-09-21 07:22] LABS: APTT (PATIENT) 67.1 SEC (24.3-30.1)
[2017-09-21 07:32] LABS: BICARBONATE 23.9 MEQ/L (21.0-32.0); POTASSIUM 3.9 MEQ/L (3.5-5.1)
[2017-09-21] MEDS: POLYETHYLENE GLYCOL 17 GM PKG PO SCH (09:00)
[2017-09-21] MEDS: MAGNESIUM HYDROXIDE SUSP 30 ML CUP PO SCH ×2 (09:00→21:00)
[2017-09-21] MEDS: DOCUSATE SODIUM 50 MG/SENNA 8.6 MG TAB PO SCH ×2 (09:00→22:11)
[2017-09-21] MEDS: BACITRACIN TOP OINT 15 GM TUBE TOP SCH ×2 (09:00→22:12)
[2017-09-21] MEDS: VERAPAMIL HCL 120 MG TAB PO SCH ×2 (09:21→22:11)
[2017-09-21] MEDS: FAMOTIDINE 20 MG TAB PO SCH ×2 (09:21→22:11)
[2017-09-21] MEDS: ENALAPRIL MALEATE 5 MG TAB PO SCH (09:21)
--- NOTE | 2017-09-21 10:53 | HHI.NSPN ---
(Noa Dueñas) Note Status Status: Progress Note (Noa Dueñas) Interval History Interval History The patient is a 87-year-old female, who has a history of arterial hypertension, chronic myelocytic leukemia, prior hysterectomy and a left shoulder arthroplasty, dementia, who was brought to the emergency department. Unfortunately she is confused and is unable to explain what happened. She has not accompanied by anybody. She provides inconsistent answers. The history is obtained from the chart and from the emergency room physician. Apparently her who also has dementia was missing and senior alert was activated. The patient reportedly was outside speaking with a neighbor when she fell after she tripped on the dog leash. She landed face first, over a parked car. There was not reported loss of consciousness. There was no seizure activity seen. No tonic/clonic movements. No incontinence of stool or urine. No tongue biting. The patient was moving all four extremities. Upon arrival but she was confused. CT of the brain show bilateral chronic subdural hygromas, with 2 mm of midline shift. CT of the cervical spine show bilateral lateral mass fractures of C1. The patient was found to have a urinary tract infection. She was hemodynamically stable. A neurosurgical consultation was requested. 09/14: became delirious last night and reportedly had a fall. currently drowsy following Haldol. 09/15: awake, moves all four extremities, mildly confused. 09/16: Halicat this morning following episode of ?seizures and unresponsiveness according to nursing staff. Ativan 1 mg given. pt was seen as she was being wheeled down to CT. CT stable b/l subdural hygromas, no acute findings. 09/17: opens eyes, not following commands. neurology following. 09/18 patient currently denies any headache 09/19 patient denies any pain or headache. She wishes to be with her . She continues on heparin and amiodarone gtt 09/20: awake, confused speech and hallucinating, denies cervical pain. 09/21: pleasantly confused. right arm in sling for humerus fracture. (Noa Dueñas) Labs, Micro, & Vital Signs Results Date Time Temp Pulse Resp B/P (MAP) Pulse Ox O2 Delivery O2 Flow Rate FiO2 09/21/17 08:29 98 Nasal Cannula 2.00 09/21/17 08:00 72 09/21/17 08:00 98.5 72 16 130/60 (83) 95 09/21/17 07:00 Nasal Cannula 2.00 96 09/21/17 04:00 77 09/21/17 04:00 98.8 82 22 113/56 (75) 96 09/21/17 00:00 77 09/21/17 00:00 98.3 77 23 157/66 (96) 95 09/20/17 20:00 77 09/20/17 20:00 98.0 77 22 139/59 (85) 95 09/20/17 19:00 Room Air 96 09/20/17 16:00 68 09/20/17 16:00 98.0 68 24 162/70 (100) 94 09/20/17 15:30 96 21 09/20/17 12:00 98.1 68 22 156/72 (100) 97 09/20/17 12:00 68 Constitutional Vital Signs Date Time Temp Pulse Resp B/P (MAP) Pulse Ox O2 Delivery O2 Flow Rate FiO2 09/21/17 08:29 98 Nasal Cannula 2.00 09/21/17 08:00 72 09/21/17 08:00 98.5 72 16 130/60 (83) 95 09/21/17 07:00 Nasal Cannula 2.00 96 09/21/17 04:00 77 09/21/17 04:00 98.8 82 22 113/56 (75) 96 09/21/17 00:00 77 09/21/17 00:00 98.3 77 23 157/66 (96) 95 09/20/17 20:00 77 09/20/17 20:00 98.0 77 22 139/59 (85) 95 09/20/17 19:00 Room Air 96 09/20/17 16:00 68 09/20/17 16:00 98.0 68 24 162/70 (100) 94 09/20/17 15:30 96 21 09/20/17 12:00 98.1 68 22 156/72 (100) 97 09/20/17 12:00 68 (Noa Dueñas) Physical Exam Awake, resting comfortably. Pleasantly confused, smiling. follows simple commands. CN: pupils equal, facial motor symmetric, tongue is midline Neck: [place] collar in place, intact Motor: moves left upper and b/l LE's, right upper extremity in sling Sensory: reports intact to light touch x 4 Abdomen: soft, nontender (Noa Dueñas) Ms Oropeza is awake, resting comfortably. Pleasantly confused, smiling. follows simple commands. CN: pupils equal, facial motor symmetric, tongue is midline Neck: [place] collar in place, intact Motor: moves left upper and b/l LE's, right upper extremity in sling Sensory: reports intact to light touch x 4 cerebellar exam is unremarkable (Greyson Rojas MD) Medications Current Medications Current Medications Medications (Trade) Dose Ordered Sig/Ady Route PRN Reason Start Time Stop Time Status Last Admin Dose Admin Sodium Chloride (NS Flush) 2 ml UNSCH PRN IV FLUSH FLUSH AFTER USING IV ACCESS 09/12/17 20:15 09/14/17 00:15 Acetaminophen/ Hydrocodone Bitart (Dalton 5-325 Mg) 1 tab Q4H PRN PO PAIN SCALE 6-10 09/12/17 20:15 Ondansetron HCl (Zofran Inj) 4 mg Q6H PRN IV PUSH NAUSEA OR VOMITING 09/12/17 20:15 Bacitracin (Baciguent Oint) 1 applic BID TOP 09/12/17 21:00 09/21/17 09:00 Senna/Docusate Sodium (Summer-Colace) 1 tab BID PO 09/13/17 09:00 09/20/17 21:02 Lactulose (Lactulose Liq) 30 ml DAILY PRN PO No BM in 2 days 09/13/17 07:15 Polyethylene Glycol (Miralax) 17 gm DAILY PO 09/13/17 09:00 09/20/17 08:22 Enalapril Maleate (Vasotec) 5 mg DAILY PO 09/13/17 09:45 09/21/17 09:21 Verapamil HCl (Isoptin) 240 mg BID PO 09/13/17 09:45 09/21/17 09:21 Acetaminophen 100 ml @ 400 mls/hr Q6H IV 09/14/17 17:00 09/21/17 04:31 Enalaprilat (Vasotec Inj) 1.25 mg Q6H PRN IV PUSH SBP>160, DBP>90 09/15/17 07:30 09/19/17 18:31 Famotidine (Pepcid) 10 mg BID PO 09/15/17 09:00 09/21/17 09:21 Hydralazine HCl (Apresoline Inj) 20 mg Q4H PRN IV PUSH SBP>170; DBP>105 09/16/17 11:45 09/21/17 00:16 Sodium Chloride 1,000 ml @ 50 mls/hr Q20H IV 09/17/17 11:04 09/19/17 19:10 Heparin Sodium/ Dextrose 250 ml @ 7 mls/hr TITRATE PRN IV Coagulation Management 09/17/17 17:30 09/20/17 19:30 Magnesium Hydroxide (Milk Of Magnkelli Liq) 30 ml BID PO 09/19/17 09:00 09/20/17 21:02 Cefepime HCl 1000 mg/Sodium Chloride 100 ml @ 200 mls/hr Q12H IV 09/19/17 11:00 09/20/17 23:00 (Noa Dueñas) Current Medications Current Medications Ondansetron HCl (Zofran Inj) 4 mg ONCE ONCE IV PUSH Last administered on 18:33; Start 09/12/17 at 18:30; Stop 09/12/17 at 18:31; Status DC Morphine Sulfate (Morphine Inj) 2 mg ONCE ONCE IV PUSH ; Start 09/12/17 at 18: 30; Stop 09/12/17 at 18:31; Status DC Metoprolol Tartrate (Lopressor Inj) 2.5 mg ONCE ONCE IV PUSH Last administered on 09/12/17 19:00; Start 09/12/17 at 18:45; Stop 09/12/17 at 18:46 ; Status DC Metoprolol Tartrate (Lopressor Inj) 2.5 mg ONCE ONCE IV PUSH Last administered on 09/12/17 19:22; Start 09/12/17 at 19:30; Stop 09/12/17 at 19:31 ; Status DC Ceftriaxone Sodium 1000 mg/ Sodium Chloride 100 ml @ 200 mls/hr ONCE ONCE IV Last administered on 09/12/17 20:04; Start 09/12/17 at 19:30; Stop 09/12/17 at 19:59; Status DC Nicardipine HCl (Cardene Inj) 25 mg STK-MED ONCE .ROUTE Last administered on 20:16; Start 09/12/17 at 20:03; Stop 09/12/17 at 20:04; Status DC Sodium Chloride 1,000 ml @ 100 mls/hr Q10H IV Last administered on 09/14/17 23:16; Start 09/12/17 at 21:00; Stop 09/15/17 at 07:31; Status DC Sodium Chloride (NS Flush) 2 ml UNSCH PRN IV FLUSH FLUSH AFTER USING IV ACCESS Last administered on 09/14/17 00:15; Start 09/12/17 at 20:15 Hydromorphone HCl (Dilaudid Pf Inj) 0.5 mg Q1H PRN IVP BREAKTHROUGH PAIN; Start 09/12/17 at 20:15; Stop 09/15/17 at 07:31; Status DC Acetaminophen/ Hydrocodone Bitart (Dalton 5-325 Mg) 1 tab Q4H PRN PO PAIN SCALE 6-10; Start 09/12/17 at 20:15 Acetaminophen/ Hydrocodone Bitart (Dalton 5-325 Mg) 2 tab Q4H PRN PO PAIN SCALE 6 TO 10; Start 09/12/17 at 20:15; Stop 09/15/17 at 07:31; Status DC Enalaprilat (Vasotec Inj) 1.25 mg Q8H PRN IV PUSH SBP>180, DBP>95; Start at 20:15; Stop 09/12/17 at 23:00; Status DC Ondansetron HCl (Zofran Inj) 4 mg Q6H PRN IV PUSH NAUSEA OR VOMITING; Start at 20:15 Pantoprazole Sodium (Protonix Inj) 40 mg Q24H IVP Last administered on 21:18; Start 09/12/17 at 21:00; Stop 09/15/17 at 07:31; Status DC Bacitracin (Baciguent Oint) 1 applic BID TOP Last administered on 09/21/17 09 :00; Start 09/12/17 at 21:00 Docusate Sodium (Colace) 100 mg BID PO ; Start 09/12/17 at 21:00; Stop 09/13/17 at 07:19; Status DC Miscellaneous Information 1 [id number] XX ; Start 09/12/17 at 20:15; Stop 09/15/17 at 07:31; Status DC Chlorhexidine Gluconate (Chlorhexidine 2% Cloth) 3 pack Taper DAILY@04 TOP ; Start 09/13/17 at 04:00; Stop 09/15/17 at 07:31; Status DC Chlorhexidine Gluconate (Chlorhexidine 2% Cloth) 3 pack UNSCH PRN TOP HYGIENIC CARE; Start 09/12/17 at 20:15; Stop 09/15/17 at 07:31; Status DC Nicardipine HCl 25 mg/Sodium Chloride 250 ml @ 0 mls/hr TITRATE ONCE IV Last administered on 09/12/17 20:32; Start 09/12/17 at 20:30; Stop 09/12/17 at 20:31 ; Status DC Ceftriaxone Sodium 1000 mg/ Sodium Chloride 100 ml @ 200 mls/hr Q24H IV Last administered on 09/18/17 20:26; Start 09/13/17 at 20:00; Stop 09/19/17 at 10: 52; Status DC Labetalol HCl (Trandate Inj) 10 mg Q4H PRN IV PUSH SBP >160 Last administered on 09/14/17 13:14; Start 09/12/17 at 23:00; Stop 09/15/17 at 07:31; Status DC Nicardipine HCl 25 mg/Sodium Chloride 250 ml @ 50 mls/hr TITRATE PRN IV Blood pressure management; Start 09/13/17 at 02:45; Stop 09/15/17 at 07:31; Status DC Senna/Docusate Sodium (Summer-Colace) 1 tab BID PO Last administered on 21:02; Start 09/13/17 at 09:00 Lactulose (Lactulose Liq) 30 ml DAILY PRN PO No BM in 2 days; Start 09/13/17 at 07:15 Polyethylene Glycol (Miralax) 17 gm DAILY PO Last administered on 09/20/17 08 :22; Start 09/13/17 at 09:00 Enoxaparin Sodium (Lovenox Inj) 40 mg Q24H SQ Last administered on 09/13/17 09 :54; Start 09/13/17 at 10:00; Stop 09/14/17 at 08:49; Status DC Hydralazine HCl (Apresoline Inj) 20 mg Q4H PRN IV PUSH SBP >160 Last administered on 09/14/17 16:45; Start 09/13/17 at 09:45; Stop 09/15/17 at 07:31 ; Status DC Enalapril Maleate (Vasotec) 5 mg DAILY PO Last administered on 09/21/17 09:21 ; Start 09/13/17 at 09:45 Verapamil HCl (Isoptin) 240 mg BID PO Last administered on 09/21/17 09:21; Start 09/13/17 at 09:45 Haloperidol Lactate (Haldol Inj) 4 mg Q6H PRN IM AGITATION; Start 09/13/17 at 22:15; Stop 09/15/17 at 07:31; Status DC Haloperidol Lactate (Haldol Inj) 4 mg NOW ONCE IM Last administered on 22:23; Start 09/13/17 at 22:15; Stop 09/13/17 at 22:16; Status DC Haloperidol Lactate (Haldol Inj) 4 mg Q6H PRN IV AGITATION Last administered on 09/14/17 08:13; Start 09/14/17 at 00:15; Stop 09/16/17 at 13:22; Status DC Enoxaparin Sodium (Lovenox Inj) 30 mg Q24H SQ Last administered on 09/17/17 12 :12; Start 09/14/17 at 10:00; Stop 09/17/17 at 17:27; Status DC Risperidone (risperDAL) 0.5 mg BID PO Last administered on 09/16/17 11:43; Start 09/14/17 at 10:15; Stop 09/16/17 at 13:21; Status DC Acetaminophen 100 ml @ 400 mls/hr Q6H IV Last administered on 09/21/17 15:48 ; Start 09/14/17 at 17:00 Enalaprilat (Vasotec Inj) 1.25 mg Q6H PRN IV PUSH SBP>160, DBP>90 Last administered on 09/19/17 18:31; Start 09/15/17 at 07:30 Famotidine (Pepcid) 10 mg BID PO Last administered on 09/21/17 09:21; Start 09/15/17 at 09:00 Bisacodyl (Dulcolax Supp) 10 mg ONCE ONCE RECTAL Last administered on 17:35; Start 09/15/17 at 15:00; Stop 09/15/17 at 15:01; Status DC Lorazepam (Ativan Inj) 2 mg STK-MED ONCE .ROUTE ; Start 09/16/17 at 09:16; Stop 09/16/17 at 09:17; Status DC Lorazepam (Ativan Inj) 1 mg NOW ONCE IV PUSH Last administered on 09/16/17 09 :30; Start 09/16/17 at 09:45; Stop 09/16/17 at 09:46; Status DC Hydralazine HCl (Apresoline Inj) 20 mg Q4H PRN IV PUSH SBP>170; DBP>105 Last administered on 09/21/17 00:16; Start 09/16/17 at 11:45 Amiodarone HCl 150 mg/Dextrose 103 ml @ 600 mls/hr Q11M ONCE IV Last administered on 09/16/17 13:39; Start 09/16/17 at 12:19; Stop 09/16/17 at 12:34 ; Status DC Amiodarone HCl 450 mg/Dextrose 250 ml @ 33.33 mls/ hr Q7H31M PRN IV Per Protocol Last administered on 09/18/17 20:31; Start 09/16/17 at 12:29; Stop at 13:09; Status DC Sodium Chloride 1,000 ml @ 50 mls/hr Q20H IV Last administered on 09/21/17 11:10; Start 09/17/17 at 11:04 Amiodarone HCl 150 mg/Dextrose 103 ml @ 600 mls/hr Q11M ONCE IV Last administered on 09/17/17 12:13; Start 09/17/17 at 11:00; Stop 09/17/17 at 11:10 ; Status DC Gadodiamide (Omniscan Pf Inj) 12 ml STK-MED ONCE IVCONTRAST Last administered on 09/17/17 11:40; Start 09/17/17 at 11:40; Stop 09/17/17 at 11:42; Status DC Heparin Sodium/ Dextrose 250 ml @ 7 mls/hr TITRATE PRN IV Coagulation Management Last administered on 09/21/17 15:50; Start 09/17/17 at 17:30 Magnesium Hydroxide (Milk Of Otilia Adair) 30 ml BID PO Last administered on 21:02; Start 09/19/17 at 09:00 Cefepime HCl 1000 mg/Sodium Chloride 100 ml @ 200 mls/hr Q12H IV Last administered on 09/21/17 11:24; Start 09/19/17 at 11:00 Bisacodyl (Dulcolax Supp) 10 mg ONCE ONCE RECTAL Last administered on 11:27; Start 09/20/17 at 09:00; Stop 09/20/17 at 09:14; Status DC Artificial Tears (Tears Naturale Opth Soln) 1 drop Q4H PRN EACH EYE dryness; Start 09/21/17 at 19:15 (Greyson Rojas MD) Medical Decision Making MDM Remarks 87 year old female fall at home, C2 hairline fracture through lateral masses b/l chronic subdural hygromas acute mental status change, ?seizures, EEG neg for seizures 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 Fib cont neuro checks cont therapy and rehab efforts cont nonop mgt with [place] collar for C2 fracture (Noa Dueñas) Attending Statement Continue neuro checks. Pulmonary.. Continue aggressive pulmonary toilette, nasotracheal suction, and breathing treatments with nebulizers. Nutrition. NPO Renal. monitor closely urine output, BUN and creatinine Endocrine. Monitor serial Acu checks and SSI as needed in detail ID monitor for signs of infection Protonix for stress ulcer prophylaxis Desmond hose and SCD's for DVT prophylaxis. The exam, history, and the medical decision-making described in the above note were completed with the assistance of the mid-level provider. I reviewed and agree with the findings presented. I attest that I had a mina-um-hwvo encounter with the patient on the same day, and personally performed and documented my assessment and findings in the medical record. (Greyson Rojas MD) Noa Dueñas Sep 21, 2017 10:53 Greyson Rojas MD Sep 21, 2017 21:13
[2017-09-21] MEDS: SODIUM CHLOR 0.9% 1000 ML INJ 1,000 ML IV SCH (11:10)
--- NOTE | 2017-09-21 11:18 | PD.CARD.PN ---
Subjective Subjective Remarks No events overnight Started on her Verapamil, Amiodarone off, heart rates controlled Objective Medications Current Medications Medications (Trade) Dose Ordered Sig/Ady Route Start Time Stop Time Status Last Admin (NS Flush) 2 ml UNSCH PRN IV FLUSH 09/12/17 20:15 09/14/17 00:15 ([place]ons 5-325 Mg) 1 tab Q4H PRN PO 09/12/17 20:15 (Zofran Inj) 4 mg Q6H PRN IV PUSH 09/12/17 20:15 (Baciguent Oint) 1 applic BID TOP 09/12/17 21:00 09/21/17 09:00 (Summer-Colace) 1 tab BID PO 09/13/17 09:00 09/20/17 21:02 (Lactulose Liq) 30 ml DAILY PRN PO 09/13/17 07:15 (Miralax) 17 gm DAILY PO 09/13/17 09:00 09/20/17 08:22 (Vasotec) 5 mg DAILY PO 09/13/17 09:45 09/21/17 09:21 (Isoptin) 240 mg BID PO 09/13/17 09:45 09/21/17 09:21 Acetaminophen 100 ml @ 400 mls/hr Q6H IV 09/14/17 17:00 09/21/17 04:31 (Vasotec Inj) 1.25 mg Q6H PRN IV PUSH 09/15/17 07:30 09/19/17 18:31 (Pepcid) 10 mg BID PO 09/15/17 09:00 09/21/17 09:21 (Apresoline Inj) 20 mg Q4H PRN IV PUSH 09/16/17 11:45 09/21/17 00:16 Sodium Chloride 1,000 ml @ 50 mls/hr Q20H IV 09/17/17 11:04 09/19/17 19:10 Heparin Sodium/ Dextrose 250 ml @ 7 mls/hr TITRATE PRN IV 09/17/17 17:30 09/20/17 19:30 (Milk Of Magnesia Liq) 30 ml BID PO 09/19/17 09:00 09/20/17 21:02 Cefepime HCl 1000 mg/Sodium Chloride 100 ml @ 200 mls/hr Q12H IV 09/19/17 11:00 09/20/17 23:00 Vital Signs / I&O Vital Signs Date Time Temp Pulse Resp B/P (MAP) Pulse Ox O2 Delivery O2 Flow Rate FiO2 09/21/17 08:29 98 Nasal Cannula 2.00 09/21/17 08:00 72 09/21/17 08:00 98.5 72 16 130/60 (83) 95 09/21/17 07:00 Nasal Cannula 2.00 96 09/21/17 04:00 77 09/21/17 04:00 98.8 82 22 113/56 (75) 96 09/21/17 00:00 77 09/21/17 00:00 98.3 77 23 157/66 (96) 95 09/20/17 20:00 77 09/20/17 20:00 98.0 77 22 139/59 (85) 95 09/20/17 19:00 Room Air 96 09/20/17 16:00 68 09/20/17 16:00 98.0 68 24 162/70 (100) 94 09/20/17 15:30 96 21 09/20/17 12:00 98.1 68 22 156/72 (100) 97 09/20/17 12:00 68 I/O 09/20/17 09/20/17 09/20/17 09/21/17 09/21/17 09/21/17 07:00 15:00 23:00 07:00 15:00 23:00 Intake Total 225 ml 200 ml 1530 ml 740 ml Output Total 325 ml 550 ml 850 ml Balance -100 ml 200 ml 980 ml -110 ml Intake Oral 25 ml 360 ml 540 ml IV Total 200 ml 200 ml 1170 ml 200 ml Output Urine Total 325 ml 550 ml 850 ml # Bowel Movements 0 0 0 Physical Exam GENERAL: NAD SKIN: Warm and dry. HEAD: Atraumatic. Normocephalic. EYES: Pupils equal and round. No scleral icterus. No injection or drainage. ENT: No nasal bleeding or discharge. Mucous membranes pink and moist. NECK: Trachea midline. No JVD. CARDIOVASCULAR: Regular rate and rhythm. RESPIRATORY: No accessory muscle use. Clear to auscultation. Breath sounds equal bilaterally. GASTROINTESTINAL: Abdomen soft, non-tender, nondistended. Hepatic and splenic margins not palpable. MUSCULOSKELETAL: Extremities without clubbing, cyanosis, or edema. No obvious deformities. NEUROLOGICAL: No focal deficits Laboratory Laboratory Tests Test 09/21/17 06:25 White Blood Count 13.2 TH/MM3 Red Blood Count 3.41 MIL/MM3 Hemoglobin 10.3 GM/DL Hematocrit 30.1 % Mean Corpuscular Volume 88.2 FL Mean Corpuscular Hemoglobin 30.1 PG Mean Corpuscular Hemoglobin Concent 34.1 % Red Cell Distribution Width 14.9 % Platelet Count 393 TH/MM3 Mean Platelet Volume 8.2 FL Neutrophils (%) (Auto) 75.6 % Lymphocytes (%) (Auto) 5.2 % Monocytes (%) (Auto) 15.3 % Eosinophils (%) (Auto) 3.3 % Basophils (%) (Auto) 0.6 % Neutrophils # (Auto) 10.0 TH/MM3 Lymphocytes # (Auto) 0.7 TH/MM3 Monocytes # (Auto) 2.0 TH/MM3 Eosinophils # (Auto) 0.4 TH/MM3 Basophils # (Auto) 0.1 TH/MM3 CBC Comment DIFF FINAL Differential Comment Activated Partial Thromboplast Time 67.1 SEC Blood Urea Nitrogen 29 MG/DL Creatinine 0.81 MG/DL Random Glucose 108 MG/DL Calcium Level 8.3 MG/DL Sodium Level 142 MEQ/L Potassium Level 3.9 MEQ/L Chloride Level 111 MEQ/L Carbon Dioxide Level 23.9 MEQ/L Anion Gap 7 MEQ/L Estimat Glomerular Filtration Rate 67 ML/MIN Assessment and Plan Problem List: (1) Afib ICD Codes: I48.91 - Unspecified atrial fibrillation (2) CVA (cerebral vascular accident) ICD Codes: I63.9 - Cerebral infarction, unspecified (3) C2 cervical fracture ICD Codes: S12.100A - Unspecified displaced fracture of second cervical vertebra, initial encounter for closed fracture Status: Acute (4) Fall ICD Codes: W19.XXXA - Unspecified fall, initial encounter Status: Acute (5) Hypertension ICD Codes: I10 - Essential (primary) hypertension Status: Acute (6) Altered mental status ICD Codes: R41.82 - Altered mental status, unspecified Status: Acute (7) UTI (urinary tract infection) ICD Codes: N39.0 - Urinary tract infection, site not specified Status: Acute (8) Confusion ICD Codes: R41.0 - Disorientation, unspecified Assessment and Plan 1) New onset atrial fibrillation Converted to sinus rhythm on Amiodarone Amiodarone drip stopped as she has been placed on Verapamil PO (home med) If more Afib with RVR then may need Amio Po, but currently controlled well 2) C2 fracture due to fall. 3) Mechanical fall. 4) Chronic subdural hygromas. 5) Acute mental status change. 6) CVA Most likely due to Afib Started on heparin drip Eventual anti-coagulation at neurology/neurosurgery discretion Would have the patient get to the point where she can work with PT and walking, and can be evaluated for gate and falls Problem Qualifiers (1) C2 cervical fracture: Qualified Codes: S12.101A - Unspecified nondisplaced fracture of second cervical vertebra, initial encounter for closed fracture (2) Fall: Qualified Codes: W19.XXXA - Unspecified fall, initial encounter (3) Hypertension: Qualified Codes: I10 - Essential (primary) hypertension (4) Altered mental status: Qualified Codes: R41.82 - Altered mental status, unspecified (5) UTI (urinary tract infection): Qualified Codes: N39.0 - Urinary tract infection, site not specified; R31.9 - Hematuria, unspecified Fuad Rojas DO Sep 21, 2017 11:18
--- NOTE | 2017-09-21 11:22 | HHI.NSPN ---
Note Status Status: Progress Note Interval History Interval History The patient is a 87-year-old female, who has a history of arterial hypertension, chronic myelocytic leukemia, prior hysterectomy and a left shoulder arthroplasty, dementia, who was brought to the emergency department. Unfortunately she is confused and is unable to explain what happened. She has not accompanied by anybody. She provides inconsistent answers. The history is obtained from the chart and from the emergency room physician. Apparently her who also has dementia was missing and senior Voxound was activated. The patient reportedly was outside speaking with a neighbor when she fell after she tripped on the dog leash. She landed face first, over a parked car. There was not reported loss of consciousness. There was no seizure activity seen. No tonic/clonic movements. No incontinence of stool or urine. No tongue biting. The patient was moving all four extremities. Upon arrival but she was confused. CT of the brain show bilateral chronic subdural hygromas, with 2 mm of midline shift. CT of the cervical spine show bilateral lateral mass fractures of C1. The patient was found to have a urinary tract infection. She was hemodynamically stable. A neurosurgical consultation was requested. 09/14: became delirious last night and reportedly had a fall. currently drowsy following Haldol. 09/15: awake, moves all four extremities, mildly confused. 09/16: Halicat this morning following episode of ?seizures and unresponsiveness according to nursing staff. Ativan 1 mg given. pt was seen as she was being wheeled down to CT. CT stable b/l subdural hygromas, no acute findings. 09/17: opens eyes, not following commands. neurology following. 09/18 patient currently denies any headache 09/19 patient denies any pain or headache. She wishes to be with her . She continues on heparin and amiodarone gtt 09/20: awake, confused speech and hallucinating, denies cervical pain. 09/21: Labs, Micro, & Vital Signs Results Date Time Temp Pulse Resp B/P (MAP) Pulse Ox O2 Delivery O2 Flow Rate FiO2 09/21/17 08:29 98 Nasal Cannula 2.00 09/21/17 08:00 72 09/21/17 08:00 98.5 72 16 130/60 (83) 95 09/21/17 07:00 Nasal Cannula 2.00 96 09/21/17 04:00 77 09/21/17 04:00 98.8 82 22 113/56 (75) 96 09/21/17 00:00 77 09/21/17 00:00 98.3 77 23 157/66 (96) 95 09/20/17 20:00 77 09/20/17 20:00 98.0 77 22 139/59 (85) 95 09/20/17 19:00 Room Air 96 09/20/17 16:00 68 09/20/17 16:00 98.0 68 24 162/70 (100) 94 09/20/17 15:30 96 21 09/20/17 12:00 98.1 68 22 156/72 (100) 97 09/20/17 12:00 68 Constitutional Vital Signs Date Time Temp Pulse Resp B/P (MAP) Pulse Ox O2 Delivery O2 Flow Rate FiO2 09/21/17 08:29 98 Nasal Cannula 2.00 09/21/17 08:00 72 09/21/17 08:00 98.5 72 16 130/60 (83) 95 09/21/17 07:00 Nasal Cannula 2.00 96 09/21/17 04:00 77 09/21/17 04:00 98.8 82 22 113/56 (75) 96 09/21/17 00:00 77 09/21/17 00:00 98.3 77 23 157/66 (96) 95 09/20/17 20:00 77 09/20/17 20:00 98.0 77 22 139/59 (85) 95 09/20/17 19:00 Room Air 96 09/20/17 16:00 68 09/20/17 16:00 98.0 68 24 162/70 (100) 94 09/20/17 15:30 96 21 09/20/17 12:00 98.1 68 22 156/72 (100) 97 09/20/17 12:00 68 Physical Exam Gen: Patient awake in bed. No acute distress. Confused speech, hallucinating she says she is talking to someone in her bed. follows few simple commands. Neck: Cervical collar in place. Motor: moves all four extremities off bed Sensory: reports intact to light touch x 4 Cerebellar: cannot assess due to clinical condition Medications Current Medications Current Medications Medications (Trade) Dose Ordered Sig/Ady Route PRN Reason Start Time Stop Time Status Last Admin Dose Admin Sodium Chloride (NS Flush) 2 ml UNSCH PRN IV FLUSH FLUSH AFTER USING IV ACCESS 09/12/17 20:15 09/14/17 00:15 Acetaminophen/ Hydrocodone Bitart (Baudette 5-325 Mg) 1 tab Q4H PRN PO PAIN SCALE 6-10 09/12/17 20:15 Ondansetron HCl (Zofran Inj) 4 mg Q6H PRN IV PUSH NAUSEA OR VOMITING 09/12/17 20:15 Bacitracin (Baciguent Oint) 1 applic BID TOP 09/12/17 21:00 09/21/17 09:00 Senna/Docusate Sodium (Summer-Colace) 1 tab BID PO 09/13/17 09:00 09/20/17 21:02 Lactulose (Lactulose Liq) 30 ml DAILY PRN PO No BM in 2 days 09/13/17 07:15 Polyethylene Glycol (Miralax) 17 gm DAILY PO 09/13/17 09:00 09/20/17 08:22 Enalapril Maleate (Vasotec) 5 mg DAILY PO 09/13/17 09:45 09/21/17 09:21 Verapamil HCl (Isoptin) 240 mg BID PO 09/13/17 09:45 09/21/17 09:21 Acetaminophen 100 ml @ 400 mls/hr Q6H IV 09/14/17 17:00 09/21/17 04:31 Enalaprilat (Vasotec Inj) 1.25 mg Q6H PRN IV PUSH SBP>160, DBP>90 09/15/17 07:30 09/19/17 18:31 Famotidine (Pepcid) 10 mg BID PO 09/15/17 09:00 09/21/17 09:21 Hydralazine HCl (Apresoline Inj) 20 mg Q4H PRN IV PUSH SBP>170; DBP>105 09/16/17 11:45 09/21/17 00:16 Sodium Chloride 1,000 ml @ 50 mls/hr Q20H IV 09/17/17 11:04 09/19/17 19:10 Heparin Sodium/ Dextrose 250 ml @ 7 mls/hr TITRATE PRN IV Coagulation Management 09/17/17 17:30 09/20/17 19:30 Magnesium Hydroxide (Milk Of Otilia Adair) 30 ml BID PO 09/19/17 09:00 09/20/17 21:02 Cefepime HCl 1000 mg/Sodium Chloride 100 ml @ 200 mls/hr Q12H IV 09/19/17 11:00 09/20/17 23:00 Medical Decision Making MDM Remarks 87 year old female fall at home, C2 hairline fracture through lateral masses b/l chronic subdural hygromas acute mental status change, ?seizures, EEG neg for seizures 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
[2017-09-21] MEDS: CEFEPIME INJ 1,000 MG in SODIUM CHLORIDE 0.9% INJ 100 ML IV SCH ×2 (11:24→22:14)
--- NOTE | 2017-09-21 14:46 | HHI.HCPN ---
Reason for visit a. To assist with evaluation and management of symptoms including: Confusion , pain b. To assist medical decision maker(s) with: better understanding of current medical conditions; weighing benefits/burdens of medical treatment options; making medical treatment decisions. Subjective/Interval History Lethargic after therapy today, has been aggravated and noncooperative with RN. Physical therapy reports that she was very lethargic and difficult to arouse but required moderate assistance to sit on the edge of the bed, sit to stand, which required a maximum 2 person assistance, able to maintain for approximately 10 seconds each time. Speech therapy noted improvement of oropharyngeal dysphasia and recommended progression of diet to mechanical soft chopped with nectar thickened liquids. ED course: * Vital signs: blood pressure 129/59, pulse 55, RR 15, saturation 100 % on room air. * Laboratory: WBC 13.2, Hgb 10.3, HCT 30.1, PLT 393, sodium 142, potassium 3.9, BUN 29, creatinine 0.81. Urine culture shows pseudomonas aeruginosa. 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 Head CT shows no significant change. Carotid artery ultrasound shows moderate visible plaque without hemodynamically significant stenosis, mildly enlarged lymph node on the left in the carotid bifurcation. Consultations: * Neurosurgery determined nonoperative management, continue [place] collar and neuro checks. * Neurology unclear if patient had seizure or not, EEG and labs okay. MRI shows small right GABRIELA CVA. Recommend anticoagulation for A. fib, Eliquis versus Coumadin. She remains on heparin, pending clearance from neurosurgery/ neurology to initiate anticoagulation. . . . Advance Directives Living Will: Never completed Health Care Surrogate: Copy in medical record Durable Power of Patient Care Technician: Never completed Advance Directive Specifics Health Care Surrogate(s): Annabel Nova . . Documented care wishes: She does not wish to be resuscitated. She had previously spoken with [facility] hospice but was at the time, not qualified for hospice admission. Since her hospitalization, it is felt that she would qualify for hospice based on progressive mental decline, debility, CVA. She wishes to go to rehabilitation to try to return home but once rehabilitation is completed, she would wish hospice services to assist her. . Objective Vital Signs Date Time Temp Pulse Resp B/P (MAP) Pulse Ox O2 Delivery O2 Flow Rate FiO2 12/12/17 12:00 97.9 55 15 129/59 (82) 100 09/21/17 12:00 56 09/21/17 08:29 98 Nasal Cannula 2.00 09/21/17 08:00 72 09/21/17 08:00 98.5 72 16 130/60 (83) 95 09/21/17 07:00 Nasal Cannula 2.00 96 09/21/17 04:00 77 09/21/17 04:00 98.8 82 22 113/56 (75) 96 09/21/17 00:00 77 09/21/17 00:00 98.3 77 23 157/66 (96) 95 09/20/17 20:00 77 09/20/17 20:00 98.0 77 22 139/59 (85) 95 09/20/17 19:00 Room Air 96 09/20/17 16:00 68 09/20/17 16:00 98.0 68 24 162/70 (100) 94 09/20/17 15:30 96 21 Intake & Output 09/21/17 09/21/17 07:00 19:00 Intake Total 860 ml 187 ml Output Total 850 ml Balance 10 ml 187 ml Intake Oral 660 ml IV Total 200 ml 187 ml Output Urine Total 850 ml # Bowel Movements 0 Physical Exam CONSTITUTIONAL/GENERAL: This is an adequately nourished patient, in no apparent distress. TUBES/LINES/DRAINS: PIV SKIN: Multiple areas of skin tears, ecchymosis on upper extremities. EYES: Pupils equal, reactive. ENT: Hearing grossly normal. Nose without bleeding or purulent drainage. NECK: In [place] collar CARDIOVASCULAR: Irregular rhythm, mildly tachycardic rate, 1/6 systolic ejection murmur, no rub. RESPIRATORY/CHEST: Symmetric, unlabored respirations. Clear to auscultation. Breath sounds equal bilaterally. No wheezes, rales, or rhonchi. GASTROINTESTINAL: Abdomen soft, non-tender, nondistended. Bowel sounds present. GENITOURINARY: Without palpable bladder distension. Cline catheter in place. MUSCULOSKELETAL: Extremities without clubbing, cyanosis, or edema. right arm in sling for nondisplaced right humeral neck fracture. NEUROLOGICAL: Lethargic, not responding to verbal stimuli. PSYCHIATRIC: Lethargic. . Diagnostic Tests Laboratory Laboratory Tests Test 09/18/17 17:40 12/10/17 00:40 09/19/17 12:53 09/19/17 18:50 Activated Partial Thromboplast Time 32.7 SEC (24.3-30.1) 45.7 SEC (24.3-30.1) 20.1 SEC (24.3-30.1) 51.6 SEC (24.3-30.1) Test 09/20/17 00:10 09/20/17 05:25 09/21/17 06:25 Activated Partial Thromboplast Time 56.0 SEC (24.3-30.1) 52.4 SEC (24.3-30.1) 67.1 SEC (24.3-30.1) White Blood Count 12.2 TH/MM3 (4.0-11.0) 13.2 TH/MM3 (4.0-11.0) Red Blood Count 3.87 MIL/MM3 (4.00-5.30) 3.41 MIL/MM3 (4.00-5.30) Hemoglobin 11.4 GM/DL (11.6-15.3) 10.3 GM/DL (11.6-15.3) Hematocrit 34.0 % (35.0-46.0) 30.1 % (35.0-46.0) Mean Corpuscular Volume 87.9 FL (80.0-100.0) 88.2 FL (80.0-100.0) Mean Corpuscular Hemoglobin 29.4 PG (27.0-34.0) 30.1 PG (27.0-34.0) Mean Corpuscular Hemoglobin Concent 33.5 % (32.0-36.0) 34.1 % (32.0-36.0) Red Cell Distribution Width 15.1 % (11.6-17.2) 14.9 % (11.6-17.2) Platelet Count 388 TH/MM3 (150-450) 393 TH/MM3 (150-450) Mean Platelet Volume 8.6 FL (7.0-11.0) 8.2 FL (7.0-11.0) Neutrophils (%) (Auto) 75.6 % (16.0-70.0) Lymphocytes (%) (Auto) 5.2 % (9.0-44.0) Monocytes (%) (Auto) 15.3 % (0.0-8.0) Eosinophils (%) (Auto) 3.3 % (0.0-4.0) Basophils (%) (Auto) 0.6 % (0.0-2.0) Neutrophils # (Auto) 10.0 TH/MM3 (1.8-7.7) Lymphocytes # (Auto) 0.7 TH/MM3 (1.0-4.8) Monocytes # (Auto) 2.0 TH/MM3 (0-0.9) Eosinophils # (Auto) 0.4 TH/MM3 (0-0.4) Basophils # (Auto) 0.1 TH/MM3 (0-0.2) CBC Comment DIFF FINAL Differential Comment Blood Urea Nitrogen 29 MG/DL (7-18) Creatinine 0.81 MG/DL (0.50-1.00) Random Glucose 108 MG/DL (74-106) Calcium Level 8.3 MG/DL (8.5-10.1) Sodium Level 142 MEQ/L (136-145) Potassium Level 3.9 MEQ/L (3.5-5.1) Chloride Level 111 MEQ/L (98-107) Carbon Dioxide Level 23.9 MEQ/L (21.0-32.0) Anion Gap 7 MEQ/L (5-15) Estimat Glomerular Filtration Rate 67 ML/MIN (>89) . Result Diagram: 09/21/1725 09/21/1725 Microbiology Microbiology Date/Time Source Procedure Growth Status 09/12/17 16:15 Urine Catheterized Urine Urine Culture - Final Pseudomonas Aeruginosa Complete . Imaging Last Impressions Head CT 09/18/17 0000 Signed Impressions: Service Date/Time: Monday, September 18, 2017 02:06 - CONCLUSION: No significant change has occurred. Terrence Kennedy MD Carotid Artery Ultrasound 09/18/17 0000 Signed Impressions: Service Date/Time: Monday, September 18, 2017 16:38 - CONCLUSION: 1. Moderate visible plaque without hemodynamically significant stenosis. Mildly enlarged lymph node on the left in the carotid bifurcation. Jaya Johnson MD Brain MRI 09/17/17 1316 Signed Impressions: Service Date/Time: Sunday, September 17, 2017 11:23 - CONCLUSION: Acute infarction right corpus callosum. Nonspecific white matter changes. Bilateral subdural hygromas. Simeon Goode MD Humerus X-Ray 09/17/17 0000 Signed Impressions: Service Date/Time: Sunday, September 17, 2017 16:31 - CONCLUSION: 1. Fracture of the right humeral neck nondisplaced Jose Rudd MD Chest X-Ray 09/17/17 0000 Signed Impressions: Service Date/Time: Sunday, September 17, 2017 11:00 - CONCLUSION: 1. Cardiomegaly and findings of vascular congestion without overt failure. This is new when compared with the prior exam. 2. Right humeral neck fracture Jose Rudd MD Abdomen X-Ray 09/17/17 0000 Signed Impressions: Service Date/Time: Sunday, September 17, 2017 11:05 - CONCLUSION: No concerning radiopaque foreign bodies identified within the abdomen. Phillip Franco MD Cervical Spine CT 09/12/17 0000 Signed Impressions: Service Date/Time: Tuesday, September 12, 2017 18:18 - CONCLUSION: Nondisplaced hairline fracture of the right and left lateral masses of C2. Phillip Lua MD . Assessment and Plan Disease Oriented Problem List: (1) Subdural hematoma (2) UTI (urinary tract infection) (3) Altered mental status (4) Hypertension (5) C2 cervical fracture (6) Fall (7) Major neurocognitive disorder due to another medical condition (8) Mild major neurocognitive disorder due to traumatic brain injury with behavioral disturbance Symptom Scale: (1) Confusion 0-10 Scale: Unable to quantify (alert to self and date only.) (2) Pain, generalized 0-10 Scale: Unable to quantify (generalized neck, shoulder and head pain.) Pertinent Non-Medical Issues Psychosocial:Born in [place], moved to [place] 25 years ago. 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 She had one daughter from whom she is now estranged. The daughter lives in [place] but otherwise the patient will provide no information regarding the daughters identification. She has been to her Reggie for over 60 years and has been his caregiver for the last few years until his at the [facility] care [facility] recently. . Spiritual: She has no spiritual affiliations. . Legal: At this time the patient has been deemed capacitated to make her own decisions however has designated her [id number], Annabel Nova as her healthcare surrogate. Ethical issues impacting care: None at this time. . Important Contacts Friend- Carlos Eduardo Johnson, . Sister in law- Annabel Nova . Healthcare surrogate Daughter: Evelia Oropeza [place], [place] . Prognosis Her prognosis is poor. She is of advanced age and frail. She is having increased falls and has been confused and unable to independently make decisions. 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 She is becoming less able to care for herself and may require [id number] care once stable from this injury. She is at risk for repeated hospitalizations and continued decline. . Code Status: No Code Plan PLAN: Legal decision maker: At this time the patient has been deemed capacitated to make her own decisions however has designated her [id number], Annabel Nova as her healthcare surrogate. Goals: Comfort oriented. CODE STATUS: DNR SYMPTOMS: * Confusion: Lethargic and more confused today after undergoing physical, occupational and speech therapy treatment. Likely multifactorial to include head injury, CVA, mild dementia, ICU admission/delirium. She has little memory of events during hospitalization. * Pain: Pain sources to include head trauma, hairline fracture in C2, needing to wear c-collar, right humeral nondisplaced neck fracture, recent fall, bedbound status. Hydrocodone/acetaminophen 5/325 one-two tab every 4 hours as needed is available, but none have been given. Pain controlled on scheduled IV Tylenol. Palliative care will continue to follow the patient during hospital course as condition evolves, to assist patient/decision-maker with understanding of their medical conditions, weighing benefits/burdens of treatment options, for clarification of goals of treatment. Additionally will assist with any symptoms of palliative concern. . Attestation To help prompt me to consider important information that might be impacting today's encounter and assessment, information from prior notes written by myself or my colleagues may have been "brought forward" into today's note. My signature on this note, however, is an attestation that I personally performed the exam, history, and/or decision-making noted today, and, unless otherwise indicated, the interactions with patient, family, and staff as well as the review of records all occurred today. I also attest that the listed assessment and stated plan reflect my best clinical judgment today based on the combination of historical information, prior notes, and today's exam/ interactions. When time spent is documented, it refers only to time spent today by the signer, or if indicated, combined time spent today by collaborating physician/nurse practitioner. . Lay Crooks Sep 21, 2017 14:46
[2017-09-21] MEDS: HEPARIN-D5W 25,000 U/250 ML 250 ML IV PRN (15:50)
[2017-09-21 18:31] LABS: APTT (PATIENT) 38.7 SEC (24.3-30.1)
--- NOTE | 2017-09-21 19:01 | HHI.CCPN ---
Subjective Brief History HISTORY OF PRESENT ILLNESS The patient is an 87-year-old female who presents to the emergency department after a fall. The patient does have some baseline dementia and was somewhat of a poor historian. The patient was noted to be in front of her yard, walking her neighbor's dog when the dog pulled the patient. The patient lost her balance hit her face first into a car. According to reports there was no loss of consciousness. The patient does not complain of any significant pain, was noted to have some abrasions to her right arm, right forehead, right elbow. She is otherwise in severe hypertension emergency with a systolic of over 200 and diastolic over 100. She is denying any current numbness or headaches. Patient was worked up and diagnosed with the hairline C2 fracture through the lateral masses C-collar has been applied then according to neurosurgery patient will be treated accordingly 24 Hour Review/Hospital Course 09/13/17 Patient is neurologically fully intact although with some degree of cognitive deficit consistent with age Motoric fully intact C-collar in place Discussed with neurosurgery 09/14/17 Unsure whether she had confusion overnight or is just noncooperative Will transfer to floor with sitter and adjust her agitation medication C2 fracture remains nonoperative Patient will require placement 09/16/17 Patient returned to the ICU with witnessed seizure activity, resolved with Ativan 09/17/17 Patient opens eyes to voice, mumbles, more somnolent this morning Started on amiodarone drip yesterday for atrial fibrillation She scheduled for an MRI of the brain today 09/18 MRI shows CVA corpus callosum area neuro intact in AM heparin gtt as per neurology 09/19 awake ,alert talkative-according to RN wishes to be DNR intact neuro passed speech/swallow working with PT 09/20 patient is now DNR -she has full capacity to make her own decisions HR controlled remains intact neuro ortho input appreciated-for humerus fx 09/21/2017 Pt is A & O x 3. No distress noted. No complaints offered. CM shows sinus rhythm. Remains on Heparin gtt. Pt is stable and awaiting transfer to a med/surg floor. (Samanta Trujillo) Objective Vital Signs Date Time Temp Pulse Resp B/P (MAP) Pulse Ox O2 Delivery O2 Flow Rate FiO2 09/21/17 18:00 97.3 63 17 148/68 (94) 92 09/21/17 08:29 Nasal Cannula 2.00 09/21/17 07:00 96 Intake and Output 09/21/17 09/21/17 09/22/17 08:00 16:00 00:00 Intake Total 740 ml 377 ml 470 ml Output Total 850 ml 300 ml Balance -110 ml 377 ml 170 ml (Samanta Trujillo) Result Diagram: 09/21/1762409/21/1725 Objective Remarks GENERAL: This is a 87 year old female lying in bed. No distress noted. SKIN: Warm and dry. HEAD: Atraumatic. Normocephalic. EYES: PERRLA. ENT: No nasal bleeding or discharge. Mucous membranes pink and moist. NECK: [place] J collar in place. Trachea midline. No JVD. CARDIOVASCULAR: Regular rate and rhythm. RESPIRATORY: No accessory muscle use. Lungs are clear to auscultation. Breath sounds equal bilaterally. GASTROINTESTINAL: BS + x 4 quads. Abdomen soft, non-tender, nondistended. . MUSCULOSKELETAL: Extremities without cyanosis, or edema. MAEW. NEUROLOGICAL: Awake and alert. Normal speech. (Samanta Trujillo) Urinary Catheter Assessment Urinary Catheter: Yes Assessment to: Continue Barnes insert reason: Obstruction/Retention (Samanta Trujillo) Assessment and Plan Assessment: (1) Major neurocognitive disorder due to another medical condition ICD Code: F02.80 - Dementia in other diseases classified elsewhere without behavioral disturbance Status: Acute (2) Mild major neurocognitive disorder due to traumatic brain injury with behavioral disturbance ICD Code: S06.9X9S - Unspecified intracranial injury with loss of consciousness of unspecified duration, sequela; F02.81 - Dementia in other diseases classified elsewhere with behavioral disturbance Status: Acute (3) Subdural hematoma ICD Code: I62.00 - Nontraumatic subdural hemorrhage, unspecified Status: Acute (4) UTI (urinary tract infection) ICD Code: N39.0 - Urinary tract infection, site not specified Status: Acute (5) Altered mental status ICD Code: R41.82 - Altered mental status, unspecified Status: Acute (6) C2 cervical fracture ICD Code: S12.100A - Unspecified displaced fracture of second cervical vertebra , initial encounter for closed fracture Status: Acute (7) CVA (cerebral vascular accident) ICD Code: I63.9 - Cerebral infarction, unspecified Status: Acute (8) Fall ICD Code: W19.XXXA - Unspecified fall, initial encounter Status: Acute Plan [place]: This is a 87 year old female who fell from a standing position striking her head on a parked car. No LOC. 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 seizure. Return to ICU for closer monitoring. 09/16: Afib. HR = 140 09/17: MRI = infarct. Heparin gtt per Maryana Consults: Neurosurgery. Orthopedics. Neurology. Rehab medicine. NPsych. Cardiology. Palliative. Case management. Code status: DNR Diet: PUREED w/ HONEY thick liquids. Encourage good po intake. Pulmonary: Good pulmonary toileting. IS at bedside and pt instructed regarding importance. PAIN Management: [place] 5 mg q 4h, IV Ofirmev q6 Activity: OOB. PT and OT ordered. GI prophylaxis: Pepcid 10 mg BID. Bowel regimen: Summer-colace, MOM. Miralax, PRN Lactulose. LBM: 09/16 Maintain barnes cath due to retention. DVT prophylaxis: Mechanical VTE with SCDs. Chemical management with Heparin gtt. HTN: Vasotec 5mg QD, Verapamil 240mg BID (home meds) Vasotec IV PRN. Hydralazine 20 q 4h. ABX: Cefepime. 09/12: urine - Pseudomonas DC Planning: Case management consulted for assistance with final discharge disposition. Pt will need placement. PT recommends rehab. Emotional support provided to patient at bedside and plan of care discussed. Discussed with RN at bedside. Discussed pt condition and plan of care with collaborating trauma surgeon. Patient is hemodynamically stable and being managed on the med/surg floor. The trauma team will round each day, and evaluate plan of care on a daily basis. (Samanta Trujillo) Remarks Seen and examined the nurse practitioner, remains awake alert, physical therapy , heparin drip, discussed with neurologist need for anticoagulation ,d/c planning (Fozia Decker MD) Problem Qualifiers (1) UTI (urinary tract infection): Qualified Codes: N39.0 - Urinary tract infection, site not specified; R31.9 - Hematuria, unspecified (2) Altered mental status: Qualified Codes: R41.82 - Altered mental status, unspecified (3) C2 cervical fracture: Qualified Codes: S12.101A - Unspecified nondisplaced fracture of second cervical vertebra, initial encounter for closed fracture (4) Fall: Qualified Codes: W19.XXXA - Unspecified fall, initial encounter Samanta Trujillo Sep 21, 2017 19:01 Fozia Decker MD Sep 21, 2017 20:05
[2017-09-21] MEDS ORDERED: ARTIFICIAL TEARS OPTH SOLN 15 ML BTL EACH EYE PRN (19:15)
[2017-09-22] VITALS (7 sets, daily range): BP systolic 142–173; BP diastolic 63–72; PULSE 62–80; RESP 17–21; TEMP 96.3–99.6; O2SAT 95–97
[2017-09-22 02:00] LABS: AUTOMATED NEUTROPHIL # 9.6 TH/MM3 (1.8-7.7); BASOPHIL # 0.1 TH/MM3 (0-0.2); BASOPHIL % 0.5 % (0.0-2.0); EOSINOPHIL # 0.5 TH/MM3 (0-0.4); EOSINOPHIL % 4.1 % (0.0-4.0); HEMATOCRIT 30.6 % (35.0-46.0); HEMO FLAGS DIFF FINAL; LYMPH % 6.6 % (9.0-44.0); LYMPHOCYTE # 0.8 TH/MM3 (1.0-4.8); MEAN CELL VOLUME 88.5 FL (80.0-100.0); MEAN CORPUSCULAR HEMOGLOBIN 29.4 PG (27.0-34.0); MEAN CORPUSCULAR HGB CONC 33.2 % (32.0-36.0); MONO % 13.9 % (0.0-8.0); NEUT % 74.9 % (16.0-70.0); PLATELET COUNT 423 TH/MM3 (150-450); RED BLOOD COUNT 3.46 MIL/MM3 (4.00-5.30); RED CELL DISTRIBUTION WIDTH 15.1 % (11.6-17.2); WHITE BLOOD COUNT 12.8 TH/MM3 (4.0-11.0)
[2017-09-22 02:11] LABS: APTT (PATIENT) 56.9 SEC (24.3-30.1)
[2017-09-22 02:29] LABS: BICARBONATE 26.6 MEQ/L (21.0-32.0); POTASSIUM 4.1 MEQ/L (3.5-5.1)
[2017-09-22] MEDS: ACETAMINOPHEN 1000 MG/100 ML 100 ML IV SCH ×2 (05:26→09:13)
[2017-09-22] MEDS: DOCUSATE SODIUM 50 MG/SENNA 8.6 MG TAB PO SCH ×2 (09:04→22:25)
[2017-09-22] MEDS: POLYETHYLENE GLYCOL 17 GM PKG PO SCH (09:05)
[2017-09-22] MEDS: FAMOTIDINE 20 MG TAB PO SCH ×2 (09:05→22:25)
[2017-09-22] MEDS: ENALAPRIL MALEATE 5 MG TAB PO SCH (09:05)
[2017-09-22] MEDS: VERAPAMIL HCL 120 MG TAB PO SCH ×2 (09:05→22:24)
[2017-09-22] MEDS: MAGNESIUM HYDROXIDE SUSP 30 ML CUP PO SCH ×2 (09:05→21:00)
[2017-09-22] MEDS: BACITRACIN TOP OINT 15 GM TUBE TOP SCH ×2 (09:09→22:25)
[2017-09-22] MEDS: CEFEPIME INJ 1,000 MG in SODIUM CHLORIDE 0.9% INJ 100 ML IV SCH ×2 (09:12→22:25)
[2017-09-22] MEDS: SODIUM CHLOR 0.9% 1000 ML INJ 1,000 ML IV SCH (09:13)
[2017-09-22 10:25] LABS: APTT (PATIENT) 45.7 SEC (24.3-30.1)
[2017-09-22] MEDS ORDERED: ACETAMINOPHEN 325 MG TAB PO PRN (10:45)
--- NOTE | 2017-09-22 10:52 | HHI.PR ---
Subjective Subjective Notes Alert, no complaints Transition to Eliquis today- DC heparin gtt Objective Vitals/I&O Vital Signs Date Time Temp Pulse Resp B/P (MAP) Pulse Ox O2 Delivery O2 Flow Rate FiO2 09/22/17 09:23 Nasal Cannula 3.00 09/22/17 08:00 99.6 63 21 148/65 (92) 96 09/21/17 22:15 96 Labs Laboratory Tests Test 09/21/17 18:08 09/22/17 01:24 09/22/17 09:47 Activated Partial Thromboplast Time 38.7 56.9 45.7 White Blood Count 12.8 Red Blood Count 3.46 Hemoglobin 10.2 Hematocrit 30.6 Mean Corpuscular Volume 88.5 Mean Corpuscular Hemoglobin 29.4 Mean Corpuscular Hemoglobin Concent 33.2 Red Cell Distribution Width 15.1 Platelet Count 423 Mean Platelet Volume 7.9 Neutrophils (%) (Auto) 74.9 Lymphocytes (%) (Auto) 6.6 Monocytes (%) (Auto) 13.9 Eosinophils (%) (Auto) 4.1 Basophils (%) (Auto) 0.5 Neutrophils # (Auto) 9.6 Lymphocytes # (Auto) 0.8 Monocytes # (Auto) 1.8 Eosinophils # (Auto) 0.5 Basophils # (Auto) 0.1 CBC Comment DIFF FINAL Differential Comment Blood Urea Nitrogen 27 Creatinine 0.67 Random Glucose 94 Calcium Level 8.1 Sodium Level 142 Potassium Level 4.1 Chloride Level 109 Carbon Dioxide Level 26.6 Anion Gap 6 Estimat Glomerular Filtration Rate 83 Date/Time Source Procedure Growth Status 09/12/17 16:15 Urine Catheterized Urine Urine Culture - Final Pseudomonas Aeruginosa Complete Radiology Last Impressions Head CT 09/12/17 0000 Signed Impressions: Service Date/Time: Tuesday, September 12, 2017 18:18 - CONCLUSION: 1. 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 2. No acute hemorrhage. Phillip Lua MD Chest X-Ray 09/12/17 0000 Signed Impressions: Service Date/Time: Tuesday, September 12, 2017 20:19 - CONCLUSION: No evidence of acute cardiopulmonary disease. Phillip Lua MD Cervical Spine CT 09/12/17 0000 Signed Impressions: Service Date/Time: Tuesday, September 12, 2017 18:18 - CONCLUSION: Nondisplaced hairline fracture of the right and left lateral masses of C2. Phillip Lua MD Narrative Exam GENERAL: 87-year-old well-nourished, well developed female lying in bed with cervical collar in place. SKIN: Warm and dry. HEAD: Normocephalic. EYES: PERRL. ENT: No nasal bleeding or discharge. Mucous membranes pink and moist. [place] J collar in place. NECK: Trachea midline. No JVD. CARDIOVASCULAR: Regular rate and rhythm. RESPIRATORY: No accessory muscle use. Lungs clear and diminished to auscultation. Breath sounds equal bilaterally. GASTROINTESTINAL: Abdomen soft, non-tender, nondistended. + BS. MUSCULOSKELETAL: Extremities without cyanosis, +1 generalized edema noted. MAEW , + perfused NEUROLOGICAL: Awake and alert. Normal speech. A/P Assessment and Plan [place]: Fell from the standing position striking her face on a parked car. No LOC. 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 ? seizure. Was unresponsive. 09/16: Afib RVR 09/17: MRI = infarct. Heparin gtt per Mijares Diet: Pureed w/ honey thick liquids. Pulm: IS Pain: [place], Tylenol. Activity: OOB. PT and OT ordered GI: Pepcid Bowel: Summer-colace, MOM. Miralax, PRN Lactulose. LBM: 09/16 . Added Dulcolax [place] QD DVT: SCDs, Heparin gtt Concussion Supportive care Avoid second head injury Post-concussive education Neuropsychology consulted C2 hairline fx Neurosurgery consulted Nonoperative management Maintain cervical collar Pain control Follow-up as outpatient OOB- PT ordered UTI, Urinary retention 09/12: Urine-Pseudomonas ABX: Cefepime Continue Cline catheter Low grade fevers overnight Afib RVR Cardiology consulted Verapamil PO Recommends if more Afib with RVR then may need Amio Po, but currently controlled well Converted to SR on IV Amiodorone HTN Vasotec 5mg QD Hydralazine PRN Vasotec PRN CVA Neurology consulted Neuro checks EEG negative for seizures No seizure activity Neuro recommends full anticoagulation- Trauma OK for full anticoagulation Add Eliquis 2.5mg BID DC Heparin gtt Dementia Palliative care consulted Haldol 4mg q6H Risperidone 0.5 BID CM consulted to assist with DC planning. Plan to DC to SNF in 1-2 days. Raquel Wayne [employer] Sep 22, 2017 10:52
[2017-09-22] MEDS: BISACODYL 10 MG SUPP RECTAL SCH (11:22)
[2017-09-22] MEDS: HEPARIN-D5W 25,000 U/250 ML 250 ML IV PRN (11:24)
--- NOTE | 2017-09-22 14:00 | HHI.NSPN ---
(Noa Dueñas) Note Status Status: Progress Note (Noa Dueñas) Interval History Interval History The patient is a 87-year-old female, who has a history of arterial hypertension, chronic myelocytic leukemia, prior hysterectomy and a left shoulder arthroplasty, dementia, who was brought to the emergency department. Unfortunately she is confused and is unable to explain what happened. She has not accompanied by anybody. She provides inconsistent answers. The history is obtained from the chart and from the emergency room physician. Apparently her who also has dementia was missing and senior alert was activated. The patient reportedly was outside speaking with a neighbor when she fell after she tripped on the dog leash. She landed face first, over a parked car. There was not reported loss of consciousness. There was no seizure activity seen. No tonic/clonic movements. No incontinence of stool or urine. No tongue biting. The patient was moving all four extremities. Upon arrival but she was confused. CT of the brain show bilateral chronic subdural hygromas, with 2 mm of midline shift. CT of the cervical spine show bilateral lateral mass fractures of C1. The patient was found to have a urinary tract infection. She was hemodynamically stable. A neurosurgical consultation was requested. 09/14: became delirious last night and reportedly had a fall. currently drowsy following Haldol. 09/15: awake, moves all four extremities, mildly confused. 09/16: Halicat this morning following episode of ?seizures and unresponsiveness according to nursing staff. Ativan 1 mg given. pt was seen as she was being wheeled down to CT. CT stable b/l subdural hygromas, no acute findings. 09/17: opens eyes, not following commands. neurology following. 09/18 patient currently denies any headache 09/19 patient denies any pain or headache. She wishes to be with her . She continues on heparin and amiodarone gtt 09/20: awake, confused speech and hallucinating, denies cervical pain. 09/21: pleasantly confused. right arm in sling for humerus fracture. 09/22: no acute events overnight, remains pleasantly confused. denies neck pain. moves all four extremities, right arm in sling. (Noa Dueñas) Labs, Micro, & Vital Signs Results Date Time Temp Pulse Resp B/P (MAP) Pulse Ox O2 Delivery O2 Flow Rate FiO2 09/22/17 12:00 98.2 65 20 151/70 (97) 96 09/22/17 09:23 Nasal Cannula 3.00 09/22/17 08:00 99.6 63 21 148/65 (92) 96 09/22/17 04:03 97 Nasal Cannula 2.00 09/22/17 04:00 98.8 72 20 151/67 (95) 96 09/22/17 00:00 98.2 68 20 142/63 (89) 95 09/21/17 22:15 Nasal Cannula 2.00 96 09/21/17 20:00 97.0 67 20 186/79 (114) 97 09/21/17 18:00 97.3 63 17 148/68 (94) 92 09/21/17 16:00 56 09/21/17 16:00 98.0 56 16 151/66 (94) 95 09/23/17 07:00 Output Total 500 ml Balance -500 ml Constitutional Vital Signs Date Time Temp Pulse Resp B/P (MAP) Pulse Ox O2 Delivery O2 Flow Rate FiO2 09/22/17 12:00 98.2 65 20 151/70 (97) 96 09/22/17 09:23 Nasal Cannula 3.00 09/22/17 08:00 99.6 63 21 148/65 (92) 96 09/22/17 04:03 97 Nasal Cannula 2.00 09/22/17 04:00 98.8 72 20 151/67 (95) 96 09/22/17 00:00 98.2 68 20 142/63 (89) 95 09/21/17 22:15 Nasal Cannula 2.00 96 09/21/17 20:00 97.0 67 20 186/79 (114) 97 09/21/17 18:00 97.3 63 17 148/68 (94) 92 09/21/17 16:00 56 09/21/17 16:00 98.0 56 16 151/66 (94) 95 09/23/17 07:00 Output Total 500 ml Balance -500 ml (Noa Dueñas) Review of Systems Constitutional: DENIES: Fever Cardiovascular: DENIES: Chest pain Musculoskeletal: DENIES: Neck pain Neurologic: DENIES: Paresthesias Psychiatric: COMPLAINS OF: Confusion (Noa Dueñas) Physical Exam Ms Oropeza is awake, resting comfortably. Pleasantly confused, smiling. follows simple commands. CN: pupils equal, facial motor symmetric, tongue is midline Neck: [place] collar in place, intact Motor: moves left upper and b/l LE's, right upper extremity in sling Sensory: reports intact to light touch x 4 cerebellar exam is unremarkable (Noa Dueñas) Ms Oropeza is awake. Pleasantly confused, smiling. follows simple commands. CN: pupils equal, facial motor symmetric, tongue is midline Face symmetrical Neck: [place] collar in place, intact Motor: moves left upper and b/l LE's, right upper extremity in sling Sensory: reports intact to light touch cerebellar exam is unremarkable (Greyson Rojas MD) Medications Current Medications Current Medications Medications (Trade) Dose Ordered Sig/Ady Route PRN Reason Start Time Stop Time Status Last Admin Dose Admin Sodium Chloride (NS Flush) 2 ml UNSCH PRN IV FLUSH FLUSH AFTER USING IV ACCESS 09/12/17 20:15 09/14/17 00:15 Acetaminophen/ Hydrocodone Bitart ([place] 5-325 Mg) 1 tab Q4H PRN PO PAIN SCALE 6-10 09/12/17 20:15 Ondansetron HCl (Zofran Inj) 4 mg Q6H PRN IV PUSH NAUSEA OR VOMITING 09/12/17 20:15 Bacitracin (Baciguent Oint) 1 applic BID TOP 09/12/17 21:00 09/22/17 09:09 Senna/Docusate Sodium (Summer-Colace) 1 tab BID PO 09/13/17 09:00 09/22/17 09:04 Lactulose (Lactulose Liq) 30 ml DAILY PRN PO No BM in 2 days 09/13/17 07:15 Polyethylene Glycol (Miralax) 17 gm DAILY PO 09/13/17 09:00 09/22/17 09:05 Enalapril Maleate (Vasotec) 5 mg DAILY PO 09/13/17 09:45 09/22/17 09:05 Verapamil HCl (Isoptin) 240 mg BID PO 09/13/17 09:45 09/22/17 09:05 Enalaprilat (Vasotec Inj) 1.25 mg Q6H PRN IV PUSH SBP>160, DBP>90 09/15/17 07:30 09/19/17 18:31 Famotidine (Pepcid) 10 mg BID PO 09/15/17 09:00 09/22/17 09:05 Hydralazine HCl (Apresoline Inj) 20 mg Q4H PRN IV PUSH SBP>170; DBP>105 09/16/17 11:45 09/21/17 00:16 Magnesium Hydroxide (Milk Of Magnkelli Liq) 30 ml BID PO 09/19/17 09:00 09/22/17 09:05 Cefepime HCl 1000 mg/Sodium Chloride 100 ml @ 200 mls/hr Q12H IV 09/19/17 11:00 09/22/17 09:12 Artificial Tears (Tears Naturale Opth Soln) 1 drop Q4H PRN EACH EYE dryness 09/21/17 19:15 Acetaminophen (Tylenol) 650 mg Q4H PRN PO Pain 1-5 09/22/17 10:45 Bisacodyl (Dulcolax Supp) 10 mg DAILY RECTAL 09/22/17 10:45 09/22/17 11:22 Apixaban (Eliquis) 2.5 mg BID PO 09/22/17 21:00 (Noa Dueñas) Medical Decision Making MDM Remarks 87 year old female fall at home, C2 hairline fracture through lateral masses b/l chronic subdural hygromas acute mental status change, ?seizures, EEG neg for seizures 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 Fib cont neuro checks cont therapy and rehab efforts cont nonop mgt with [place] collar for C2 fracture ok to dc to SNF/rehab from NRS standpoint (Noa Dueñas) Attending Statement Continue neuro checks. Pulmonary.. Continue aggressive pulmonary toilette, nasotracheal suction, and breathing treatments with nebulizers. Nutrition. NPO Renal. monitor closely urine output, BUN and creatinine Endocrine. Monitor serial Acu checks and SSI as needed in detail ID monitor for signs of infection Protonix for stress ulcer prophylaxis [place] hose and SCD's for DVT prophylaxis. The exam, history, and the medical decision-making described in the above note were completed with the assistance of the mid-level provider. I reviewed and agree with the findings presented. I attest that I had a [id number] encounter with the patient on the same day, and personally performed and documented my assessment and findings in the medical record. (Greyson Rojas MD) Noa Dueñas Sep 22, 2017 14:00 Greyson Rojas MD Sep 24, 2017 12:17
[2017-09-22] MEDS: APIXABAN 2.5 MG TABLET PO SCH (22:24)
[2017-09-23] VITALS: BP 152/70; PULSE 79; RESP 17; TEMP 96.5; O2SAT 95
[2017-09-23 04:00] VITALS: BP 182/78; PULSE 77; RESP 18; TEMP 97.7; O2SAT 96
[2017-09-23 05:05] LABS: BASOPHIL % 0.4 % (0.0-2.0); EOSINOPHIL # 0.5 TH/MM3 (0-0.4); EOSINOPHIL % 3.8 % (0.0-4.0); HEMATOCRIT 34.7 % (35.0-46.0); HEMO FLAGS DIFF FINAL; LYMPH % 8.8 % (9.0-44.0); LYMPHOCYTE # 1.1 TH/MM3 (1.0-4.8); MEAN CELL VOLUME 89.4 FL (80.0-100.0); MEAN CORPUSCULAR HEMOGLOBIN 28.6 PG (27.0-34.0); PLATELET COUNT 449 TH/MM3 (150-450); RED BLOOD COUNT 3.88 MIL/MM3 (4.00-5.30); RED CELL DISTRIBUTION WIDTH 15.3 % (11.6-17.2); WHITE BLOOD COUNT 12.3 TH/MM3 (4.0-11.0)
[2017-09-23 05:20] LABS: BICARBONATE 25.2 MEQ/L (21.0-32.0); POTASSIUM 4.2 MEQ/L (3.5-5.1)
--- NOTE | 2017-09-23 06:20 | RADRPT ---
EXAM DATE/TIME: 09/23/2017 05:46 [facility] COMPARISON: CHEST SINGLE AP, September 17, 2017, 11:00. INDICATIONS : Short of breath. MEDICAL HISTORY : Hypertension. Chronic myelogenous leukemia. Chemotherapy. Blood transfusion. SURGICAL HISTORY : Hysterectomy. Left shoulder surgery. ENCOUNTER: Subsequent ACUITY: 1 week PAIN SCORE: 0/10 LOCATION: Bilateral chest FINDINGS: Interval removal of [place] catheter. There is new hazy opacity right mid and lower lung with loss of delineation of the right hemidiaphragm. Persistent consolidation left lower lung. The heart is n ormal size. Stable right thoracolumbar scoliosis. CONCLUSION: 1. Persistent left lower lobe consolidation. 2. Interval development of opacity in the right lower chest suggesting a combination of pleural effus ion and consolidative infiltrate. Pedro Spears MD on September 23, 2017 at 6:17 Board Certified Radiologist. This report was verified electronically.
[2017-09-23 08:00] VITALS: BP_SYST 146; BP_SYST 195; BP_DIAS 70; BP_DIAS 80; PULSE 62; PULSE 79; RESP 18; TEMP 97.5; TEMP 98.1; O2SAT 96
--- NOTE | 2017-09-23 08:37 | HHI.PR ---
Subjective Remarks much better on 2.5 bid eliquis Objective Vital Signs Date Time Temp Pulse Resp B/P (MAP) Pulse Ox O2 Delivery O2 Flow Rate FiO2 09/23/17 04:00 97.7 77 18 182/78 (112) 96 09/23/17 00:00 96.5 79 17 152/70 (97) 95 09/22/17 20:00 96.3 80 17 173/72 (105) 95 09/22/17 19:00 Nasal Cannula 2.00 09/22/17 16:00 96.8 62 20 147/70 (95) 96 09/22/17 12:00 98.2 65 20 151/70 (97) 96 09/22/17 09:23 Nasal Cannula 3.00 I/O 09/22/17 09/22/17 09/22/17 09/23/17 09/23/17 09/23/17 07:00 15:00 23:00 07:00 15:00 23:00 Intake Total 380 ml 852 ml 132 ml Output Total 650 ml 500 ml 350 ml 990 ml Balance -270 ml 352 ml -218 ml -990 ml Intake Oral 25 ml 120 ml IV Total 355 ml 852 ml 12 ml Output Urine Total 650 ml 500 ml 350 ml 990 ml Bladder Scan Volume Amount # Bowel Movements 0 0 0 Result Diagram: 09/23/1741509/23/17415 Objective Remarks awake follows commands ox3 moves ble well Assessment and Plan Assessment and Plan imp unclear if actually had sz or not oob PT hx AD no sedatives eeg and labs ok ok to floor pneumonia risk 09/17/17 mri shows small r radha cva eeg neg she evidently acc to nursing has afib and i would rec starting anticoagulation on her 09/20/17 she is alert and oriented an oneal of now ok to make her own decisions she does not want hospice she wants dnr full active treatment she had small r radha cva and echo nl x la 44 us carotid neg on hep could change to eliquis? or coumadin defer to med team she should get oob and go to rehab neurowise 09/23/17 doing well neurowise i am glad she is on eliquis although theoretically should be on 5 bid based on wt and renal fxt but will defer to med team ready for rehab i dw dr loaiza he wants to keep the hard collar on for another 8 weeks Jose Mijares MD Sep 23, 2017 08:37
[2017-09-23] MEDS: VERAPAMIL HCL 120 MG TAB PO SCH (08:39)
[2017-09-23] MEDS: BACITRACIN TOP OINT 15 GM TUBE TOP SCH (08:39)
[2017-09-23] MEDS: FAMOTIDINE 20 MG TAB PO SCH (08:39)
[2017-09-23] MEDS: APIXABAN 2.5 MG TABLET PO SCH (08:39)
[2017-09-23] MEDS: MAGNESIUM HYDROXIDE SUSP 30 ML CUP PO SCH (08:39)
[2017-09-23] MEDS: POLYETHYLENE GLYCOL 17 GM PKG PO SCH (08:39)
[2017-09-23] MEDS: BISACODYL 10 MG SUPP RECTAL SCH (08:39)
[2017-09-23] MEDS: DOCUSATE SODIUM 50 MG/SENNA 8.6 MG TAB PO SCH (08:39)
--- NOTE | 2017-09-23 08:44 | HHI.PR ---
Neuropsych Emotional Emotional: Intact: Emotional, Anxious/Fearful, Depressed/Sad, Hostile/Resentful , Irritable/Angry/Frustrate, Labile, Constricted/Blunted Behavior Behavior: Intact: Coping/Acceptance, Cooperative w/ Treatment, Motivation Cognitive Cognitive: Mild: Cognitive, Attention/Concentration, Confused/Orientation, Insight/Awareness, Judgement/Problem-Solving, Memory Psychosocial Psychosocial: Unable to Asses: Psychosocial, Family/Other Adjustment, Realistic Expectation, Self-Esteem/Confidence Progress Notes/Response to Tx Contents of Sessions: Adjustment Time with Patient: 15 minutes Premorbid psychological status Premorbid Cognitive, Emotional and Behavioral Status: Stable. 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 The patient has no prior psychiatric difficulties, as described above. Substance abuse history is unremarkable. Behavioral Reactions of Patient and Family/Support System: Stable. The patient s family is experiencing ongoing issues of adjustment given the nature of the injury, and this aspect of recovery will require ongoing monitoring. Emotional/Behavioral Status of Patient and Family/Support System: Stable. Pertinent issues, if appropriate to this patients clinical care, are described in detail above. Maximizing acute care outcome It is recommended that the patient be monitored for emergent behavioral impulsivity as the medical condition evolves. This patients neuropathological challenges may limit her rehabilitation potential going forward, and these challenges will require specialized therapeutic skills to maximize outcome. Additionally, the patients family is experiencing ongoing issues of adjustment given the traumatic nature of the injury, and they may benefit from ongoing psychological assistance. At this point in the recovery process, the patient does have cognitive capacity as the patient seems able to understand a situation and its likely consequences, and she is able to manipulate information rationally, taking into consideration her advanced age and medical complications. Cognitive capacity will be assessed throughout the recovery process. Anticipated Problems Ongoing areas of concern will include behavioral impulsivity, lack of insight and judgment, which is expected to improve with time and treatment. Presently , the patient is lethargic and beginning to more consistently follow commands. Treatment Plan This clinician will continue to follow with you throughout the course of this patients acute care treatment, and I will be available to meet with the patient s family/support system to facilitate their understanding and the ongoing care of their family member. The goals of neuropsychological intervention shall be both educational and supportive to the family/support system as is deemed clinically appropriate. [facility] Level: VII:Automatic-appropriate Impression This 87 year old woman with a past history of chronic SDH and recent fall on 09/12/2017, appears to have an underlying major neurocognitive disorder in addition to the sequelae associated with her recent TBI. Both conditions will need to be monitored. Diagnosis: (1) Major neurocognitive disorder due to another medical condition Status: Acute (2) Mild major neurocognitive disorder due to traumatic brain injury with behavioral disturbance Status: Acute Progress Note Narrative Ongoing follow-up of patient seen during daily trauma rounds. This is day 11 post injury. She is awake, oriented and following commands. She is on no neurobehaviorally sedating medications other than pain meds. She is [place] or higher. I will continue to follow. Johnny Shine PhD Sep 23, 2017 8:43 am
[2017-09-23] MEDS ORDERED: ENALAPRIL MALEATE 2.5 MG TAB PO SCH (09:00)
[2017-09-23 09:33] VITALS: BP 146/70; PULSE 62; RESP 18; TEMP 98.1; O2SAT 96
[2017-09-23] MEDS: CEFEPIME INJ 1,000 MG in SODIUM CHLORIDE 0.9% INJ 100 ML IV SCH (11:16)
[2017-09-23 12:00] VITALS: BP 146/79; PULSE 70; RESP 20; TEMP 97.5; O2SAT 92
[2017-09-23] MEDS ORDERED: LEVA750T9 PO (12:57)
[2017-09-23] MEDS ORDERED: ACET325T15 PO (12:57)
[2017-09-23] MEDS ORDERED: APIX2.5T PO (12:57)
[2017-09-23] MEDS ORDERED: ENAL2.5T PO (13:00)
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
[2017-09-23] MEDS: ENALAPRILAT 1.25 MG/ML VIAL IV PUSH PRN (15:49)
== END 2017-09-23 17:21 | DRG 551 ==
LOC: NEPE 17:00 → NEDA 19:15 → N03A 09-13 00:01 → N05B 09-14 20:53 → N03B 09-16 09:39 → N07A 09-21 16:47
PROVIDERS: ADMIT Surgery; ATTEND Surgery
DX: S12.101A Unspecified nondisplaced fracture of second cervical vertebra, initial encounter for closed fracture (principal); I63.9 Cerebral infarction, unspecified; G93.40 Encephalopathy, unspecified; E46 Unspecified protein-calorie malnutrition; C92.10 Chronic myeloid leukemia, BCR/ABL-positive, not having achieved remission; N39.0 Urinary tract infection, site not specified; F03.90 Unspecified dementia, unspecified severity, without behavioral disturbance, psychotic disturbance, mood disturbance, and anxiety; E87.1 Hypo-osmolality and hyponatremia; S42.253A Displaced fracture of greater tuberosity of unspecified humerus, initial encounter for closed fracture; I16.1 Hypertensive emergency; I48.91 Unspecified atrial fibrillation; D18.1 Lymphangioma, any site; T14.8XXA Other injury of unspecified body region, initial encounter; W01.198A Fall on same level from slipping, tripping and stumbling with subsequent striking against other object, initial encounter; Y92.007 Garden or yard of unspecified non-institutional (private) residence as the place of occurrence of the external cause; Y93.K1 Activity, walking an animal; I10 Essential (primary) hypertension; Z96.612 Presence of left artificial shoulder joint; R33.9 Retention of urine, unspecified; N28.9 Disorder of kidney and ureter, unspecified; Z66 Do not resuscitate
CPT/HCPCS: 36600; 70450; 70553; 71010; 72125; 73060; 74000; 76937; 80048; 80053; 81001; 82533; 82570; 82607; 82805; 83605; 83921; 83930; 83935; 84165; 84300; 84425; 84439; 84443; 84484; 85007; 85025; 85027; 85610; 85652; 85730; 86038; 86592; 87077; 87086; 87186; 87641; 93005; 93306; 93880; 94150; 95819; 96374; 96375; A9579; C9113; J0131; J0282; J0360; J0692; J0696; J1630; J1644; J1650; J2060; J2405; J7030; J7050; J7060; L0150; L0172; P9612